=== PATIENT | female | born 1965 | race Caucasian/White ===

== ENCOUNTER → 2018-06-26 01:21 | Outpatient (CLI) | payer OTHER, SELFPAY ==
[2018-06-26 17:20] LABS: HCT 42.5 % (36.0-46.0); HGB 15.1 g/dL (12.0-15.5); Mean Corp. HGB Concentration 35.5 g/dL (32.0-36.0); Mean Corpuscular Hemoglobin 31.4 pg (27.0-33.0); Mean Corpuscular Volume 88.4 fL (80-95); Platelet Count 226 x1000/uL (130-400); RBC 4.81 m/cumm (4.00-5.20); RBC Distribution Width 12.5 % (11.7-14.6); White Blood Cell Count 12.15 k/cumm (4.4-10.8)
[2018-06-26 18:21] LABS: COMMENT (LAB VIEW ONLY) 104.48 mg/dL; Microalb ug/mg Crea 6.3 ug/mg Cr
[2018-06-26 18:33] LABS: ALT 56 U/L (12-78); AST 40 U/L (15-37); Albumin 4.5 g/dL (3.4-5.0); Alkaline Phosphatase 74 U/L (46-116); Anion Gap 13.3 mmol/L (3-11); BUN 14 mg/dL (7-18); Bilirubin, Total 1.7 mg/dL (0.2-1.0); CO2 27.7 mmol/L (21.0-32.0); CREATININE 0.71 mg/dL (0.55-1.02); Calcium 9.5 mg/dL (8.5-10.1); Chloride 101 mmol/L (98-107); Cholesterol 157 mg/dL (50-200); Glucose 79 mg/dL (70-100); HDL Cholesterol 42 mg/dL (40-60); LDL CHOLESTEROL 98 mg/dL (<100); Potassium 3.4 mmol/L (3.5-5.1); Sodium 142 mmol/L (136-145); TSH (W/Ref FT4) 1.06 uIU/mL (0.358-3.74); Total Protein 7.7 g/dL (6.4-8.2); Triglyceride 160 mg/dL (30-150)
[2018-06-26 18:37] LABS: Folate > 20.0 ng/mL (8.6-20.0); Hemoglobin A1C 7.2 % (4.5-6.2)
== END ==
PROVIDERS: PCP Family Medicine; Visit Provider Family Medicine
DX: Z00.00 Encounter for general adult medical examination without abnormal findings (principal); E11.65 Type 2 diabetes mellitus with hyperglycemia; I10 Essential (primary) hypertension; E78.5 Hyperlipidemia, unspecified; R53.83 Other fatigue; G47.30 Sleep apnea, unspecified
CPT/HCPCS: 36415; 80053; 80061; 83721; 85027; 82043; 82570; 82746; 83036; 84443

== ENCOUNTER 2018-09-23 00:09 | Outpatient (CLI) | payer OTHER, SELFPAY ==
--- NOTE | 2018-09-23 08:07 | DI.MAMMO_ITS ---
SYMPTOMS/DIAGNOSIS: SCREENING, Z12.31 MAMMOGRAMS: Mammograms were interpreted according to the usual protocol including computer analysis with CAD system, tomosynthesis and C view imaging. The breast tissue is of moderate radiodensity. There is no evidence of a mass. Small densities in the lateral portion of the left breast are unchanged and may represent intramammary lymph nodes. There are no suspicious calcifications and there has been no significant interval change when compared with the prior images. SUMMARY: No evidence of malignancy, category 2. Yearly screening mammography is recommended. Breast density category B. MQSA ASSESSMENT OF FINDINGS: Negative with benign findings. Category 2. Patient will receive a letter notifying them of these results. BI-RADS category B. There are scattered areas of fibroglandular density.
== END 2018-09-23 00:29 ==
PROVIDERS: PCP Family Medicine; Visit Provider Family Medicine
DX: Z12.31 Encounter for screening mammogram for malignant neoplasm of breast (principal)
CPT/HCPCS: 77063; 77067

== ENCOUNTER 2018-10-08 01:53 | Outpatient (CLI) | payer OTHER, SELFPAY ==
[2018-10-08 08:16] LABS: Hemoglobin A1C 6.7 % (4.5-6.2)
== END 2018-10-08 02:13 ==
PROVIDERS: PCP Family Medicine; Visit Provider Family Medicine
DX: E11.65 Type 2 diabetes mellitus with hyperglycemia (principal)
CPT/HCPCS: 36415; 83036

== ENCOUNTER 2019-01-09 17:04 | Outpatient (CLI) | payer OTHER, SELFPAY ==
[2019-01-09 18:51] LABS: Hemoglobin A1C 5.4 % (4.5-6.2)
== END 2019-01-09 17:24 ==
PROVIDERS: PCP Family Medicine; Visit Provider Nurse Practitioner
DX: E11.65 Type 2 diabetes mellitus with hyperglycemia (principal)
CPT/HCPCS: 36415; 83036

== ENCOUNTER 2019-07-06 12:32 | Outpatient (CLI) | payer OTHER, SELFPAY ==
[2019-07-06 17:07] LABS: HCT 39.8 % (36.0-46.0); HGB 13.9 g/dL (12.0-15.5); Mean Corp. HGB Concentration 34.9 g/dL (32.0-36.0); Mean Corpuscular Volume 88.8 fL (80-95); Mean Platelet Volume 11.1 fL (8.0-11.0); Platelet Count 217 x1000/uL (130-400); RBC 4.48 m/cumm (4.00-5.20); RBC Distribution Width 12.3 % (11.7-14.6); White Blood Cell Count 9.99 k/cumm (4.4-10.8)
[2019-07-06 17:19] LABS: Hemoglobin A1C 6.6 % (4.5-6.2)
[2019-07-06 17:43] LABS: ALT 36 U/L (12-78); AST 19 U/L (15-37); Albumin 3.7 g/dL (3.4-5.0); Alkaline Phosphatase 83 U/L (46-116); Anion Gap 7.4 mmol/L (3-11); BUN 14 mg/dL (7-18); Bilirubin, Total 0.9 mg/dL (0.2-1.0); CO2 27.6 mmol/L (21.0-32.0); CREATININE 0.66 mg/dL (0.55-1.02); Calcium 8.8 mg/dL (8.5-10.1); Chloride 107 mmol/L (98-107); Glucose 81 mg/dL (70-100); Sodium 142 mmol/L (136-145); TSH (W/Ref FT4) 1.59 uIU/mL (0.36-3.74); Total Protein 6.4 g/dL (6.4-8.2)
== END 2019-07-06 12:52 ==
PROVIDERS: PCP Family Medicine; Visit Provider Family Medicine
DX: E11.65 Type 2 diabetes mellitus with hyperglycemia (principal); I10 Essential (primary) hypertension; R53.83 Other fatigue
CPT/HCPCS: 36415; 80053; 85027; 83036; 84443

== ENCOUNTER 2019-07-07 08:08 | Emergency (ER) | payer OTHER, SELFPAY ==
[2019-07-07] VITALS (20 sets, daily range): BP systolic 127–149; BP diastolic 66–121; PULSE 60–75; RESP 10–62; O2SAT 93–97
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
--- NOTE | 2019-07-07 08:46 | NUR.NOTE ---
Nursing Note: pt ready for CT. pt educated on plan of care. understanding verbalized.
[2019-07-07 08:51] LABS: Abs Immature Grans 0.02 k/cumm (0.0-0.09); Absolute Basophil Count 0.02 k/cumm (0.0-0.2); Absolute Eosinophil Count 0.17 k/cumm (0.0-0.7); Absolute Lymphocyte Count 2.51 k/cumm (1.2-3.4); Absolute Monocyte Count 0.43 k/cumm (0.11-0.7); Absolute Neutrophil Count 5.28 k/cumm (1.2-6.7); Basophils % 0.2; HCT 40.3 % (36.0-46.0); Immature Grans % 0.2; Lymphocytes % 29.8; Mean Corp. HGB Concentration 34.7 g/dL (32.0-36.0); Mean Corpuscular Hemoglobin 31.2 pg (27.0-33.0); Mean Corpuscular Volume 89.8 fL (80-95); Monocytes % 5.1; Neutrophils % 62.7; Platelet Count 197 x1000/uL (130-400); RBC 4.49 m/cumm (4.00-5.20); RBC Distribution Width 12.3 % (11.7-14.6); White Blood Cell Count 8.43 k/cumm (4.4-10.8)
[2019-07-07] MEDS: Acetaminophen 500 MG TAB 1000 MG PO (09:00)
[2019-07-07 09:08] LABS: Prothrombin Time 10.4 sec (9.3-11.0)
[2019-07-07 09:21] LABS: ALT 35 U/L (12-78); AST 19 U/L (15-37); Albumin 3.6 g/dL (3.4-5.0); Alkaline Phosphatase 78 U/L (46-116); Anion Gap 10.7 mmol/L (3-11); BUN 17 mg/dL (7-18); Bilirubin, Total 1.1 mg/dL (0.2-1.0); CO2 24.3 mmol/L (21.0-32.0); CREATININE 0.75 mg/dL (0.55-1.02); Calcium 9.2 mg/dL (8.5-10.1); Chloride 105 mmol/L (98-107); Glucose 139 mg/dL (70-100); Magnesium 1.7 mg/dL (1.8-2.4); Sodium 140 mmol/L (136-145); Total Protein 6.8 g/dL (6.4-8.2); Troponin I < 0.05 ng/mL (0.00-0.06)
--- NOTE | 2019-07-07 09:24 | NUR.NOTE ---
Nursing Note: pt returned from ct. resting in stretcher. no signs of distress. pt states that her dizziness has resolved.
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
--- NOTE | 2019-07-08 05:11 | NUR.NOTE ---
Nursing Note: faxed referal 07/08/19
== END 2019-07-07 10:07 | disposition home or self-care (01) ==
PROVIDERS: Emergency Provider Emergency Medicine; PCP Family Medicine
DX: R42 Dizziness and giddiness (principal); G47.30 Sleep apnea, unspecified; M54.2 Cervicalgia; V48.5XXA Car driver injured in noncollision transport accident in traffic accident, initial encounter; I10 Essential (primary) hypertension; E11.9 Type 2 diabetes mellitus without complications; Z79.84 Long term (current) use of oral hypoglycemic drugs
CPT/HCPCS: 36415; 80053; 93005; 99285; 70450; 72125; 83735; 84484; 85025; 85610; 85730; 93010

== ENCOUNTER 2019-11-15 07:35 | Outpatient (CLI) | payer OTHER, SELFPAY ==
[2019-11-16 04:03] LABS: Hemoglobin A1C 6.3 % (4.5-6.2)
== END 2019-11-15 07:55 ==
PROVIDERS: PCP Family Medicine; Visit Provider Family Medicine
DX: E11.9 Type 2 diabetes mellitus without complications (principal)
CPT/HCPCS: 36415; 83036

== ENCOUNTER → 2020-09-05 02:08 | Outpatient (CLI) | payer BC, SELFPAY ==
[2020-09-05 12:59] LABS: ALT 41 U/L (14-59); AST 19 U/L (15-37); Albumin 3.8 g/dL (3.4-5.0); Alkaline Phosphatase 108 U/L (46-116); Anion Gap 12.8 mmol/L (3-11); BUN 14 mg/dL (7-18); CO2 26.2 mmol/L (21.0-32.0); CREATININE 0.74 mg/dL (0.55-1.02); Calcium 8.9 mg/dL (8.5-10.1); Calculated LDL 82 mg/dL (<100); Chloride 104 mmol/L (98-107); Cholesterol 160 mg/dL (<200); Glucose 214 mg/dL (74-106); HDL Cholesterol 44 mg/dL (40-60); Potassium 4.2 mmol/L (3.5-5.1); Sodium 143 mmol/L (136-145); Total Protein 6.7 g/dL (6.4-8.2); Triglyceride 174 mg/dL (<150)
[2020-09-05 13:11] LABS: Hemoglobin A1C 8.7 % (<5.7)
== END ==
PROVIDERS: PCP Family Medicine; Visit Provider Family Medicine
DX: Z00.00 Encounter for general adult medical examination without abnormal findings (principal); E11.9 Type 2 diabetes mellitus without complications; Z13.220 Encounter for screening for lipoid disorders
CPT/HCPCS: 36415; 80053; 80061; 83036

== ENCOUNTER → 2020-11-23 02:58 | Outpatient (CLI) | payer BC, SELFPAY ==
[2020-11-23 08:22] LABS: Hemoglobin A1C 7.2 % (<5.7)
[2020-11-23 08:34] LABS: COMMENT (LAB VIEW ONLY) 150.09 mg/dL; Microalb ug/mg Crea 5.3 ug/mg Cr
== END ==
PROVIDERS: PCP Family Medicine; Visit Provider Family Medicine
DX: E11.65 Type 2 diabetes mellitus with hyperglycemia (principal)
CPT/HCPCS: 36415; 82043; 82570; 83036

== ENCOUNTER 2020-12-21 01:49 | Outpatient (CLI) | payer BC, SELFPAY ==
--- NOTE | 2020-12-21 08:00 | DI.MAMMO_ITS ---
EXAM: MAMMO SCREENING CLINICAL HISTORY: screening,Z12.39 TECHNIQUE: Mammograms were interpreted according to the usual protocol including computer analysis w [employer] CAD system, tomosynthesis and C-view imaging. COMPARISON: 2010 through 2017 FINDINGS: The breasts are composed of mainly fatty density , Breast Density category A. No suspicious masses or suspicious microcalcifications are seen. No skin thickening or abnormal axillary lymph nodes are seen. There has been no significant change from prior exams. IMPRESSION: BI-RADS Category 1, Negative mammogram Yearly screening mammography is recommended. Breast Density - Category A, fatty density. A negative radiographic report should not delay biopsy if a dominant or clinically suspicious mass is present. Up to ten percent of cancers are not identified on mammography. A negative report may reinforce clinical impression. Adenosis and dense breasts may obscure an underlying neoplasm. False positive reports average 6 to 10%. Patient will receive a letter notifying them of these results.
== END 2020-12-21 02:09 ==
PROVIDERS: PCP Family Medicine; Visit Provider Family Medicine
DX: Z12.31 Encounter for screening mammogram for malignant neoplasm of breast (principal)
CPT/HCPCS: 77063; 77067

== ENCOUNTER 2021-03-21 03:32 | Outpatient (CLI) | payer BC, SELFPAY ==
[2021-03-21 08:38] LABS: Hemoglobin A1C 7.6 % (<5.7)
== END 2021-03-21 03:33 | disposition home or self-care (01) ==
LOC: LBO 03:32
PROVIDERS: PCP Family Medicine; Visit Provider Family Medicine
DX: E11.9 Type 2 diabetes mellitus without complications (principal)
CPT/HCPCS: 36415; 83036

== ENCOUNTER 2021-08-16 00:18 | Outpatient (CLI) | payer BC, SELFPAY ==
[2021-08-16 12:53] LABS: Hemoglobin A1C 7.6 % (<5.7)
== END 2021-08-16 00:19 | disposition home or self-care (01) ==
PROVIDERS: PCP Family Medicine; Visit Provider Family Medicine
DX: E11.9 Type 2 diabetes mellitus without complications (principal)
CPT/HCPCS: 36415; 83036

== ENCOUNTER 2021-11-15 03:07 | Outpatient (CLI) | payer BC, SELFPAY ==
[2021-11-15 11:32] LABS: Hemoglobin A1C 7.1 % (<5.7)
[2021-11-15 13:17] LABS: ALT 35 U/L (14-59); AST 20 U/L (15-37); Albumin 4.2 g/dL (3.4-5.0); Alkaline Phosphatase 82 U/L (46-116); Anion Gap 9.2 mmol/L (3-11); BUN 11 mg/dL (7-18); Bilirubin, Total 1.3 mg/dL (0.2-1.0); CO2 28.8 mmol/L (21.0-32.0); CREATININE 0.7 mg/dL (0.55-1.02); Calcium 9.7 mg/dL (8.5-10.1); Calculated LDL 66 mg/dL (<100); Chloride 103 mmol/L (98-107); Cholesterol 147 mg/dL (<200); Glucose 129 mg/dL (74-106); HDL Cholesterol 54 mg/dL (40-60); Potassium 4.5 mmol/L (3.5-5.1); Sodium 141 mmol/L (136-145); Triglyceride 135 mg/dL (<150)
== END 2021-11-15 03:08 | disposition home or self-care (01) ==
PROVIDERS: PCP Family Medicine; Visit Provider Family Medicine
DX: E11.65 Type 2 diabetes mellitus with hyperglycemia (principal); E78.5 Hyperlipidemia, unspecified; I10 Essential (primary) hypertension
CPT/HCPCS: 36415; 80053; 80061; 83036

== ENCOUNTER 2022-01-10 02:28 | Outpatient (CLI) | payer BC, SELFPAY | END 2022-01-10 02:29 | disposition home or self-care (01) | LOC: LBO 02:28 | PROVIDERS: PCP Family Medicine; Visit Provider Family Medicine | DX: E11.9 Type 2 diabetes mellitus without complications (principal) | CPT/HCPCS: 36415; 82043; 82570; 83036 ==

== ENCOUNTER 2022-01-15 18:34 | Outpatient (REF) | payer BC, SELFPAY ==
[2022-01-15 20:10] LABS: COMMENT (LAB VIEW ONLY) 97.19 mg/dL; Microalb ug/mg Crea 3.7 ug/mg Cr
== END 2022-01-15 18:35 | disposition home or self-care (01) ==
LOC: LBN 18:34
PROVIDERS: PCP Family Medicine; Visit Provider Family Medicine
DX: E11.9 Type 2 diabetes mellitus without complications (principal)
CPT/HCPCS: 82043; 82570

== ENCOUNTER 2022-01-23 01:26 | Outpatient (CLI) | payer BC, SELFPAY ==
--- NOTE | 2022-01-23 07:30 | DI.MAMMO_ITS ---
Exam(s) MAMMO SCREENING EXAM: MAMMO SCREENING CLINICAL HISTORY: screening,z12.39 TECHNIQUE: Bilateral full field digital CC and MLO mammographic images were obtained with 3D tomosyn thesis and utilizing computer aided detection (CAD). COMPARISON: Available for comparison. FINDINGS: Masses/Architectural Distortion: None seen. Microcalcifications: No suspicious pleomorphic-type are seen. Skin Thickening/Nipple Retraction: None. IMPRESSION: 1. No significant interval change with no specific features of malignancy noted. 2. Unless there is more urgent need, screening mammography is recommended, as per [employer] guidelines. BI-RADS Category 1 - Negative Breast Density - Category B - Scattered areas of fibroglandular density Breast density category C or D implies that the patient has dense breast tissue. Dense breast tissue is very common and is not abnormal but dense breast tissue can make it harder to find cancer on a ma mmogram. Also, dense breast tissue may increase their breast cancer risk. This information about the result of the mammogram report was provided to the patient to raise their awareness. Use this report when you speak with the patient about their risks for breast cancer, which includes their family hist ory. At that time, you may recommend for more screening tests (Ultrasound or MRI) as they might be us eful based on their risk. A negative radiographic report should not delay biopsy if a dominant or clinically suspicious mass is present. Up to ten percent of cancers are not identified on mammography. A negative report may reinforce clinical impression. Adenosis and dense breasts may obscure an underlying neoplasm. False positive reports average 6 to 10%. Patient will receive a letter notifying them of these results.
== END 2022-01-23 01:46 ==
PROVIDERS: PCP Family Medicine; Visit Provider Family Medicine
DX: Z12.31 Encounter for screening mammogram for malignant neoplasm of breast (principal)
CPT/HCPCS: 77063; 77067

== ENCOUNTER 2022-07-13 01:03 | Outpatient (CLI) | payer OTHER, SELFPAY ==
--- OUTSIDE RECORDS SUMMARY | 2022-07-13 01:09 | XMS_ITS | Encounter Summary ---
:1965 Author Organization [facility] Address [address] [place] [address] Care Team Providers Name Role Phone Jaja Mason MD Primary Care Provider Reason for Visit Reason Comments Right Hand Pain Encounter Details Date Type Department Care Team Description 12/03/2011 Office Visit Orthopaedics at [facility] [place] Kristian Oneal, Carpal tunnel [facility] syndrome of right [address] [facility] (Primary Dx) [place] [address] [phone] ORTHOPAEDIC SURGERY [place], [place] [address] Social History Tobacco Use Types Packs/Day Years Used Date Never Smoker Alcohol Use Standard Drinks/Week Comments Yes 0 (1 standard drink = 0.6 oz pure alcoho l) very rarely Sex Assigned at Date Recorded Not on file documented as of this encounter Last Filed Vital Signs Vital Sign Reading Time Taken Comments Blood Pressure 130/71 12/03/2011 2:56 PM EST Pulse - - Temperature - - Respiratory Rate - - Oxygen Saturation - - Inhaled Oxygen Concentration - - Weight 117.9 kg (260 lb) 12/03/2011 2:56 PM EST Height 165.1 cm (5' 5) 12/03/2011 2:56 PM EST Body Mass Index 43.27 12/03/2011 2:56 PM EST documented in this encounter Progress Notes Kristian Oneal MD - 12/10/2011 7:45 AM EST Addended by: KRISTIAN ONEAL on: 12/10/2011 Modules accepted: Level of Service Estefani Asif RN - 12/03/2011 4:17 PM EST Pre op teaching done for endoscopic carpal tunnel release. Emphasis placed on post op hand elevationwith hand above heart,fingers above palm,palm above wrist and wrist above elbow. Discussed importance of fluttering fingers while original dressing on and fully flexing and extending fingers when Band-Aid in place. Stressed no lifting of operative hand. Reviewed suggestions for taking post op pain medication. Questions solicited and answered to patient satisfaction. Written material provided. Patient knows to call with any additional questions or concerns. Kirill Eagle MD - 12/03/2011 3:53 PM EST DATE OF : 1965 ATTENDING PHYSICIAN: Kristian Oneal M.D. CHIEF COMPLAINT: Right hand numbness. HISTORY OF PRESENT ILLNESS: Mrs. 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 She was sent for thisconsultation by JAJA MASON MD. The patient reports that this initially started approximately six months ago, but has gotten worse recently. She was seen by her PCP who referred her to neurology for EMG studies, which were consistent with carpal tunnel syndrome. She presents today to the hand clinic for further evaluation and treatment option discussion. She denies any fevers or chills. She reports she has attempted wrist splints, but that does not help. She reports positive tingling that is generally worse in the morning when she first wakes up. She denies any symptoms in her left hand. MEDICATIONS: Medications include simvastatin, estradiol, glipizide, metformin, paroxetine, and hydrochlorothiazide. ALLERGIES: NO KNOWN DRUG ALLERGIES. MEDICAL CONDITIONS: Diabetes, high blood pressure, high cholesterol, and depression. SURGERIES: Hysterectomy, section x2, and cholecystectomy. SOCIAL HISTORY: The patient does not smoke or drink. 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 She is . FAMILY HISTORY: Family history includes diabetes and heart problems. Her father of heart disease at age 55, and she has a nephew who of heart disease at age 45. There is also high blood pressure in the family that father has. REVIEW OF SYSTEMS: Review of systems is positive for irritable bowel syndrome, diarrhea, as well as hot flashes. Other than that, her review of systems is negative for all 12 systems with the exception of the past medical history as described above. PHYSICAL EXAMINATION: On physical exam, she is afebrile. Her vital signs are stable. She is in no apparent distress. She had a regular rate and rhythm per palpation with normal breath sounds and no audible wheezes. She had sensation intact to medial, ulnar, and radial nerve root distributions. She had a positive Tinel's and a positive Phalen's test in her right hand. She had a palpable radial pulse. She had good capillary refill to her hand, both through the ulna and the radial artery. The EMG studies show motor latency 5.25 ms and F wave of 34.75 seconds. ASSESSMENT AND PLAN: 46-year-old female with history, physical exam, and EMG studies consistent with carpal tunnel syndrome of the right. A long discussion was held with the patient with regards to treatment options, both conservative and operative management. After discussion of the pros and cons of operative management, the patient wished to undergo surgery. She was booked for outpatient surgery for carpal tunnel syndrome. This will likely be done endoscopically and the patient will require to be out of work for four to six weeks at that time. Consent was obtained in the office. We will plan to schedule that at this time. She will see her primary care physician for preoperative evaluation prior to the surgery. The patient was instructed to call with any questions or concerns. I examined Jackie Bates and I agree with Dr. Simon' Note. She is aware that carpal tunnel release is usually done endoscopically, but that an open procedure is occasionally required. She is also aware that the surgical risks include but are not limited to infection, neurovascular or tendon injury, incomplete or no relief of her symptoms, pillar pain, hot bread baker weakness and recurrence. She understands and wishes to proceed with right carpal tunnel release. KRISTIAN ONEAL MD CC. Jaja Mason MD documented in this encounter Miscellaneous Notes Miscellaneous - Jimenez, Station Chief - 12/12/2011 9:40 AM EST Miscellaneous - Jimenez, Station Chief - 12/10/2011 1:41 PM EST Miscellaneous - Jimenez, Station Chief - 12/07/2011 9:07 AM EST documented in this encounter Plan of Treatment Not on filedocumented as of this encounter Visit Diagnoses Diagnosis Carpal tunnel syndrome of right wrist - Primary Carpal tunnel syndrome documented in this encounter Care Teams Hand Ironer Relationship Specialty Start Date End Date Jaja Mason MD PCP - General 10/30/[address] [place] [address] documented as of this encounter
--- OUTSIDE RECORDS SUMMARY | 2022-07-13 01:09 | XMS_ITS | Encounter Summary ---
:1965 Author Organization [facility] [place] [address] Care Team Providers Name Role Phone Jaja Mason MD Primary Care Provider Reason for Referral Consultation (Routine) - Closed Specialty Diagnoses / Procedures Referred By Contact Refer red To Contact Gastroenterology Diagnoses Steatohepatitis Estefani Ahn APRN Gallant, Daniel M, PA [facility] [address] [place] [id number] [place] [address] Referral ID Status Reason Start Date Expiration Date Visits V isits Requested Authorized [id number] Closed Consult, 12/01/2018 12/01/2019 1 1 Test & Treat Reason for Visit Reason Comments Follow Up Surgery Encounter Details Date Type Department Care Team Description 12/01/2018 Office Visit General Surgery at Estefani Ahn APRN [facility] [place] [address] S/P bariatric surgery; [facility] Elidia Or[address] [facility] [place] [address] [place] [address] Social History Tobacco Use Types Packs/Day Years Used Date Never Smoker Smokeless Tobacco: Never Used Alcohol Use Standard Drinks/Week Comments Yes 0 (1 standard drink = 0.6 oz pure alcoho l) very rarely Sex Assigned at Date Recorded Not on file documented as of this encounter Last Filed Vital Signs Vital Sign Reading Time Taken Comments Blood Pressure 148/60 12/01/2018 9:55 AM EST Pulse 88 12/01/2018 9:55 AM EST Temperature 36.7 ??C (98.1 ??F) 12/01/2018 9:55 AM EST Respiratory Rate 16 12/01/2018 9:55 AM EST Oxygen Saturation 98% 12/01/2018 9:55 AM EST Inhaled Oxygen Concentration - - Weight 100.8 kg (222 lb 3.2 oz) 12/01/2018 9:55 AM EST Height - - Body Mass Index 39.05 09/01/2018 10:08 AM EDT documented in this encounter Patient Instructions Patient InstructionsElidia Ornelas RD - 12/01/2018 9:00 AM EST Bariatric Surgery Program First Post-operative Follow up visit Contact information: [facility] student support counselor: Caitlin: [phone] and Ros [phone] Dietitians: [phone] Surgeons/ nurse practitioners: [phone] Nurse line: [phone] Next follow up visit: at 4 months post-op. Testing: Labwork will be done at your 4 month post op check. If you have labwork done by your primary physician primary care sports medicine before that date, please have a copy sent to the Bariatric Surgery Program. Post surgery Medications: 1. Medication to prevent ulcer, as prescribed prior to surgery, needs to continue until you are at least 3 months post surgery, or as indicated by your primary care doctor. 2. If you continue to have diarrhea you can try the questran as needed that Dr Viveros ordered for you rather than other antidiarrheals. Avoid concentrated sweets. Vitamin and mineral supplementation recommendations: The following vitamins are recommended: ??? Multivitamins with minerals daily- Procare one pill daily. ??? Vitamin B12 500 mcg by mouth once daily- This is in the Procare so you do not need to take additional B12. ??? Calcium citrate 600 mg with Vitamin D 400 units twice daily (2 pills twice a day) ??? Stay off fish oil for another 2 months Nutrition recommendations: - Restart tracking. Your goal is to meet protein needs at meals and then decrease snacks/protein drinks between meals. - Be careful with added sugars and high fat foods. These may be contributing to your diarrhea. - Send me the label for the Powerful bites and your coffee drink. - Your Daily Goals: ?? 3 meals per day. Snacks if physically hungry or you need to increase your protein and/or calories(choose protein and/or fruit) ?? 60 grams protein per day (20 grams per meal) ?? 48-64 oz of non-caloric and hydrating fluids per day (6-8, 8 oz cups) Activity: ??? Aim for 30 minutes of exercise daily, 5 days a week of both cardio and strength training exercises. Alcohol: is not recommended for at least 6-12 months after surgery. It should be used sparingly, no more than one drink per occasion. Alcohol is a source of empty calories and can cause ulcers and vitamin and mineral deficiencies. Studies have noted that there is an increased risk of alcohol dependence after surgery. Hair Loss: is associated with rapid weight loss and is seen approximately 3 to 6 months after surgery and can last 3 to 6 months. It is almost always temporary. Eating a healthy diet with 60 grams of protein per day and taking your multivitamin with minerals will help. control for women of child bearing age: is recommended for at least 18-24 months after surgery. Call us: ??? If you have concerns. ??? If you have unexplained abdominal pain. ??? if you see blood in your stool or vomit blood ??? If you have prolonged vomiting Post Surgery Support Group: Our post surgery support group meets on the first Saturday of every month from 1-2 PM at [facility] Nutrition and Activity apps- Baritastic, My Fitness Pal, Lose It Internet resources: www.MyFit www.AeroDynEnergy www.bariatriceaTicket Evolution.[employer] www.[employer]/blog [facility] facebook page: https://www.facebook.com/[email or web address] Books & Magazines: - Recipes for Life After Weight Loss Surgery by Kassie Gonzalez - Shrink Yourself by Dr Rolando Amaral - Eating Well - Cooking Light documented in this encounter Progress Notes Estefani Ahn APRN - 12/01/2018 9:00 AM EST Reason for visit: First post-operative check S/P laparoscopic Dixie-en-Y gastric bypass with Intraoperative Wedge Liver Biopsy and Upper Endoscopy 11/13/2018 ?? Complications summary: Early none Late - Visits summary: Compliance with [facility] follow up: good Attendance at [facility] post-operative graduate support group meetings:none Pre-op 09/01/2018 Wt (lbs) 250.3 BMI 44 Visit #2 WT: HT: 63.25 Post-op %EBW lost Supplement compliance Labwork 12/01/2018 222 39 26 Good, see RD note -none indicated today Next visit with lab: Patient Active Problem List Diagnosis Code ??? Carpal tunnel syndrome of right wrist G56.01 ??? Obstructive sleep apnea G47.33 ??? Diabetes mellitus E11.9 ??? Essential hypertension I10 ??? Obesity, Class III, BMI 40-49.9 (morbid obesity) E66.01 Past Surgical History: Procedure Laterality Date ??? PRO LAP GASTRIC BYPASS/DIXIE-EN-Y N/A 11/13/2018 @LAPAROSCOPIC GASTROPLASTY, (WRVU 29.4) performed by Brenda Viveros MD at [facility] MAIN OR ??? PRO UNLISTED LAPAROSCOPIC PX LVR N/A 11/13/2018 LAPAROSCOPIC LIVER BIOPSY (WRVU 16.52) performed by Brenda Viveros MD at [facility] MAIN OR ??? PRO UPPER GI ENDOSCOPY, DIAGNOSTIC N/A 11/13/2018 ENDOSCOPY, UPPER GI, DIAGNOSTIC, WITH OR WITHOUT SPECIMENS [facility] ??? PRO WRIST ARTHROSCOP, RELEASE XVERS LIG 12/26/2011 ENDOSCOPY WRIST W/ RELEASE TRANSVERSE CARPAL LIGAMENT performed by KRISTIAN HOGUE at [facility] OSC Hospital course: Jackie Bates is a 53 y.o. female who was admitted on 11/13/2018 for laparoscopic Dixie-en-Y gastric bypass with intraoperative wedge liver biopsy and upper endoscopy. The operative course was uneventful. On POD#1 she was started on a Gastric bypass stage I diet, and when she tolerated that she was advanced to a Gastric bypass stage II diet. 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 She was voiding without difficulty. On POD# 1 the dressings were dry and intact and the wounds were benign. She did not have a bowel movement prior to discharge and/but was passing flatus and taking PO without difficulty. Prior to discharge on POD#1 Jackie Bates was afebrile, with stable vital signs. On POD#1, she was discharged to home in stable condition. Visits to emergency department or other unplanned visit to a health care facility since surgery? None Subjective: Patient concerns at today's visit: Jackie returns for her first post surgery follow up. She has had some diarrhea most days and some food intolerances but she has been drinking a sweetened coffee drink daily and she did not do well with corned beef hash and scrambled eggs which were some of the first things she tried. Recommend she avoid sweetened beverages and heavy foods as it seems she may be having some symptoms of dumping. Dietary history/ exericse/ activity level: See dietitian note from today's visit for complete dietary evaluation. Primary care post op check: was seen and changed to meal time insulin slide scale, off HCTZ. On onlylosartan Wound issues: None Bowel issues: diarrhea, has had a couple of formed stools. Has questran that has not used yet. Has been drinking sweetened coffee drink daily. Urinary tract issues: none Post Bariatric Surgery Required Medications: Extended VTE prophylaxis post surgery completed 10 day course of enoxaparin without incident. Post-discharge narcotic analgesic use Took a few times post op, none since Ursodiol gallstone prophylaxis n/a PPI ulcer prophylaxis: Taking, no problems Review of Systems (negative if left blank): Constitutional: [] fatigue Neurologic: [] paresthesias CV: [x]treatment for hypertension or taking antihypertensive medication [x] treatment for hyperlipidemia Pulmonary: [] sleep apnea symptoms [x] treated for ALVERTO-has not been using much, sleeping fine GI: []GERD []dysphagia [] abdominal pain [] hernia [] nausea/vomiting [] blood in stool--reviewed liver biopsy, pt reports a remote history of hep C exposure. She believes she tested negative in the past. 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 year-old female who appears stated age, NAD Heart: S1S2 distinct, no extra sounds or murmurs . RRR Lungs: Clear all lobes A&P, effort minimal, pattern regular Abdomen: soft, non-tender, no masses, no rebound, +BS, . Abdominal trocar sites pink, closed, no discharge, no erythema, no heat Extremities: LE no edema, pulses present Vital signs: BP 148/60 Pulse 88 Temp 36.7 ??C (98.1 ??F) (Oral) Resp 16 Wt 100.8 kg (222 lb 3.2 oz) SpO2 98% BMI 39.05 kg/m?? Assessment: S/P bariatric surgery 3 weeks ago, with uneventful early post- operative course. Is having some diarrhea, recommend avoid sweetened drinks and avoid heavy foods, given some suggestions for some early stage 3 foods, recommend she try questran as ordered. If she continues to have diarrhea despite dietary changes and questran she will let me know and we can evaluate further. Reviewed red flagsx. Jackie verbalizes understanding. Steatohepatitis: reviewed liver biopsy result, reviewed with patient, referred to hepatology for further evaluation and recommendations. Plan: ?? advised to continue PPI therapy for another 2 months to decrease the risk of ulcer formation and avoid NSAIDs ?? dietary and supplement recommendations per dietitian at today's visit. ?? lifting restrictions: none ?? Next BSP follow up with labwork at 4 months post-operatively ?? Jackie is aware that alcohol is not recommended until 6-12 months post- operatively, and then should be used in small amounts, since it is a source of empty calories and may cause ulcers, and interfere with vitamin and mineral absorption. She was provided with a Bariatric Program Summary report which included the above written recommendations, as well as recommendations regarding vitamin and mineral supplementation, fluid intake and exercise. She is aware that she can call the Bariatric Surgery Program at any time with questions or concerns. RECOMMENDED BARIATRIC SURGERY PROGRAM POSTOPERATIVE FOLLOW-UP: Follow up: done at 4, 8,12 and 18 and 24 months, and yearly thereafter. High risk patients are evaluated on a more frequent basis. *Supplement recommendations: Multivitamin with minerals twice a day, B12 500 mcg once a day, calcium citrate 600 mg/400 units vitamin D twice a day, iron (ferrous fumarate, polysaccharide iron taken with vitamin C 250 mg once a day) for menstruating females or those with JULIETTE. Labwork: Hemogram, ferritin, iron (transferrin) saturation, iron., Vitamins: folate, B1, B12, D (25 hydroxy only), Intact PTH and comprehensive metabolic profile at 4, 12 and 24 months, and yearly. Prealbumin is done at 4 and 12 months and PRN. If labwork is done by the primary physician primary care sports medicine: please send a copy to the Bariatric Surgery Program, General Surgery Clinic, [facility], or fax [phone] Questions regarding [facility] Bariatric Surgery Program patients: please call [phone] - 12/01/2018 9:00 AM EST BSP Nutrition First Post-operative Follow up SUBJECTIVE: Topics Discussed/Patient Concerns: ?? Diet Stage II/III. Did not tolerate scrambled eggs and corned beef hash. ?? Still some fatigue but improving Social history: works FT @ [employer]; to [place] 2008; 2 children - son age 34 (lives in [place]- , 2 children); 26 yo dtr- lives at home ?? Social support: and dtr [employer] at 2 years post-op: improved health (DM and HTN), feel better about herself, live longer, have more energy Goal weight: 150-160#; felt good/normal at that weight OBJECTIVE: Date of Bariatric Surgery: 11/13/18 Type of Bariatric Surgery: Laparoscopic Dixie-en-Y Gastric Bypass Weight History: Date Weight (lbs) HT BMI Comments ? Highest Weight 08/05/17 241# 63.5 ?? Initial program weight 09/01/18 250.3# 63.25 44.0 1st pre-op visit 11/13/18?? 233.6#?? EWL % ?? Surgery ??12/01/18 ??222.2# 26% 39.1 1 month post-op ? 4 months post-op [place] Body Weight (based on BMI of 25): 143# Excess Weight: 98# 30-70% Excess Weight Loss: 173-212#; 50% Excess Weight Loss: 192# ?? MEDICATIONS: Vitamin/Mineral Supplements (reported by patient): Supplement Type Brand/Form Dosage/Amount Frequency Comments Multivitamin Procare Health 1 Pill daily Calcium Premier Value- citrate 2 pills daily Vitamin B12 500 mcg daily Iron Vitamin D3 Food Allergies/Intolerances: Scrambled eggs and corned beef hash Tracking Intake: No. When she does track she uses fat secret Daily Oral Intake: Has 3 Powerful Bites from [employer] as a snack. Has 1-2 Premier Protein drinks daily Breakfast Instant oatmeal AM Snack Jello Lunch soup PM Snack pudding Dinner Protein drink - Premier HS Snack Yogurt smoothie OR Powerful Bites Protein- grams/day: 45-50 Hydrating fluids - oz/day: 52 oz Soda: None ETOH: None Caffeine: 10 oz. Cappuccino (k-cup) Meals per day: 3 Other: ?? Feels full/satisfied after eating: yes ?? Spends at least 20 minutes eating each meal: yes ?? Vomiting/ regurgitation: None ?? Nausea: None ?? Constipation/diarrhea: + diarrhea since surgery. Did have solid BM on Saturday. Exercise: walking ASSESSMENT: Patient s/p bariatric surgery with 26% EWL. Overall pt is tolerating the diet well. Intolerance to scrambled eggs and corned beef hash which is common at this stage. Encouraged pt to start tracking in order to accurately calculate protein intake. Also rec. Focusing on protein at all meals and to use snacks as needed to meet 60 g protein goal. Fluid intake is adequate. Pt is taking the rec supplements. Suggested increasing calcium to 2 pills twice daily to meet rec intake. As for pt's diarrhea, pt notes she had diarrhea prior to surgery. ? If it may be mild dumping. Pt does have a cappuccino daily which may contain sugar. Encouraged pt to read entire food label not just protein content. ? If Powerful bites actually contain 30 g protein per 5 bites. Pt will send a picture of the label. PLAN: ?? Evaluation by Estefani Ahn APRN today. ?? Provided support/encouragement and reinforced importance of meeting nutritional goals. - pt to send picture of Powerful label as well as cappucino k-cup ?? Reviewed nutrition and vitamin and mineral supplement recommendations (see patient instructions). ?? Written recommendations provided. Patient agreed with these and verbalized adequate understanding. ?? Follow up at 4 months post surgery with labwork. documented in this encounter Plan of Treatment Scheduled Referrals Name Type Priority Associated Diagnoses Order S chedule Referral to Outpatient Routine Steatohepatitis Ordered: Gastroenterology Referral 12/01/2018 documented as of this encounter Visit Diagnoses Diagnosis S/P bariatric surgery Bariatric surgery status Steatohepatitis Other chronic nonalcoholic liver disease documented in this encounter Care Teams Operations Research Director Relationship Specialty Start Date End Date Jaja Mason MD PCP - General 10/30/11 [facility] [address] [place] [address] documented as of this encounter
--- OUTSIDE RECORDS SUMMARY | 2022-07-13 01:09 | XMS_ITS | Encounter Summary ---
:1965 Author Organization [facility] [place] [address] Care Team Providers Name Role Phone Jaja Mason MD Primary Care Provider Reason for Visit Auth/Cert Specialty Diagnoses / Procedures Referred By Contact Refer red To Contact Diagnoses Morbid (severe) obesity due to excess calories Obstructive sleep apnea (adult) (pediatric) Essential (primary) hypertension Type 2 diabetes mellitus with other diabetic kidney complication MORBID OBESITY Procedures PRO LAP GASTRIC BYPASS/DIXIE-EN-Y PRO UPPER GI ENDOSCOPY, DIAGNOSTIC @LAPAROSCOPIC GASTROPLASTY, (WRVU 29.4) ENDOSCOPY, UPPER GI, DIAGNOSTIC, WITH OR WITHOUT SPECIMENS Referral ID Status Reason Start Date Expiration Date Visits Requ ested Visits Authorized [id number] 1 1 Encounter Details Date Type Department Care Team Description 11/13/2018 - Hospital Encounter 4 [facility] Brenda James, 11/14/2018 [facility] [address] [place], [place] GENERAL SURGERY [id number] [place] [address] [phone] Social History Tobacco Use Types Packs/Day Years Used Date Never Smoker Smokeless Tobacco: Never Used Alcohol Use Standard Drinks/Week Comments Yes 0 (1 standard drink = 0.6 oz pure alcoho l) very rarely Sex Assigned at Date Recorded Not on file documented as of this encounter Last Filed Vital Signs Vital Sign Reading Time Taken Comments Blood Pressure 136/72 11/14/2018 4:12 PM EST Pulse 77 11/14/2018 4:10 AM EST Temperature 37.6 ??C (99.7 ??F) 11/14/2018 4:12 PM Tylenol g iven EST Respiratory Rate 20 11/14/2018 4:12 PM EST Oxygen Saturation 96% 11/14/2018 4:12 PM EST Inhaled Oxygen Concentration - - Weight 106 kg (233 lb 9.6 oz) 11/13/2018 6:38 AM EST Height - - Body Mass Index 41.05 09/01/2018 10:08 AM EDT documented in this encounter Discharge Summaries Scooter Calvo MD - 11/14/2018 6:32 AM EST Images from the original note were not included. General Surgery Discharge Summary Patient Name: Jackie Bates Patient Age: 53 y.o. Birthdate: 1965 Admit date: 11/13/2018 Discharge date and time: 11/14/2018 Attending Physician: Brenda James MD Primary Diagnosis: Morbid Obesity Secondary Diagnosis: IDDM; ALVERTO; HTN; HLP Operations and Procedures: Laparoscopic Dixie-en-Y Gastric Bypass with Intraoperative Wedge Liver Biopsy and Upper Endoscopy Surgeons: Surgeon(s) and Role: * Brenda James MD - Primary * Scooter Calvo MD - Resident-Roll Forming Machine Set Up Mechanic * Alex Cui MD - Fellow History of Present Illness: Jackie Horta is a 53 y.o. year-old female referred by Jaja Mason MD for consultation for consideration of surgical treatment of obesity. Her preferred procedure is a gastric bypass; possible sleeve gastrectomy. Jackie was advised that weight loss from both procedures depends on the ability to eat a healthy diet clinical transplant coordinator after surgery and was encouraged to reviewthe risks and benefits of both procedures in the [facility] handbook, as well as online via the [facility] website Jackie reports a history of obesity since the age of 19. Factors that she identifies as contributing to her obesity include genetics, overconsumption and inactivity. She denies binge eating, night eating disorder, self-induced vomiting, laxative or diuretic use or excessive exercise to lose weight. Conservative efforts at weight loss have been unsuccessful in the fdc. Hospital Course: Jackie Bates is a 53 y.o. female [...] changed to oral pain medications and the FIBER GLASS WORKER was discontinued on POD# 1. She [...] was discharged to home in stable condition. Vital Signs: Last value Range last 24hrs Temperature Temp: 37.6 ??C (99.7 ??F)(Tylenol given) Temp: [36.7 ??C (98.1 ??F)- 37.6 ??C (99.7 ??F)] Heart Rate Heart Rate: 77 Heart Rate: [72-80] Blood Pressure BP: 136/72 BP: (101-136)/(49-72) Respiratory Rate Resp: 20 Resp: [16-20] SpO2 SpO2: 96 % SpO2: [91 %-97 %] Pertinent Lab Data: Recent Labs 12/21/18 0433 WBC 11.6* HGB 12.4 HCT 35.4* PLATELET 204 Recent Labs 12/21/18 0433 BUN 11 CREATININE 0.66* Physical Exam: General: NAD, resting comfortably, pleasant, conversant HEENT: PERRL, anicteric sclerae CVS: RRR Pulm: CTAB Abd: soft, appropriately tender, non-distended. 6 port sites without evidence of edema, erythema or ecchymosis. No drainage or s/s of infection noted. : no problems with voiding Skin: warm, dry Ext: no c/c/e Neuro: CN 2-12 grossly intact, nonfocal,moving all four extremities spontaneously Imaging: No results found. Condition at discharge: Stable Mental Status: awake and alert, oriented x 3 Medications: Your Medications New Medications Dose Details acetaminophen 650 mg/20.3 mL Soln Commonly known as: TYLENOL Take 20.3 mLs by mouth every 4 hours. 650 mg Refills: 0 ondansetron 4 mg Tbdl Commonly known as: ZOFRAN-ODT Take 1 tablet by mouth every 8 hours as needed. 4 mg Quantity: 9 tablet Refills: 0 oxyCODONE 5 mg/5 mL Soln Commonly known as: ROXICODONE Take 5 mLs by mouth every 4 hours as needed for Pain. 5 mg Quantity: 50 mL Refills: 0 Continued medications, unchanged Dose Details aspirin 81 mg Tbec Take 81 mg by mouth daily. 81 mg Refills: 0 Biotin 2,500 mcg Cap Take by mouth. Refills: 0 calcium-vitamin D3 600 mg calcium- 400 unit Tab Take by mouth. Refills: 0 Cholestyramine-Aspartame 4 gram Powd Commonly known as: QUESTRAN LIGHT Take 4 g by mouth 4 times daily as needed. 4 g Quantity: 239.4 g Refills: 12 enoxaparin 40 mg/0.4 mL Syrg Commonly known as: LOVENOX Inject 0.4 mLs subcutaneously 2 times daily for 10 days. Start at discharge, surgery 11/13/2018 40 mg Quantity: 8 mL Refills: 0 fish oil-omega-3 fatty acids 1,000 mg Cap Take 2 g by mouth daily. 2 g Refills: 0 humaLOG KwikPen Inpn Inject 18 Units subcutaneously 3 times daily (before meals). Indications: type 2 diabetes mellitus, typically using 18-24 units per meal, slide scale Generic drug: insulin lispro 18 Units Refills: 1 * metFORMIN 1,000 mg Tab Commonly known as: GLUCOPHAGE Take 1,000 mg by mouth 2 times daily (with meals). 1000 mg Refills: 0 * metFORMIN 500 mg Tab Commonly known as: GLUCOPHAGE Take 500 mg by mouth daily. 500 mg Refills: 0 multivitamin Cap Take 1 capsule by mouth daily. 1 capsule Refills: 0 omeprazole 20 mg Cpdr Commonly known as: PriLOSEC Take 1 capsule by mouth daily for 90 days. Start at discharge to prevent ulcer. Take 30 minutes before breakfast 20 mg Quantity: 90 capsule Refills: 1 PARoxetine 20 mg Tab Commonly known as: PAXIL Take 20 mg by mouth every morning. 20 mg Refills: 0 simvastatin 20 mg Tab Commonly known as: ZOCOR Take 20 mg by mouth nightly. 20 mg Refills: 0 * This list has 2 medication(s) that are the same as other medications prescribed for you. Read thedirections carefully, and ask your doctor or other care provider to review them with you. STOPPED Medications JANUVIA 100 mg Tab Generic drug: sitaGLIPtin LANTUS SOLOSTAR U-100 INSULIN 100 unit/mL (3 mL) pen Generic drug: insulin glargine losartan-hydrochlorothiazide 50-12.5 mg Tab Commonly known as: HYZAAR Disposition: Home Allergies: Allergies Allergen Reactions ??? Lisinopril ??? Unable To Find [Unclassified Drug] Kiwi fruit Outpatient Services/Studies: No discharge procedures on file. Scheduled Appointments: Future Appointments and Orders Future Appointments and Orders Future Appointments Provider Department Dept Phone 12/01/2018 9:00 AM Elidia Ornelas LD; Estefani Ahn APRN [facility] [place] Arrive at: [facility] [phone] 03/06/2019 10:00 AM Sharon Baird LD; Estefani Ahn APRN [facility] [place] Arrive at: [facility] [phone] Instructions Given to Patient at Discharge: BARIATRIC SURGERY DISCHARGE INFORMATION BARIATRIC SUPPORT TEAM CONTACT NUMBERS (Mon-Fri 8am - 5pm): General Surgery and Bariatric Surgery [phone] Bariatric Surgeons: Doctors. Manny Singh [phone] Retail Product Demo Specialist: [phone] Dietitians: [phone] Outside of regular business hours, including weekends and holidays: Ask for General Surgery resident distribution associate [phone] FOR EMERGENCIES: CALL 911 (trouble breathing, chest pain, rapid heart rate >120 beats per minute or severe abdominal pain) CALL THE BARIATRIC TEAM FOR ANY OF THE FOLLOWING: ?? Signs and symptoms of infection such as: - Redness or swelling or new significant drainage from wounds - Drainage or bleeding from wounds - Fever over 101 degrees Fahrenheit, or shaking chills ?? Persistent diarrhea or vomiting or inability to keep down food or fluids down in a 24 hour period. ?? Signs / symptoms of a blood clot: leg swelling, redness, or pain, shortness of breath ?? Problems with urination or constipation, worsening abdominal pain not controlled with pain medication ?? Any concerns you may have after your surgery Follow up Information: You have a surgical followup appointment with The Bariatric Surgery Team in 3 weeks at the General Surgery Outpatient [facility] ([facility] [address], [facility]). Future Appointments Date Time Provider Department Center 12/01/2018 9:00 AM Estefani Ahn APRN [facility] 03/06/2019 10:00 AM Estefani Ahn APRN [facility] BATHING AND WOUND CARE: ?? You may shower 2 days after surgery ?? Wash incisions with unscented mild soap ?? Rinse, pat dry and leave open to air. ?? Remove Steri-strips if they don't fall off by 7-10 days after discharge. Pat dry if they become wet. ?? Do not soak wound (no baths, no swimmings) for 3 weeks after surgery ACTIVITY, LIFTING AND DRIVING: ?? For laparoscopic surgery: there are no lifting restrictions. Lift when you feel comfortable. ?? Do not drive for 2 weeks. After [address] when comfortable and not taking narcotic pain medicine. DIET: ?? Follow Stage II diet for two weeks. ?? Keep a log of your intake: Daily goals are: 48-64 ounces of fluids and 60 grams of protein. MEDICATIONS: ?? For 2 WEEKS: LARGE pills (bigger than the size of a calcium pill) must be crushed, Capsules must be opened onto applesauce or pudding. ?? Pills smaller than the size of a calcium DO NOT need to be crushed. ?? Not all medications can be crushed. Check with your pharmacist if unsure. BLOOD CLOT PREVENTION: ?? You WILL be discharged on enoxaparin injections twice daily for 10 days after you go home to prevent blood clots. The prescription is sent to [facility]. ?? Be active, walk at least 4 times a day and do blood clot prevention exercises in your handbook onpage 82. IF YOU ARE TREATED FOR OBSTRUCTIVE SLEEP APNEA: ?? IMPORTANT - you MUST use your CPAP/ BIPAP after surgery while sleeping at night and also when napping during the day because discharge medications can decrease your breathing. ?? Follow up with the Sleep Center if pressure seems to be too high. ULCER PREVENTION: ?? IMPORTANT - you must take acid suppressing medication for 3 MONTHS after surgery. This is taken to prevent ulcers at your surgical sites internally, even if you do not have heartburn. ?? omeprazole 20 mg daily (or another medication you may currently take for heartburn/reflux that has been discussed with Bariatric Team) ?? Omeprazole capsules contain enteric-coated, delayed-release granules. Because these granules should not be chewed or crushed, you must OPEN the capsules, sprinkle the enteric-coated granules on applesauce or yogurt. Alternatively, you may take the granules with apple juice, or swallow them quickly with water. Follow any of these methods with additional water to ensure that you have swallowed the granules completely. ?? If your insurer does not cover omeprazole, or similar medications such as pantoprazole, you must purchase these medications over the counter. ?? You will continue this after the initial 3 month course if you have heartburn or reflux GALLSTONE PREVENTION: ?? If you have had your gallbladder REMOVED - you do not need this medication. ?? If you have your gallbladder after Bariatric Surgery - you must take start taking Ursodiol (Actigall) 300 mg twice a day to prevent gallstones. You may START this medication 2 weeks after surgery for a duration of 6 months. After that, you may stop this medication unless otherwise directed. PAIN MEDICATION: ?? Your pain should lessen with each day out from surgery. Over the next couple of days you should be requiring less narcotic medication to control your pain, and eventually you will not need any at all. ?? Take the medication exactly as it is prescribed and make sure to read all instructions that come with the medication. Take only as needed. ?? You may adjunct your pain control using scheduled Tylenol (acetaminophen), use as directed. Do NOT use NSAIDS (ibuprofen, Motrin, Aleve, Toradol, aspirin, etc.) to adjunct your pain control. ?? Opioids can slow reaction time, cause drowsiness or cloud judgement. You MUST NOT DRIVE while taking narcotic pain medication. ?? Taking more than the prescribed amount of narcotic or combining with alcohol or drugs can cause you to stop breathing, leading to coma, brain damage or . ?? Using this drug may cause addiction. While addiction is more common in people with a personal or family history of addiction, it can occur in anyone. ?? Opioids are at risk of being diverted by anyone with access to your home. Opioids should be stored in a safe and secure place, such as a locked cabinet or safe. ?? Unused opioids should be disposed of appropriately. They may be returned to a take-back location,or mixed with a small amount of water and poured over an undesirable waste such as used coffee grounds or cat litter. ?? Opioid pain medications can cause significant constipation. You should use a stool softener such as Miralax to address this. OTHER MEANS FOR PAIN RELIEF: Other than medications. ?? Learn deep breathing exercises or meditation to help you relax ?? Reduce stress ?? Your body produces natural endorphins from exercise which can help reduce pain. Even walking is considered exercise. Talk with your provider/surgical team about what exercises are appropriate for you to perform. ?? You may use a heating pad or apply ice to the painful area unless specifically discouraged by thesurgical team. ?? Find ways to distract yourself from the pain. MEDICATIONS TO AVOID FOR TWO MONTHS AFTER SURGERY: ?? Discontinue anti-inflammatory non-steroidal medications, such as Advil, Aleve, etc. Refer to Medications that may increase the risk of bleeding in handbook. ?? If you do take aspirin for your heart or to prevent strokes, continue as prescribed. WOMEN OF CHILDBEARING AGE: ?? Fertility may increase with weight loss. Avoid for 18-24 months after bariatric surgery. ?? Condoms alone are not acceptable as a form of control. Do not take control pills for the first month after surgery. MANAGEMENT OF DIABETES MELLITUS AFTER BARIATRIC SURGERY: ?? IMPORTANT to check blood sugars four times a day, fasting blood surgars, 2 hours after meals and as needed when feeling unwell. ?? Discontinue using Lantus and Januvia. ?? Continue using Metformin (Glucophage) 1500mg in the morning and 1000mg in the evening. ?? Use the following sliding scale for Lispro based on your blood sugar readings: ?? For blood sugar 140-160: give 2U ?? For blood sugar 161-200: give 4U ?? For blood sugar 201-250: give 6U ?? For blood sugar 251-300: give 8U ?? For blood sugar over 301: give 10U and recheck in 2 hours and following the scale based on the blood sugar at that time. ?? For patients on insulin and oral diabetic medications: If blood sugar is over 200 on 3 checks, call your primary care doctor or diabetic specialist for recommendations. ?? Follow up with primary care provider or internal communications specialist in 1-2 weeks in order to adjust your changing diabetes treatment requirements. PATIENTS WITH HIGH BLOOD PRESSURE: ?? Monitor your blood pressure regularly. ?? If you feel dizzy and have been drinking 48-64 ounces of fluid, have your blood pressure checked. ?? If your blood pressure is low, call your primary care provider. Keep a log to bring to your PCP appointments. PATIENTS WHO TAKE DIURETICS (WATER PILLS): ?? Check with your surgical team prior to discharge for instructions. In general, this medication isstopped after surgery, as you are at risk for dehydration after Bariatric Surgery. ?? Monitor yourself for any swelling of legs or gain of water weight after medication is stopped. Call your primary care doctor if you notice this. PATIENTS ON ANTI-DEPRESSANT OR MENTAL HEALTH MEDICATIONS: ?? Do not stop or decrease your medications unless advised. ?? Ongoing counseling is encouraged. VITAMIN AND MINERAL SUPPLEMENTATION: Vitamin B12 500 mcg pill daily Complete multivitamin w/ minerals Chewable, one pill twice daily. After 2 weeks may take regular vitamin pills. Calcium Calcium citrate 600 mg with vitamin D 400 units twice a day between meals. Iron with vitamin C Take iron as instructed per Handbook - (only if you have anemia, iron deficiencyor regular menses) FOLLOW-UP CARE: ?? It is IMPORTANT to see your Primary Care Physician or PCP within 10-14 days after surgery for wound check and vital signs check, and to discuss specific medical management as referenced above. ?? You should follow up with your surgeon and dietitian at 3-4 weeks after surgery. ?? You will follow up with the dietitian and Bariatric nurse practitioner at 4, 12, 18, and 24 months, then yearly for life. Signed: ABAD Ortiz 11/14/2018 Primary Care Physician: Jaja Mason MD [address] [facility] [place] [address] documented in this encounter Medications at Time of Discharge Medication Sig Dispensed Refills Start Date End Date multivitamin Capsule Take 1 capsule by 0 mouth daily. Grid Net multivitamin fish oil-omega-3 fatty Take 2 g by mouth 0 acids 1,000 mg Capsule daily. aspirin 81 mg Tablet, Take 81 mg by mouth 0 Delayed Release (E.C.) daily. Biotin 2,500 mcg Take by mouth. 0 Capsule calcium-vitamin D3 600 Take by mouth. 0 mg calcium- 400 unit Tablet Cholestyramine-Asparta Take 4 g by mouth 4 239.4 g 12 06/2018 me (QUESTRAN LIGHT) 4 times daily as needed. gram Powder simvastatin (ZOCOR) 20 Take 20 mg by mouth 0 mg tablet nightly. metFORMIN (GLUCOPHAGE) Take 1,000 mg by mouth 0 1,000 mg tablet 2 times daily (with meals). metFORMIN (GLUCOPHAGE) Take 500 mg by mouth 0 500 mg tablet daily. PARoxetine (PAXIL) 20 Take 20 mg by mouth 0 mg tablet every morning. acetaminophen Take 20.3 mLs by mouth 0 11/14/2018 12/01/2018 (TYLENOL) 650 mg/20.3 every 4 hours. mL Solution oxyCODONE (ROXICODONE) Take 5 mLs by mouth 50 mL 0 10/2612/01/2018 5 mg/5 mL Solution every 4 hours as needed for Pain. ondansetron Take 1 tablet by mouth 9 tablet 0 11/14/2018 0 12/01/2018 (ZOFRAN-ODT) 4 mg every 8 hours as Tablet, Rapid Dissolve needed. enoxaparin (LOVENOX) Inject 0.4 mLs 8 mL 0 11/13/2018 11/23/2018 40 mg/0.4 mL subcutaneously 2 times SyringeIndications: daily for 10 days. Preventive medication Start at discharge, therapy needed surgery 11/13/2018 omeprazole (PRILOSEC) Take 1 capsule by 90 capsule 1 018 01/06/2019 20 mg Capsule, Delayed mouth daily for 90 Release(E.C.)Indicatio days. Start at ns: Preventive discharge to prevent medication therapy ulcer. Take 30 minutes needed before breakfast HUMALOG KWIKPEN 100 Inject 5-15 Units 1 8 03/06/2019 unit/mL Insulin subcutaneously 3 times PenIndications: type 2 daily (before meals). diabetes mellitus, Per sliding scale typically using 18-24 Indications: type 2 units per meal, slide diabetes mellitus, scale typically using 18-24 units per meal, slide scale documented as of this encounter Progress Notes Fifi Vogel RN - 11/14/2018 6:38 PM EST Patient discharged home. Denies chest pain, SOB, and N/V. IV removed, site benign. Pain management discussed, pain tolerable, patient medicated prior to D/C. All D/C paperwork given to patient and reviewed. All questions answered. Lovenox teaching given. Education on signs and symptoms of infections and when to contact provider. Patient has all belongings and encourage to call with questions. Left unit with . Zuleyka Jj PA - 11/14/2018 7:51 AM EST Minimally Invasive Surgery Inpatient Progress Note ID: Jackie Bates is a 53 y.o. female s/p laparoscopic Dixie-en-Y gastric bypass with intraoperative liver wedge biopsy and upper endoscopy. Now 1 Day Post-Op. 24hr events: ?? No acute events Subjective: She admits to feeling good this am. She states her pain is fairly well controlled. She did tolerated most of her breakfast this am without any problems. She has walked around the floor and she has been voiding without any problems. She currently denies n/v/cp/sob O: Last value Range last 24hrs Temperature Temp: 36.8 ??C (98.2 ??F) Temp: [36.7 ??C (98.1 ??F)-38 ??C (100.4 ??F)] Heart Rate Heart Rate: 77 Heart Rate: [72-90] Blood Pressure BP: 106/57 BP: (101-156)/(49-73) Respiratory Rate Resp: 20 Resp: [16-25] SpO2 SpO2: 97 % SpO2: [90 %-98 %] 11/13 0701 - 11/14 0700 In: 2617 [I.V.:2617] Out: 501 [Urine:450] Physical Exam: General: NAD, resting comfortably, pleasant, conversant HEENT: PERRL, anicteric sclerae CVS: RRR Pulm: CTAB Abd: soft, appropriately tender, non-distended. 6 port sites without evidence of edema, erythema or ecchymosis. No drainage or s/s of infection noted. : no problems with voiding Skin: warm, dry Ext: no c/c/e Neuro: non-focal, moving all four extremities spontaneously Labs: Recent Labs 11/14/18 0433 WBC 11.6* HGB 12.4 HCT 35.4* PLATELET 204 Recent Labs 11/14/18 0433 BUN 11 CREATININE 0.66* Microbiology: None New Studies: None ASSESSMENT: Jackie Bates is a 53 y.o. female s/p laparoscopic Dixie-en-Y gastric bypass with intraoperative liver wedge biopsy and upper endoscopy. Now 1 Day Post-Op Progressing post-operatively without concerns. PLAN: NEURO: Pain control with IV Tylenol and FIBER GLASS WORKER Dilaudid; transition to elixir Tylenol and Oxycodone. Continue home Paxil. CV: No acute issues. Continue home Losartan 100mg. PULM: Encourage frequent ambulation and IS use. Continue home CPAP use. GI: Diet Gastric Bypass diet Stage I-Clear : no problems with voiding; monitor UOP closely FEK: LR 100cc/hr until tolerating adequate po intake; monitor lytes and replace prn ID: no indication of active infection HEME: no indication of active bleeding ENDO: insulin sliding scale while inpatient; will resume home Glucophage and Lispro sliding scale after d/c PROPHYLAXIS: Lovenox for DVT (will continue x 10 days post-discharge); Protonix for gastric DISPO: Floor status, Full Code Plan for discharge later today or tomorrow based on progress. ABAD ORTIZ 11/14/2018 Fifi Jurado RN - 11/13/2018 5:03 PM EST Patient arrived to unit A+Ox4. Denies chest pain, SOB, N/V. Reports 0/10 pain with FIBER GLASS WORKER. Lap sites CDI. Pulses palpable. SCDs on. Oriented to room and call light. Educated on IS. Will continue to monitor Henrietta Singh RN - 11/13/2018 12:48 PM EST Patient admitted from OR, attached to monitors alarms on. Report received. Patients temp slightly elevated on admission, flushed face, chest, arms.. Arrousable, oriented to place, no complaints of painon admission. Patients CPAP at bedside, not needed at present time. Patient complaining of pain in abdomen, temp lower, still flushed, medicated with IV Tylenol, FIBER GLASS WORKER ofDilaudid started, patient educated on FIBER GLASS WORKER button, additional Dilaudid administered. Patient turned and resting comfortably on left side. Pt remains comfortable with FIBER GLASS WORKER. No additional doses required. Patient sleeping/ resting comfortably. Sinus rhythmn with occassional PAC's noted. documented in this encounter H&P Notes Scooter Calvo MD - 11/13/2018 6:30 AM EST Minimally Invasive Surgery Preop H&P NAME: Jackie Bates DATE: 11/13/18 SURGEON: BRENDA JAMES PROCEDURE: Laparoscopic dixie-en-y gastric bypass, possible laparoscopic sleeve gastrectomy BRIEF HISTORY: Jackie Bates is a 53 y.o. female with obesity, ALVERTO (CPAP), DM (insulin, metformin), HTN (losartan-HCTZ), and GERD (omeprazole) who presents today for laparoscopic dixie-en-y gastricbypass. She has been through the Bariatric Surgery Program at [facility]. The patient reports no interval change. There has been no interval medical illness or hospitalizations. Questions have been addressed. Smoking HX: Social History Tobacco Use Smoking Status Never Smoker Smokeless Tobacco Never Used PMH: Patient Active Problem List Diagnosis Date Noted ??? Obstructive sleep apnea 09/05/2018 ??? Diabetes mellitus 09/05/2018 ??? Essential hypertension 09/05/2018 ??? Carpal tunnel syndrome of right wrist 12/03/2011 PSH: Past Surgical History: Procedure Laterality Date ??? PRO WRIST ARTHROSCOP, RELEASE XVERS LIG 12/26/2011 ENDOSCOPY WRIST W/ RELEASE TRANSVERSE CARPAL LIGAMENT performed by KRISTIAN HOGUE at [facility] OSC MEDS: No current facility-administered medications on file prior to encounter. Current Outpatient Medications on File Prior to Encounter Medication Sig Dispense Refill ??? aspirin 81 mg Tablet, Delayed Release (E.C.) Take 81 mg by mouth daily. ??? PARoxetine (PAXIL) 20 mg tablet Take 20 mg by mouth every morning. ??? HUMALOG KWIKPEN 100 unit/mL Insulin Pen Inject 18 Units subcutaneously 3 times daily (before meals). Indications: type 2 diabetes mellitus, typically using 18-24 units per meal, slide scale 1 ??? LANTUS SOLOSTAR U-100 INSULIN pen Inject 70 Units subcutaneously nightly. 1 ??? JANUVIA 100 mg Tablet ??? multivitamin Capsule Take 1 capsule by mouth daily. ??? fish oil-omega-3 fatty acids 1,000 mg Capsule Take 2 g by mouth daily. ??? Biotin 2,500 mcg Capsule Take by mouth. ??? calcium-vitamin D3 600 mg calcium- 400 unit Tablet Take by mouth. ??? Cholestyramine-Aspartame (QUESTRAN LIGHT) 4 gram Powder Take 4 g by mouth 4 times daily as needed. 239.4 g 12 ??? simvastatin (ZOCOR) 20 mg tablet Take 20 mg by mouth nightly. ??? metFORMIN (GLUCOPHAGE) 1,000 mg tablet Take 1,000 mg by mouth 2 times daily (with meals). ??? metFORMIN (GLUCOPHAGE) 500 mg tablet Take 500 mg by mouth daily. ??? losartan-hydrochlorothiazide (HYZAAR) 50-12.5 mg per tablet Take 1 tablet by mouth daily. ALL: Allergies Allergen Reactions ??? Lisinopril ??? Unable To Find [Unclassified Drug] Kiwi fruit Physical Exam There were no vitals filed for this visit. Gen: NAD, pleasant, sitting comfortably in bed HEENT: normocephalic, atraumatic, EOMI, sclerae anicteric Neck: supple, trachea midline Card: RRR, no M/R/G appreciated Pulm: CTAB, no wheeze/ronchi/rales appreciated, non-labored breathing on room air Abd: soft, NT, BS+ Ext: warm, dry, no edema Neuro: A&Ox3, CN II-XII grossly intact, nonfocal, conversant LABS: Lab Results Component Value Date WBC 10.2 (H) 09/08/2018 RBC 4.53 09/08/2018 HGB 13.9 09/08/2018 HCT 39.4 09/08/2018 MCV 87.0 09/08/2018 MCH 30.7 09/08/2018 MCHC 35.3 (H) 09/08/2018 PLATELET 202 09/08/2018 RDWCV 12.0 09/08/2018 Lab Results Component Value Date/Time NA 144 09/08/2018 10:50 AM K 3.9 09/08/2018 10:50 AM CL 104 09/08/2018 10:50 AM CO2 24 09/08/2018 10:50 AM BUN 10 09/08/2018 10:50 AM CREATININE 0.65 (L) 09/08/2018 10:50 AM CONSENT: Yes/EMR - Yes Assessment/Plan: Jackie Bates is a 53 y.o. female presenting today for planned laparoscopic dixie-en-Y gastric bypass, possible laparoscopic sleeve gastrectomy due to obesity and obesity-related comorbidities. Consent signed and confirmed in chart. Questions addressed. Will proceed with planned surgery. Scooter Calvo MD 11/13/2018 Minimally Invasive Surgery Service Pager [phone] documented in this encounter Miscellaneous Notes Plan of Care - Karis Mendez RN - 11/14/2018 3:19 AM EST Problem: Patient Care Overview Goal: Plan of Care Review Outcome: Ongoing (Interventions Implemented as Appropriate) 11/13/182043 Coping/Psychosocial Plan Of Care Reviewed With patient OUTCOME EVALUATION NOTE: OUTCOME SUMMARY: Jackie has had a good night. Voiding adequate urine, bladder scans <400 cc. No BM. 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 2L NC overnight. Sleeping between care. Will continue to monitor. PLAN MOVING FORWARD: Monitor for signs/symptoms of infection, pain management, encourage IS INDIVIDUALIZED FALL PREVENTION INTERVENTIONS: Patient-specific fall risk factors per assessment: [current deficits]: Recent surgery, generalized weakness, IV tubing, narcotic use/FIBER GLASS WORKER Assistance [level of assistance required for transfers and ambulation]: Independent Supervision [direct monitoring required during toileting and ADLs]: Eyes on Surveillance [continuous indirect monitoring]: Felipeo, Call arenas within reach, Purposeful rounding Patient-specific fall prevention interventions for sensory deficits provided, if applicable: [X] Yesnon-skid socks when OOB CPG GOAL OUTCOME EVALUATION: Goal: Fall Prevention-Safe Patient Handling Outcome: Ongoing (Interventions Implemented as Appropriate) 11/13/182043 [place] Fall Risk History of Falling 0 Secondary Diagnosis 15 Ambulatory Aids 0 Intravenous Therapy/Heparin/Saline Lock 20 Gait/Transferring 0 Mental Status 0 Score 35 OTHER [place] Fall Risk Med Restraint Interventions Safety Promotion/Fall Prevention activity supervised;nonskid shoes/slippers when out of bed;safety round/check completed Positioning Body Position independent Activity Activity Type activity adjusted per tolerance Activity Assistance Provided assistance, stand-by Assistive Device Utilized none Goal: Infection Control Outcome: Ongoing (Interventions Implemented as Appropriate) 11/13/182043 Safety Interventions Isolation Precautions standard precautions maintained Infection Prevention environmental surveillance performed;rest/sleep promoted Coping Strategies Supportive Measures active listening utilized;self-care encouraged;self- responsibility promoted;verbalization of feelings encouraged Goal: Discharge Needs Assessment Outcome: Ongoing (Interventions Implemented as Appropriate) 11/14/18313 Discharge Needs Assessment Concerns To Be Addressed no discharge needs identified Goal: Interdisciplinary Rounds/Family Conf Outcome: Ongoing (Interventions Implemented as Appropriate) 11/14/18313 Interdisciplinary Rounds/Family Conf Participants nursing;patient Op Note - Brenda James MD - 11/13/2018 11:10 AM EST [facility] Operative Note Patient Name: Jackie Bates : [id number] MR#: [id number] Case Date: 11/13/2018 Surgeon: Surgeon(s) and Role: * Brenda James MD - Primary * Scooter Calvo MD - Resident-Roll Forming Machine Set Up Mechanic * Alex Cui MD - Fellow Preoperative diagnosis: MORBID OBESITY Postoperative diagnosis: morbid obesity Procedure(s) (LRB): @LAPAROSCOPIC GASTROPLASTY, (WRVU 29.4) (N/A) ENDOSCOPY, UPPER GI, DIAGNOSTIC, WITH OR WITHOUT SPECIMENS (N/A) LAPAROSCOPIC LIVER BIOPSY, WEDGE Anesthesia: General Estimated Blood Loss: 51 ml Specimens removed during surgery: Order Name Source Comment Collection Info Order Time SPECIMEN TO PATHOLOGY MORBID OBESITY liver biopsy biopsy No 11/13/2018 10:51 AM Number of tissue samples (in container) 1 Time specimen removed from patient: 10:49 AM Biospecimen to store? No Drains: Surgical Closure: Primary Closure - skin incision is completely closed without any wires, alexandria, drains or other devices Disposition: awakened from anesthesia, extubated and taken to the recovery room in a stable condition, having suffered no apparent untoward event. Condition: doing well without problems (Please see the Surgical Encounter Summary for any Implant and Specimen details pertinent to this patient.) Indications: This 53 y.o. female presented to the Bariatric Program with a history of weight-related problems including significant weight-related comorbidities. She meets the NIH criteria for gastric bypass. The risks and benefits of the procedure were explained and she chose to undergo this procedure laparoscopically. Under general anesthesia and endotracheal intubation, the patient was prepped and draped in the supine position. The abdomen was entered using the optiview trocar system. The 10-mm port was placed approximately 15 cm below the xiphoid from the left of midline. A 45-degree telescope was inserted, and under direct vision, two 5-mm ports were placed in the left upper quadrant forming the first arm of a V with the scope at the apex. Several adhesions were taken down with sharp dissection. A 5-mm port was placed approximately 15-cm along the right costal margin, through which a liver retractor was placed and used to elevate the left lobe of the liver, thus exposing the hiatal region. This was fixed in good position using the mechanical arm. A 5-mm port was placed approximately 10 cm along the right costal margin and a 12- mm port was placed approximately 4 cm below this. A small window was made along the vasculature of the lesser curve, approximately 5 cm from the hiatus. Eventually, the vasculature was from the lesser curve and the posterior, lesser sac was entered. The hiatal region was freed up of some attachments to the diaphragm, thus exposing the left cristina. A firing of an endo-GLORIA 60 stapler with a purple load in a transverse direction across the stomach was performed. The stapler was then fired multiple times until a small narrow pouch was created. The pouch accommodated a volume of approximately 20 cc to 30 cc. Persistent bleeding from the distal stomach staple line was controlled by over sewing with a running2-0 Surgilon. The patient was then placed into some Trendelenburg position. Adhesions between the omentum and lower anterior abdominal wall were taken down using sharp dissection. The omentum and transverse colon reflected cephalad. The ligament of Treitz was identified and dissection was carried along approximately 40 cm from the ligament of Treitz. A small window was made in the small bowel mesentery and a stapler was introduced through this to create a firing of the stapler and divide the small bowel. The harmonic scalpel was used to divide the mesentery for a Dixie limb. At a point approximately 100 cm, the distal bowel was chosen to create the awzq-of-[id number] jejunojejunostomy. The duodenal, afferent limb was approximated to the side wall of the jejunum at the 100-cm ernesto. Enterotomies were made in both and a single firing of an EndoGIA vascular load was used to create anastomosis. The resultant defect was sewn in two layers of running 2-0 Surgilon suture. A split was made in the omentum just above the transverse colon and the Dixie limb fed through this. Two stay stitches in the side wall of the Dixie limb were approximated to the end of the gastric pouch. An enterotomy was made in the gastric pouch and the jejunostomy and a partial-length firing of the GLORIA-60 stapler was used to create the anastomosis between this pouch and the jejunum. The resultant enterotomy defect was closed with a running 2- 0 Surgilon suture in two layers with a 30 Serbian Bougie (blunt-tipped) in place. The Bougie was then removed and the Dixie limb clamped with a bowel clamp. The endoscope was introduced and the pouch and anastomosis was insufflated under saline. Inspection of the anastomosis did not reveal any leak. It appeared to be patent and allowed passage of an endoscope without resistance. The jejuno-jejunostomy mesenteric defect was then closed with a running 2-0 Surgilon suture. Wedge liver biopsy was performed with scissors. The defect was cauterized for hemostasis. All ports were then removed under direct vision and the skin was closed with running subcuticular 4-0 Vicryl suture, followed by Steri- Strips and Band-aids. The patient returned to the Recovery Room in stable conditions. Sponge, instrument and needle counts were correct. Attestation: Case Date: 11/13/2018 I was present and I participated during the entire procedure (does not need to include opening and closing). BRENDA JAMES MD 11/13/2018 documented in this encounter Plan of Treatment Not on filedocumented as of this encounter Procedures Procedure Name Priority Date/Time Associated Comments Diagnosis POCT GLUCOSE Routine 11/14/2018 4:20 PM Results f or this EST procedure are i n the results section. POCT GLUCOSE Routine 11/14/2018 11:56 Results for this AM EST procedure are i n the results section. POCT GLUCOSE Routine 11/14/2018 8:39 AM Results f or this EST procedure are i n the results section. HEMOGRAM Routine 11/14/2018 4:33 AM Results f or this EST procedure are i n the results section. DIFFERENTIAL, Routine 11/14/2018 4:33 AM Results for this AUTOMATED EST procedure are i n the results section. CREATININE Routine 11/14/2018 4:33 AM Results f or this EST procedure are i n the results section. CBC (WITH DIFF) Routine 11/14/2018 4:33 AM EST BUN Routine 11/14/2018 4:33 AM Results f or this EST procedure are i n the results section. GLUCOSE, FASTING Routine 11/14/2018 4:33 AM Resul ts for this EST procedure are i n the results section. POCT GLUCOSE Routine 11/13/2018 7:23 PM Results f or this EST procedure are i n the results section. GLUCOSE, FASTING Routine 11/13/2018 6:33 PM Resul ts for this EST procedure are i n the results section. POCT GLUCOSE Routine 11/13/2018 4:55 PM Results f or this EST procedure are i n the results section. POCT GLUCOSE Routine 11/13/2018 4:06 PM Results f or this EST procedure are i n the results section. POCT GLUCOSE Routine 11/13/2018 11:24 Results for this AM EST procedure are i n the results section. SPECIMEN TO PATHOLOGY Routine 11/13/2018 10:51 Re sults for this AM EST procedure are i n the results section. SURGICAL PATHOLOGY Routine 11/13/2018 10:49 Resul ts for this REPORT AM EST procedure are i n the results section. LAPAROSCOPIC LIVER 11/13/2018 7:31 AM morbid obesity BIOPSY (WRVU 16.52) EST ENDOSCOPY, UPPER GI, 11/13/2018 7:31 AM morbid obesity DIAGNOSTIC, WITH OR EST WITHOUT SPECIMENS @LAPAROSCOPIC 11/13/2018 7:31 AM morbid obesity GASTROPLASTY W/ EST DIXIE-EN-Y CONSTRUCTION (WRVU 29.4) POCT GLUCOSE Routine 11/13/2018 6:46 AM Results f or this EST procedure are i n the results section. documented in this encounter Results POCT Glucose (11/14/2018 4:20 PM EST) athologist Signature POC Glucose 118 65 - 199 [place] mg/dL [facility] Comment: Supplemental ranges: <140 mg/dL before meals <180 mg/dL all other times of the day Specimen Anatomical Collection Method Collection Time Receive d Time (Source) Location / / Volume Laterality Blood specimen 11/14/2018 4:20 PM 018 4:20 (specimen) EST PM EST Brenda James MD POINT OF CARE TEST ORDERABLE S Performing Organization Address City/State/ZIP Code Phon e Number [address] POCT Glucose (11/14/2018 11:56 AM EST) athologist Signature POC Glucose 120 65 - 199 [facility] RANJIT mg/dL [facility] Comment: Supplemental ranges: <140 mg/dL before meals <180 mg/dL all other times of the day Specimen Anatomical Collection Method Collection Time Receive d Time (Source) Location / / Volume Laterality Blood specimen 11/14/2018 11:56 8 (specimen) AM EST 11:56 AM EST Brenda James MD POINT OF CARE TEST ORDERABLE S Performing Organization Address City/State/[place] [address] POCT Glucose (11/14/2018 8:39 AM EST) athologist Signature POC Glucose 93 65 - 199 [facility] RANJIT mg/dL [facility] Comment: Supplemental ranges: <140 mg/dL before meals <180 mg/dL all other times of the day Specimen Anatomical Collection Method Collection Time Receive d Time (Source) Location / / Volume Laterality Blood specimen 11/14/2018 8:39 AM 018 8:39 (specimen) EST AM EST Brenda James MD POINT OF CARE TEST ORDERABLE S Performing Organization Address City/State/[place] [address] (ABNORMAL) Differential, Automated (11/14/2018 4:33 AM EST) [facility] gist Method Time Signature Neutrophils % 48.5 % [facility] Neutr Abs (ANC) 5.66 1.70 - [facility] 6.10 [facility] x10(3)/[facility] LABORATORY Lymphocytes % 42.8 % [facility] Lymphocytes Abs 5.0 (H) 0.9 - 3.2 [facility] x10(3)/[facility] LABORATORY Monocytes % 7.6 % [facility] Monocyte Abs 0.9 0.3 - 0.9 [facility] x10(3)/[facility] LABORATORY Eosinophils % 0.5 % [facility] Eosinophils Abs 0.1 0.0 - 0.4 [facility] x10(3)/[facility] LABORATORY Basophils % 0.3 % [facility] Basophils Abs 0.0 0.0 - 0.1 [facility] x10(3)/[facility] LABORATORY Immature Gran % 0.30 % [facility] Comment: Immature granulocytes(IG's)percentage an d absolute count will include metamyelocytes, myelocytes, and promyelo cytes. Blood smears from CBCs yielding IG's will be scanned manually for concor dance. If this scan disagrees with the automated IG or if promyelocytes are not ed, a manual differential will be performed. Karma Gran Abs 0.03 0.00 - 0.04 x10(3)/[facility] Y [facility] LABORATORY Specimen Anatomical Collection Method Collection Time Receive d Time (Source) Location / / Volume Laterality Blood specimen 11/14/2018 4:33 AM 018 4:38 (specimen) EST AM EST Resulting Agency Comment Spec In Lab Alex Cui MD HEMATOLOGY ORDERABLES Performing Organization Address City/State/[place] [address] (ABNORMAL) Hemogram (11/14/2018 4:33 AM EST) Analysis Performed At Patho logist Time Signature WBC 11.6 (H) 4.0 - 9.5 [place] x10(3)/[facility] LABORATORY RBC 4.00 4.00 - [place] 5.21 [facility] x10(6)/[facility] LABORATORY Hemoglobin 12.4 11.7 - [place] 15.5 gm/dL [facility] Hematocrit 35.4 (L) 35.7 - [place] 45.8 % [facility] MCV 88.5 82.6 - [facility] RANJIT 94.4 [facility] LABORATORY MCH 31.0 27.1 - [facility] 32.0 pg [facility] MCHC 35.0 31.7 - [place] 35.0 gm/dL [facility] Platelets 204 145 - 357 [facility] LABORATORY RDWSD 38.6 37.0 - [place] 46.0 [facility] LABORATORY RDWCV 12.0 11.5 - [facility] 14.1 % [facility] MPV 11.2 7.6 - 12.9 [facility] LABORATORY nRBC % Auto 0.0 % [facility] nRBC Abs Auto 0.000 0.000 - [facility] Extra Life 0.000 [facility] x10(3)/[facility] LABORATORY Specimen Anatomical Collection Method Collection Time Receive d Time (Source) Location / / Volume Laterality Blood specimen 11/14/2018 4:33 AM 018 4:38 (specimen) EST AM EST Resulting Agency Comment Spec In Lab Alex Cui MD HEMATOLOGY ORDERABLES Performing Organization Address City/State/[place] [address] BUN (11/14/2018 4:33 AM EST) P athologist Signature BUN 11 8 - 18 [place] mg/dL [facility] Specimen Anatomical Collection Method Collection Time Receive d Time (Source) Location / / Volume Laterality Blood specimen 11/14/2018 4:33 AM 018 4:38 (specimen) EST AM EST Resulting Agency Comment Spec In Lab Alex Cui MD CHEMISTRY ORDERABLES Performing Organization Address City/State/ZIP Code Phon e Number [address] (ABNORMAL) Creatinine (11/14/2018 4:33 AM EST) Analysis Performed At Patho logist Time Signature Creatinine 0.66 (L) 0.70 - [facility] 1.20 mg/dL [facility] Estimated GFR 100 >=60 [facility] mL/min/1.7 [facility] 3 m?? HOSPITAL LABORATORY Comment: The eGFR was calculated using the CKD-EP I equation. As with all creatinine based estimates of kidney function, eGFR values calculated with the CKD-EPI equation are not accurate in patients wi th acute kidney failure, extremes of body mass or the acutely ill. [email or web address] eGFR 116 >=60 mL/min/1.73 m?? [facility] Comment: The eGFR was calculated using the CKD-EP I equation. As with all creatinine based estimates of kidney function, eGFR values calculated with the CKD-EPI equation are not accurate in patients wi th acute kidney failure, extremes of body mass or the acutely ill. [email or web address] Specimen Anatomical Collection Method Collection Time Receive d Time (Source) Location / / Volume Laterality Blood specimen 11/14/2018 4:33 AM 018 4:38 (specimen) EST AM EST Resulting Agency Comment Spec In Lab Alex Cui MD CHEMISTRY ORDERABLES Performing Organization Address City/State/ZIP Code Phon e Number [address] Glucose, fasting (11/14/2018 4:33 AM EST) P athologist Signature Glucose 88 65 - 99 [facility] Fasting mg/dL [facility] Comment: ?Fasting* Glucose Interpretive C riteria Normal ?65-99 mg/dL Impaired Fasting glucose ?100-125 mg/dL Consistent with Diabetes Mellitus ? >or= 126 mg/dL *Fasting is defined as no caloric intake for at least 8 hours In the absence of unequivocal hypergly cemia a plasma glucose value of >or= 126 mg/dL should be repeated on a subseq u day. Diagnosis and Classification of Diabetes Mellitus, Position Statement from the [employer] [employer]. ??Diabete s Care, Volume 33, Supplement 1, Nov 2009 Specimen Anatomical Collection Method Collection Time Receive d Time (Source) Location / / Volume Laterality Blood specimen 11/14/2018 4:33 AM 018 4:38 (specimen) EST AM EST Resulting Agency Comment Spec In Lab Alex Cui MD CHEMISTRY ORDERABLES Performing Organization Address City/State/ZIP Code Phon e Number [address] POCT Glucose (11/13/2018 7:23 PM EST) P athologist Signature POC Glucose 111 65 - 199 [place] mg/dL [facility] Comment: Supplemental ranges: <140 mg/dL before meals <180 mg/dL all other times of the day Specimen Anatomical Collection Method Collection Time Receive d Time (Source) Location / / Volume Laterality Blood specimen 11/13/2018 7:23 PM 018 7:23 (specimen) EST PM EST Brenda James MD POINT OF CARE TEST ORDERABLE S Performing Organization Address City/State/[place] [address] (ABNORMAL) Glucose, fasting (11/13/2018 6:33 PM EST) P athologist Signature Glucose 111 (H) 65 - 99 [place] Fasting mg/dL [facility] Comment: ?Fasting* Glucose Interpretive C riteria Normal ?65-99 mg/dL Impaired Fasting glucose ?100-125 mg/dL Consistent with Diabetes Mellitus ? >or= 126 mg/dL *Fasting is defined as no caloric intake for at least 8 hours In the absence of unequivocal hypergly cemia a plasma glucose value of >or= 126 mg/dL should be repeated on a subseq u day. Diagnosis and Classification of Diabetes Mellitus, Position Statement from the [employer]. ??Diabete s Care, Volume 33, Supplement 1, Nov 2009 Specimen Anatomical Collection Method Collection Time Receive d Time (Source) Location / / Volume Laterality Blood specimen 11/13/2018 6:33 PM 018 6:54 (specimen) EST PM EST Resulting Agency Comment Spec In Lab Alex Cui MD CHEMISTRY ORDERABLES Performing Organization Address City/[facility]/ZIP [facility] Phon e Number [address] POCT Glucose (11/13/2018 4:55 PM EST) athologist Signature POC Glucose 125 65 - 199 [facility] Comment: Supplemental ranges: <140 mg/dL before meals <180 mg/dL all other times of the day Specimen Anatomical Collection Method Collection Time Receive d Time (Source) Location / / Volume Laterality Blood specimen 11/13/2018 4:55 PM 018 4:55 (specimen) EST PM EST Brenda James MD POINT OF CARE TEST ORDERABLE S Performing Organization Address City/[facility]/ZIP Code Phon e Number [address] POCT Glucose (11/13/2018 4:06 PM EST) athologist Signature POC Glucose 122 65 - 199 [facility] Comment: Supplemental ranges: <140 mg/dL before meals <180 mg/dL all other times of the day Specimen Anatomical Collection Method Collection Time Receive d Time (Source) Location / / Volume Laterality Blood specimen 11/13/2018 4:06 PM 018 4:06 (specimen) EST PM EST Brenda James MD POINT OF CARE TEST ORDERABLE S Performing Organization Address City/[facility]/ZIP Code Phon e Number [address] POCT Glucose (11/13/2018 11:24 AM EST) P athologist Signature POC Glucose 190 65 - 199 [facility] mg/dL [facility] Comment: Supplemental ranges: <140 mg/dL before meals <180 mg/dL all other times of the day Specimen Anatomical Collection Method Collection Time Receive d Time (Source) Location / / Volume Laterality Blood specimen 11/13/2018 11:24 8 (specimen) AM EST 11:24 AM EST Brenda James MD POINT OF CARE TEST ORDERABLE S Performing Organization Address City/[facility]/[place] [address] Specimen to Pathology (11/13/2018 10:51 AM EST) Specimen Anatomical Collection Method Collection Time Receive d Time (Source) Location / / Volume Laterality AP Specimen 11/13/2018 10:51 11/13/2018 AM EST 10:51 AM EST Narrative [facility] - 11/13/2018 10:51 AM EST Specimen requisition ordered. ??Separate Pathology report to follow Brenda James MD PATHOLOGY/CYTOLOGY ORDERABLE S Performing Organization Address City/[facility]/[place] [address] Surgical Pathology Report (11/13/2018 10:49 AM EST) Component Value Ref Test Analysis Performed At Patholo gist Range Method Time Signature Surgical [id number] ? Location: [facility]; [facility]; A [facility] Report The signing pathologist has (i) examined the relevant preparation(s) for the [facility] specimen(s) and (ii) rendered or confirmed the diagnosis(es) . HOSPITAL LABORATORY . ?Surgic al Pathology DIAGNOSIS Liver, ??biopsy: Cirrhotic liver parenchyma with steatohepatitis (see DISCUSS ION). Electronically signed by: ??Cinda Regan MD Verified: ??11/14/2018 ?Pathologist Performed at: ??-[facility] Dept. of Pathology, [facility] [place], [place] DISCUSSION EARLE total score* = 5 - Steatosis ?= 2 - Lobular Inflammation = 2 - Ballooning ? = 1 Fibrosis score ?? = 4 *(EARLE ? 4 with at least 1 in each component represents steatohepatitis) ?EARLE SCORING Steatosis ? 0 ??<5% ?1 ??5-33% ?2 ??34-66% ?3 ??67-100% Lobular Inflammation ??0 ??no foci ?1 ??< 2 foci per 200x field ?2 ??2-4 foci per 200x field ?3 ??> 4 foci per 200 x fiel d Ballooning ?0 ??None ?1 ??Rare or diagnostically borderline ?2 ??Many or prominent ballooned hepatocytes ?FIBROSIS SCORE None ?0 Mild zone 3 perisinusoidal ?1a Moderate zone 3 perisinusoidal ?1b Portal/periportal only ?1c Portal, periportal and perisinusoidal ?? 2 Bridging ?3 Cirrhosis ? 4 CLINICAL INFORMATION Specimen Submitted: A - liver biopsy Clinical History and Diagnosis: Morbid obesity SPECIMEN PROCESSING A - Labeled/Fixative: Liver biopsy, fresh. Quantity/Size: Single, 1.5 x 0.4 x 0.3 cm. Tissue Description: Soft, wedge of red-brown tissue. Sections/Processing: Serially sectioned and entirely submitted in 1 cassette labe led A1. . SPECIMEN PROCESSING ??pps Specimen (Source) Anatomical Collection Method Collection Time Re ceived Time Location / / Volume Laterality 11/13/2018 10:49 AM EST Brenda James MD PATHOLOGY/CYTOLOGY ORDERABLE S Performing Organization Address City/State/ZIP [place] [address] POCT Glucose (11/13/2018 6:46 AM EST) P athologist Signature POC Glucose 90 65 - 199 [facility] mg/dL [facility] Comment: Supplemental ranges: <140 mg/dL before meals <180 mg/dL all other times of the day Specimen Anatomical Collection Method Collection Time Receive d Time (Source) Location / / Volume Laterality Blood specimen 11/13/2018 6:46 AM 018 6:46 (specimen) EST AM EST Brenda James MD POINT OF CARE TEST ORDERABLE S Performing Organization Address City/State/[place] [address] documented in this encounter Visit Diagnoses Diagnosis Obesity, Class III, BMI 40-49.9 (morbid obesity) Morbid obesity documented in this encounter Admitting Diagnoses Diagnosis Obesity, Class III, BMI 40-49.9 (morbid obesity) Morbid obesity documented in this encounter Administered Medications Inactive Administered Medications - up to 3 most recent administrations Medication Order MAR Action Action Date Dose Rate Site acetaminophen (OFIRMEV) Given 11/14/2018 5:53 AM 1,000 mg 400 mL/hr injection 1,000 mg EST 1,000 mg, Intravenous, at 400 mL/hr, EVERY 6 HOURS SCHEDULED, 4 doses, First dose on Georgina 11/13/18 at 1200, Last dose on Sat11/14/18 at 0600, Maximum dose of acetaminophen is 4000 mg from all sources in 24 hours., Recovery (Recovery-Hospital Unit), Routine Given 11/13/2018 11:42 PM EST 1,000 mg 400 mL/hr Given 11/13/2018 6:01 PM EST 1,000 mg 400 mL/hr acetaminophen (TYLENOL) 650 mg/20.3 mL oral Given 11/14/2018 4:15 PM EST 650 mg liquid 650 mg 650 mg, Oral, EVERY 4 HOURS, First dose on Sat11/14/18 at 1030, Until Discontinued, Maximum dose of acetaminophen is 4,000 mg from all sources in 24 hours., Routine Given 11/14/2018 10:30 AM EST 650 mg acetaminophen (TYLENOL) tablet 1,000 mg Given 11/13/2018 6:41 AM EST 1,000 mg 1,000 mg, Oral, ONCE, 1 dose, On Georgina 11/13/18 at 0645, Administer with SIP of H2O only., Day of Surgery (Day of Procedure), Routine dextrose 50% IV syringe 25-50 mL 25-50 mL (12.5-25 g), Intravenous, EVERY 1 HOUR PRN, Starting on Georgina 11/13/18 at 1703, Until Sat11/14/18 at 2134, Low bl ood sugar, For BG 50-70: 120 mL Juice or Regular (not diet) soda OR 12.5 gram (25 mL) Dextrose 50% IV OR, if no IV access, 1 mg Glucagon IM. Recheck BG in 30 minut es. May repeat juice, dextrose or glucagon once per episode For BG less than 50: 240 mL Juice or Regular (not diet) soda OR 25 grams (50 mL) Dextrose 50% IV OR, if no IV access, 1 mg Glucagon IM. Recheck BG in 30 minutes. May repeat juice, dext brandon, or glucagon once per episode. To avoid extravasation, push Dextrose 50% SLOWLY (3 mL ov er 1 minute) in a patent, running IV, preferably a central line. For persisten t hypoglycemia, consider longer-acting treatment for the duration of the active insulin., Recovery (Recovery-Hospital Unit), Routine enoxaparin (LOVENOX) injection 40 mg Given 11/14/2018 8:39 AM EST 40 mg 40 mg, Subcutaneous, 2 TIMES DAILY, First dose on Sat11/14/18 at 0900, Until Discontinued, Recovery (Recovery-Hospital Unit), Routine enoxaparin (LOVENOX) injection 40 mg Given 11/13/2018 6:48 AM EST 40 mg Left Arm 40 mg, Subcutaneous, ONCE, 1 dose, On Sat11/13/18 at 0645, Day of Surgery (Day of Procedure), Routine glucagon (human recombinant) injection S olR 1 mg 1 mg, Intramuscular, EVERY 1 HOUR PRN, S tarting on Sat11/13/18 at 1703, Until Sat11/14/18 at 2134, Low blood sugar, For BG 50-70: 120 mL Juice or Regular (not diet) soda OR 12.5 gram (25 mL) Dextrose 50% IV OR, if no IV access, 1 mg Glucagon IM. Recheck BG in 30 minutes. May repeat juice, dext brandon or glucagon once per episode For BG less than 50: 240 mL Ju ice or Regular (not diet) soda OR 25 grams (50 mL) Dextrose 50% IV OR, if no IV acc ess, 1 mg Glucagon IM. Recheck BG in 30 minutes. May repeat juice, dextrose, or glucagon once per episode. To avoid extravasation, push Dextrose 50% SLOWLY (3 mL over 1 minute) in a patent, running IV, preferably a central line. For persistent hypogl ycemia, consider longer-acting treatment for the duration of the active insulin., Recovery (Recovery-Hospital Unit), Routine glucose (GLUTOSE) 40% oral gel 15 g, Oral, PER INSULIN PROTOCOL, Starting on Georgina 10/26 at 1703, Until Sat11/14/18 at 2134, Low blood sugar, Fo r BG 50-70 mg/dL: 120 mL Juice or Regular (not diet) soda OR 15 gram glucose 40% o ral gel OR 12.5 gram (15 mL) Dextrose 50% IV OR, if no IV access, 1 mg Glucagon IM . Recheck BG in 30 minutes. May repeat juice, gel, dextrose or glucagon once pe r episode For BG less than 50 mg/dL: 240 ml Juice or Regualr (not diet) soda OR 3 0 gram glucose 40% oral gel OR 25 gram (50 mL) Dextrose 50% IV OR, if no IV access, 1 mg Glucagon IM Recheck BG in 30 minutes. May repeat juice, gel, dextrose or glucagon once per episode. 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 Hold for respiratory rate less than 10 per minute. Maximum dose 4 mg over one hour. If multiple pain medications are ordered, start with hydromorphone or morphine and use fentanyl for breakthrough pain., PACU Recovery, Routine Given 11/13/2018 12:32 PM EST 0.2 mg insulin lispro (HumaLOG) VIAL injection 2-8 Given 10/26 11:55 AM EST 4 Units Units 2-8 Units, Subcutaneous, 3 TIMES DAILY BEFORE MEALS, First dose on Sat11/13/18 at 1200, Until Discontinued, CORRECTION BOLUS Moderate BG 140 - 160 Give 2 units BG 161 - 200 Give 4 units BG 201 - 240 Give 6 units BG greater than 240, give 8 units and recheck BG in 2 hours.If BG less than 240 after two hours, give no insulin and resume prior schedule. If BG remains greater than 240, repeat 8 units (no more than three times) & call for new basal insulin orders. DO NOT hold if NPO, unless specifically told to do so., Recovery (Recovery-Hospital Unit), Routine lactated Ringers infusion 1,000 New Bag 11/13/2018 11:42 PM ES T 1,000 mLs 100 mL/hr mL 1,000 mL, at 100 mL/hr, Intravenous, CONTINUOUS, Starting on Sat11/13/18 at 1200, Until Sat11/14/18 at 2134, Recovery (Recovery-Hospital Unit) New Bag 11/13/2018 12:00 PM EST 1,000 mLs 100 mL/hr lactated Ringers infusion 1,000 mL New Bag 11/13/2018 7:32 AM EST 1,000 mL, at 100 mL/hr, Intravenous, CONTINUOUS, Starting on Sat11/13/18 at 0645, Until Sat11/13/18 at 1641, Day of Surgery (Day of Procedure) New Bag 11/13/2018 6:48 AM EST 1,000 mLs 100 mL/hr losartan (COZAAR) tablet 100 mg Given 11/14/2018 8:40 AM EST 100 mg 100 mg, Oral, DAILY, First dose on Sat11/14/18 at 0900, Until Discontinued, Routine ondansetron (ZOFRAN) injection 4 mg 4 mg, Intravenous, EVERY 8 HOURS PRN, St arting on Sat11/14/18 at 1009, Until Sat11/14/18 at 2134, Nausea oxyCODONE (ROXICODONE) 5 mg/5 mL solutio n 5-10 mg 5-10 mg, Oral, EVERY 4 HOURS PRN, Starting on 10/26 at 1008, Until Sat11/14/18 at 2134, Pain, for pain 1-5 give 5mg; for edilma n 6-10 give 10mg, Routine pantoprazole (PROTONIX) injection 40 mg Given 11/14/2018 8:41 AM EST 40 mg 40 mg, Intravenous, DAILY, First dose on Geogrina 11/13/18 at 1730, Until Discontinued, Reconstitute with 10 mL of normal saline to a concentration of 4 mg/mL and infuse slowly over 2 minutes. , Recovery (Recovery-Hospital Unit), Routine Given 11/13/2018 6:01 PM EST 40 mg PARoxetine (PAXIL) tablet 20 mg Given 11/14/2018 8:40 AM EST 20 mg 20 mg, Oral, DAILY, First dose on Sat11/14/18 at 0900, Until Discontinued, Routine prochlorperazine (COMPAZINE) injection 1 0 mg 10 mg, Intravenous, EVERY 6 HOURS PRN, S tarting on Sat11/14/18 at 1009, Until Sat11/14/18 at 2134, Nausea, Use only if no relief from O ndansetron., Routine scopolamine Patch Applied 11/13/2018 7:15 AM 1 patch 02 - Ear Behind (TRANSDERM-SCOP) 1 mg over EST (Right) 3 days patch 1 dose, Starting on Sat11/13/18 at 0701, Until Sat11/13/18 at 0715, Reyna Tejada (anes): cabinet override sodium chloride 0.9 % flush 5 mL Given 11/14/2018 8:43 AM EST 5 mLs 5 mL, Intravenous, 2 TIMES DAILY, First dose on Sat11/13/18 at 2100, Until Discontinued, Recovery (Recovery-Hospital Unit), Routine documented in this encounter Active and Recently Administered Medications Times are shown in EST. Scheduled Medication Order 11/12/2018 11/13/2018 11/14/2018 acetaminophen (OFIRMEV) injection 1,000 mg (COMPLETED) 1214 (Given - Provider: Henrietta Luciano, STONEY)9812 (Given - Provider: Fifi Vogel RN)1878 (Given - Provider: Karis Mendez RN) 7443 (Given - Provider: Karis Mendez RN) 1,000 mg, Intravenous, at 400 mL/hr, JUSTICE RY 6 HOURS SCHEDULED, 4 doses, First dose on Georgina 11/13/18 at 1200, Last dose on Sat11/14/18 at 0600, Maximum dose of acetaminophen is 4000 mg from all sources in 24 hours., Recovery (Recovery-Hospital Unit), Routine acetaminophen (TYLENOL) 650 mg/20.3 mL oral liquid 650 mg 1030 (Given - Provider: Fifi Vogel RN - Comment: per request at this time)1430 (Not Given - Provider: Fifi Vogel RN - Reason: See comment - Comment: over 4,000 mg limit)1615 (Given - Provider: Fifi Vogel RN) 650 mg, Oral, EVERY 4 HOURS, First dose on Sat11/14/18 at 1030, Until Discontinued, Maximum dose of acetaminophen is 4,000 mg from all sources in 24 hours., Routine acetaminophen (TYLENOL) tablet 1,000 mg (COMPLETED) 0641 (Given - Provider: Rosei Retana RN) 1,000 mg, Oral, ONCE, 1 dose, Georgina at 0645, Administer with SIP of H2O only., Day of Surgery (Day of Procedure), Routine ceFAZolin (ANCEF) 2g in dextrose 5% 100 mL (COMPLETED) 0751 (Given - Provider: Reyna Tejada)1048 (Given - Provider: Reyna Tejada) 2 g, Intravenous, EVERY 3 HOURS, 1 dose, First dose on Georgina 11/13/18 at 0645, Administer over 30 Minutes, Intra-Operative (Intra-Procedure), Indication for (Active or Suspected): Prophylaxis enoxaparin (LOVENOX) injection 40 mg 0839 (Given - Provider: Fifi Vogel RN) 40 mg, Subcutaneous, 2 TIMES DAILY, Firs t dose on Sat11/14/18 at 0900, Until Discontinued, Recovery (Recovery-Hospital Unit), Routine enoxaparin (LOVENOX) injection 40 mg (COMPLETED) 0648 (Given - Provider: Rosie Retana RN) 40 mg, Subcutaneous, ONCE, 1 dose, Georgina 1 01/14/18 at 0645, Day of Surgery (Day of Procedure), Routine insulin lispro (HumaLOG) VIAL injection 2-8 Units(Linked Yadira up 1) 1155 (Given - Provider: Henrietta Luciano, STONEY)1630 (Not Given - Provider: Zenaida Hernandez RN - Reason: Order parameters not met - Comment: FSBS 122) 0730 (Not Given - Provider: Fifi Vogel RN - Reason: See comment - Comment: BG 93)1130 (Not Given - Provider: Fifi Vogel RN - Reason: Order parameters not met)1630 (Not Given - Provider: Fifi Vogel RN - Reason: Order parameters not met) 2-8 Units, Subcutaneous, 3 TIMES DAILY B EFORE MEALS, First dose on Georgina 11/13/18 at 1200, Until Discontinued, CORRECTION BOLUS Moderate BG 140 - 160 Give 2 units BG 161 - 200 Give 4 units BG 201 - 24 0 Give 6 units BG greater than 240, give 8 units and recheck BG in 2 hours.If BG less than 240 after two hours, give no insulin and resume prior schedule. If BG remains greater than 240, repeat 8 units (no more than three times) & call for ne w basal insulin orders. DO NOT hold if NPO, unless specifically told to do so., Recovery (Recovery-Hospital Unit), Routine losartan (COZAAR) tablet 100 mg 0840 (Given - Provider: Fifi Vogel RN) 100 mg, Oral, DAILY, First dose on Sat01/15/18 at 0900, Until Discontinued, Routine pantoprazole (PROTONIX) injection 40 mg 1801 (Given - Provider: Fifi Vogel RN) 0841 (Given - Provider: Fifi Vogel RN) 40 mg, Intravenous, DAILY, First dose on Georgina 11/13/18 at 1730, Until Discontinued, Reconstitute with 10 mL of normal saline to a concentration of 4 mg/mL and infuse slowly over 2 minutes. , Recovery (Recovery-Hospital Unit), Routine PARoxetine (PAXIL) tablet 20 mg 0840 (Given - Provider: Fifi Vogel RN) 20 mg, Oral, DAILY, First dose on Sat at 0900, Until Discontinued, Routine sodium chloride 0.9 % flush 5 mL 2100 (N ot Given - Provider: Karis Mendez RN - Reason: See comment - Comment: Infusing) 0843 (Given - Provider: Fifi Vogel, RN) 5 mL, Intravenous, 2 TIMES DAILY, First dose on Georgina 11/13/18 at 2100, Until Discontinued, Recovery (Recovery-Hospital Unit), Routine Continuous Medication Order 11/12/2018 11/13/2018 11/14/2018 HYDROmorphone (DILAUDID) 1 mg/mL [employer] 50 mL (CANCELED) 1200 (New Syringe/Cartridge - Provider: Henrietta Luciano, RN) 1058 (Stopped - Provider: Fifi Vogel, RN) Intravenous, F[employer] ONLY, Starting Georgina 10/26 0 at 1200, Until Sat11/14/18 at 1010, Recovery (Recovery-Hospital Unit) lactated Ringers infusion 1,000 mL 1200 (New Bag - Provider: Henrietta Luciano, STONEY)2342 (New Bag - Provider: Karis Mendez RN) 1,000 mL, at 100 mL/hr, Intravenous, CON TINUOUS, Starting Georgina 11/13/18 at 1200, Until Sat11/14/18 at 2134, Recovery (Recovery-Hospital Unit) lactated Ringers infusion 1,000 mL (CANCELED) 0648 (New Bag - Provider: Rosie Retana RN)0732 (New Bag - Provider: Reyna Tejada)1054 (Anesthesia Volume Adjustment - Provider: Reyna Tejada) 1,000 mL, at 100 mL/hr, Intravenous, CON TINUOUS, Starting Georgina 11/13/18 at 0645, Until Georgina 11/13/18 at 1641, Day of Surgery (Day of Procedure) PRN Medication Order 11/12/2018 11/13/2018 11/14/2018 BUpivacaine-EPINEPHrine 0.25 %-1:200,000 injection (CANCELED ) 0942 (Given - Provider: Brenda James MD) ONCE PRN, Starting Georgina 11/13/18 at 0942, Until Sat11/14/18 at 2134, Intra- Operative (Intra-Procedure), Routine dextrose 50% IV syringe 25-50 mL(Linked Group 2) 25-50 mL (12.5-25 g), Intravenous, EVERY 1 HOUR PRN, Starting Georgina 12/20/18 at 1703, Until Sat11/14/18 at 2134, Low blood sugar, For BG 50-70: 120 mL Juice or Regular (not diet) soda OR 12.5 gram (25 mL) Dextrose 50% IV OR, if no IV access, 1 mg Glucagon IM. Recheck BG in 30 minutes. May repeat juice, dextrose or glucagon once per episode For BG less than 50: 240 mL Juice or Regular (not diet) s ramakrishna OR 25 grams (50 mL) Dextrose 50% IV OR, if no IV access, 1 mg Glucagon IM. Recheck BG in 30 minutes. May repeat juice, dextrose, or glucagon once per episode. To avoid extravasation, push Dextro se 50% SLOWLY (3 mL over 1 minute) in a patent, running IV, preferably a central line. For persistent hypoglycemia, consider longer-acting treatment for the duration of the active insulin., Recovery (Recovery-Hospital Unit), Routine diphenhydrAMINE (BENADRYL) injection 25 mg 25 mg, Intravenous, EVERY 30 MIN PRN, 2 doses, Starting Georgina 11/13/18 at 1703, Until Sat11/14/18 at 2134, Itching, May repeat dose in 30 minutes if pruritis not relieved. Per [employer] order., Recovery (Recovery-Hospital Unit), Routine glucagon (human recombinant) injection SolR 1 mg(Linked Group 2) 1 mg, Intramuscular, EVERY 1 HOUR PRN, S tarting Georgina 11/13/18 at 1703, Until Sat11/14/18 at 2134, Low blood sugar, For BG 50-70: 120 mL Juice or Regular (not diet) soda OR 12.5 gram (25 mL) Dextrose 5 0% IV OR, if no IV access, 1 mg Glucagon IM. Recheck BG in 30 minutes. May repeat juice, dextrose or glucagon once per episode For BG less than 50: 240 mL Juice or Regular (not diet) soda OR 25 gram s (50 mL) Dextrose 50% IV OR, if no IV a ccess, 1 mg Glucagon IM. Recheck BG in 30 minutes. May repeat juice, dextrose, or glucagon once per episode. To avoid extravasation, push Dextrose 50% SLOWLY (3 mL over 1 minute) in a patent, runnin g IV, preferably a central line. For persistent hypoglycemia, consider longer-acting treatment for the duration of the active insulin., Recovery (Recovery-Hospital Unit), Routine glucose (GLUTOSE) 40% oral gel(Linked Group 2) 15 g, Oral, PER INSULIN PROTOCOL, Starti ng Georgina 11/13/18 at 1703, Until 11/14/18 at 2134, Low blood sugar, For BG 50-70 mg/dL: 120 mL Juice or Regular (not diet) soda OR 15 gram glucose 40% oral g el OR 12.5 gram (15 mL) Dextrose 50% IV OR, if no IV access, 1 mg Glucagon IM. Recheck BG in 30 minutes. May repeat juice, gel, dextrose or glucagon once per episode For BG less than 50 mg/dL: 240 m l Juice or Regualr (not diet) soda OR 30 gram glucose 40% oral gel OR 25 gram (50 mL) Dextrose 50% IV OR, if no IV access, 1 mg Glucagon IM Recheck BG in 30 minutes. May repeat juice, gel, dextrose or glucagon once per episode. To avoid e xtravasation, push Dextrose 50% SLOWLY (3 mL over 1 minute) in a patent, running IV, preferably a central line For persistent hypoglycemia, consider longer-act ing treatment for the duration of the ac tive insulin 1 tube contains 15 grams of glucose (net weight of tube = 37.5 grams., Recovery (Recovery-Hospital Unit), Routine HYDROmorphone (DILAUDID) injection 0.2-0.4 mg (CANCELED) 1232 (Given - Provider: Henrietta Luciano, STONEY)1240 (Given - Provider: Henrietta Luciano, STONEY) 0.2-0.4 mg, Intravenous, EVERY 5 MIN PRN , Starting Georgina 18 at 1105, Until Georgina 1218 at 1641, Pain, Give 0.2 mg every 5 minutes PRN for mild to moderate pain (1-5) Give 0.4 mg every 5 minutes PRN for moderate to severe pain (6-10). Hol d for respiratory rate less than 10 per minute. Maximum dose 4 mg over one hour. If multiple pain medications are ordered, start with hydromorphone or morphine an d use fentanyl for breakthrough pain., PACU Recovery, Routine lidocaine (XYLOCAINE) 10 mg/mL (1 %) injection 3 mg 3 mg (0.3 mL), Subcutaneous, ONCE PRN, 1 dose, Starting Georgina 11/13/18 at 1703, Until Sat11/14/18 at 2134, for discomfort with PIV insertion, Recovery (Recovery-Hospital Unit), Routine nalOXone (NARCAN) injection 0.2 mg 0.2 mg, Intravenous, EVERY 1 MIN PRN, St arting Georgina 11/13/18 at 1703, Until 11/14/18 at 2134, Opioid Reversal, May repeat every 60 seconds to increase respiratory rate. DO NOT exceed 2 mg total dose. Per [employer] order., Recovery (Recovery-Hospital Unit), Routine ondansetron (ZOFRAN) injection 4 mg 4 mg, Intravenous, EVERY 8 HOURS PRN, St arting 11/14/18 at 1009, Until Sat11/14/18 at 2133, Nausea oxyCODONE (ROXICODONE) 5 mg/5 mL solution 5-10 mg 5-10 mg, Oral, EVERY 4 HOURS PRN, Starti ng Sat11/14/18 at 1008, Until Sat11/14/18 at 2133, Pain, for pain 1-5 give 5mg; for pain 6-10 give 10mg, Routine prochlorperazine (COMPAZINE) injection 10 mg 10 mg, Intravenous, EVERY 6 HOURS PRN, S tarting Sat11/14/18 at 1009, Until Sat11/14/18 at 2133, Nausea, Use only if no relief from Ondansetron., Routine sodium chloride 0.9 % flush 5-20 mL 5-20 mL, Intravenous, EVERY 1 MIN PRN, S tarting Georgina 11/13/18 at 1703, Until Sat11/14/18 at 2133, flush, Flush pertains to all indwelling lines. Flush per protocol found in the job aid using the link pr ovided on this medication record., Recovery (Recovery-Hospital U nit), Routine No Frequency Medication Order 11/12/2018 11/13/2018 11/14/2018 scopolamine (TRANSDERM-SCOP) 1 mg over 3 days patch (COMPLET ED) 0736 (Patch Applied - Provider: Zenaida Hernandez RN - Comment: applied in same day) 1 dose, Starting Georgina 11/13/18 at 0701, U ntil Georgina 11/13/18 at 1914, Reyna Tejada (anes): cabinet override Linked Groups Order Group 1: POCT Fingerstick Glucose (CANCELED) Routine, 4 TIMES DAILY BEFORE MEALS & AT BEDTIME, First occurrence on Georgina 11/13/18 at 1700, Until Specified
Consider choosing FOUR TIMES A DAY BEFORE MEALS AND AT BEDTIME as frequency f or: Patients who have a good hypoglycemi a awareness: -Patients who are eating meals during the day and sleeping at night -Patient who are otherwise stable, Recovery (Recovery-Hospital Unit) And insulin lispro (HumaLOG) VIAL injection 2-8 UnitsJump to med 2-8 Units, Subcutaneous, 3 TIMES DAILY B EFORE MEALS, First dose on Georgina 11/13/18 at 1200, Until Discontinued
CORRECTION BOLUS Moderate BG 140 - 160& nbsp; Give 2 units &nbsp ;BG 161 - 200 Give 4 units BG 201 - 240 Give 6 units BG greater than 240, give 8 units and recheck BG in 2 hours.If BG less than 240 after two hours, g kimberly no insulin and resume prior schedule . If BG remains greater than 240, repeat 8 units (no more than three times) & call for new basal insulin orders. DO NOT hold if NPO, unless specifically to ld to do so.
Recovery (Recovery- Hospital Unit), Routine Group 2: glucose (GLUTOSE) 40% oral gelJump to med 15 g, Oral, PER INSULIN PROTOCOL, Starti ng Georgina 11/13/18 at 1703, Until Sat11/14/18 at 2134, Low blood sugar
For BG 50-70 mg/dL: 120 mL Juice or Regular (not diet) soda OR 15 gram glucose 40 % oral gel OR 12.5 gram (15 mL) Dextrose 50% IV OR, if no IV access, 1 mg Glucagon IM. Recheck BG in 30 minutes. May repeat juice, gel, dextrose or glucagon once per episode For BG less than 50 mg/d L: 240 ml Juice or Regualr (not diet) so da OR 30 gram glucose 40% oral gel OR 25 gram (50 mL) Dextrose 50% IV OR, if no IV access, 1 mg Glucagon IM Recheck BG in 30 minutes. May repeat juice, gel, dex trose or glucagon once per episode. To avoid extravasation, push Dextrose 50% SLOWLY (3 mL over 1 minute) in a patent, running IV, preferably a central line For persistent hypoglycemia, consider lo nger-acting treatment for the duration o f the active insulin 1 tube contains 15 grams of glucose (net weight of tube = 37.5 grams.
Recovery (Recovery-Hospital Unit), Routine Or dextrose 50% IV syringe 25-50 mLJump to med 25-50 mL (12.5-25 g), Intravenous, EVERY 1 HOUR PRN, Starting Georgina 11/13/18 at 1703, Until 11/14/18 at 2134, Low blood sugar
For BG 50- 70: 120 mL Juice or Regular (not d iet) soda OR 12.5 gram (25 mL) Dextrose 50% IV OR, if no IV access, 1 mg Glucagon IM. Recheck BG in 30 minutes. May repeat juice, dextrose or glucagon once per ep isode For BG less than 50: 240 mL Juice or Regular (not diet) soda OR 25 grams (50 mL) Dextrose 50% IV OR, if no IV access, 1 mg Glucagon IM. Recheck BG in 30 minutes. &am p;nbsp;May repeat juice, dextrose, or gl ucagon once per episode. To avoid extravasation, push Dextrose 50% SLOWLY (3 mL over 1 minute) in a patent, running IV, preferably a central line.& nbsp;For persistent hypoglycemia, cons ider longer-acting treatment for the duration of the active insulin.
Recovery (Recovery-Hospital Unit), Routine Or glucagon (human recombinant) injection SolR 1 mgJump to med 1 mg, Intramuscular, EVERY 1 HOUR PRN, S tarting Georgina 11/13/18 at 1703, Until 11/14/18 at 2134, Low blood sugar
For BG 50-70: 120 mL Juice or Regular (not diet) soda OR 1 2.5 gram (25 mL) Dextrose 50% IV OR, if no IV access, 1 mg Glucagon IM. Recheck BG in 30 minutes. May repeat juice, dextrose or glucagon once per episode&nbsp ;For BG less than 50: 240 mL Juice or Regular (not diet) soda OR 25 grams (50 mL) Dextrose 50% IV OR, if no IV access, 1 mg Glucagon IM. Recheck BG in 30 minutes. May rep eat juice, dextrose, or glucagon once pe r episode. To avoid extravasation, push Dextrose 50% SLOWLY (3 mL over 1 minute) in a patent, running IV, preferably a central line. For per sistent hypoglycemia, consider longer-ac ting treatment for the duration of the active insulin.
Recovery (Recovery-Hospital Unit), Routine documented in this encounter Care Teams Clinical Leader Relationship Specialty Start Date End Date Jaja Mason MD PCP - General 10/30/[address] [place] [address] [address] [place] [address] documented as of this encounter
--- OUTSIDE RECORDS SUMMARY | 2022-07-13 01:09 | XMS_ITS | Encounter Summary ---
:1965 Author Organization [facility] [place] [address] Care Team Providers Name Role Phone Jaja Mason MD Primary Care Provider Encounter Details Date Type Department Care Team Description 09/01/2018 Office Visit General Surgery at [facility], Brenda White MD [facility] [place] [address] Morbid obesity with [facility] Elidia Ornelas RD [facility] [place] [address] BMI of 40.0-44.9, [facility] [place] [address] Social History Tobacco Use Types Packs/Day Years Used Date Never Smoker Smokeless Tobacco: Never Used Alcohol Use Standard Drinks/Week Comments Yes 0 (1 standard drink = 0.6 oz pure alcoho l) very rarely Sex Assigned at Date Recorded Not on file documented as of this encounter Last Filed Vital Signs Vital Sign Reading Time Taken Comments Blood Pressure 158/80 09/01/2018 10:08 AM EDT Pulse 69 09/01/2018 10:08 AM EDT Temperature 36.7 ??C (98.1 ??F) 09/01/2018 10:08 AM EDT Respiratory Rate 18 09/01/2018 10:08 AM EDT Oxygen Saturation 98% 09/01/2018 10:08 AM EDT Inhaled Oxygen Concentration - - Weight 113.5 kg (250 lb 4.8 oz) 09/01/2018 10:08 AM EDT Height 160.7 cm (5' 3.25) 09/01/2018 10:08 AM EDT Body Mass Index 43.99 09/01/2018 10:08 AM EDT documented in this encounter Patient Instructions Patient InstructionsJohnson Elidia D, RD - 09/01/2018 10:00 AM EDT BARIATRIC SURGERY PROGRAM FIRST VISIT Contact information: [facility] Admin coordinator Caitlin: [phone] Dietitian: [phone] Surgeons/ nurse practitioner: [phone] Nurse line: [phone] Pending information: 1. Documentation of 4th dietary visit- scheduled for 09/04/18. Bariatric Surgery Program educational information: ?? Read the Bariatric Surgery Program Educational Handbook thoroughly, highlight important areas to remember. Write down any questions that you may have to discuss at next visit. ?? Bring the Handbook to ALL pre-operative visits. Keep the handbook in a safe place for easy retrieval. Your next visits: All visits take place in the General Surgery Clinic, [facility] [place] 1. 2nd visits with dietitian and nurse practitioner ([facility]- Shared Medical Appointment) - Please note this visit is approximately 3 hours long 2. Pre-op class: to be determined at a later date 3. Bring the questionnaire to your next visit. Complete within 1 day of the visit. Predicted weight loss with surgery is an estimated 30-70% of excess body weight, which would be a goal weight between 173-212#. Nutrition: 1) Your starting weight is: 241#. No weight gain policy is waived due to insulin use. HbA1c need to be under 8.0%. 2) Practice post-op GB diet recommendations prior to surgery to support post-op success and long-term weight loss: ??? Eat 3 meals daily, spaced about 4-6 hours apart. ??? Take your time when eating meals, at least 20-30 minutes per meal. ??? Avoid soda and limit caffeine consumption. Stop caffeine 2 weeks prior to surgery. ??? Sip 48-64 oz hydrating fluid daily between meals and avoid drinking with meals. ??? Use smaller plates/bowls/utensils for meals and eat smaller portions. ??? Plan meals 1 wk in advance and shop with a list. 3) Continue taking a keep a food journal. (See Education section below for frequently used Smartphone apps.) 4) Continue exercise as tolerated. 5) Practice this Meal Format: Protein first at all meals! Only eat until full. Breakfast 1st Protein (15-20 grams) 2nd Fruit (1 piece or ?? cup) 3rd Starch (1 serving) Lunch and Dinner 1st Protein (20 grams) 2nd Non-Starchy Vegetables (no limit, no fat) 3rd Starch (1 serving) 4th Fruit (1 piece or ?? cup) 1 serving of starch = 1 slice toast, ?? Frisian muffin, ?? cup cooked potato, rice, or pasta, 1 small preston or wrap Non starchy vegetables include all those except corn, peas, winter squash, beans, and potatoes Snacks: 1-2 per day if physically hungry - choose a protein or a fruit Surgery date: For patients who have insurers who have a long approval process, your surgery date and pre-operative class will be scheduled after you are approved by your insurer. We cannot predict your OR date in advance of approval. Only the OR filter helper can provide you with a date. Questions for your doctor, specialist or pharmacist: ?? Ask your doctor about medication suggestions if you currently take medications that are larger than the size of a tylenol. Large pills need to be crushed (if permitted by the drug marketing information manager) or taken in liquid form for TWO WEEKS after surgery. Oral diabetes medication often does not need to be taken after surgery. ?? If you take antinflammatory medications or steroid medications for arthritis or asthma, please check with your doctor. These medications will likely need to be held 1 week prior to and at least a few weeks after surgery. For women who take control or hormone medications: these medications must be stopped 1 month before and after surgery. Use alternative forms of control. Education: 1. Continue to read information about bariatric surgery- websites listed in your handbook. Also check the ASMBS website: http://asmbs.org/patients 2. Nutrition and Activity apps- Baritastic, My Fitness Pal, Lose It 3.[facility] facebook page: [email or web address] documented in this encounter Progress Notes Elidia Ornelas RD - 09/01/2018 10:00 AM EDT Bariatric Surgery Program Initial Nutrition Assessment Jackie Bates is being seen today for a preoperative evaluation in anticipation of weight loss surgery. SUBJECTIVE Interest in bariatric surgery: Has been heavy her whole life and DM keeps getting worse.Looked into bariatric sx a few years ago but her insurance at the time didn't cover it (~2008). Current insurancedoes so she decided to move forward with bariatric surgery. Research: [] Reading (Internet, books, etc.) [x] Talking to people who have had weight loss surgery- niece had sx [x] Attending introductory seminar - 08/30/17 [x] Watching videos- quizzes received on 04/09/18: 90% x 1, 100% x 2 Social history: works FT @ [employer]; to Tre 2007; 2 children - son age 34 (lives in [place]- , 2 children); 26 yo dtr- lives at home Social support: and dtr Hobbies: singing at jew, puzzles, camping, campfires Related medical history: Class III obesity, HTN, ALVERTO, DM Type 2 (insulin), depression Chewing difficulties - None Overweight/obese since age: 19 - gradual weight gain after Highest weight: 260# in ~1989 Lowest weight: 210# at age 20; 150# at age 17 Dieting History: finds exercise is a good way for her to lose weight. Likes to be out in nature. [place]. Type of Diet Wt Lost (lbs.) Wt. Regain (lbs.) Dates Duration Comments Jaja Mason MD and Don Zavala 2018 3 visits 05/29/18, 07/24/18, 08/11/18, 09/04/18 Omni Diet 10 2009 4 months Made her sick to her stomach Starvation 20 20 2003 3 months Only ate once per day RDN 10 2001 Nutrisystem 14 16 2013 3 months Too expensive Garcinia Cambogia 20 15 2015 6 months Low CHO 15 18 2012 18 months Tried twice Exercise - 1 hour walking daily and limited food intake 35 45 2009 10 months Tried 3 times WW 15 17 1993 6 months Florence Rivero 8 10 1996 3 months Too expensive Meridia 10 10 1998 6 months Atkins 15 20 2000 6 months History of diet pills to lose weight: as above. Dexatrim when she was younger History of disordered eating behaviors such as binge eating/self-induced vomiting/laxative abuse/night eating syndrome: +binge in 2006 for 6 months- stressful relationship; No laxative; No LINO. History of excessive exercise to lose weight: None. Contributing Factors to Obesity: [] Hx Binge Eating / Eating disorder [x] Large portion sizes- overeating at dinner or bc food tastes good; grew up [place] of the [employer] [place], [] Fast eater [] Nighttime eating [x] Emotional eating [] Mindless eating [x] Choosing high calorie foods- donuts, chips [] Preference for concentrated sweets [] Snacking [] Grazing [] Meal skipping [x] Physical Inactivity [] Genes Eating Triggers: [x] Emotions: strong emotions; depression [x] Boredom [x] Stress [] Fatigue [] Physical Hunger [] Eating on a Schedule [] Other: Food Allergies/Intolerances/Preference: [] Gluten [] Lactose [x] Dislikes: tofu, eggplant, melons, sweet potato Diarrhea/Constipation: diarrhea since having her gallbladder removed. takes imodium twice per day Recent Changes in Dietary/Lifestyle Habits: [] Smaller portions [] 3 meals per day [] Eating slower [x] More fruits, vegetables [] Leaner proteins [x] Decreasing carbohydrates and calories. Increasing fiber [] Lower calorie cooking methods (baking, broiling, grilling, etc.) [x] Nutrition Counseling with PCP [] No longer buying tempting foods from grocery store [] Cutting out soda [] Cutting out concentrated sweets/ decreasing added sugar [] Increased physical activity Date changes implemented: May 2018 Current Intake: Tracking Intake: Fat Secret Da Who does meal planning, shopping and cooking at home? Pt shares w her . packs her lunch. Economic and/or time limitations: No. Her is disabled and helps with meals. 24-Hour Recall: during the week may share a bag of popcorn with her in the evening Breakfast Eggs, ham, toast and homefries Snack Lunch Chicken noodle soup Snack Supper Vegetables (cauliflower and pepper) and a apple Snacks Beverages: cappucinos - k cup- 80 calories per k-cup (2-3), cup of coffee from [employer] - large 2 sugars and 5 cream (was 7), water throughout the day ETOH: None. Maybe 1-2 x year Tobacco: never. How often meals eaten away from home: trying to eat at home more; 2 x out to eat for dinner; out to eat 1-2 x week at lunch (Subway or burger and fries) Supplements/Vitamins: One a day over 50 daily, calcium with vitamin D, biotin daily Physical activity: walking 3 x week for 30 minutes; up and down at work Psychological indications: No contraindications to surgery. Evaluation done by Allyssa Saenz PsyD on 05/05/18 and 06/23/18. Pt states she would go back to see Allyssa if needed. Hx abuse - none; Hx Hospitalizations - none. Vision at 2 years post-op: improved health (DM and HTN), feel better about herself, live longer, have more energy Goal weight: 150-160#; felt good/normal at that weight OBJECTIVE: Weight History: Date Weight (lbs) HT BMI Comments Highest Weight 08/05/17 241# 63.5 Initial program weight 09/01/18 250.3# 63.25 44.0 1st pre-op visit EWL % Surgery 1 month post-op 4 months post-op [place] Body Weight (based on BMI of 25): 143# Excess Weight: 98# 30-70% Excess Weight Loss: 173-212#; 50% Excess Weight Loss: 192# Labs: Pt reports most recent HbA1c was 7.2%; previously it was 8.3% SUMMARY: Jackie Bates has been referred for nutrition evaluation and diet instruction in anticipation of bariatric surgery. Previous conservative attempts at weight loss through dieting have been unsuccessful over the buttermaker continuous churn. Predicted weight loss with surgery is an estimated 30-70% of excess body weight. Advised pt that bariatric surgery is a tool, not a solution; and ultimately, weight loss will be achieved through propereating and exercise habits. Encouraged Jackie to work on cutting back on cream in her coffee. Suggested she find something else to do at her break instead of going to [email or web address]. Pt thought she might be able to go walk at the mall across from her work. She showed good understanding of the concepts discussed. Pt has a history of stress eating. States now she reads, walks, shops and keeps herself busy (volunteering and at jew) instead of eating. Discussed No Weight Gain Policy. Advised pt that due to insulin use, no weight gain policy is waived. Pt is aware HbA1c must be <8.0% prior to proceeding to surgery. PENDING INFORMATION: 1. Documentation of 4th dietary visit. NUTRITION DIAGNOSIS: - Obesity related to history of physical inactivity and excessive energy intake as evidenced by BMI of 44.0. PLAN: 1) Patient to practice post-op GB diet recommendations prior to surgery to support post-op success and long-term weight loss: ??? Eat 3 meals daily, spaced about 4-6 hours apart. ??? Take your time when eating meals, at least 20-30 minutes per meal. ??? Avoid soda and limit caffeine consumption. Stop caffeine 2 weeks prior to surgery. ??? Sip 48-64 oz hydrating fluid daily between meals and avoid drinking with meals. ??? Use smaller plates/bowls/utensils for meals and eat smaller portions. ??? Plan meals 1 wk in advance and shop with a list. 2) Continue to keep a food journal. 3) Encouraged exercise as tolerated. 4) We reviewed the No Weight Gain Policy. 5) Patient to attend two pre-op educational classes prior to surgery. Information given to patient: 1. [facility] Bariatric Surgery Education Handbook, a 102 page document (revision February 2012) which contains extensive information regarding pre and post- operative nutrition guidelines including: preop diet,Diet stages I-IV, hydration recommendations, protein guidelines, dumping syndrome, food intolerances, vitamin and mineral supplementation as well as a list of books and online bariatric resources. Brenda Viveros MD - 09/01/2018 10:00 AM EDT Reason for consultation: Jackie is a 53 y.o. year-old female referred by Jaja Mason MD for consultation for consideration of surgical treatment of obesity. Her preferred procedure: gastric bypass possible sleeve gastrectomy. Jackie was advised that weight loss from both procedures depends on ability to eat a healthy diet buttermaker continuous churn after surgery and was encouraged to review the risks and benefits of both procedures in the BSP handbook, as well as online via the [facility] website. BARIATRIC SURGERY PROGRAM PATHWAY Review of progress with the requirements of the Bariatric Surgery Program: 1. Education: She has attended a Introduction to the [facility] Bariatric Surgery Program seminar, a comprehensive two hour meeting that provides a program overview, education on bariatric surgeries offeredat [facility], risks and benefits, as well as patient expectations and follow up [facility] Bariatric Surgery Program Educational seminars viewed 2. Pre-operative programmatic evaluations: PCP evaluation and letter of support to proceed with surgery, BSP labwork, and psychological evaluation 3. Bariatric Surgery Program evaluations with RD today. 4. WT at visit #1: 241 5. Gallbladder status:S/P cholecystectomy 6. Next steps in pathway: ?? Additional testing/ consultations as determined as needed to be determined at today's visit. History of present illness: Jackie reports a history of obesity since the age of 19. Factors that sheidentifies as contributing to her obesity include: genetics, overconsumption and inactivity. She denies binge eating, night eating disorder, self-induced vomiting, laxative or diuretic use or excessiveexercise to lose weight. Conservative efforts at weight loss have been unsuccessful in the buttermaker continuous churn. Refer to nutrition noteby [facility] dietitian for weight and dieting history, 24 hour dietary intake and recent dietary changes. Motivating factors for seeking surgery for bariatric surgery: see RD note Patient research in addition to attendance at [facility] Bariatric Surgery Informational meeting and online Educational seminars: see RD note Her goals of surgery: get and stay healthier Her perceived readiness for surgery: very good Functional status: Exercise: As per RD note Is ambulation limited most or all of the time? no Tolerance: she can walk a mile and climb a flight of stairs Karnofsky performance status scale: 90- able to carry on normal activity, minor signs or symptoms of disease ADLs: able to carry on without difficulty- independent Use of assistive devices: Dyspnea with routine activity: some with walking up inclines Patient Active Problem List Diagnosis Code ??? Carpal tunnel syndrome of right wrist G56.01 ??? Obstructive sleep apnea G47.33 ??? Diabetes mellitus E11.9 ??? Essential hypertension I10 Past Surgical History: Procedure Laterality Date ??? PRO WRIST ARTHROSCOP, RELEASE XVERS LIG 12/26/2011 ENDOSCOPY WRIST W/ RELEASE TRANSVERSE CARPAL LIGAMENT performed by KRISTIAN HOGUE at [facility] Current Outpatient Prescriptions on File Prior to Visit Medication Sig Dispense Refill ??? simvastatin (ZOCOR) 20 mg tablet Take 20 mg by mouth nightly. ??? metFORMIN (GLUCOPHAGE) 1,000 mg tablet Take 1,000 mg by mouth 2 times daily (with meals). ??? metFORMIN (GLUCOPHAGE) 500 mg tablet Take 500 mg by mouth daily. ??? PARoxetine (PAXIL) 20 mg tablet Take 20 mg by mouth every morning. ??? losartan-hydrochlorothiazide (HYZAAR) 50-12.5 mg per tablet Take 1 tablet by mouth daily. No current facility-administered medications on file prior to visit. Allergies Allergen Reactions ??? Unable To Find [Unclassified Drug] Kiwi fruit Diagnostic screenin. Lab data, relevant abnormal: A1C decreasing, from 9.3 to 8.3, repeat pending Mammo just over 1 year ago , will follow up with PCP re repeat 2. Psychological evaluation done by Allyssa Saenz no contraindication to bariatric surgery from a psychological perspective, ongoing counseling recommended post op. Screening/other: Discuss with PCP re timing of repeat mammogram No family history on file. Social History Social History ??? Marital status: Spouse name: N/A ??? Number of children: N/A ??? Years of education: N/A Social History Main Topics ??? Smoking status: Never Smoker ??? Smokeless tobacco: Never Used ??? Alcohol use Yes Comment: very rarely ??? Drug use: No ??? Sexual activity: Not Asked Other Topics Concern ??? None Social History Narrative Bariatric Surgery VTE Risk Assessment Score Patients will be considered to be at high risk if they have one or more of the following: Previous VTE or BMI >/= 60 kg/m2 Or two or more of the followin 1 Age > 50 BMI >/= 50 kg/m2 Male sex Recent tobacco use Obstructive sleep apnea Venous insufficiency/ varicose veins OCP or HRT within 30 days of surgery Total: 2 extended VTE prophylaxis is indicated post bariatric surgery discharge Patients are advised to stop HRT and OCP/ DMPA 1 month prior to surgery and hold for 1 month post op, and use control during this time if appropriate Discussion of treatment of obesity and of the [facility] Bariatric Surgery Program: Ms.. Bates is aware that other treatments for obesity are available, ie, dietary, behavior modification, weight loss medications, exercise as well as surgical weight loss methods. The risks and benefits of bariatric surgery, including gastric bypass and sleeve gastrectomy are discussed at every In troduction to the [facility] Bariatric Surgery Program meeting and all Educational Seminars, and will be reviewed in detail at the second pre-operative visit. The importance of incorporating lifestyle activity and regular exercise, such as walking, or swimming, after discussion and approval by her primary wound care specialist, prior to surgery, as well as post-operatively, was stressed. She is aware of our program???s mandatory requirements: 1. attendance at a two hour Introduction to the [facility] Bariatric Surgery Program seminar 2. view 3 Bariatric Surgery Educational seminars and complete post testing 3. a no weight gain policy. Ongoing weight loss is encouraged. Insurers may have additional weightloss requirements. 4. a minimum of two pre-operative visits with the dietitian and nurse practitioner 5. Two hour pre-operative class and completion of post-testing 6. any additional requirements mandated by the patient's insurance carrier. Prospective patients are encouraged to thoroughly research bariatric surgery, via the internet, the [facility] Bariatric Surgery Program website at [email or web address], books, and journals. In addition, information on bariatric surgery is available at the [employer] at [facility]. Assessment/ Plan: 53 y.o. year old female with morbid obesity: She has had failure to sustain weight loss by medical management and meets the criteria proposed by the NIH Consensus Guidelines for surgical treatment of severe obesity and the AACE, TOS, ASMBS Clinical Practice Guidelines for the Perioperative Nutritional, Metabolic and Non-surgical Support of the Bariatric Surgery Patient 2013 Update. She is aware that there are non-surgical methods to achieve weight loss. She has had an opportunity to have all her questions answered and is in agreement with the plan of care. She was encouraged to call with any questions or concerns. Information provided to patient: 1. [facility] Bariatric Surgery Education Handbook, a 102 page document (revision August 2013) which contains extensive information regarding pre and post- operative care including: a copy of the Patient Agreement, illustrations of GI anatomy and gastric bypass, gastric banding and sleeve gastrectomy surgeries, [facility] Rehab Medicine recommendations and exercises prior to surgery, gastric bypass, gastric banding and sleeve gastrectomy risks and benefits, dietary information including the pre-operative and post-operative diets, DVT prevention guidelines,information on medications that can increase the risk of bleeding, pre-op preparation information, post-operative instructions and contact numbers. Studies and consults suggested to primary wound care specialist: Jaja Mason MD 1. Discuss timing of mammography Pending: - Need A1C less than 8 - CBC and CMP within 3 months of surgery, per [facility] accredited bariatric center guidelines - Ongoing weight loss encouraged Questions regarding [facility] Bariatric Surgery Program patients: [phone] Total visit duration was 30 minutes with over 20 minutes spent in face to face discussion with the patient. documented in this encounter Plan of Treatment Not on filedocumented as of this encounter Results PTH (09/08/2018 10:50 AM EDT) athologist Signature PTH 21 15 - 65 [facility] RANJIT pg/mL [facility] Specimen Anatomical Collection Method Collection Time Receive d Time (Source) Location / / Volume Laterality Blood specimen 09/08/2018 10:50 8 (specimen) AM EDT 10:56 AM EDT Resulting Agency Comment Spec In Lab Brenda Viveros MD CHEMISTRY ORDERABLES Performing Organization Address City/[facility]/ZIP Code Phon e Number [address] TSH (09/08/2018 10:50 AM EDT) P athologist Signature TSH 1.97 0.27 - 4.20 SANCHEZ RANJIT mlU/ML [facility] Specimen Anatomical Collection Method Collection Time Receive d Time (Source) Location / / Volume Laterality Blood specimen 09/08/2018 10:50 8 (specimen) AM EDT 10:56 AM EDT Resulting Agency Comment Spec In Lab Brenda Viveros MD CHEMISTRY ORDERABLES Performing Organization Address City/[facility]/ZIP Code Phon e Number [address] Folate, serum (09/08/2018 10:50 AM EDT) athologist Signature Folate Lvl >20.0 4.8 - 24.2 SANCHEZ RANJIT ng/mL [facility] Specimen Anatomical Collection Method Collection Time Receive d Time (Source) Location / / Volume Laterality Blood specimen 09/08/2018 10:50 8 (specimen) AM EDT 10:56 AM EDT Resulting Agency Comment Spec In Lab Brenda Viveros MD CHEMISTRY ORDERABLES Performing Organization Address City/[facility]/ZIP Code Phon e Number [address] Vitamin B12 (09/08/2018 10:50 AM EDT) athologist Signature Vitamin B-12 [phone] - 1,245 [facility] [place] [facility] pg/mL [facility] Specimen Anatomical Collection Method Collection Time Receive d Time (Source) Location / / Volume Laterality Blood specimen 09/08/2018 10:50 8 (specimen) AM EDT 10:56 AM EDT Resulting Agency Comment Spec In Lab Brenda Viveros MD CHEMISTRY ORDERABLES Performing Organization Address City/[facility]/ZIP Code Phon e Number [address] Vitamin D, 25-Hydroxy (09/08/2018 10:50 AM EDT) athologist Signature 25-OH Vit D 39 30 - 100 [facility] Total ng/mL [facility] Comment: Deficient <10 ng/mL Insufficient 10 to 29 ng/mL Sufficient 30 to 100 ng/mL Potential Intoxication >100 ng/mL According to the [place] National Osteoporosi s Foundation, Vitamin D concentrations >30 ng/mL are sufficient to protect bone health. ??The National Kidney Foundation has similarly stated that pat ients with Vitamin D concentrations <30ng/mL should be considered to be insu fficient or deficient. http://Weebly.com/nkf-guidelines http://Weebly.com/nejm-VitD The [employer] i[employer] Vitamin D Immunoassay detec ts both 25-OH Vitamin D2 and 25-OH Vitamin D3, but only a total Vitamin D c oncentration is reported. Specimen Anatomical Collection Method Collection Time Receive d Time (Source) Location / / Volume Laterality Blood specimen 09/08/2018 10:50 8 2:13 (specimen) AM EDT PM EDT Resulting Agency Comment Spec In Lab Brenda Viveros MD CHEMISTRY ORDERABLES Performing Organization Address City/State/[place] [address] Ferritin (09/08/2018 10:50 AM EDT) athologist Signature Ferritin 96 30 - 400 [facility] ng/mL [facility] Comment: Pediatric reference ranges not verified at [facility], interpret with caution. Reference ranges for females greater allan n 50 years of age approach values for men, i.e., 30-400 ng/mL. Specimen Anatomical Collection Method Collection Time Receive d Time (Source) Location / / Volume Laterality Blood specimen 09/08/2018 10:50 8 (specimen) AM EDT 10:56 AM EDT Resulting Agency Comment Spec In Lab Brenda Viveros MD CHEMISTRY ORDERABLES Performing Organization Address City/[facility]/[place] [address] Iron and TIBC (09/08/2018 10:50 AM EDT) athologist Signature Iron 83 30 - 150 [facility] TIBC 385 250 - 450 [facility]dL [facility] Iron Saturation 22 20 - 50 % [facility] Specimen Anatomical Collection Method Collection Time Receive d Time (Source) Location / / Volume Laterality Blood specimen 09/08/2018 10:50 8 (specimen) AM EDT 10:56 AM EDT Resulting Agency Comment Spec In Lab Brenda Viveros MD CHEMISTRY ORDERABLES Performing Organization Address City/[facility]/[place] [address] (ABNORMAL) Hemoglobin A1c (09/08/2018 10:50 AM EDT) Analysis Performed At Path logist Time Signature Hemoglobin A1C 6.5 (H) 4.3 - 5.6 [facility] Comment: Reference Range: 4.3 - 5.6% 5.7 - 6.4% - Increased Risk of Developin g Diabetes Mellitus >= 6.5% - Consistent with diagnosis of D iabetes Mellitus In the absence of hyperglycemia (i.e. pl asma glucose > 200 mg/dL) or classic symptoms of hyperglycemia a repeat measu rement of HbA1c should be performed on a separate sample to confirm the diagnos is. Diagnosis and Classification of Diabetes Mellitus, Diabetes Care 2013; 36: Suppl. 1, S67-74 Est Avg Gluc 140 mg/dL [facility] Comment: eAG equivalents for HbA1c percentages: HbA1c(%) ?eAG(mg/dL) 6.0 ?126 6.5 ?140 7.0 ?154 7.5 ?169 8.0 ?183 8.5 ?197 9.0 ?212 9.5 ?226 10.0 ? 240 Limitations: The eAG calculation has not been validated on women, individuals below 18 years old and above 70 years old, and individuals with hemoglobinopathies. Additional resources are available on [facility] ADA website. Igor CALLAWAY, Charu J, Timmy R, et al. ??Tr anslating the A1C assay into estimated average glucose values. ??Diabetes Care 2008:31(8):4497-6144. Specimen Anatomical Collection Method Collection Time Receive d Time (Source) Location / / Volume Laterality Blood specimen 09/08/2018 10:50 8 (specimen) AM EDT 10:56 AM EDT Resulting Agency Comment Spec In Lab Brenda Viverso MD CHEMISTRY ORDERABLES Performing Organization Address City/State/ZIP [place] [address] Lipid Panel (09/08/2018 10:50 AM EDT) athologist Signature Chol, Total 144 mg/dL [facility] Comment: Lower Risk: <200 mg/dL Average Risk: 200-239 mg/dL Higher Risk: >sr=507 mg/dL Triglycerides 123 mg/dL [facility] Comment: Average Risk/Lower Risk: <150 mg/dL Borderline High Risk: 150-199 mg/dL High Risk: 200-499 mg/dL Very High Risk: >fj=222 mg/dL HDL 39 mg/dL [facility] Comment: Males: ?? Higher Risk: <40 mg/dL Females: ?? HIgher Risk: <50 mg/dL LDL Cholesterol 80 mg/dL [facility] Comment: Lowest Risk: <100 mg/dL Lower Risk: 100-129 mg/dL Borderline High Risk: 130-159 mg/dL High Risk: 160-189 mg/dL Very High Risk: >mt=800 mg/dL Chol/HDL Ratio 3.7 ratio [facility] Lipid Interpretation See Note [facility] Comment: Lipid management should be guided by a p atient? s ASCVD risk, goals and preferences. ACC/AHA Guidelines recommend high intens ity statin if clinical ASCVD or LDL greater than or equal to 190 mg/dL. http://LearnStreeturIntune Networks.com/EJI-XGZ-Gbryuyfmf Adults aged 40-75 with LDL 70-189 mg/dL should have their 10 year ASCVD risk estimated with the ACC/AHA ASCVD risk es timator http://tools.acc.org/XGPRU-Xbpv-Busjmqvh r/ Statin should be discussed if risk great er than or equal to 7.5% in non-diabetics. With diabetes, moderate i ntensity statin is recommended if risk less than 7.5%, high intensity if risk g reater than or equal to 7.5%. Annual lipid monitoring on statins is no t necessary. Evaluate secondary causes of Triglycerid es greater than 500 mg/dL or LDL greater than 190 mg/dL: See table 6 of A CC/AHA Guideline. Lifestyle modification is a critical com ponent of ASCVD risk reduction. Specimen Anatomical Collection Method Collection Time Receive d Time (Source) Location / / Volume Laterality Blood specimen 09/08/2018 10:50 8 (specimen) AM EDT 10:56 AM EDT Resulting Agency Comment Spec In Lab Brenda Viveros MD CHEMISTRY ORDERABLES Performing Organization Address City/State/ZIP Code Phon e Number [place] [id number] (ABNORMAL) CMP w/fasting Glucose (09/08/2018 10:50 AM EDT) athologist Signature Glucose 70 65 - 99 [facility] Fasting mg/dL [facility] Comment: ?Fasting* Glucose Interpretive C riteria Normal ?65-99 mg/dL Impaired Fasting glucose ?100-125 mg/dL Consistent with Diabetes Mellitus ? >or= 126 mg/dL *Fasting is defined as no caloric intake for at least 8 hours In the absence of unequivocal hypergly cemia a plasma glucose value of >or= 126 mg/dL should be repeated on a subseq uent day. Diagnosis and Classification of Diabetes Mellitus, Position Statement from the [place] [employer] Association. ??Diabete s Care, Volume 33, Supplement 1, Nov 2009 BUN 10 8 - 18 mg/dL [facility] Creatinine 0.65 (L) 0.70 - 1.20 mg/dL [facility] Sodium 144 135 - 145 mmol/L [facility] Potassium 3.9 3.5 - 5.0 mmol/L [facility] Comment: Please note: ??Patients with WBC >100,00 0 may have falsely elevated Potassium levels. ??For accurate Potassium quantif ication in these patients send serum separator tube (gold top) for subsequent determinations. ??Contact the Clinical Chemistry Laboratory if there are any qu estions. Chloride 104 98 - 107 mmol/L [facility] CO2 24 22 - 31 mmol/L [facility] Anion Gap 16 (H) 5 - 15 mmol/L [facility] Calcium 9.9 8.5 - 10.5 mg/dL [facility] Total Protein 7.1 6.1 - 8.0 gm/dL [facility] Albumin 4.4 3.2 - 5.2 gm/dL [facility] AST 46 (H) 0 - 30 unit/L [facility] ALT 51 (H) 0 - 30 unit/L [facility] Alk Phos 61 40 - 104 unit/L [facility] Total Bilirubin 1.2 0.2 - 1.3 mg/dL [facility] Estimated GFR 101 >=60 mL/min/1.73 m?? [facility] Comment: The eGFR was calculated using the CKD-EP I equation. As with all creatinine based estimates of kidney function, eGFR values calculated with the CKD-EPI equation are not accurate in patients wi th acute kidney failure, extremes of body mass or the acutely ill. http://Desk/[facility] CLAREMOREnkf eGFR 117 >=60 mL/min/1.73 m?? [facility] Comment: The eGFR was calculated using the CKD-EP I equation. As with all creatinine based estimates of kidney function, eGFR values calculated with the CKD-EPI equation are not accurate in patients wi th acute kidney failure, extremes of body mass or the acutely ill. http://Desk/[facility] CL[facility]EMOREnkf Specimen Anatomical Collection Method Collection Time Receive d Time (Source) Location / / Volume Laterality Blood specimen 09/08/2018 10:50 8 (specimen) AM EDT 10:56 AM EDT Resulting Agency Comment Spec In Lab Brenda Viveros MD CHEMISTRY ORDERABLES Performing Organization Address City/State/ZIP [place] [address] (ABNORMAL) Hemogram (09/08/2018 10:50 AM EDT) Analysis Performed At Patho logist Time Signature WBC 10.2 (H) 4.0 - 9.5 [facility] x[facility](3[facility] LABORATORY RBC 4.53 4.00 - [facility]HE[facility] CRUZRANJIT 5.21 [facility] x10(6)/[facility] LABORATORY Hemoglobin 13.9 11.7 - [facility] 15.5 gm/dL [facility] Hematocrit 39.4 35.7 - [facility] 45.8 % [facility] MCV 87.0 82.6 - [facility] 94.4 [facility] LAB[facility]ATORY MCH 30.7 27.1 - [facility] RANJIT 32.0 pg [facility] MCHC 35.3 (H) 31.7 - [facility] 35.0 gm/dL [facility] Platelets 202 145 - 357 [facility] x10(3)/[facility] LABORATORY RDWSD 38.5 37.0 - [facility] 46.0 [facility] LAB[facility]ATORY RDWCV 12.0 11.5 - [facility] 14.1 % [facility] MPV 10.9 7.6 - 12.9 [facility] LABORATORY nRBC % Auto 0.0 % [facility] nRBC Abs Auto 0.000 0.000 - [facility] 0.000 [facility] x10(3)/[facility] LABORATORY Specimen Anatomical Collection Method Collection Time Receive d Time (Source) Location / / Volume Laterality Blood specimen 09/08/2018 10:50 8 (specimen) AM EDT 10:56 AM EDT Resulting Agency Comment Spec In Lab Brenda Viveros MD HEMATOLOGY ORDERABLES Performing Organization Address City/State/ZIP [place] [address] documented in this encounter Visit Diagnoses Diagnosis Morbid obesity with BMI of 40.0-44.9, ad ult Morbid obesity documented in this encounter Care Teams Worm Raiser Relationship Specialty Start Date End Date Jaja Mason MD PCP - General 10/30/[address] [place] [address] documented as of this encounter
--- OUTSIDE RECORDS SUMMARY | 2022-07-13 01:09 | XMS_ITS | Encounter Summary ---
:1965 Author Organization [facility] [place] [address] Care Team Providers Name Role Phone Jaja Mason MD Primary Care Provider Encounter Details Date Type Department Care Team Description 12/26/2011 External [place] [address] Social History Tobacco Use Types Packs/Day Years Used Date Never Smoker Alcohol Use Standard Drinks/Week Comments Yes 0 (1 standard drink = 0.6 oz pure alcoho l) very rarely Sex Assigned at Date Recorded Not on file documented as of this encounter Plan of Treatment Not on filedocumented as of this encounter Procedures Procedure Name Priority Date/Time Associated Diagnosis Comme nts EXTERNAL LAB RESULTS Routine 12/25/2011 documented in this encounter Results External Lab Results (12/25/2011) Narrative This result has an attachment that is no t available. Historical Provider CHEMISTRY ORDERABLES documented in this encounter Visit Diagnoses Not on filedocumented in this encounter Care Teams Physicist [employer] Relationship Specialty Start Date End Date Jaja Mason MD PCP - General 10/30/[address] [place] [address] documented as of this encounter
--- OUTSIDE RECORDS SUMMARY | 2022-07-13 01:09 | XMS_ITS | Encounter Summary ---
:1965 Author Organization [facility] Address [facility] [place] [address] Care Team Providers Name Role Phone Jaja Mason MD Primary Care Provider Encounter Details Date Type Department Care Team Description 01/10/2012 Office Visit Orthopaedics at [facility], DR [place] Carpal tunnel [facility] Charles Oneal MD [facility] [place] [address] wrist (Primary Dx) [place] [address] Social History Tobacco Use Types Packs/Day Years Used Date Never Smoker Alcohol Use Standard Drinks/Week Comments Yes 0 (1 standard drink = 0.6 oz pure alcoho l) very rarely Sex Assigned at Date Recorded Not on file documented as of this encounter Progress Notes Charles Oneal MD - 01/10/2012 11:57 AM EST Jackie Horta is just over two weeks status post endoscopic right carpal tunnel decompression. Her neurogenic symptoms have completely resolved. She does have a sensation of weakness in her right hand as well as some palmar pain. Ecchymosis is noted in her distal forearm. Sensibility is intact andpalmar abduction of her thumb is intact. Her sutures were removed. Steri-Strips were applied. She may return to work full duty, effective 01/24/2012. She has no symptoms in her left hand and therefore I will plan on seeing her back in the future on a p.r.n. basis. documented in this encounter Plan of Treatment Not on filedocumented as of this encounter Visit Diagnoses Diagnosis Carpal tunnel syndrome of right wrist - Primary Carpal tunnel syndrome documented in this encounter Care Teams Welding Instructor Relationship Specialty Start Date End Date Jaja Mason MD PCP - General 10/30/[address] [place] [address] [address] [place] [address] documented as of this encounter
--- OUTSIDE RECORDS SUMMARY | 2022-07-13 01:09 | XMS_ITS | Encounter Summary ---
:1965 Author Organization [facility] [place] [address] Care Team Providers Name Role Phone Jaja Mason MD Primary Care Provider Reason for Visit Reason Comments Follow-up s/p bariatric surgery, 4 mon ths post op Encounter Details Date Type Department Care Team Description 03/06/2019 Office Visit General Surgery at Estefani Ahn APRN [facility] [place] [address] ALONSO (nonalcoholic steatohepatitis); [facility] [address] [facility] [place] [address] Disorder of iron metabolism; [facility] Status po st bariatric surgery; Drive Intestinal malabsorption, un specified type; [place], [place] Hypertension, u nspecified type [id number] Social History Tobacco Use Types Packs/Day Years Used Date Never Smoker Smokeless Tobacco: Never Used Alcohol Use Standard Drinks/Week Comments Yes 0 (1 standard drink = 0.6 oz pure alcoho l) very rarely Sex Assigned at Date Recorded Not on file documented as of this encounter Last Filed Vital Signs Vital Sign Reading Time Taken Comments Blood Pressure 133/65 03/06/2019 10:02 AM EDT Pulse - - Temperature - - Respiratory Rate 18 03/06/2019 10:02 AM EDT Oxygen Saturation 97% 03/06/2019 10:02 AM EDT Inhaled Oxygen Concentration - - Weight 88.5 kg (195 lb) 03/06/2019 10:02 AM EDT Height - - Body Mass Index 34.54 12/22/2018 3:36 PM EST documented in this encounter Patient Instructions Patient InstructionsEstefani Ahn, SHOVEL HANDLE ASSEMBLER - 03/06/2019 10:00 AM EDT [facility] customer support consultant Caitlin [phone] and Ros [phone] Dietitians: [phone] Surgeons/ nurse practitioners: [phone] Nurse line: [phone] Testing: Labwork: Today. Go to [facility] [address], which is 1 flight below the General Surgery Clinic. I will notify you via [facility] regarding your results and recommendations A copy of your labwork and office visit today is sent to your primary manager career Next visit: 4 months Routine visits are done at 4.8,12, 18 and 24 months after surgery, and yearly thereafter. Please call [phone] if you do not receive an appointment by 3-4 weeks prior to the expected visit. Medications: 1. No changes at this point 2.Further recommendations pending labwork. Referrals: Vitamins: The following vitamins are recommended: ??? Multivitamins with minerals twice daily- needs to be an under 50 multivitamin that contains iron. No senior multivitamins. (Or read the serving size if taking a Bariatric specific multivitamin such as procare). ??? Vitamin B12 500 mcg by mouth once daily ??? Calcium citrate 600 mg with Vitamin D 400 units twice daily (600 mg in AM and 600 mg in PM- 2 pills twice a day) (or 1 chewable twice a day) ??? Iron with Vitamin C, 50-66 mg once daily (take iron with vitamin C 250 mg to help with absorption) only if you have regular periods, iron deficiency or anemia. Nutrition recommendations: - Your Daily Goals: ?? 1,000-1,200 calories per day (300 calories per meal, 100 calories per snack, 1-2 snacks per day) ?? 60 grams of protein per day (20 grams per meal) ?? 48-64 oz of non-caloric and hydrating fluids per day (6-8, 8 oz cups) ?? Do not drink with meals- pushes food through more quickly, can cause upset stomach Activity: ??? Aim for 30 minutes of exercise daily, 5 days a week of both cardio and strength training exercises. Alcohol: should be used sparingly, no more than one drink per occasion. Alcohol is a source of emptycalories and can cause ulcers and vitamin and mineral deficiencies. Alcohol is toxic to the liver and is absorbed more quickly after surgery, it stays in the system longer. Studies have noted that there is an increased risk of alcohol dependence after bariatric surgery. Alcohol is not recommended until at least 6-12 months post surgery, and after goal weight has been achieved f non-prescribed drugs and treet drugs is unsafe Anti-inflammatory medications such as Ibuprofen (Advil), Aleve (Naproxen), Excedrin, should be used sparingly after gastric bypass, since they increase the risk of ulcer and bleeding. Hair Loss: is associated with rapid weight loss and is seen approximately 3 to 6 months after surgery and can last 3 to 6 months. It is almost always temporary. Eating a healthy diet with 60 grams of protein per day and taking your multivitamin with minerals will help. Call us: ??? If you have concerns. ??? If you have unexplained abdominal pain. ??? if you see blood in your stool or vomit blood ??? If you have prolonged vomiting Post Surgery Support Group: Our post surgery support group meets on the first Saturday of every month from 1-2 PM at [facility]- no registration required Nutrition and Activity apps- Baritastic, My Fitness Pal, Lose It Internet resources: www.Stirling Ultracold(Global Cooling) www.BCR Environmental www.bariatriceating.Baboom www.Farseer.Baboom/blog [facility] facebook page: [email or web address]LLBariatricSurgery Books & Magazines: - Recipes for Life After Weight Loss Surgery by Kassie Gonzalez - Shrink Yourself by Dr Rolando Amaral - Eating Well - www.[email or web address].[email or web address] - Cooking Light- www.cookinglight.Baboom documented in this encounter Progress Notes Estefani Ahn APRN - 03/06/2019 10:00 AM EDT Reason for visit: 4 month post-operative check S/P laparoscopic Dixie-en-Y gastric bypass with Intraoperative Wedge Liver Biopsy and Upper Endoscopy 11/13/2018 ?? Complications summary: Early none Late - ?? Visits summary: Compliance with [facility] follow up: good Attendance at [facility] post-operative graduate support group meetings:none Pre-op 09/01/2018 Wt (lbs) 250.3 BMI 44 Visit #2 WT: ?? HT: 63.25 ? Post-op ? %EBW lost Supplement compliance Labwork 12/01/2018 222 39 26 Good, see RD note -none indicated today ??03/04/2019 ??195 ??34.5 ??51 ??good, see RD note Complete labs today Date Evaluation Results Primary care Reports regular routine follow up no recent changes , updating hepatitis vaccinations,A&B EGD 06/2012 Colonoscopy Normal Today Gastroenterology Follow up cirrhosis Patient Active Problem List Diagnosis Code ??? Carpal tunnel syndrome of right wrist G56.01 ??? Obstructive sleep apnea G47.33 ??? Diabetes mellitus E11.9 ??? Essential hypertension I10 ??? Obesity, Class III, BMI 40-49.9 (morbid obesity) E66.01 ??? Liver cirrhosis secondary to ALONSO K75.81, K74.60 Medications 03/06/19 1152 Medication Sig Taking? multivitamin Capsule Take 1 capsule by mouth daily. [employer] health multivitamin Yes aspirin 81 mg Tablet, Delayed Release (E.C.) Take 81 mg by mouth daily. Yes Biotin 2,500 mcg Capsule Take by mouth. Yes calcium-vitamin D3 600 mg calcium- 400 unit Tablet Take by mouth. Yes Cholestyramine-Aspartame (QUESTRAN LIGHT) 4 gram Powder Take 4 g by mouth 4 times daily as needed. Yes simvastatin (ZOCOR) 20 mg tablet Take 20 mg by mouth nightly. Yes metFORMIN (GLUCOPHAGE) 1,000 mg tablet Take 1,000 mg by mouth 2 times daily (with meals). Yes metFORMIN (GLUCOPHAGE) 500 mg tablet Take 500 mg by mouth daily. Yes PARoxetine (PAXIL) 20 mg tablet Take 20 mg by mouth every morning. Yes losartan (COZAAR) 100 mg Tablet fish oil-omega-3 fatty acids 1,000 mg Capsule Take 2 g by mouth daily. Allergies Allergen Reactions ??? Lisinopril ??? Unable To Find [Unclassified Drug] Kiwi fruit Past Surgical History: Procedure Laterality Date ??? PRO LAP GASTRIC BYPASS/DIXIE-EN-Y N/A 11/13/2018 @LAPAROSCOPIC GASTROPLASTY, (WRVU 29.4) performed by Brenda Viveros MD at [facility] MAIN OR ??? PRO UNLISTED LAPAROSCOPIC PX LVR N/A 11/13/2018 LAPAROSCOPIC LIVER BIOPSY (WRVU 16.52) performed by Brenda Viveros MD at [facility] MAIN OR ??? PRO UPPER GI ENDOSCOPY, DIAGNOSTIC N/A 11/13/2018 ENDOSCOPY, UPPER GI, DIAGNOSTIC, WITH OR WITHOUT SPECIMENS [facility]?? PRO WRIST ARTHROSCOP, RELEASE XVERS LIG 12/26/2011 ENDOSCOPY WRIST W/ RELEASE TRANSVERSE CARPAL LIGAMENT performed by KRISTIAN HOGUE at [facility] OSC Visits to emergency department or other unplanned visit to a health care facility since last visit? None Changes to health/ social history or evaluations since last visit: As per updated problem list and e-DH Subjective. Patient concerns at today's visit: Jackie returns for her 4 month post surgery follow up. She is anxious to know how her labs are doing, she has been drinking juices, thinking they were a good choice, has some dietary indiscretions that she has reviewed with RD. Overall feeling quite good, she gets tired at the end of the day but I do work 3 jobs. she is pleased to report that her bowel movements have normalized, she is very pleased about that, has no complaints today Medications Frequency/ Duration Comments Ursodiol n/a Treatment for constipation None NSAIDs None PPI Stopped Dietary history/ exercise/ activity level: See dietitian note. Benefits of surgery: pleased with weight loss, improved energy Goals: continue to improve A1C, add more exercise, lose a bit more weight Review of Systems (negative if left blank): Constitutional: [] Fatigue- only at end of the day [] pica [x]hair loss [] restless leg Neurologic: [] paresthesias CV: [x] treatment for hypertension or taking antihypertensive medication [x] treatment for hyperlipidemia Pulmonary: [] sleep apnea symptoms []treatment for ALVERTO-not using anymore, sleeps all night and feelsrested, has not had follow up but does not plan to use c pap anymore. GI: [] GERD []dysphagia [x]dumping -some when she eats too many fatty foods, juices, battered foods,breads, fried foods. [x] abdominal pain-sometimes when she eats too fast , sometimes has cramping when she drinks juice which she has been doing more since she was last seen []hernia [] nausea/vomiting [] blood in stool [x] chronic diarrhea-much better, rarely needs to take questran DRIER BELT CONVEYOR: [] LMP: [] control [] menorrhagia [] post-menopause, s/p hysterectomy : [] pain with urination [] ED [] hesitancy/urgency Skin: [] redundant skin [] chronic rashes Heme/Lymph: []excessive bruising [] blood donation in past year Psychiatric [] mental health concerns Last A1C was about 6 in October Health-related habits/other: Tobacco: None Alcohol: None Employment/social: Works 3 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 Objective: General: Jackie is a very pleasant, engaged, appropriate 53 y.o. year-old female appears stated age, NAD, she is here with her today, he is engaged in the visit, supportive Heart: S1S2 distinct, no extra sounds or murmurs, RRR Lungs: Clear all lobes A&P, effort minimal, pattern regular Abdomen: soft, non-tender, no masses, no rebound, +BS. Trocar sites pale pink, some skin folds, pt practices meticulous hygiene to manage at this point Extremities: no LE edema, pulses present Vital signs: BP 133/65 Resp 18 Wt 88.5 kg (195 lb) SpO2 97% BMI 34.54 kg/m?? Today's lab data: Recent Results (from the past 72 hour(s)) Folate, serum Result Value Ref Range Folate Lvl 19.7 4.8 - 24.2 ng/mL Vitamin B12 Result Value Ref Range Vitamin B-12 1,734 (H) 232 - 1,245 pg/mL Ferritin Result Value Ref Range Ferritin 43 30 - 400 ng/mL Iron and TIBC Result Value Ref Range Iron 112 30 - 150 mcg/dL TIBC 422 250 - 450 mcg/dL Iron Saturation 27 20 - 50 % Hemoglobin A1c Result Value Ref Range Hemoglobin A1C 5.8 (H) 4.3 - 5.6 % Est Avg Gluc 120 mg/dL Prealbumin Result Value Ref Range Prealbumin 22 20 - 40 mg/dL Comprehensive metabolic panel (non-fasting) Result Value Ref Range Glucose Lvl 85 65 - 199 mg/dL BUN 15 8 - 18 mg/dL Creatinine 0.60 (L) 0.70 - 1.20 mg/dL Sodium 141 135 - 145 mmol/L Potassium 4.0 3.5 - 5.0 mmol/L Chloride 104 98 - 107 mmol/L CO2 25 22 - 31 mmol/L Anion Gap 12 5 - 15 mmol/L Calcium 9.8 8.5 - 10.5 mg/dL Total Protein 7.0 6.1 - 8.0 gm/dL Albumin 4.7 3.2 - 5.2 gm/dL AST 23 0 - 30 unit/L ALT 28 0 - 30 unit/L Alk Phos 66 40 - 104 unit/L Total Bilirubin 1.0 0.2 - 1.3 mg/dL eGFR 103 >=60 mL/min/1.73 m?? eGFR 120 >=60 mL/min/1.73 m?? Hemogram Result Value Ref Range WBC 9.6 (H) 4.0 - 9.5 x10(3)/mcL RBC 4.66 4.00 - 5.21 x10(6)/mcL Hemoglobin 14.4 11.7 - 15.5 gm/dL Hematocrit 41.1 35.7 - 45.8 % MCV 88.2 82.6 - 94.4 fL MCH 30.9 27.1 - 32.0 pg MCHC 35.0 31.7 - 35.0 gm/dL Platelets 224 145 - 357 x10(3)/mcL RDWSD 40.4 37.0 - 46.0 fL RDWCV 12.4 11.5 - 14.1 % MPV 11.7 7.6 - 12.9 fL nRBC % Auto 0.0 % nRBC Abs Auto 0.000 0.000 - 0.000 x10(3)/mcL Prothrombin Time Result Value Ref Range PT 13.0 (H) 9.4 - 12.5 sec INR 1.1 labs reviewed, continue current supplements, pt notified, D pending Assessment: S/P RNY with loss of 51% of excess body weight. Encounter Diagnoses Name ??? ALONSO (nonalcoholic steatohepatitis) Will continue with weight loss measures, instructed to continue to work on low carb diet, remove sweetened beverages, including juice from diet, continue regularfollow up with GI ??? Disorder of iron metabolism Stable currently continue current supplements ??? Status post bariatric surgery Overall doing well post op, teaching/reinforcement given regardingbariatric recommendations, reviewed in detail dietary guidelines. Reviewed red flag sx. Pt had her questions answered to her satisfaction. ??? Intestinal malabsorption, unspecified type Vitamin levels stable, D pending ??? Hypertension, unspecified type Continues to improve, pcp following Plan: ?? Jackie was congratulated on ongoing healthy lifestyle efforts as above, guidelines reviewed ?? E- medical record reviewed since last BSP visit ?? Advised that hair loss due to rapid weight loss is typical for this early post-surgery time frame, will improve with time and adequate protein/ calorie intake ?? Next BSP follow up: 4 months, sooner if indicated ?? Next labwork: 4 months, sooner if indicated ?? Additional vitamin and mineral supplement recommendations (*in addition to routine bariatric supplements, as noted below): continue current supplements, D pending ?? Advised to call with unexplained abdominal pain, prolonged nausea, vomiting or inability to hydrate, questions or concerns ?? dietary/ exercise recommendations per RD She was provided with a Bariatric Program Summary report which included the above recommendations, as well as information on vitamin and mineral supplementation, fluids, exercise and support group meetings. She has had an opportunity to have all her questions answered and is in agreement with the plan of care. Jackie was advised of lab results via [facility] per her request. RECOMMENDED BARIATRIC SURGERY PROGRAM POSTOPERATIVE FOLLOW-UP: Follow up: done at 4, 8,12 and 18 and 24 months, and yearly thereafter. High risk patients are evaluated on a more frequent basis. *Supplement recommendations: Complete multivitamin with minerals twice a day, B12 500 mcg once a day, calcium citrate 600 mg/400 units vitamin D twice a day, iron (ferrous fumarate, polysaccharide iron taken with vitamin C 250 mg once a day) for menstruating females or those with JULIETTE. Labwork: Hemogram, ferritin, iron (transferrin) saturation, iron, folate, Vitamins B1, B12, D (25 hydroxy only), Intact PTH and comprehensive metabolic profile at 4, 12 and 24 months, and yearly. Prealbumin is done at 4 and 12 months and PRN. If labwork is done by the primary manager career: please send a copy to the Bariatric Surgery Program, General Surgery Clinic, [facility] Questions regarding [facility] Bariatric Surgery Program patients: please call [phone]. documented in this encounter Plan of Treatment Not on filedocumented as of this encounter Results Folate, serum (03/06/2019 12:42 PM EDT) athologist Signature Folate Lvl 19.7 4.8 - 24.2 [facility] RANJ[facility] ng/mL [facility] LABORATORY Specimen Anatomical Collection Method Collection Time Receive d Time (Source) Location / / Volume Laterality Blood specimen 03/06/2019 12:42 9 (specimen) PM EDT 12:49 PM EDT Resulting Agency Comment Spec In Lab Estefani Ahn APRN CHEMISTRY ORDERABLES Performing Organization Address City/[facility]/[place] [address] (ABNORMAL) Vitamin B12 (03/06/2019 12:42 PM EDT) Analysis Performed At Patho logist Time Signature Vitamin B-12 1,734 (H) 232 - [facility] RANJIT 1,245 [facility] pg/mL [facility] LABORATORY Specimen Anatomical Collection Method Collection Time Receive d Time (Source) Location / / Volume Laterality Blood specimen 03/06/2019 12:42 9 (specimen) PM EDT 12:49 PM EDT Resulting Agency Comment Spec In Lab Estefani Ahn APRN CHEMISTRY ORDERABLES Performing Organization Address City/[facility]/ZIP Code Phon e Number [address] Vitamin B1, whole blood (03/06/2019 12:42 PM EDT) P athologist Signature Vit B1 Lvl WB 179 70 - 180 [facility] nmol/L [facility] LAB[facility]ATORY Comment: ADDITIONAL INFORMATIO N This test was developed and its performa nce characteristics determined by [facility] in a manner co nsistent with CLIA requirements. This test has not been lala ared or approved by the U.S. Food and Drug Administration. Test Performed by: [facility] [address] [place], [place] [address] Specimen Anatomical Collection Method Collection Time Receive d Time (Source) Location / / Volume Laterality Blood specimen 03/06/2019 12:42 9 3:46 (specimen) PM EDT PM EDT Resulting Agency Comment Spec In Lab Estefani Draperoie ELIF CHEMISTRY ORDERABLES Performing Organization Address City/[facility]/ZIP Code Phon e Number [address] Vitamin D, 25-Hydroxy (03/06/2019 12:42 PM EDT) P athologist Signature 25-OH Vit D 37 30 - 100 [facility] Total ng/mL [facility] LAB[facility]ATORY Comment: Deficient <10 ng/mL Insufficient 10 to 29 ng/mL Sufficient 30 to 100 ng/mL Potential Intoxication >100 ng/mL According to the US National Osteoporosi s Foundation, Vitamin D concentrations >30 ng/mL are sufficient to protect bone health. ??The National Kidney Foundation has similarly stated that pat ients with Vitamin D concentrations <30ng/mL should be considered to be insu fficient or deficient. http://Soapbox.Baboom/nkf-guidelines http://Soapbox.Baboom/nejm-VitD The IDS iSYS Vitamin D Immunoassay detec ts both 25-OH Vitamin D2 and 25-OH Vitamin D3, but only a total Vitamin D c oncentration is reported. Specimen Anatomical Collection Method Collection Time Receive d Time (Source) Location / / Volume Laterality Blood specimen 03/06/2019 12:42 9 2:27 (specimen) PM EDT PM EDT Resulting Agency Comment Spec In Lab Estefani Ahn SHOVEL HANDLE ASSEMBLER CHEMISTRY ORDERABLES Performing Organization Address City/[facility]/ZIP Code Phon e Number [address] Vitamin A (03/06/2019 12:42 PM EDT) athologist [facility] Vitamin A 51.1 32.5 - 78.0 SANCHEZ RANJIT mcg/dL [facility] LABORATORY Comment: ADDITIONAL INFORMATIO N This test was developed and its performa nce characteristics determined by [facility] in a manner co nsistent with CLIA requirements. This test has not been lala ared or approved by the U.S. Food and Drug Administration. Test Performed by: [facility] [address] [place], [place] [address] Specimen Anatomical Collection Method Collection Time Receive d Time (Source) Location / / Volume Laterality Blood specimen 03/06/2019 12:42 9 2:38 (specimen) PM EDT PM EDT Resulting Agency Comment Spec In Lab Estefani Ahn APRN CHEMISTRY ORDERABLES Performing Organization Address City/[facility]/ZIP Code Phon e Number [address] Ferritin (03/06/2019 12:42 PM EDT) [facility] Ferritin 43 30 - 400 SANCHEZ RANJIT ng/mL [facility] LABORATORY Comment: Pediatric reference ranges not verified at [facility], interpret with caution. Reference ranges for females greater allan n 50 years of age approach values for men, i.e., 30-400 ng/mL. Specimen Anatomical Collection Method Collection Time Receive d Time (Source) Location / / Volume Laterality Blood specimen 03/06/2019 12:42 9 (specimen) PM EDT 12:49 PM EDT Resulting Agency Comment Spec In Lab Estefani Ahn APRN CHEMISTRY ORDERABLES Performing Organization Address City/[facility]/ZIP Code Phon e Number [address] Iron and TIBC (03/06/2019 12:42 PM EDT) [facility] Iron 112 30 - 150 SANCHEZ RANJIT mcg/dL [facility] LABORATORY TIBC 422 250 - 450 SANCHE[facility] RANJIT mcg/dL [facility] LABORATORY Iron Saturation 27 20 - 50 % [facility] LAB[facility]ORY Specimen Anatomical Collection Method Collection Time Receive d Time (Source) Location / / Volume Laterality Blood specimen 03/06/2019 12:42 9 (specimen) PM EDT 12:49 PM EDT Resulting Agency Comment Spec In Lab Estefani Ahn ELIF CHEMISTRY ORDERABLES Performing Organization Address City/State/[place] [address] (ABNORMAL) Hemoglobin A1c (03/06/2019 12:42 PM EDT) Analysis Performed At Patho logist Time Signature Hemoglobin A1C 5.8 (H) 4.3 - 5.6 [facility] LAB[facility] Comment: Reference Range: 4.3 - [...] Mellitus, Diabetes Care 2013; 36: Suppl. 1, T67-56 Est Avg Gluc 120 mg/dL [facility] Comment: eAG equivalents for HbA1c percentages: HbA1c(%) ?eAG(mg/dL) 6.0 ?126 6.5 ?140 7.0 ?154 7.5 ?169 8.0 ?183 8.5 ?197 9.0 ?212 9.5 ?226 10.0 ? 240 Limitations: The eAG calculation has not been validated on women, individuals below 18 years old and above 70 years old, and individuals with hemoglobinopathies. Additional resources are available on [facility] ADA website. Igor CALLAWAY, Charu J, Timmy R, et al. ??Tr anslating the A1C assay into estimated average glucose values. ??Diabetes Care 2008:31(8):9697-2796. Specimen Anatomical Collection Method Collection Time Receive d Time (Source) Location / / Volume Laterality Blood specimen 03/06/2019 12:42 9 (specimen) PM EDT 12:50 PM EDT Resulting Agency Comment Spec In Lab Estefani Ahn ELIF CHEMISTRY ORDERABLES Performing Organization Address [facility] Phon e Number [address] Prealbumin (03/06/2019 12:42 PM EDT) athologist Signature Prealbumin 22 20 - 40 [facility] mg[facility]ORY Comment: Prealbumin levels are generally lower in the pediatric population; adult concentrations are usually attained near puberty. Specimen Anatomical Collection Method Collection Time Receive d Time (Source) Location / / Volume Laterality Blood specimen 03/06/2019 12:42 9 (specimen) PM EDT 12:49 PM EDT Resulting Agency Comment Spec In Lab Estefani Ahn SHOVEL HANDLE ASSEMBLER CHEMISTRY ORDERABLES Performing Organization Address City/[facility] [place] [address] (ABNORMAL) Comprehensive metabolic panel (non-fasting) (03/06/2019 12:42 PM EDT) P athologist Signature Glucose Lvl 85 65 - 199 [facility] Comment: Diabetes: >=200 mg/dL plus symp toms BUN 15 8 - 18 mg/dL [facility] Creatinine 0.60 (L) 0.70 - 1.20 mg/dL [facility] Sodium 141 135 - 145 mmol/L [facility] Potassium 4.0 3.5 - 5.0 mmol/L [facility] Comment: Please note: ??Patients with WBC >100,00 0 may have falsely elevated Potassium levels. ??For accurate Potassium quantif ication in these patients send serum separator tube (gold top) for subsequent determinations. ??Contact the Clinical Chemistry Laboratory if there are any qu estions. Chloride 104 98 - 107 mmol/L [facility] CO2 25 22 - 31 mmol/L [facility] Anion Gap 12 5 - 15 mmol/L [facility] Calcium 9.8 8.5 - 10.5 mg/dL [facility] Total Protein 7.0 6.1 - 8.0 gm/dL [facility] Albumin 4.7 3.2 - 5.2 gm/dL [facility] AST 23 0 - 30 unit/L [facility] ALT 28 0 - 30 unit/L [facility] Alk Phos 66 40 - 104 unit/L [facility] Total Bilirubin 1.0 0.2 - 1.3 mg/dL [facility] Estimated GFR 103 >=60 mL/min/1.73 m?? [facility] Comment: The eGFR was calculated using the CKD-EP I equation. As with all creatinine based estimates of kidney function, eGFR values calculated with the CKD-EPI equation are not accurate in patients wi th acute kidney failure, extremes of body mass or the acutely ill. [email or web address] PUR[facility]LLnkf eGFR 120 >=60 mL/min/1.73 m?? [facility] Comment: The eGFR was calculated using the CKD-EP I equation. As with all creatinine based estimates of kidney function, eGFR values calculated with the CKD-EPI equation are not accurate in patients wi th acute kidney failure, extremes of body mass or the acutely ill. [email or web address] Specimen Anatomical Collection Method Collection Time Receive d Time (Source) Location / / Volume Laterality Blood specimen 03/06/2019 12:42 04/12/201 9 (specimen) PM EDT 12:49 PM EDT Resulting Agency Comment Spec In Lab Estefani Ahn SHOVEL HANDLE ASSEMBLER CHEMISTRY ORDERABLES Performing Organization Address City/State/[place] [address] (ABNORMAL) Hemogram (03/06/2019 12:42 PM EDT) P athologist Signature WBC 9.6 (H) 4.0 - 9.5 SANCHEZ RANJIT x10(3)/[facility] LABORATORY RBC 4.66 4.00 - [facility] Systems[facility]ANJIT 5.21 [facility] x10(6)/[facility] LABORATORY Hemoglobin 14.4 11.7 - SANCHEZ RANJIT 15.5 gm/dL [facility] Hematocrit 41.1 35.7 - SANCHEZ RANJIT 45.8 % [facility] MCV 88.2 82.6 - [facility] 94.4 [facility] LAB[facility] MCH 30.9 27.1 - [facility] 32.0 pg [facility] MCHC 35.0 31.7 - SANCHEZ RANJIT 35.0 gm/dL [facility] Platelets 224 145 - 357 [facility] RDWSD 40.4 37.0 - [facility]ANJIT 46.0 [facility] LABORATORY RDWCV 12.4 11.5 - [facility]RANJIT 14.1 % [facility] MPV 11.7 7.6 - 12.9 [facility] RANJIT [facility] LABORATORY nRBC % Auto 0.0 % [facility] nRBC Abs Auto 0.000 0.000 - [facility] RANJIT 0.000 [facility] x10(3)/[facility] LABORATORY Specimen Anatomical Collection Method Collection Time Receive d Time (Source) Location / / Volume Laterality Blood specimen 03/06/2019 12:42 9 (specimen) PM EDT 12:49 PM EDT Resulting Agency Comment Spec In Lab Estefani Ahn APRN HEMATOLOGY ORDERABLES Performing Organization Address City/State/[place] [address] documented in this encounter Visit Diagnoses Diagnosis ALONSO (nonalcoholic steatohepatitis) Other chronic nonalcoholic liver disease 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
--- OUTSIDE RECORDS SUMMARY | 2022-07-13 01:09 | XMS_ITS | Encounter Summary ---
:1965 Author Organization [facility] [place] [address] Care Team Providers Name Role Phone Jaja Mason MD Primary Care Provider Reason for Referral Diagnostic Test (Routine) - Closed Specialty Diagnoses / Procedures Referred By Contact Refer red To Contact Radiology Diagnoses Liver cirrhosis secondary to ALONSO Ken Carroll PA [facility] Rad Mri Procedures MRI Abdomen wwo Contrast (Generic) [facility] [place], [place] [id number] [place] [id number] Referral ID Status Reason Start Date Expiration Date Visits V isits Requested Authorized [id number] Closed Specialty 12/26/2018 03/26/2019 1 1 Service Requested Reason for Visit Consultation (Routine) - Closed Specialty Diagnoses / Procedures Referred By Contact Refer red To Contact Gastroenterology Diagnoses Steatohepatitis Estefani Ahn, Ken Barros PA [facility] [address] [place] [address] Referral ID Status Reason Start Date Expiration Date Visits V isits Requested Authorized [id number] Closed Consult, 12/01/2018 12/01/2019 1 1 Test & Treat Encounter Details Date Type Department Care Team Description 12/22/2018 Office Visit Gastroenterology at [facility] Ken Carroll Liver cirrhosis secondary to ALONSO (Primary Dx); [facility] ABAD Chairez Obesity, Class III, BMI 40-49.9 (morbid obesity); NASH [place] [phone] [facility] Type 2 diabetes mellitus wit h complication, with long-term current use of insulin [phone] [place] [address] Social History Tobacco Use Types Packs/Day Years Used Date Never Smoker Smokeless Tobacco: Never Used Alcohol Use Standard Drinks/Week Comments Yes 0 (1 standard drink = 0.6 oz pure alcoho l) very rarely Sex Assigned at Date Recorded Not on file documented as of this encounter Last Filed Vital Signs Vital Sign Reading Time Taken Comments Blood Pressure 116/47 12/22/2018 3:36 PM EST Pulse 63 12/22/2018 3:36 PM EST Temperature - - Respiratory Rate - - Oxygen Saturation - - Inhaled Oxygen Concentration - - Weight 94.8 kg (209 lb) 12/22/2018 3:36 PM EST Height 160 cm (5' 3) 12/22/2018 3:36 PM EST Body Mass Index 37.02 12/22/2018 3:36 PM EST documented in this encounter Progress Notes Ken Carroll PA - 12/22/2018 3:30 PM EST HEPATOLOGY NEW PATIENT CONSULTATION Patient: Jackie Bates Sex: female Date of : 1965 HOSE BUILDER: Ken Carroll PA-C PCP: Jaja Mason MD Requesting Provider: Estefani Ahn 12/22/18 REASON FOR CONSULTATION: ALONSO cirrhosis on intraoperative liver biopsy PROBLEM LIST Patient Active Problem List Diagnosis Code ??? Carpal tunnel syndrome of right wrist G56.01 ??? Obstructive sleep apnea G47.33 ??? Diabetes mellitus E11.9 ??? Essential hypertension I10 ??? Obesity, Class III, BMI 40-49.9 (morbid obesity) E66.01 HISTORY OF PRESENT ILLNESS Jackie Bates is a 53 y.o. female referred to hepatology clinic for evaluation of steatohepatitis with cirrhosis on intraoperative liver biopsy at the time of laparoscopic Collins-en-Y gastric bypasssurgery on 11/13/[address] Viveros. The procedure was uneventful. She is accompanied by her . Since her surgery, she has been realizing that there are a lot more restrictions in her diet than she thought there would be. She has had a few vomiting spells and abdominal pain after eating certain foods, usually things that are deep- fried or anything containing eggs. Last night she had a problem with milk. She can sometimes have a microwaved Lean Cuisine meal, and this will be okay. Bowel movements have been irregular since age 19 when she had her gallbladder removed, but for the most part have been loose. She was prescribed cholestyramine powder, although has not tried this yet as she was previously using Imodium. She has been trying her best at increasing protein in her diet, drinking proteinshakes and power bars. She really appreciates the effort that her broadband technician and the bariatric surgery program put into helping her. She does not drink any fruit juices or soda. She denies any other problems related to GI that she is aware of, and she has never been told that she has had abnormal liver tests in the past or imaging. She is unsure if she is ever been screened for hepatitis C, although she states that a prior partner was infected, and her daughter is currently infected. She denies any acute icteric illnesses in the past, involving jaundice, abdominal pain, nausea/vomiting, or light colored stools. She does remember being very sick with a GI illness many years ago when vacationing in [place]. Often she does not change the needle that she uses to inject her insulin or lancet to check her sugar. REVIEW OF SYSTEMS General: Admits weight loss (planned), fatigue, denies poor sleep, fever, chills, night sweats Skin: Denies new rashes, easy bruising, jaundice EENT: Denies blurred vision or change in vision, hearing loss, sinus problems, dry eyes or mouth Cardiovascular: Denies chest pain, palpitations or irregular heart beat, pain in legs with walking, swelling in feet Pulmonary: Denies SOB, persistent cough, coughing up blood, asthma or wheezing Gastrointestinal: See HPI Musculoskeletal: Denies pain in joints, back pain, neck or shoulder pain, muscle cramping, movement of legs at night. Neurologic: Denies blackouts or loss of consciousness, headache, weakness or numbness in legs or arms, tremor, worsening memory and concentration Genitourinary: Denies frequent urination, blood in urine Psychiatric: Denies changes in mood or behavior, anxiety MEDICATIONS Current Outpatient Medications Medication Sig Dispense Refill ??? omeprazole (PRILOSEC) 20 mg Capsule, Delayed Release(E.C.) Take 1 capsule by mouth daily for 90 days. Start at discharge to prevent ulcer. Take 30 minutes before breakfast 90 capsule 1 ??? HUMALOG KWIKPEN 100 unit/mL Insulin Pen Inject 5-15 Units subcutaneously 3 times daily (before meals). Per sliding scale Indications: type 2 diabetes mellitus, typically using 18-24 units per meal,slide scale 1 ??? multivitamin Capsule Take 1 capsule by mouth daily. Pro-care health multivitamin ??? fish oil-omega-3 fatty acids 1,000 mg Capsule Take 2 g by mouth daily. ??? aspirin 81 mg Tablet, Delayed Release (E.C.) Take 81 mg by mouth daily. ??? Biotin 2,500 mcg Capsule Take by mouth. ??? calcium-vitamin D3 600 mg calcium- 400 unit Tablet Take by mouth. ??? simvastatin (ZOCOR) 20 mg tablet Take 20 mg by mouth nightly. ??? metFORMIN (GLUCOPHAGE) 1,000 mg tablet Take 1,000 mg by mouth 2 times daily (with meals). ??? metFORMIN (GLUCOPHAGE) 500 mg tablet Take 500 mg by mouth daily. ??? PARoxetine (PAXIL) 20 mg tablet Take 20 mg by mouth every morning. ??? Cholestyramine-Aspartame (QUESTRAN LIGHT) 4 gram Powder Take 4 g by mouth 4 times daily as needed. (Patient not taking: Reported on 12/01/2018) 239.4 g 12 No current facility-administered medications for this visit. ALLERGIES Allergies Allergen Reactions ??? Lisinopril ??? 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 None Intranasal drugs? None Tattoos? None service? None Blood transfusions? None Close contact/relationship with known hepatitis? Yes - former partner and daughter FAMILY HISTORY Negative except as noted below Medical problem Family member Medical Problem Family member Medical Problem Family member Alcohol drug Problem Daughter with IVDU Kidney disease Mental illness Anemia or Blood Disease Liver disease Daughter with HCV Depression Diabetes Mother Liver cancer Seizure High blood pressure Father Stroke Lung disease COPD very common Heart disease Father Clotting problems Brother of PE Colon Cancer High cholesterol Immune disorders Other Cancer Sister of bladder cancer PHYSICAL EXAM Vitals: 12/22/18 1536 BP: 116/47 Pulse: 63 Weight: 94.8 kg (209 lb) Height: 160 cm (5' 3) Body mass index is 37.02 kg/m??. Constitutional: Well appearing, appropriate, no acute distress Skin: No cyanosis, no palmar erythema, no jaundice, no spider angiomata Head: Normocephalic, PERRLA, sclerae anicteric, oropharynx within normal limits CVS: RRR, normal S1/S2, no murmurs, rubs, or gallops, equal pulses in bilateral upper and lower extremities Lungs: Clear to auscultation bilaterally, no dullness to percussion, no wheezes, rales, or rhonci Abdomen: Obese with pannus, nontender, nondistended, no discernable hepatosplenomegaly, no masses, no fluid wave, no umbilical hernia, no caput medussae, positive bowel sounds, well-healed surgical wounds Neurologic: Alert and oriented x 3, no asterixis or tremor Extremities: No edema, no clubbing, no muscle wasting, no joint swelling RESULTS Recent Results (from the past 24 hour(s)) AFP tumor marker Result Value Ref Range AFP 2.4 <=8.3 ng/mL Hepatitis A Antibody, Total Result Value Ref Range Hepatitis A Ab Negative Negative Hepatitis B Surface Antigen Result Value Ref Range HepB Surface Ag Negative Negative Hepatitis B Surface Antibody Result Value Ref Range HepB Surface Ab Quant 3.5 IU/L HepB Surface Ab Negative Hepatitis B Core Antibody, Total Result Value Ref Range Hep B Core Ab Negative Negative Hepatitis C Antibody Result Value Ref Range Hepatitis C Ab Negative Negative Prothrombin Time Result Value Ref Range PT 14.5 (H) 9.4 - 12.5 sec INR 1.3 Comprehensive metabolic panel (non-fasting) Result Value Ref Range Glucose Lvl 97 65 - 199 mg/dL BUN 15 8 - 18 mg/dL Creatinine 0.63 (L) 0.70 - 1.20 mg/dL Sodium 143 135 - 145 mmol/L Potassium 3.8 3.5 - 5.0 mmol/L Chloride 105 98 - 107 mmol/L CO2 26 22 - 31 mmol/L Anion Gap 12 5 - 15 mmol/L Calcium 9.7 8.5 - 10.5 mg/dL Total Protein 7.0 6.1 - 8.0 gm/dL Albumin 4.3 3.2 - 5.2 gm/dL AST 19 0 - 30 unit/L ALT 23 0 - 30 unit/L Alk Phos 74 40 - 104 unit/L Total Bilirubin 1.3 0.2 - 1.3 mg/dL eGFR 102 >=60 mL/min/1.73 m?? eGFR 118 >=60 mL/min/1.73 m?? MELD-Na score: 10 at 12/22/2018 5:21 PM MELD score: 10 at 12/22/2018 5:21 PM Calculated from: Serum Creatinine: 0.63 mg/dL (Rounded to 1 mg/dL) at 12/22/2018 5:21 PM Serum Sodium: 143 mmol/L (Rounded to 137 mmol/L) at 12/22/2018 5:21 PM Total Bilirubin: 1.3 mg/dL at 12/22/2018 5:21 PM INR(ratio): 1.3 at 12/22/2018 5:21 PM Age: 53 years Prior Labs: Lab Results Component Value Date NA 144 09/08/2018 K 3.9 09/08/2018 CL 104 09/08/2018 CO2 24 09/08/2018 BUN 11 11/14/2018 CREATININE 0.66 (L) 11/14/2018 GLUCFASTING 88 11/14/2018 CALCIUM 9.9 09/08/2018 ESTGFR 100 11/14/2018 Lab Results Component Value Date ALT 51 (H) 09/08/2018 AST 46 (H) 09/08/2018 ALKPHOS 61 09/08/2018 BILITOT 1.2 09/08/2018 ALBUMIN 4.4 09/08/2018 PROT 7.1 09/08/2018 Lab Results Component Value Date WBC 11.6 (H) 11/14/2018 HGB 12.4 11/14/2018 HCT 35.4 (L) 11/14/2018 MCV 88.5 11/14/2018 PLATELET 204 11/14/2018 Lab Results Component Value Date HA1C 6.5 (H) 09/08/2018 Lab Results Component Value Date IRON 83 09/08/2018 TIBC 385 09/08/2018 FERRITIN 96 09/08/2018 iron saturation 22% Lab Results Component Value Date CHLPL 144 09/08/2018 HDL 39 09/08/2018 CHOLHDL 3.7 09/08/2018 TRIG 123 09/08/2018 LDLCHOL 80 09/08/2018 Liver, ??biopsy (11/13/18): Cirrhotic liver parenchyma with steatohepatitis (see DISCUSSION). DISCUSSION EARLE total score* = 5 - Steatosis ?= 2 - Lobular Inflammation = 2 - Ballooning ? = 1 Fibrosis score ?? = 4 Imaging: No recent abdominal imaging on record Fibroscan Results Today: Median kPa: 14.5 Mean IQR: 28% (goal is <30 %) Number of valid measurements: 10 (10 required) Number of invalid measurements: 13 Predicted fibrosis stage: F3-F4 CAP (dB/m): 400 XL probe used ASSESSMENT/PLAN Jackie Bates is a 53 y.o. female who was recently found to have ALONSO cirrhosis indicated on intraoperative liver biopsy at the time of laparoscopic Collins-en-Y gastric bypass on 11/13/18. She has metabolic risk factors including morbid obesity, type 2 diabetes, hypertension, and obstructive sleep apnea. She had only mildly elevated liver enzymes preoperatively last August. Other prior GI issues include irregular bowel habits and history of cholecystectomy. It sounds as if she may have a diagnosis of irritable bowel syndrome, although cannot confirm. She has had various GI complaints following her surgery, which is to be expected as she transitions with her diet. There is no prior abdominal imaging available to assess for any anatomical signs suggestive of cirrhosis, such as nodular liver, organomegaly, or ascites. I explained her that we should obtain some abdominal imaging, ideally in the form of MRI, as this would be the best exam for HCC screening. Fibroscan today suggested possible stage 3-4 fibrosis, which would support biopsy result, although this exam had a very high invalid reading rate. I also explained to her that intraoperative wedge biopsies may often include portions of the fibrous capsule that surrounds the liver, which can overestimate fibrosis. This very well may be early cirrhosis, although she has already undertaken one of the best possible treatments and having bariatric surgery. I believe that if she continues to lose weight, and makes adjustments in her diet, as well as controlling/curing her diabetes, then there is a likelihood that fibrosis may regress somewhat. At this time, approximately 1 month since her procedure, it is still early to tell how much improvement she will get. LFTs are already completely resolved now, which is a good sign. She otherwise shows no signs of decompensated liver disease on exam or in history. INR today is slightly elevated at 1.3, as well as borderline bilirubin. We will monitor these withadditional labs in the future on follow-up. I explained in detail the pathophysiology of ALONSO, cirrhosis, and portal hypertension, and screeningguidelines for these. I have low suspicion for portal hypertension given normal platelets, and Fibroscan stiffness less than 20 kPa. An EGD was also performed with her surgery and there was no note of this patient for esophageal varices. And screening for other chronic liver disease, hepatitis B and C testing today are negative. She waspreviously found to have normal iron studies including ferritin. Given positive result of steatohepatitis on biopsy, it is not necessary to screen for any other chronic liver disease such as autoimmune hepatitis. She is not immune to hepatitis A or B, and so I would recommend vaccination for this. Plan: -Continue with diet plan as directed by bariatric surgery. Focus is on low carbohydrates, high protein, and eliminating high fructose corn syrup and other additives/artificial sweeteners. She should also follow a low-sodium diet. -We will discuss her case in liver pathology conference to see if there is any notion of liver capsule contributing to fibrosis. -Abdominal MRI next available for HCC screening and baseline imaging. She may schedule this at her convenience, ideally within a month. -Recommend hepatitis A and B vaccination series. This can be done through her primary care office. -Annual influenza vaccine and pneumococcal vaccine every 5 years. -Negative colonoscopy in 2011, repeat 2021. -Continue to treat metabolic syndrome with tight control of diabetes, I imagine this will eventuallyresolve over time with continued weight loss. -I advised that she consider trialing the cholestyramine powder that was provided to her for her diarrhea. She should notify me or her surgery providers if this worsens. -Follow-up in hepatology clinic approximately 3 months to assess progress with weight loss and abdominal symptoms. This can be coordinated on the same day as her visit with bariatric surgery. 55 of this 60 minute visit was in [id number] discussion regarding disease, prognosis and treatment. This is exclusive of the time spent performing the Fibroscan procedure. Ken Carroll PA-C Section of Gastroenterology [place] [address] Copy: MD Estefani Coy documented in this encounter Procedure Notes Ken Carroll PA - 12/22/2018 3:30 PM ESTAssociated Order(s): FIBROSCAN Procedure(s): FIBROSCAN Pre-Procedure Diagnose(s): Liver cirrhosis secondary to ALONSO [facility] Liver Fibrosis Assessment Report Indication: ALONSO cirrhosis indicated on recent liver biopsy Performed by: ABAD Gloria Procedure: Vibration Controlled Transient Elastography (VCTE) or Fibroscan [place] Protocol: Patient's identity, procedure and site were verified, confirmatory pause performed. Discussed procedure including risks and potential complications. Questions answered. Patient verbalizes understanding and wishes to proceed with Fibroscan assessment. Patient was placed in the supine position with right arm in maximum abduction to allow optimal exposure of right lateral abdomen. Patient was briefly assessed. Testing was performed in the mid-axillarylocation. 50Hz Shear Wave pulses were applied and the resulting Shear Wave and Propagation Speed wasdetected with a 3.5MHz ultrasonic signal, using the Fibroscan probe. Skin to liver capsule distance and liver parenchyma were accessed during the entire examination with the Fibroscan probe. Patient was instructed to breathe normally and abstain from sudden movements during the procedure. At least tenSheer Waves were produced; individual measurements of each Shear Wave were calculated. Patient tolerated the procedure well with no complications. Fibroscan Results: Median kPa: 14.5 Mean IQR: 28% (goal is <30 %) Number of valid measurements: 10 (10 required) Number of invalid measurements: 13 Predicted fibrosis stage: F3-F4 CAP (dB/m): 400 Estimated steatosis grade: 3/3 % hepatocytes affected: > 66% XL probe used Interpretation: Based on this Fibroscan result, history, clinical examination and review of laboratory and radiological data, this patient likely has stage 3-4 liver fibrosis and grade 3 steatosis affecting greater than 66% of hepatocytes. documented in this encounter Plan of Treatment Not on filedocumented as of this encounter Procedures Procedure Name Priority Date/Time Associated Comments Diagnosis HEPATITIS C ANTIBODY Routine 12/22/2018 5:21 PM Liver cirrhosi s Results for this EST secondary to ALONSO procedure are in the results section. HEPATITIS A ANTIBODY, Routine 12/22/2018 5:21 PM Liver cirrhos is Results for this TOTAL EST secondary to ALONSO procedure are in the results section. AFP TUMOR MARKER Routine 12/22/2018 5:21 PM Liver cirrhosis Re sults for this EST secondary to ALONSO procedure are in the results section. HEPATITIS B CORE Routine 12/22/2018 5:21 PM Liver cirrhosis Re sults for this ANTIBODY, TOTAL EST secondary to ALONSO procedu re are in the results section. HEPATITIS B SURFACE Routine 12/22/2018 5:21 PM Liver cirrhosis Results for this ANTIBODY EST secondary to ALONSO procedure are in the results section. HEPATITIS B SURFACE Routine 12/22/2018 5:21 PM Liver cirrhosis Results for this ANTIGEN EST secondary to ALONSO procedure are in the results section. PROTHROMBIN TIME Routine 12/22/2018 5:21 PM Liver cirrhosis Re sults for this EST secondary to ALONSO procedure are in the results section. COMPREHENSIVE Routine 12/22/2018 5:21 PM Liver cirrhosis Resul ts for this METABOLIC PANEL EST secondary to ALONSO procedu re are in (NON-FASTING) the results section. [id number] Routine 12/22/2018 3:30 PM Liver cirrhosis Result s for this EST secondary to ALONSO procedure are in the results section. documented in this encounter Results MRI Abdomen wwo Contrast (Generic) (01/07/2019 4:31 PM EST) Anatomical Region Laterality Modality Abdomen Magnetic Resonance Specimen (Source) Anatomical Location Collection Method / Collectio n Time Received Time / Laterality Volume Impressions 01/07/2019 4:44 PM EST Hypertrophy of the right lobe of the liver. No evidence of liver steatosis. No focal liver observations i dentified to suggest presence of hepatocellular carcinoma. No stigmata of portal hypertension. LI-RADS Categories: LR-TIV = Tumor in vein LR-5 = Definitely hepatocellular carcino ma (concordant with OPTN 5) LR-4 = Probably hepatocellular carcinoma LR-3 = Intermediate probability for hepa tocellular carcinoma LR-2 = Probably benign LR-1 = Definitely benign LR-TR Viable = Treated, probably or defi nitely viable LR-TR Equivocal = Treated, equivocal via ble LR-TR Nonviable = Treated, probably or d efinitely not viable LR-TR Nonevaluable = Treated, Response n ot evaluable (due to image omission or degradation) LR-M = Probably or definitely malignant but not HCC specific LR-NC = Not categorizable (due to image omission or degradation) NOTE: LI-RADS categories should be inter preted in the context of other available data, such as biomarkers and the patient 's prior probability of developing or having hepatocellular carcinoma. The LI- RADS / OPTN classification of liver lesions has been adopted to standardize CT and MRI scan reporting in patients at risk for hepatocellular carcinoma. The i maging criteria for definite hepatocellular carcinoma are concordant for the LI-RADS and OPTN systems. LI-RADS criteria and documentation are a vailable online https://www.acr.org/Quality-Safety/Resou rces/LIRADS/LIRADS-v2017. This report utilizes LI-RADS version 2017. Thank you for letting us participate in the care of this patient. For questions regarding this report, please contact e number below. ? Narrative 01/07/2019 4:44 PM EST EXAMINATION: MRI ABDOMEN WWO CONTRAST (GENERIC) CLINICAL HISTORY: New diagnosis of ALONSO cirrhosis, s/p RNY gastric bypass, morbid obesity, screen for HCC and splen omegaly, ascites, etc COMPARISON: None TECHNIQUE: Precontrast and dynamic postc ontrast MR imaging of the abdomen was performed. Examination meets LI-RADS tanner hnical recommendations. ??Intravenous contrast agent: ??Dotarem ?? Volume: ??1 8 mL FINDINGS: ?Liver: ??Enlarged right lobe of the liver, tip projects at the level of the iliac crest. Normal signal characteristi cs without evidence of steatosis. No focal observations detected. Hepatic vasculature: portal vein is cabrales nt. ??Hepatic artery is patent. Biliary system: Post cholecystomy change s. No intra- or extrahepatic biliary ductal dilatation Extrahepatic findings: ??Spleen is not e nlarged at 10cm in length. ??Unremarkable appearance of the pancreas, adrenal glan ds and the kidneys with exception of a tiny interpolar renal parenchymal cyst o n the left. No ascites. No portosystemic shunts detected. Post gastric bypass vane nges. Procedure Note Emeka Long MD - 01/07/2019For matting of this note might be different from the original. EXAMINATION: MRI ABDOMEN WWO CONTRAST (G ENERIC) CLINICAL HISTORY: New diagnosis of ALONSO cirrhosis, s/p RNY gastric bypass, morbid obesity, screen for HCC and splen omegaly, ascites, etc COMPARISON: None TECHNIQUE: Precontrast and dynamic postc ontrast MR imaging of the abdomen was performed. Examination meets LI-RADS tanner hnical recommendations. Intravenous contrast agent: Dotarem Volume: 18 mL FINDINGS: Liver: Enlarged right lobe of the liver , tip projects at the level of the iliac crest. Normal signal characteristi cs without evidence of steatosis. No focal observations detected. Hepatic vasculature: portal vein is cabrales nt. Hepatic artery is patent. Biliary system: Post cholecystomy change s. No intra- or extrahepatic biliary ductal dilatation Extrahepatic findings: Spleen is not enl arged at 10cm in length. Unremarkable appearance of the pancreas, adrenal glan ds and the kidneys with exception of a tiny interpolar renal parenchymal cyst o n the left. No ascites. No portosystemic shunts detected. Post gastric bypass vane nges. IMPRESSION Hypertrophy of the right lobe of the magda er. No evidence of liver steatosis. No focal liver observations i dentified to suggest presence of hepatocellular carcinoma. No stigmata of portal hypertension. LI-RADS Categories: LR-TIV = Tumor in vein LR-5 = Definitely hepatocellular carcino ma (concordant with OPTN 5) LR-4 = Probably hepatocellular carcinoma LR-3 = Intermediate probability for hepa tocellular carcinoma LR-2 = Probably benign LR-1 = Definitely benign LR-TR Viable = Treated, probably or defi nitely viable LR-TR Equivocal = Treated, equivocal via ble LR-TR Nonviable = Treated, probably or d efinitely not viable LR-TR Nonevaluable = Treated, Response n ot evaluable (due to image omission or degradation) LR-M = Probably or definitely malignant but not HCC specific LR-NC = Not categorizable (due to image omission or degradation) NOTE: LI-RADS categories should be inter preted in the context of other available data, such as biomarkers and the patient 's prior probability of developing or having hepatocellular carcinoma. The LI- RADS / OPTN classification of liver lesions has been adopted to standardize CT and MRI scan reporting in patients at risk for hepatocellular carcinoma. The i maging criteria for definite hepatocellular carcinoma are concordant for the LI-RADS and OPTN systems. LI-RADS criteria and documentation are a vailable online https://www.acr.org/Quality-Safety/Resou rces/LIRADS/LIRADS-v2017. This report utilizes LI-RADS version 2017. Thank you for letting us participate in the care of this patient. For questions regarding this report, please contact th e number below. Michaela Foy MD IMG MRI ORDERABLES AFP tumor marker (12/22/2018 5:21 PM EST) P athologist Signature AFP 2.4 <=8.3 ng/mL [facility] Specimen Anatomical Collection Method Collection Time Receive d Time (Source) Location / / Volume Laterality Blood specimen 12/22/2018 5:21 PM 019 5:32 (specimen) EST PM EST Resulting Agency Comment Spec In Lab Michaela Foy MD CHEMISTRY ORDERABLES Performing Organization Address City/[facility] Phon e Number [address] Hepatitis A Antibody, Total (12/22/2018 5:21 PM EST) Analysis Performed At Patho logist Time Signature Hepatitis A Ab Negative Negative [facility] LABORATORY Specimen Anatomical Collection Method Collection Time Receive d Time (Source) Location / / Volume Laterality Blood specimen 12/22/2018 5:21 PM 019 5:32 (specimen) EST PM EST Resulting Agency Comment Spec In Lab Michaela Foy MD IMMUNOLOGY ORDERABLES Performing Organization Address City/[facility] [address] Hepatitis B Surface Antigen (12/22/2018 5:21 PM EST) Analysis Performed At Patho logist Time Signature HepB Surface Negative Negative [facility] LABORATORY Specimen Anatomical Collection Method Collection Time Receive d Time (Source) Location / / Volume Laterality Blood specimen 12/22/2018 5:21 PM 019 5:32 (specimen) EST PM EST Resulting Agency Comment Spec In Lab Michaela Foy MD CHEMISTRY ORDERABLES Performing Organization Address City/[facility] [address] Hepatitis B Surface Antibody (12/22/2018 5:21 PM EST) P athologist Signature HepB Surface 3.5 IU/L [facility] Ab Quant [facility] Comment: HepB Surface Ab Quant: Unvaccinated: < 8.5 IU/L Vaccinated: > 11.5 IU/L HepB Surface Ab Negative [facility] Comment: Patient is presumed to be not vaccinated or immune to HBV infection. Expected Results: Vaccinated: Positive Unvaccinated: Negative Specimen Anatomical Collection Method Collection Time Receive d Time (Source) Location / / Volume Laterality Blood specimen 12/22/2018 5:21 PM 019 5:32 (specimen) EST PM EST Resulting Agency Comment Spec In Lab Michaela Foy MD IMMUNOLOGY ORDERABLES Performing Organization Address City/[facility]/[place] [address] Hepatitis B Core Antibody, Total (12/22/2018 5:21 PM EST) Analysis Performed At Patho logist Time Signature Hep B Core Ab Negative Negative [facility] Specimen Anatomical Collection Method Collection Time Receive d Time (Source) Location / / Volume Laterality Blood specimen 12/22/2018 5:21 PM 019 5:32 (specimen) EST PM EST Resulting Agency Comment Spec In Lab Michaela Foy MD CHEMISTRY ORDERABLES Performing Organization Address City/[facility] [place] [place] [address] Hepatitis C Antibody (12/22/2018 5:21 PM EST) Analysis Performed At Patho logist Time Signature Hepatitis C Ab Negative Negative [facility] Specimen Anatomical Collection Method Collection Time Receive d Time (Source) Location / / Volume Laterality Blood specimen 12/22/2018 5:21 PM 019 5:32 (specimen) EST PM EST Resulting Agency Comment Spec In Lab Michaela Foy MD IMMUNOLOGY ORDERABLES Performing Organization Address City/[facility] [address] (ABNORMAL) Prothrombin Time (12/22/2018 5:21 PM EST) P athologist Signature PT 14.5 (H) 9.4 - 12.5 [facility] LABORATORY INR 1.3 [facility] Comment: An INR <2.0 indicates adequate procoagul ant activity for hemostasis in most patients without underlying bleeding dis orders, though the INR may not adequately reflect hemostatic capacity i n patients with liver disease and synthetic impairment. The recommended ta rget INR range for therapeutic anticoagulation is 2.0 ? 3.0 for most applications, though lower and higher ranges may be appropriate depending on c linical circumstances. Specimen Anatomical Collection Method Collection Time Receive d Time (Source) Location / / Volume Laterality Blood specimen 12/22/2018 5:21 PM 019 5:32 (specimen) EST PM EST Resulting Agency Comment Spec In Lab Michaela Foy MD HEMATOLOGY ORDERABLES Performing Organization Address City/State/ZIP [place] [address] (ABNORMAL) Comprehensive metabolic panel (non-fasting) (12/22/2018 5:21 PM EST) P athologist Signature Glucose Lvl 97 65 - 199 [facility] mg/dL [facility] Comment: Diabetes: >=200 mg/dL plus symp toms BUN 15 8 - 18 mg/dL [facility] Creatinine 0.63 (L) 0.70 - 1.20 mg/dL [facility] Sodium 143 135 - 145 mmol/L [facility] Potassium 3.8 3.5 - 5.0 mmol/L [facility] Comment: Please note: ??Patients with WBC >100,00 0 may have falsely elevated Potassium levels. ??For accurate Potassium quantif ication in these patients send serum separator tube (gold top) for subsequent determinations. ??Contact the Clinical Chemistry Laboratory if there are any qu estions. Chloride 105 98 - 107 mmol/L [facility] CO2 26 22 - 31 mmol/L [facility] Anion Gap 12 5 - 15 mmol/L [facility] Calcium 9.7 8.5 - 10.5 mg/dL [facility] Total Protein 7.0 6.1 - 8.0 gm/dL [facility] Albumin 4.3 3.2 - 5.2 gm/dL [facility] AST 19 0 - 30 unit/L [facility] ALT 23 0 - 30 unit/L [facility] Alk Phos 74 40 - 104 unit/L [facility] Total Bilirubin 1.3 0.2 - 1.3 mg/dL [facility] Estimated GFR 102 >=60 mL/min/1.73 m?? [facility] Comment: The eGFR was calculated using the CKD-EP I equation. As with all creatinine based estimates of kidney function, eGFR values calculated with the CKD-EPI equation are not accurate in patients wi th acute kidney failure, extremes of body mass or the acutely ill. http://[employer]/[facility] eGFR 118 >=60 mL/min/1.73 m?? [facility] Comment: The eGFR was calculated using the CKD-EP I equation. As with all creatinine based estimates of kidney function, eGFR values calculated with the CKD-EPI equation are not accurate in patients wi th acute kidney failure, extremes of body mass or the acutely ill. http://[employer]/[facility] Specimen Anatomical Collection Method Collection Time Receive d Time (Source) Location / / Volume Laterality Blood specimen 12/22/2018 5:21 PM 019 5:32 (specimen) EST PM EST Resulting Agency Comment Spec In Lab Michaela Foy MD CHEMISTRY ORDERABLES Performing Organization Address City/State/[place] [address] [id number] (12/22/2018 3:30 PM EST) Narrative Ken Carroll PA - 12/22/2018 3:30 PM EST Ken Carroll PA ? 12/22/2018 ??8:17 PM [facility] Liver Fibrosis Asses sment Report Indication: ??ALONSO cirrhosis indicated o n recent liver biopsy Performed by: ??ABAD Gloria Procedure: Vibration Controlled Transien t Elastography (VCTE) or Fibroscan [place] Protocol: Patient's identity, procedure and site were verified, confirmatory pause performed. Discussed procedure including risks and potential complicati ons. Questions answered. Patient verbalizes understanding and wis hes to proceed with Fibroscan assessment. Patient was placed in the supine positio n with right arm in maximum abduction to allow optimal expos ure of right lateral abdomen. Patient was briefly assessed. T esting was performed in the mid-axillary location. 50Hz Shear Wa ve pulses were applied and the resulting Shear Wave and Propaga tion Speed was detected with a 3.5MHz ultrasonic signal, using t he Fibroscan probe. Skin to liver capsule distance and liver pare nchyma were accessed during the entire examination with the F ibroscan probe. Patient was instructed to breathe normally and a bstain from sudden movements during the procedure. At least ten Sheer Waves were produced; individual measurements of eac h Shear Wave were calculated. Patient tolerated the proced ure well with no complications. Fibroscan Results: Median kPa: 14.5 Mean IQR: 28% (goal is <30 %) Number of valid measurements: 10 (10 req uired) Number of invalid measurements: 13 Predicted fibrosis stage: F3-F4 CAP (dB/m): 400 Estimated steatosis grade: 3/3 % hepatocytes affected: > 66% XL probe used Interpretation: Based on this Fibroscan result, history, clinical examination and review of laboratory and radiological da ta, this patient likely has stage 3-4 liver fibrosis and grade 3 steatosis affecting greater than 66% of hepatocytes. Michaela Foy MD PROCEDURE/MINOR SURGICAL ORD ERABLES documented in this encounter Visit Diagnoses Diagnosis Liver cirrhosis secondary to ALONSO - Prim tania Other chronic nonalcoholic liver disease Obesity, Class III, BMI 40-49.9 (morbid obesity) Morbid obesity Type 2 diabetes mellitus with complicati on, with long-term current use of insulin Liver cirrhosis secondary to ALONSO Other chronic nonalcoholic liver disease documented in this encounter Care Teams Apprentice Architect Relationship Specialty Start Date End Date Jaja Msaon MD PCP - General 10/30/[address] [place] [address] documented as of this encounter
--- OUTSIDE RECORDS SUMMARY | 2022-07-13 01:09 | XMS_ITS | Encounter Summary ---
:1965 Author Organization [facility] [place] [address] Care Team Providers Name Role Phone Jaja [...] Expiration Date Visits Requ ested Visits Authorized [id number] 1 1 Encounter Details Date Type Department Care Team Description 11/13/2018 Anesthesia Event Main Operating Room Pankaj Rogers MD [facility] [place] [address] [facility] Reyna Tejada MD [facility] [place] [address] [facility] [place] [address] Anesthesia Record Procedure Summary Procedure Name Responsible Anesthesia Start Anesthesia Stop Anesthesiologist Time Time @LAPAROSCOPIC Pankaj Christine MD 11/13/18 0728 11/13/18 112 8 GASTROPLASTY W/ DIXIE-EN-Y CONSTRUCTION (WRVU 29.4) (N/A Abdomen) Events Date Time Event Comment 11/13/2018 0714 0728 Start 0732 AN Verify 0732 An Start Data 0736 An Induction 0740 An Intubation 0751 Anesthesia Ready 0808 Procedure Start 0808 Quick Note Local by surgeon 1006 Quick Note 30 fr esophageal bougie passed with ease 1117 Extubation/LMA Out 1117 an stop data 1128 Recovery or ICU Handoff Patient care was transferred to the destination unit staff after review of the patient's medica l history, current anesthetic/surgi alise status and plan, according to the Provider Handoff Checklist. 1128 Stop Name Total Midazolam 2 mg fentaNYL 200 mcg IV Lidocaine 100 mg Propofol 400 mg Rocuronium 110 mg ePHEDrine 10 mg Ondansetron 4 mg Dexamethasone 4 mg Neostigmine 4 mg Glycopyrrolate 0.8 mg ceFAZolin (ANCEF) 2g in dextrose 5% 100 mL 4 g Propofol INF 1,444.25 mg Labetalol 10 mg lactated Ringers infusion 1,000 mL 900 mL Agents Name O2 Air N2O Sevoflurane (et) Blood No blood administrations on file. Lines, Drains, and Airways Type Details Placement Removal Incision 12/26/11; 1547; wrist 12/26/11 1547 by Vonda Feliz RN Incision 11/13/18; 0808; abdomen; 11/13/18 0808 by laparoscopic punctures Alida Mcmanus, (specify) RN PIV 11/13/18; 0647; metacarpal 11/13/18 0647 by Rosa cantu, 08/30/21 1650 by vein (top of hand), right; Rosie Cantu, STONEY Severo Reid [id number] catheter system; 20 gauge, 1 in length; distraction, intradermal injection, tolerated well; 08/30/21 (LDA Cleanup utility RA#[id number]); 1650 (LDA Cleanup utility RA#[id number]) ETT Mask Ventilation: Adjunct 11/13/18 0745 by Pat cantu, 11/13/18 1117 by (2); ETT Type: Cuffed; ETT MD Avelino Davison Chloe Nadine Size: 7 mm; Exchange: AILYN Gupta MD (elective); Attempts: 1; Laryngoscopy Grade: 1; ETT Placement Verified By: Auscultation, Capnometry, Visual; Secured at Teeth: 22 cm; Inserted by: elie NG/OG Tube 11/13/18; 0752; orogastric; 11/13/18 0752 by Dup rat, 11/13/18 1742 by mouth; 11/13/18 (Not in upon MD Jaspreet Davison Kate E, forest management teacher); 1742 documented in this encounter Social History Tobacco Use Types Packs/Day Years Used Date Never Smoker Smokeless Tobacco: Never Used Alcohol Use Standard Drinks/Week Comments Yes 0 (1 standard drink = 0.6 oz pure alcoho l) very rarely Sex Assigned at Date Recorded Not on file documented as of this encounter OR Notes Anesthesia Postprocedure Evaluation - Reyna Tejada - 11/13/2018 4:15 PM EST [facility] Department of Anesthesiology Post-procedure Note Patient: Jackie Bates Procedure Summary Date: 11/13/18 Room / Location: [address] MAIN OR Anesthesia Start: 727 Anesthesia Stop: 1127 Procedures: @LAPAROSCOPIC GASTROPLASTY, (WRVU 29.4) (N/A Abdomen) ENDOSCOPY, UPPER GI, DIAGNOSTIC, WITH OR WITHOUT SPECIMENS (N/A ) LAPAROSCOPIC LIVER BIOPSY (WRVU 16.52) (N/A Abdomen) Diagnosis: (morbid obesity) Surgeon: Brenda Viveros MD Responsible Provider: Pankaj Christine MD Anesthesia Type: general ASA Status: 3 All Anesthesia Providers: Anesthesiologist: Pankaj Christine MD High School Music Director: Reyna Tejada MD Most Recent Vitals: 11/13/18 1500 BP: 107/58 Pulse: 90 Resp: 18 Temp: SpO2: 93% Pain Patient Location: PACU/[facility] Level of Consciousness: Awake and Alert Pain Management: Satisfactory Analgesia PONV: None Cardiovascular Status: At Baseline Respiratory Status: Stable Respiratory Status and Supplemental O2 (NC or FM) Postoperative Fluid Status: Possible Anesthetic Complications: NONE apparent at time of evaluation Final Primary Anesthesia Type: General (The anesthetic type performed was the same as planned.) Comments: Anesthesia Preprocedure Evaluation - Reyna Tejada M - 11/12/2018 4:22 PM EST Pre-Anesthesia Evaluation for: Jackie Bates a 53 y.o. female. Procedure(s): @LAPAROSCOPIC GASTROPLASTY, (WRVU 29.4) ENDOSCOPY, UPPER GI, DIAGNOSTIC, WITH OR WITHOUT SPECIMENS Patient Active Problem List Diagnosis ??? Obstructive sleep apnea ??? Diabetes mellitus ??? Essential hypertension ??? Carpal tunnel syndrome of right wrist No past medical history on file. Past Surgical History: Procedure Laterality Date ??? PRO WRIST ARTHROSCOP, RELEASE XVERS LIG 12/26/2011 ENDOSCOPY WRIST W/ RELEASE TRANSVERSE CARPAL LIGAMENT performed by KRISTIAN HOGUE at [facility] Social History Tobacco Use ??? Smoking status: Never Smoker ??? Smokeless tobacco: Never Used Substance Use Topics ??? Alcohol use: Yes Comment: very rarely Social History Substance and Sexual Activity Drug Use No Allergies Allergen Reactions ??? Lisinopril ??? Unable To Find [Unclassified Drug] Kiwi fruit Medications: MAR and/or home medications have been reviewed. Physical Exam: There were no vitals filed for this visit. There is no height or weight on file to calculate BMI. Airway Assessment: Mallampati: IV TM distance: <3 FB Neck ROM: full Cardiovascular Assessment: Rhythm: regular Rate: normal Pulmonary Assessment: breath sounds clear to auscultation Dental Assessment: - normal exam Misc Assessment: IV access: Peripheral line Anesthesia Plan: ASA 3 general, with a(n) intravenous induction 53 y.o., 111 kg female presenting for laparoscopic gastroplasty PMH significant for DM on insulin, HTN on losartan-HCTZ, ALVERTO on CPAP (brought with her). POCT glucose 90 this morning. Only took paxil this morning. Appropriately NPO. > 4 METS Patient denies history of stroke, seizure, thyroid disorder, heart disease, chronic liver or kidney disease, or bleeding disorder. Anesthetic hx: PONV Airway hx: no records Lab Results Component Value Date HGB 13.9 09/08/2018 PLATELET 202 09/08/2018 NA 144 09/08/2018 K 3.9 09/08/2018 CREATININE 0.65 (L) 09/08/2018 No results for input(s): ABORH in the last 7068 hours. Allergies: -- Lisinopril -- Unable To Find (Unclassified Drug) -- Kiwi fruit NPO Status: Appropriate Anesthetic Plan: GA with ETT preop scop patch Reyna Tejada MD CA-1 Pager #[phone] Region - Other Informed Consent: Anesthetic plan and risks discussed with patient. Use of blood products discussed with patient who consented to blood products. Plan discussed with attending. PAT Staff Note documented in this encounter Plan of Treatment Not on filedocumented as of this encounter Visit Diagnoses Not on filedocumented in this encounter Administered Medications Inactive Administered Medications - up to 3 most recent administrations Medication Order MAR Action Action Date Dose Rate Site ceFAZolin (ANCEF) 2g in dextrose 5% Given 11/13/2018 10:48 AM ES T 2 g 100 mL 2 g, Intravenous, EVERY 3 HOURS, 1 dose, First dose on Georgina 11/13/18 at 0645, Administer over 30 Minutes, Intra-Operative (Intra-Procedure), Indication for (Active or Suspected): Prophylaxis Given 11/13/2018 7:51 AM EST 2 g dexamethasone (DECADRON) injection Given 11/13/2018 7:40 AM EST 4 mg PRN, Starting on Georgina 11/13/18 at 0740, Until Georgina 11/13/18 at 1128, Anesthesia Intra-op, Routine ePHEDrine 5 mg/mL multi-dose injection Given 11/13/2018 8:15 AM EST 5 mg PRN, Starting on Georgina 11/13/18 at 0804, Until Georgina 11/13/18 at 1128, Anesthesia Intra-op, Routine Given 11/13/2018 8:04 AM EST 5 mg fentaNYL 50 mcg/mL multi-dose injection Given 11/13/2018 10:59 AM EST 25 mcg PRN, Starting on Georgina 11/13/18 at 0736, Until Georgina 11/13/18 at 1128, Anesthesia Intra-op, Routine Given 11/13/2018 10:54 AM EST 25 mcg Given 11/13/2018 9:09 AM EST 25 mcg glycopyrrolate (ROBINUL) multi-dose Given 11/13/2018 10:50 AM ES T 0.8 mg injection PRN, Starting on Georgina 18 at 1050, Until Georgina 18 at 1128, Anesthesia Intra-op, Routine labetalol (NORMODYNE,TRANDATE) multi-dose Given 11/13/2018 9:39 AM EST 10 mg injection PRN, Starting on Georgina 18 at 0939, Until Georgina 18 at 1128, Anesthesia Intra-op, Routine lactated Ringers infusion 1,000 mL New Bag 11/13/2018 7:32 AM EST 1,000 mL, at 100 mL/hr, Intravenous, CONTINUOUS, Starting on Georgina 11/13/18 at 0645, Until Georgina 11/13/18 at 1641, Day of Surgery (Day of Procedure) New Bag 11/13/2018 6:48 AM EST 1,000 mLs 100 mL/hr lidocaine (PF) (XYLOCAINE) 100 mg/5 mL (2 %) Given 7:36 AM EST 100 mg injection PRN, Starting on Georgina 11/13/18 at 0736, Until Georgina 11/13/18 at 1128, Anesthesia Intra-op, Routine midazolam (PF) (VERSED) multi-dose injec tion Given 11/13/2018 7:32 AM EST 2 mg PRN, Starting on Georgina 11/13/18 at 0732, Until Georgina 11/13/18 at 1128, Anesthesia Intra-op, Routine neostigmine (BLOXIVERZ) injection Given 11/13/2018 10:50 AM EST 4 mg PRN, Starting on Georgina 11/13/18 at 1050, Until Georgina 11/13/18 at 1128, Anesthesia Intra-op, Routine ondansetron (ZOFRAN) injection Given 11/13/2018 10:50 AM EST 4 mg PRN, Starting on Georgina 11/13/18 at 1050, Until Georgina 11/13/18 at 1128, Anesthesia Intra-op, Routine propofol (DIPRIVAN) 10 mg/mL bolus injection Given 10:29 AM EST 50 mg (Anesthesia) PRN, Starting on Georgina 11/13/18 at 0736, Until Georgina 11/13/18 at 1128, Anesthesia Intra-op Given 11/13/2018 10:04 AM EST 20 mg Given 11/13/2018 8:24 AM EST 30 mg propofol (DIPRIVAN) Rate/Dose 11/13/2018 7:56 75 mcg/kg/min 47.7 mL/ hr infusion Change AM EST CONTINUOUS PRN, Starting on Georgina 11/13/18 at 0743, Until Georgina 11/13/18 at 1128, Anesthesia Intra-op, Routine New Bag 11/13/2018 7:43 AM EST 50 mcg/kg/min 31.8 mL/hr rocuronium (ZEMURON) multi-dose injectio n Given 11/13/2018 10:04 AM EST 10 mg PRN, Starting on Georgina 11/13/18 at 0736, Until Georgina 11/13/18 at 1128, Anesthesia Intra-op, Routine Given 11/13/2018 9:14 AM EST 10 mg Given 11/13/2018 8:50 AM EST 20 mg documented in this encounter Care Teams Plaster And Stucco Worker Relationship Specialty Start Date End Date Jaja Mason MD PCP - General 10/30/[address] [place] [address] documented as of this encounter
--- OUTSIDE RECORDS SUMMARY | 2022-07-13 01:09 | XMS_ITS | Encounter Summary ---
:1965 Author Organization [facility] [place] [address] Care Team Providers Name Role Phone Jaja Mason MD Primary Care Provider Encounter Details Date Type Department Care Team Description 04/05/2020 Telephone General Surgery at [facility] [address] Social History Tobacco Use Types Packs/Day Years Used Date Never Smoker Smokeless Tobacco: Never Used Alcohol Use Standard Drinks/Week Comments Yes 0 (1 standard drink = 0.6 oz pure alcoho l) very rarely Sex Assigned at Date Recorded Not on file documented as of this encounter Miscellaneous Notes Telephone Encounter - Caitlin Pascual - 04/05/2020 9:36 AM EDT LMOM for to see if patient is interested in scheduling a follow-up visit. I asked them to give us a call back to set up an appointment and let them know that I will be mailing them a letter in the mail. documented in this encounter Plan of Treatment Not on filedocumented as of this encounter Visit Diagnoses Not on filedocumented in this encounter Care Teams Sand Digger Relationship Specialty Start Date End Date Jaja Mason MD PCP - General 10/30/[address] [place] [address] (work) documented as of this encounter
--- OUTSIDE RECORDS SUMMARY | 2022-07-13 01:09 | XMS_ITS | Encounter Summary ---
:1965 Author Organization [facility] [place] [address] Care Team Providers Name Role Phone Jaja Mason MD Primary Care Provider Encounter Details Date Type Department Care Team Description 03/06/2019 Notes Only General Surgery at [facility] Sharon Baird RD [facility] [place] [address] [place], [place] [id number] Social History Tobacco Use Types Packs/Day Years Used Date Never Smoker Smokeless Tobacco: Never Used Alcohol Use Standard Drinks/Week Comments Yes 0 (1 standard drink = 0.6 oz pure alcoho l) very rarely Sex Assigned at Date Recorded Not on file documented as of this encounter Progress Notes Sharon Baird RD - 03/06/2019 8:22 AM EDT Bariatric Surgery Program Nutrition Follow-up Note 03/06/2019 Provider: Sharon Baird, , RD, LD Reason for encounter: Jackie Bates is a 53 y.o. female who is seen today for a 4 month follow-up visit. She is accompanied by her . Also meeting with Estefani Ahn APRN for an evaluation today Date of Surgery: 11/13/2018 RNY gastric bypass Topics Discussed/Patient Concerns: Frequent intolerances continue: she cites fried foods, milk, and bread as primary culprits. Still learning the feeling of fullness getting better at it.... Asking if she should/will continue to lose more weight. Feels very tired at the end of the day Weight History: Date Weight (lbs) HT BMI Comments ? Highest Weight 08/05/17 241# 63.5 ?? Initial program weight 09/01/18 250.3# 63.25 44.0 1st pre-op visit 11/13/18?? 233.6#?? EWL % ?? Surgery ??12/01/18 ??222.2# 26% 39.1 1 month post-op 03/04/19?? 195#?? 51%?? 34.5?? 4 months post-op [place] Body Weight (based on BMI of 25):??143# Excess Weight:??98# 30-70% Excess Weight Loss:??173-212#; 50% Excess Weight Loss:??192# ? Vitamin/Mineral Supplements (reported by patient): Supplement Type Brand/Form Dosage/Amount Frequency Comments Multivitamin [facility] 1 Pill daily ?? Calcium Premier Value- citrate 2 pills 2 x daily ?? Vitamin B12 ??pill 500 mcg daily ?? Iron ? Vitamin D3 ? 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 Does a good job with vitamins; busy schedule (with 3 jobs) likely accounts for some of the fatigue and little motivation for exercise NUTRITION INTERVENTION & MONITORING: ?? Follow-up in 4 months ?? Provided support/encouragement and reinforced importance of meeting nutritional goals. Start tracking intake again. Eliminate the juice and fried foods! Also discussed switching to low sodium V8 juice or replacing with water ?? Reviewed nutrition and vitamin and mineral supplement recommendations. ?? Written recommendations provided. Patient agreed with these and verbalized adequate understanding. ?? Evaluation by nurse practitioner today. documented in this encounter Plan of Treatment Not on filedocumented as of this encounter Visit Diagnoses Not on filedocumented in this encounter Care Teams Maintenance Construction Helper Relationship Specialty Start Date End Date Jaja Mason MD PCP - General 10/30/11 [address] [place] [address] documented as of this encounter
--- OUTSIDE RECORDS SUMMARY | 2022-07-13 01:09 | XMS_ITS | Encounter Summary ---
:1965 Author Organization [facility] [place] [address] Care Team Providers Name Role Phone Jaja Mason MD Primary Care Provider Encounter Details Date Type Department Care Team Description 12/24/2018 Telephone Gastroenterology at [facility] [place] [address] Social History Tobacco Use Types Packs/Day [...] on filedocumented in this encounter Care Teams Food Crops Farm Hand Relationship Specialty Start Date End Date Jaja Mason MD PCP - General 10/30/[address] [place] [address] documented as of this encounter
--- OUTSIDE RECORDS SUMMARY | 2022-07-13 01:09 | XMS_ITS | Clinical Summary ---
:1965 Author Organization [place] [address] Care Team Providers Name Role Phone Jaja Mason MD Primary Care Provider Allergies Active Allergy Reactions Severity Noted Date Comments Lisinopril 09/08/2018 Unclassified Drug 12/03/2011 [employer] fruit Medications Medication Sig Dispensed Refills Start Date End Date Status simvastatin (ZOCOR) Take 20 mg by mouth 0 Active 20 mg tablet nightly. metFORMIN Take 1,000 mg by 0 Act kimberly (GLUCOPHAGE) 1,000 mouth 2 times daily mg tablet (with meals). metFORMIN Take 500 mg by mouth 0 Active (GLUCOPHAGE) 500 mg daily. tablet PARoxetine (PAXIL) Take 20 mg by mouth 0 Active 20 mg tablet every morning. multivitamin Capsule Take 1 capsule by 0 Active mouth daily. [employer]-care health multivitamin fish oil-omega-3 Take 2 g by mouth 0 Active fatty acids 1,000 mg daily. Capsule aspirin 81 mg Take 81 mg by mouth 0 Active Tablet, Delayed daily. Release (E.C.) Biotin 2,500 mcg Take by mouth. 0 Active Capsule calcium-vitamin D3 Take by mouth. 0 Active 600 mg calcium- 400 unit Tablet Cholestyramine-Aspar Take 4 g by mouth 4 239.4 g 12 8 Active tame (QUESTRAN times daily as LIGHT) 4 gram Powder needed. losartan (COZAAR) 0 01/31/2019 A ctive 100 mg Tablet Active Problems Problem Noted Date Liver cirrhosis secondary to ALONSO 12/22/2018 Obesity, Class III, BMI 40-49.9 (morbid obesity) 11/13 Obstructive sleep apnea 09/05/2018 Diabetes mellitus 09/05/2018 Essential hypertension 09/05/2018 Carpal tunnel syndrome of right wrist 12/03/2011 Social History Tobacco Use Types Packs/Day Years Used Date Never Smoker Smokeless Tobacco: Never Used Alcohol Use Standard Drinks/Week Comments Yes 0 (1 standard drink = 0.6 oz pure alcoho l) very rarely Sex Assigned at Date Recorded Not on file Last Filed Vital Signs Vital Sign Reading Time Taken Comments Blood Pressure 133/65 03/06/2019 11:48 AM EDT Pulse 63 03/06/2019 11:48 AM EDT Temperature 36.7 ??C (98.1 ??F) 12/01/2018 9:55 AM EST Respiratory Rate 18 03/06/2019 10:02 AM EDT Oxygen Saturation 97% 03/06/2019 10:02 AM EDT Inhaled Oxygen Concentration - - Weight 88.5 kg (195 lb) 03/06/2019 11:48 AM EDT Height 163.8 cm (5' 4.5) 03/06/2019 11:48 AM EDT Body Mass Index 32.95 03/06/2019 11:48 AM EDT Plan of Treatment Health Maintenance Due Date Last Done Comments Covid-19 Vaccine (#1) 1969 DM Opthalmology Exam 1974 DM Urine Microalbumin yearly 1974 HIV screen 1982 Tdap adult 1983 Tetanus vaccine 1983 HPV test 1994 PAP Smear 1994 Breast Cancer Share Decision 2004 Needed Colonoscopy 2009 Breast Cancer screening 2014 Zoster vaccine (1 of 2) 2014 Advance Directive 2019 DM Hemoglobin A1c 06/05/2019 03/06/2019, 09/08/2018 DM Creatinine yearly 03/06/2020 03/06/2019, 12/22/2018, 11/14/2018, Additional history exists Influenza (Flu) vaccine (1 of - 07/26/2022 Influenza standard series) Hepatitis C Screening Completed 12/22/2018 Insurance Payer Benefit Plan / Subscriber ID Effective Dates Phone Addre ss Type Group CIGNA CIGNA OPEN [id number] 2015-Present [phone] PO JUNIOR X [id number] ACCESS PLUS WENDY PERRY [id number] Advance Directives Latest Code Status on File Code Status Date Activated Date Inactivated Comments Full Code 11/13/2018 11:42 AM 11/14/2018 9:39 PM Does patient have capacity to make decision: Yes Full Code 11/13/2018 6:33 AM 11/13/2018 11:42 AM Does patient have capacity to make decision: Yes Full Code 12/26/2011 4:03 PM 12/26/2011 7:25 PM Order Status: Initial Order Does patient have decision making capacity? Yes, Order is based on Patients wishes. Care Teams Railroad Car Cleaner Relationship Specialty Start Date End Date Jaja Mason MD PCP - General 10/30/[address] [place] [address]
--- OUTSIDE RECORDS SUMMARY | 2022-07-13 01:09 | XMS_ITS | Encounter Summary ---
:1965 Author Organization [facility] [address] Care Team Providers Name Role Phone Jaja Mason MD Primary Care Provider Encounter Details Date Type Department Care Team Description 10/30/2011 Orders Only Orthopaedics at [facility] Charles Oneal, Wrist pain (Primary [facility] MD Dx) [place] [address] ORTHOPAEDIC SURGERY [place] [address] Social History Tobacco Use Types Packs/Day Years Used Date Never Assessed Sex Assigned at Date Recorded Not on file documented as of this encounter Plan of Treatment Not on filedocumented as of this encounter Results XR wrist complete minimum 3 views (12/03/2011 2:28 PM EST) Anatomical Region Laterality Modality N/A Radiographic Imaging Specimen (Source) Anatomical Collection Method Collection Time Re ceived Time Location / / Volume Laterality 12/03/2011 2:28 PM EST Narrative 12/05/2011 8:41 AM EST RIGHT WRIST: INDICATION: ??Right hand pain. ??Questio n carpal tunnel syndrome. TECHNIQUE: ??Four views of the right wri st. ??No priors for comparison. FINDINGS: ??Minimal degenerative change of the triscaphe joints but not the basal joints or radiocarpal joint is obs erved. ??The carpal bones appear normally aligned and mineralized. ??No s ignificant soft tissue findings. ?? Procedure Note Preethi Dumont MD - 12/05/2011Formatt ing of this note might be different from the original. RIGHT WRIST: INDICATION: Right hand pain. Question ca rpal tunnel syndrome. TECHNIQUE: Four views of the right wrist . No priors for comparison. FINDINGS: Minimal degenerative change of the triscaphe joints but not the basal joints or radiocarpal joint is obs erved. The carpal bones appear normally aligned and mineralized. No sig nificant soft tissue findings. Charles Oneal MD IMG DX ORDERABLES documented in this encounter Visit Diagnoses Diagnosis Wrist pain - Primary Pain in joint, forearm Wrist pain Pain in joint, forearm documented in this encounter Care Teams College Or [employer] Business Manager Relationship Specialty Start Date End Date Jaja Mason MD PCP - General 10/30/[address] [place] [address] documented as of this encounter
--- OUTSIDE RECORDS SUMMARY | 2022-07-13 01:09 | XMS_ITS | Encounter Summary ---
:1965 Author Organization [place] [id number] Care Team Providers Name Role Phone Jaja Mason MD Primary Care Provider Encounter Details Date Type Department Care Team Description 12/26/2011 Surgery Outpatient Surgery Harvinder Oneal MD ENDOSCOPY WRIST W/ Center [facility] RELEASE [facility] DR CARPAL LIGAMENT ([facility] ORTHOPAEDIC S URGERY 6.39) [place] [address] [place] [phone] Social History Tobacco Use Types Packs/Day Years Used Date Never Smoker Alcohol Use Standard Drinks/Week Comments Yes 0 (1 standard drink = 0.6 oz pure alcoho l) very rarely Sex Assigned at Date Recorded Not on file documented as of this encounter Last Filed Vital Signs Vital Sign Reading Time Taken Comments Blood Pressure 117/56 12/26/2011 4:02 PM EST Pulse 87 12/26/2011 4:02 PM EST Temperature 36.3 ??C (97.3 ??F) 12/26/2011 4:02 PM EST Respiratory Rate 18 12/26/2011 4:02 PM EST Oxygen Saturation 96% 12/26/2011 4:02 PM EST Inhaled Oxygen Concentration - - Weight - - Height - - Body Mass Index - - documented in this encounter Discharge Instructions Discharge InstructionsBailey Mota RN - 12/26/2011 4:09 PM EST Moderate Sedation You may have received medication before and/or during your procedure, which affects judgement and reaction time. Do not drive, operate machinery, drink alcoholic beverages, or make important decisions for 24 hours. Be careful on stairs, as you may be unsteady on your feet. You may eat a regular diet as tolerated. Do not smoke if you are alone. IV site -- slight redness, or tenderness is normal, you can use a warm compress. If tenderness and redness increases or foul drainage occurs, please contact your M. D. Narcotic pain medications can cause constipation, please as k the surgeons office what they recommend for prevention of this. Some non- pharmaceutical means of constipation prevention include increasing intake of fluids, eating more fruits and vegetables as wellas fruit juices. You may take your pain medicine @ any time Patient Fabio Vazquez MD - 12/26/2011 4:01 PM EST Same Day Surgery Post Operative Discharge Instructions for Endoscopic Carpal Tunnel Release Diagnosis: Status Post Right endoscopic carpal tunnel release Activity: no heavy lifting or weight bearing with the right hand, but light use is okay. Please instruct the patient not to drive today or while using narcotic pain medications. All dressings should remain in place for 48 hours. The dressing should then be replaced with a band aid daily. Keep the wound clean and dry until follow up in the orhtopaedic clinic. Please instruct the patient to call if they develop fevers, chills, night sweats, nausea, vomiting, wound discharge, numbness, tingling, increased pain, pain with passive or active extension of fingersin the affected extremity, or other questions or concerns. Patient may be discharged to Same Day Surgery area and then to home when nursing criteria is met andwhen they are ambulating, voiding, tolerating oral intake with no nausea or vomitng and when pain control is adequate. Follow up in the Orthopaedic Department in 10-14 days. You will be notified of this appointment dateand time (if it has not already been arranged with you). If you do not yet have an appointment and you haven't heard from us in the next few days, please call [phone] to make the appointment. documented in this encounter Medications at Time of Discharge Medication Sig Dispensed Refills Start Date End Date simvastatin (ZOCOR) 20 mg Take 20 mg by mouth 0 tablet nightly. metFORMIN (GLUCOPHAGE) Take 1,000 mg by 0 1,000 mg tablet mouth 2 times daily (with meals). metFORMIN (GLUCOPHAGE) Take 500 mg by mouth 0 500 mg tablet daily. PARoxetine (PAXIL) 20 mg Take 20 mg by mouth 0 tablet every morning. OXYcodone (ROXICODONE) 5 Take 1-2 tablets by 12 tablet 0 09/01/2018 mg immediate release mouth every 4 hours tablet as needed for Pain. estradiol (ESTRACE) 1 mg Take 1 mg by mouth 0 09/01/2018 tablet daily. glipiZIDE (GLUCOTROL) 10 Take 10 mg by mouth 0 09/01/2018 mg 24 hr tablet daily. losartan-hydrochlorothiaz Take 1 tablet by 0 11/14/2018 radha (HYZAAR) 50-12.5 mg mouth daily. per tablet documented as of this encounter H&P Notes Kristian Oneal MD - 12/26/2011 3:10 PM EST I interviewed and examined Jackie Bates. There have been no apparent interval changes in her health status since the most recent history and physical was done. KRISTIAN ONEAL MD documented in this encounter Miscellaneous Notes Miscellaneous - Provider, Scanning - 12/27/2011 12:38 AM EST OR Attestation - Kristian Oneal MD - 12/26/2011 3:59 PM EST Attestation: Case Date: 12/26/2011 I was present and I participated during the entire procedure. KRISTIAN ONEAL MD 12/26/2011 Op Note - Kristian Oneal MD - 12/26/2011 3:58 PM EST [facility] Operative Note Patient Name: Jackie Bates : [id number] MR#: [id number] Case Date: 12/26/2011 Surgeon: Surgeon(s) and Role: * KRISTIAN ONEAL MD - Primary * FABIO IQBAL MD - Resident-Surgeon Chief PREOPERATIVE DIAGNOSIS: Right carpal tunnel syndrome. POSTOPERATIVE DIAGNOSIS: Right carpal tunnel syndrome. PROCEDURE PERFORMED: Endoscopic right carpal tunnel decompression. ANESTHESIA: Local with sedation. OPERATIVE INDICATION: The patient is a 46 y.o.-year-old Female with EMG proven right carpal syndrome. It was refractory to conservative treatment. She was brought to the operating room for endoscopic right carpal tunnel decompression. SUMMARY OF PROCEDURE: After 2 gm of intravenous Kefzol was administered, the patient's right upper extremity was prepped with Hibiclens scrub and ChloraPrep. Her right arm was draped in a sterile fashion. A preoperative time-out was performed as per [facility] protocol. 10 mL of 1% lidocaine with epinephrine buffered with sodium bicarbonate was injected over the median nerve at the level of the wrist as well as over the palmar side of the patient's right hand. Her right arm was then exsanguinated with an Esmarch bandage. A brachial tourniquet was inflated to 250 mmHg. A transverse incision was made at the palmar wrist crease in line with the ring finger ray. Subcutaneous spreading was performed in a blunt fashion down to the level of the investing fascia of the palmar surface of the forearm. Throughout this dissection, care was taken to avoid injury to subcutaneousneurovascular structures. The investing fascia was incised. It was elevated as a distally based flapwhich allowed for entry into the carpal tunnel. A synovial elevator was then used to dissect synovium from the undersurface of the transverse carpalligament. Small and large hamate finders were inserted into the carpal tunnel to confirm the proper level of entry. The Antonina endoscopic carpal tunnel release device was inserted into the carpal tunnel.It was passed distally until the distal edge of the transverse carpal ligament was well visualized. The blade was elevated. The device was withdrawn, transecting the transverse carpal ligament. The device was reinserted and complete release of the transverse carpal ligament was confirmed. Under direct vision, the investing fascia at of the palmar surface of forearm was released well proximal to the wrist incision site using tenotomy scissors. The incision was irrigated and was closed with 4-0 nylon suture. A sterile soft dressing was applied. The tourniquet was released with a total tourniquet time of 7 minutes. All digits rapidly became pink and warm with brisk capillary refill. She was then transferred to the recovery room in stable condition. Estimated blood loss was minimal. IV fluid replacement was 200 mL of crystalloid. She tolerated the procedure well without apparent complications. Brief Op Note - Kristian Oneal MD - 12/26/2011 3:57 PM EST Brief Operative Note Patient Name: Jackie Bates : [id number] MR#: [id number] Case Date: 12/26/2011 Surgeon: Surgeon(s) and Role: * KRISTIAN ONEAL MD - Primary * FABIO IQBAL MD - Resident-Surgeon Chief Preoperative diagnosis: carpal tunnel syndrome Right Postoperative diagnosis: carpal tunnel syndrome Right Procedure(s): ENDOSCOPY WRIST W/ RELEASE TRANSVERSE CARPAL LIGAMENT Anesthesia: MAC Estimated Blood Loss: none Disposition: aroused from sedation, and taken to the recovery room in a stable condition Condition: doing well without problems Miscellaneous - Provider, Scanning - 12/26/2011 1:54 PM EST documented in this encounter Plan of Treatment Not on filedocumented as of this encounter Procedures Procedure Name Priority Date/Time Associated Comments Diagnosis ARTHROSCOPY WRIST W/ Routine 12/27/2011 1:13 PM Carpal tunnel RELEASE TRANSVERSE EST syndrome of right CARPAL LIGAMENT wrist ENDOSCOPY WRIST W/ 12/26/2011 3:21 PM Carpal tunnel RELEASE TRANSVERSE EST syndrome of right CARPAL LIGAMENT (WRVU wrist 6.39) POCT FINGERSTICK Routine 12/26/2011 2:15 PM Resul ts for this GLUCOSE EST procedure are i n the results section. documented in this encounter Results POCT Fingerstick Glucose (12/26/2011 2:15 PM EST) P athologist Signature POC Glucose 140 60 - 199 mg/dl Specimen (Source) Anatomical Collection Method Collection Time Re ceived Time Location / / Volume Laterality Blood specimen 12/26/2011 2:15 PM (specimen) EST Kristian Oneal MD POINT OF CARE TEST ORDERABLE S documented in this encounter Visit Diagnoses Diagnosis Carpal tunnel syndrome of right wrist Carpal tunnel syndrome Carpal tunnel syndrome of right wrist Carpal tunnel syndrome documented in this encounter Administered Medications Inactive Administered Medications - up to 3 most recent administrations Medication Order MAR Action Action Date Dose Rate Site lidocaine-epiNEPHrine 1 Given 12/26/2011 3:49 PM 20 mLs 19- Surgical Site %-1:100,000 injection 10 EST mL 10 mL, Other, ONCE, 1 dose, On Sat12/26/11 at 1615, Intra-Operative (Intra-Procedure), Routine OXYcodone (ROXICODONE) immediate release Given 12/26/2011 3:20 P M EST 10 mg tablet 10 mg 10 mg, Oral, EVERY 4 HOURS PRN, Starting on Sat12/26/11 at 1517, Until Sat12/26/11 at 1925, Pain, severe pain, May give additional 5 mg in 30 minutes times 1 if pain not relieved., PACU Recovery, Routine sodium bicarbonate 8.4 % IV Given 12/26/2011 3:51 PM EST 2 mEq 19- Surgical Site solution ONCE PRN, Starting on Sat12/26/11 at 1551, Until Sat12/26/11 at 1925, Intra-Operative (Intra-Procedure), Routine documented in this encounter Active and Recently Administered Medications Times are shown in EST. Scheduled Medication Order 12/24/2011 12/25/2011 12/26/2011 lidocaine-epiNEPHrine 1 %-1:100,000 injection 10 mL (COMPLETED) 1549 (Given - Provider: Kristian Oneal MD - Comment: Buffered mixture=Sodium Bicarbonate8.4%, 2mls mixed with Lidocaine w/epi 20mls=total amount injected 10mls.)1615 (Due) 10 mL, Other, ONCE, 1 dose, On Sat 2 at 1615, Intra-Operative (Intra- Procedure), Routine PRN Medication Order 12/24/2011 12/25/2011 12/26/2011 OXYcodone (ROXICODONE) immediate release tablet 10 mg (CANCELED) 1520 (Given - Provider: Genesis Melo I RN) 10 mg, Oral, EVERY 4 HOURS PRN, Starting Sat12/26/11 at 1517, Until Sat12/26/11 at 1925, Pain, severe pain, May give additional 5 mg in 30 minutes times 1 if pain not relieved., PACU Recovery, Routine sodium bicarbonate 8.4 % IV solution (CANCELED) 1551 (Given - Provider: Kristian Oneal MD - Comment: Buffered mixture=total amount injected 10mls.) ONCE PRN, Starting Sat12/26/11 at 1551, U ntil Sat12/26/11 at 1925, Intra-Operative (Intra-Procedure), Routine documented in this encounter Care Teams Septic Tank Installer Relationship Specialty Start Date End Date Jaja Mason MD PCP - General 10/30/[address] [place] [address] [address] [place] [address] documented as of this encounter
--- OUTSIDE RECORDS SUMMARY | 2022-07-13 01:09 | XMS_ITS | Encounter Summary ---
:1965 Author Organization [facility] [place] [address] Care Team Providers Name Role Phone Jaja Mason MD Primary Care Provider Reason for Visit Reason Comments Patient Education pre bariatric surgery counse ling and education Encounter Details Date Type Department Care Team Description 09/08/2018 Office Visit General Surgery at Estefani Ahn APRN [facility] [place] [address] Encounter for [facility] Elidia Ornelas [address] [facility] [place] [address] pre-bariatric surgery [facility] alirio [place] [id number] Social History Tobacco Use Types Packs/Day Years Used Date Never Smoker Smokeless Tobacco: Never Used Alcohol Use Standard Drinks/Week Comments Yes 0 (1 standard drink = 0.6 oz pure alcoho l) very rarely Sex Assigned at Date Recorded Not on file documented as of this encounter Last Filed Vital Signs Vital Sign Reading Time Taken Comments Blood Pressure 140/80 09/08/2018 12:34 PM EDT Pulse 68 09/08/2018 12:34 PM EDT Temperature - - Respiratory Rate - - Oxygen Saturation - - Inhaled Oxygen Concentration - - Weight 111.9 kg (246 lb 12.8 oz) 09/08/2018 12:34 PM EDT Height - - Body Mass Index 43.37 09/01/2018 10:08 AM EDT documented in this encounter Patient Instructions Patient InstructionsEstefani Ahn, V [employer]T MOLD ASSEMBLER AND CURER - 09/08/2018 12:00 PM EDT BARIATRIC SURGERY PROGRAM SECOND VISIT Contact information: [facility] administrative support coordinator: Caitlin [phone] and Ros [phone] Dietitians: [phone] Surgeons/ nurse practitioners: [phone] or [phone] Nurse line: [phone] Medications recommended based on labwork done previously: I am waiting for your vitamin D level. I will let you know how that is and if you need to change anything when it is back. Pending information: Have your PCP order a mammogram, it was last done in April of 2017, we would like for you to have one within a year 1. Ongoing weight loss is encouraged. There is a no weight gain policy between visits. The surgeon may opt to delay your surgery if you gain weight between visits. 2. Bring the Educational Handbook to the surgeon's visit. 3. After your surgical consultation, all pertinent information will be faxed to your insurer for approval, which can take a few weeks. Your surgery date and pre-operative class will be scheduled tomorrow. Call Carissa Patel tomorrow [phone] to schedule. Your surgery date may change if insurance approval is delayed Prepare for the Pre-op Class by doing the followin. Review the program handbook and come to class with a list of questions. 2. Watch the educational videos including Psychological Implications of bariatric surgery on the [facility] website under Bariatric Surgery ([email or web address]) 3. Come prepared to the class to discuss meal planning. 4. Bring your supplements 5. Come with tips and suggestions that my be helpful to others. Questions for your doctor, specialist or pharmacist: 4. Ask your doctor about medication suggestions if you currently take medications that are larger than the size of a tylenol. Large pills need to be crushed (if permitted by the drug boat deckhand) ortaken in liquid form for TWO WEEKS after surgery. Diabetic oral medication often does not need to betaken after surgery) ?? If you take antinflammatory medications or steroid medicationsfor arthritis or asthma, please check with your doctor. These medications will likely need to be held 1 week prior to and at least a fewweeks after surgery. For women who take control or hormone medications and men who take hormone medications: these medications must be stopped 1 month before and after surgery. Use alternative forms of control. Nutrition and Activity apps- Baritastic, My Fitness Pal, Lose It [facility] facebook page: [email or web address] documented in this encounter Progress Notes Estefani Ahn APRN - 09/08/2018 12:00 PM EDT Reason for visit: Jackie is a 53 y.o. year-old female who presents for review of progress since initial visit, discussion of risks and benefits of bariatric surgery and bariatric nutrition education. Ms. Bates's bariatric procedure of choice: RNY gastric bypass Dr Viveros, has signed consent History of present illness: Jackie reports a history of obesity since the age of 19. Factors that sheidentifies as contributing to her obesity include: genetics, overconsumption and inactivity. She denies binge eating, night eating disorder, self-induced vomiting, laxative or diuretic use or excessiveexercise to lose weight. ?? Conservative efforts at weight loss have been unsuccessful in the group home. Refer to nutrition noteby [facility] dietitian for weight and dieting history, 24 hour dietary intake and recent dietary changes. Motivating factors for seeking surgery for bariatric surgery: see RD note Patient research in addition to attendance at [facility] Bariatric Surgery Informational meeting and online Educational seminars: see RD note ?? Her goals of surgery: get and stay healthier ?? Her perceived readiness for surgery: very good Since she was last ween she has been cutting down on portion sizes, she is cutting down caffeine. She is walking 20-30 minutes three times a week She is using her C pap at least 5 days a week for 6-7 hours?? BARIATRIC SURGERY PROGRAM PATHWAY Review of progress with the requirements of the Bariatric Surgery Program: 1. Education: He has attended a Introduction to the [facility] Bariatric Surgery Program seminar 2. Next steps in pathway: ?? Since all BSP requirements and testing have been completed: surgical consultation has been completed with ?? Following surgical consultation, if approved to proceed to surgery by surgeon and insurer: an operative date and Pre-operative Education Class, a 2 hour class taught by the Bariatric BUSINESS OBJECTS DEVELOPER and RD will be scheduled ?? During hospitalization for bariatric surgery, a standard bariatric surgery order set is followed. ?? Routine post-operative follow up with labwork is done at months 1,4,12,18 and 24, yearly thereafter, and PRN. High risk patients are followed more frequently. Patient Active Problem List Diagnosis Code ??? Carpal tunnel syndrome of right wrist G56.01 ??? Obstructive sleep apnea G47.33 ??? Diabetes mellitus E11.9 ??? Essential hypertension I10 Medications 09/10/18 1023 Medication Sig Taking? HUMALOG KWIKPEN 100 unit/mL Insulin Pen Inject 18 Units subcutaneously 3 times daily (before meals).Indications: type 2 diabetes mellitus, typically using 18- 24 units per meal, slide scale LANTUS SOLOSTAR U-100 INSULIN pen Inject 70 Units subcutaneously nightly. JANUVIA 100 mg Tablet multivitamin Capsule Take 1 capsule by mouth daily. fish oil-omega-3 fatty acids 1,000 mg Capsule Take 2 g by mouth daily. aspirin 81 mg Tablet, Delayed Release (E.C.) Take 81 mg by mouth daily. Biotin 2,500 mcg Capsule Take by mouth. calcium-vitamin D3 600 mg calcium- 400 unit Tablet Take by mouth. Cholestyramine-Aspartame (QUESTRAN LIGHT) 4 gram Powder Take 4 g by mouth 4 times daily as needed. simvastatin (ZOCOR) 20 mg tablet Take 20 mg by mouth nightly. metFORMIN (GLUCOPHAGE) 1,000 mg tablet Take 1,000 mg by mouth 2 times daily (with meals). metFORMIN (GLUCOPHAGE) 500 mg tablet Take 500 mg by mouth daily. PARoxetine (PAXIL) 20 mg tablet Take 20 mg by mouth every morning. losartan-hydrochlorothiazide (HYZAAR) 50-12.5 mg per tablet Take 1 tablet by mouth daily. Allergies Allergen Reactions ??? Lisinopril ??? Unable To Find [Unclassified Drug] Kiwi fruit Recent diagnostic screening/ evaluations since initial visit: Labs to be done today, have been ordered Changes to review of systems/ medications since initial visit: Overall changes to comorbidities are noted in Updated Problem list. Review of plans for post-operative support after discharge: Tre Discussion of bariatric surgeries performed at [facility], risks and benefits, and the [facility] Bariatric Surgery Program requirements: The risks of immediate and equipment operator intermodal yard complications as well as the benefits of gastric bypass and sleeve gastrectomy surgeries, as outlined extensively in the Bariatric Surgery Program Handbook, which is a >100 page document, were reviewed. She is aware that all bariatric surgeries are elective procedures. The mechanism by which gastric bypass and sleeve gastrectomy surgeries lead to weight loss was reviewed. The concept that bariatric surgery is a tool for weight loss and not a cure for obesity was again emphasized. The need for commitment to equipment operator intermodal yard lifestyle changes, with healthy diet and regular physical activity was stressed to achieve and sustain group home weight loss. Benefits of bariatric surgery discussed: ?? estimated loss of 50% - 70% of excess body weight with gastric bypass and sleeve gastrectomy, generally less weight loss after sleeve gastrectomy. Patients rarely achieve ideal body weight, especially patients with BMIs >50. ?? improvement or resolution of weight related comorbidities such as obesity- related hypertension, sleep apnea, NAFLD/ ALONSO, esophageal reflux, restrictive lung disease and hyperlipidemia when anticipated weight loss is achieved. ?? Type 2 diabetes improvement occurs in the majority of patients shortly after gastric bypass, often prior to discharge from the hospital, prior to any weight loss. Patients with >10 year history of diagnosis of type 2 diabetes often will need to remain on insulin group home. There is less improvement to type 2 diabetes after sleeve gastrectomy as compared with gastric bypass. ?? patients also generally feel better, with improvement in self-esteem and activity levels. Potential but rare risks of gastric bypass and sleeve gastrectomy discussed: ?? inability to perform the operation ?? <0.01%. ?? bleeding and splenic injury with the need for blood transfusion ?? heart and lung complications, including prolonged mechanical ventilation and possible tracheostomy, very rare ?? wound infection and seroma, rare in laparoscopic patients ?? DVT with fatal pulmonary emboli. Prophylactic measures used including Enoxaparin, sequential compression devices and early ambulation. Some patients are discharged on extended Enoxaparin therapy whomeet scoring criteria ?? rhabdomyolysis ?? nutritional deficiencies, including protein-calorie malnutrition, vitamins B12, B1, D, folate, iron deficiency and anemia. ?? gallstones, significantly decreased by prophylactic treatment with Ursodiol for 6 months post-operatively. ?? peripheral neuropathy related to chronic poor nutrition or B vitamin deficiencies ?? transient telogen effluvium ?? patients weighing >350 pounds with increased risks related to radiology equipment weight limits, which may necessitate return to OR for evaluation Risks specific to gastric bypass discussed: ?? anastomotic leakage with the development of peritonitis and abscess, potentially leading to sepsis, renal failure and . ?? anastomotic stricture ?? Lifetime risk of anastomotic ulcer, increased with NSAID use, tobacco and regular alcohol use ?? lifetime risk of small bowel obstruction ?? lifetime risk of internal and trocar site hernias, rare ?? potential risk for renal calculi, increased with chronic poor hydration and prior history of renal calculi Risks specific to laparoscopic sleeve gastrectomy discussed: ?? leak at the staple line with the development of peritonitis and abscess, potentially leading to sepsis, renal failure and . The rate of leak after sleeve at [facility] is 0%. ?? stricture of gastric remnant with need for dilatation ?? prolonged nausea and vomiting early post surgery ?? Worsening or development of GERD ?? Potential revision to gastric bypass due to severe GERD ?? generally less weight loss than gastric bypass Potential secondary effects of bariatric surgeries discussed: ?? weight regain/ poor weight loss influenced by eating behaviors and lack of a regular exercise program. Drinking high calorie liquids, frequent snacking or ingestion of large amounts of soft foods will cause weight gain . ?? dumping syndrome associated with gastric bypass ?? Lactose intolerance associated with gastric bypass ?? sagging skin in any area, such as the face, torso and extremities following weight loss. Body contouring surgery may not be a covered benefit by the individual's insurer, and is associated with scarring, risk of infection etc. Patients are advised that if unable to accept the possibility of skin redundancy following weight loss, then they should not proceed with bariatric surgery. Bariatric surgery is done for health reasons, not to improve physical appearance. ?? transfer of addictions or symptom substitution behavior. When food is no longer available to secure a sense of comfort and/or relieve stress, some may turn to alcohol or illicit substances, while others may turn to excessive shopping, gambling or other indiscretions. ?? Worsening of psychiatric illness Jackie was advised that bariatric surgery would likely be ineffective for those who: ?? receive a great deal of satisfaction from eating ?? have active eating disorders including binge eating disorder and bulimia ?? are in the midst of serious personal or unstable psychiatric problems Other information discussed: For females of child-bearing age: avoidance of for at least 12-24 months post-operatively.Use of contraception is recommended. Pt is s/p hysterectomy Bariatric Surgery Follow up for LIFE: ?? 3 weeks, 4, 8, 12,18 and 24 months, yearly thereafter. More frequent follow up done as clinicallyindicated. Labwork: done at all routine visits except 1 month post op Post-operative support group meetings: held on the first Saturday of every month. All patients are encouraged to attend. Vitamin and mineral supplementation for LIFE: ?? B12 500 mcg sublingual daily, calcium citrate 500-600 mg with vitamin D 400- 500 mg BID, multivitamins with minerals and iron twice a day. Iron in the form of ferrous fumarate or carbonyl iron is taken with vitamin C once a day for menstruating females or those with iron deficiency or anemia. She appeared to have a good understanding of the information presented at today's meeting, and seemsto have reasonable and realistic expectations of bariatric surgery. She previously signed an agreement stating that She is willing to comply with instructions, lifetime vitamin and mineral supplements a nd programmatic follow up. Today's labs: Recent Results (from the past 72 hour(s)) PTH Result Value Ref Range PTH 21 15 - 65 pg/mL TSH Result Value Ref Range TSH 1.97 0.27 - 4.20 mlU/ML Folate, serum Result Value Ref Range Folate Lvl >20.0 4.8 - 24.2 ng/mL Vitamin B12 Result Value Ref Range Vitamin B-12 508 232 - 1,245 pg/mL Ferritin Result Value Ref Range Ferritin 96 30 - 400 ng/mL Iron and TIBC Result Value Ref Range Iron 83 30 - 150 mcg/dL TIBC 385 250 - 450 mcg/dL Iron Saturation 22 20 - 50 % Hemoglobin A1c Result Value Ref Range Hemoglobin A1C 6.5 (H) 4.3 - 5.6 % Est Avg Gluc 140 mg/dL Lipid Panel Result Value Ref Range Chol, Total 144 mg/dL Triglycerides 123 mg/dL HDL 39 mg/dL LDL Cholesterol 80 mg/dL Chol/HDL Ratio 3.7 ratio Lipid Interpretation See Note CMP w/fasting Glucose Result Value Ref Range Glucose Fasting 70 65 - 99 mg/dL BUN 10 8 - 18 mg/dL Creatinine 0.65 (L) 0.70 - 1.20 mg/dL Sodium 144 135 - 145 mmol/L Potassium 3.9 3.5 - 5.0 mmol/L Chloride 104 98 - 107 mmol/L CO2 24 22 - 31 mmol/L Anion Gap 16 (H) 5 - 15 mmol/L Calcium 9.9 8.5 - 10.5 mg/dL Total Protein 7.1 6.1 - 8.0 gm/dL Albumin 4.4 3.2 - 5.2 gm/dL AST 46 (H) 0 - 30 unit/L ALT 51 (H) 0 - 30 unit/L Alk Phos 61 40 - 104 unit/L Total Bilirubin 1.2 0.2 - 1.3 mg/dL eGFR 101 >=60 mL/min/1.73 m?? eGFR 117 >=60 mL/min/1.73 m?? Hemogram Result Value Ref Range WBC 10.2 (H) 4.0 - 9.5 x10(3)/mcL RBC 4.53 4.00 - 5.21 x10(6)/mcL Hemoglobin 13.9 11.7 - 15.5 gm/dL Hematocrit 39.4 35.7 - 45.8 % MCV 87.0 82.6 - 94.4 fL MCH 30.7 27.1 - 32.0 pg MCHC 35.3 (H) 31.7 - 35.0 gm/dL Platelets 202 145 - 357 x10(3)/mcL RDWSD 38.5 37.0 - 46.0 fL RDWCV 12.0 11.5 - 14.1 % MPV 10.9 7.6 - 12.9 fL nRBC % Auto 0.0 % nRBC Abs Auto 0.000 0.000 - 0.000 x10(3)/mcL Labs reviewed, no changes needed, pt to take recommended bariatric supplements. Assessment/ Plan: 53 y.o. year old female with Class III obesity with established obesity-related chronic disease. Currently, bariatric surgery is the best treatment available for morbid obesity, providing the only mechanism for reproducible, effective, and sustained weight loss. Encounter Diagnosis Name Primary? Encounter for pre-bariatric surgery counseling and education As above, education provided, pts questions answered. Ongoing counseling recommended, recommend mammogram Ms.. Bates is interested in a laparoscopic approach to bariatric surgery, and meets BSP requirements. She is aware that conversion to an open procedure is possible. ??? An intraoperative liver biopsy may be considered to rule out liver pathology ??? Her Bariatric Surgery VTE Risk Assessment score, as determined at visit #1 is 2 which indicates that enoxaparin 40 mg SQ BID is recommended during inpatient stay as well as 10 days post discharge. Ms. Bates has met the requirements of the [facility] Bariatric Surgery Program, and has an appointment for surgical consultation. She was encouraged to call with any questions or concerns. Data reviewed: - Visit #2 questionnaire - SMA quiz Information reviewed with patient: 1. [facility] Bariatric Surgery Program Educational Handbook, bariatric surgery patient agreement and risks and benefits of gastric bypass and sleeve gastrectomy reviewed in detail. Pending/ other: - Labs today - Ongoing weight loss encouraged OR date: pending Preop class recommendations: +VTE, -ursodiol, +PPI, on c pap, s/p hysterectomy 10 minutes of today's 10 minute visit spent face to face counseling regarding medications, planning for bariatric surgery, reviewing chart and answering patient individual questions. Group counselin minutes Questions regarding [facility] Bariatric Surgery Program patients: please call us at [phone] - 09/08/2018 12:00 PM EDT BARIATRIC SURGERY PROGRAM NUTRITION EDUCATION 2nd Pre-Operative Visit Shared Medical Appointment Jackie Bates attended a 2 hour shared medical appointment today for her second pre-operative visit with the Bariatric Surgery Program dietitian and nurse practitioner. Ms. Bates is a morbidly obese female who has been referred for nutrition evaluation and diet instruction in anticipation of bariatric surgery. Previous conservative attempts at weight loss throughdieting have been unsuccessful over the group home. Advised patient that bariatric surgery is a weight loss tool not a solution; and ultimately weight loss will be achieved through proper eating and exercise habits. She was given suggestions for how to incorporate dietary and lifestyle changes into her daily schedule. Patient was given a copy of the program handbook at the initial appointment which includes specific information on all nutritional recommendations and guidelines. Pt instructed on importance of following the Pre-operative Surgical Diet. Failure to do so may result in poor pre-surgical weight loss and may result in surgery not being performed. She was also given contact information for further nutritional questions. Ms. Bates showed good understanding of the concepts discussed. Nutrition Topics Covered at Today's Appointment: ?? Pre-operative Surgical Diet ?? Purpose of diet ?? Appropriate foods ?? Protein goals ?? Carbohydrate goals ?? Calorie goals ?? Keeping a food log ?? Hydration and Appropriate Beverages ?? Post-Operative Diets (Stages I-IV) ?? Importance of following diet stages ?? Appropriate foods ?? Sample Menus ?? Vitamin/Mineral Supplementation ?? Common Food Intolerances ?? Dumping Syndrome ?? Sugar Alcohols ?? Physical Activity The appointment consisted of 60 minutes of group education and counseling. documented in this encounter Plan of Treatment Not on filedocumented as of this encounter Visit Diagnoses Diagnosis Encounter for pre-bariatric surgery coun seling and education documented in this encounter Care Teams Geometrician Relationship Specialty Start Date End Date Jaja Mason MD PCP - General 10/30/[address] [place] [address] [address] [place] [address] documented as of this encounter
--- OUTSIDE RECORDS SUMMARY | 2022-07-13 01:09 | XMS_ITS | Encounter Summary ---
:1965 Author Organization [facility] [place] [address] Care Team Providers Name Role Phone Jaja Mason MD Primary Care Provider Encounter Details Date Type Department Care Team Description 12/03/2011 Hospital Encounter XRay at [facility] Wrist pain [address] [place] [address] [place] [id number] Social History Tobacco Use Types Packs/Day Years Used Date Never Smoker Alcohol Use Standard Drinks/Week Comments Yes 0 (1 standard drink = 0.6 oz pure alcoho l) very rarely Sex Assigned at Date Recorded Not on file documented as of this encounter Medications at Time of Discharge [...] per tablet documented as of this encounter Plan of Treatment Not on filedocumented as of this encounter Procedures Procedure Name Priority Date/Time Associated Diagnosis Comme nts XR WRIST COMPLETE Routine 12/03/2011 2:28 PM Wrist pain Resu lts for this MINIMUM 3 VIEWS EST procedure ar e in the results section. documented in this encounter Results XR wrist complete minimum [...] this encounter Visit Diagnoses Diagnosis Wrist pain Pain in joint, forearm documented in this encounter Care Teams First Aid Instructor Relationship Specialty Start Date End Date Jaja Mason MD PCP - General 10/30/[address] [place] [address] documented as of this encounter
--- OUTSIDE RECORDS SUMMARY | 2022-07-13 01:09 | XMS_ITS | Encounter Summary ---
:1965 Author Organization [facility] [place] [address] Care Team Providers Name Role Phone Jaja Mason MD Primary Care Provider Reason for Referral Diagnostic Test (Routine) - Closed Specialty Diagnoses / Procedures Referred By Contact Refer red To Contact Radiology Diagnoses Liver cirrhosis secondary to ALONSO Ken Carroll PA [facility] Rad Mri Procedures MRI Abdomen wwo Contrast (Generic) [facility] [address] [place], [place] [id number] [place] [phone] Referral ID Status Reason Start Date Expiration Date Visits V isits Requested Authorized [id number] Closed Specialty 12/26/2018 03/26/2019 1 1 Service Requested Reason for Visit Diagnostic Test (Routine) - Closed Specialty Diagnoses / Procedures Referred By Contact Refer red To Contact Radiology Diagnoses Liver cirrhosis secondary to Ken Goddard PA [facility] Rad Mri Procedures MRI Abdomen wwo Contrast (Generic) [facility] [place] [address] [place] [address] Referral ID Status Reason Start Date Expiration Date Visits V isits Requested Authorized [id number] Closed Specialty 12/26/2018 03/26/2019 1 1 Service Requested Encounter Details Date Type Department Care Team Description 01/07/2019 Hospital Encounter MRI at [facility] Michaela Foy MD Liver cirrhosis [facility] secondary to ALONSO [facility] [address] [place], [place] [facility] [id number] [place] [phone] Social History Tobacco Use Types Packs/Day Years [...] Date multivitamin Capsule Take 1 capsule by mouth 0 daily. [employer] multivitamin fish oil-omega-3 fatty Take 2 g [...] by mouth 0 mg tablet every morning. HUMALOG KWIKPEN 100 Inject 5-15 Units 1 8 03/06/2019 unit/mL Insulin subcutaneously 3 times PenIndications: type 2 daily (before meals). diabetes mellitus, Per sliding scale typically using 18-24 Indications: type 2 units per meal, slide diabetes mellitus, scale typically using 18-24 units per meal, slide scale documented as of this encounter Plan of Treatment Not on filedocumented as of this encounter Procedures Procedure Name Priority Date/Time Associated Diagnosis Comme nts MRI ABDOMEN WWO Routine 01/07/2019 4:31 PM Liver cirrhosis Res ults for this CONTRAST EST secondary to ALONSO procedure are in [...] report, please contact th e number below. ? Narrative 01/07/2019 4:44 [...] this report, please contact e number below. Michaela Foy MD IMG MRI ORDERABLES documented in this encounter Visit Diagnoses Diagnosis Liver cirrhosis secondary to ALONSO Other chronic nonalcoholic liver disease documented in this encounter Administered Medications Inactive Administered Medications - up to 3 most recent administrations Medication Order MAR Action Action Date Dose Rate Site gadoterate meglumine (DOTAREM) 0.5 Given 01/07/2019 4:32 PM EST 18 mLs mmol/mL (376.9 mg/mL) injection 0-100 mL 0-100 mL, Intravenous, ONCE PRN, 1 dose, Starting on Sat01/07/19 at 1528, Until Sat01/07/19 at 1632, Per Protocol, Radiology Contrast, Routine documented in this encounter Care Teams Sheet Rock Applier Relationship Specialty Start Date End Date Jaja Mason MD PCP - General 10/30/[address] [place] [address] documented as of this encounter
--- OUTSIDE RECORDS SUMMARY | 2022-07-13 01:09 | XMS_ITS | Encounter Summary ---
:1965 Author Organization [facility] [place] [address] Care Team Providers Name Role Phone Jaja Mason MD Primary Care Provider Reason for Visit Reason Comments Patient Education Encounter Details Date Type Department Care Team Description 10/08/2018 Office Visit General Surgery at JimyEstefani zabala APRN [facility] [address] [place] [address] Encounter for pre-bariatric surgery coun seling and education; [facility] Elidia Ornelas RD [facility] [place] [address] Preventive medication therapy needed; [facility] [place] [id number] Social History Tobacco Use Types Packs/Day Years Used Date Never Smoker Smokeless Tobacco: Never Used Alcohol Use Standard Drinks/Week Comments Yes 0 (1 standard drink = 0.6 oz pure alcoho l) very rarely Sex Assigned at Date Recorded Not on file documented as of this encounter Patient Instructions Patient InstructionsEstefani Ahn APRN - 10/08/2018 9:30 AM EST BARIATRIC SURGERY DISCHARGE INFORMATION BARIATRIC SUPPORT TEAM CONTACT NUMBERS (Mon-Fri 8am - 5pm): General Surgery and Bariatric Surgery [phone] Bariatric Surgeons: Doctors. Shaka Singh and Jackeline [phone] Core Manager: [phone] Dietitians: [phone] Outside of regular business hours, including weekends and holidays: Ask for General Surgery resident stonemason apprentice [phone] FOR EMERGENCIES: CALL 911 (trouble breathing, chest [...] weeks at the General Surgery Outpatient Clinic ([facility] 4L, [facility] Future Appointments Date Time Provider Department Center 12/01/2018 9:00 AM Estefani Ahn APRN [facility] 03/06/2019 10:00 AM Estefani Ahn [facility]N [facility] BATHING AND WOUND CARE: ?? You [...] blood clots. The prescription is sent to [facility]. ?? Be active, walk at least [...] - you do not need this medication. PAIN MEDICATION: ?? Your pain should lessen [...] meals and as needed when feeling unwell. For blood sugar less than 150, do not restart diabetes medications. ?? If the Diabetes Team saw you during your hospital stay, they have listed specific recommendationselsewhere in your discharge paperwork. Please refer to their specific diabetes care recommendations. ?? Patients on oral diabetic medication: If blood sugar is over 200 on more than 3 checks, call yourprnovant health/nhrmcry care physician or diabetic specialist for recommendations. For patients on insulin and oral diabetic medications: If blood sugar is over 200 on 3 checks, call your primary care doctor or diabetic specialist for recommendations. ?? Follow up with primary care provider or visual merchandising specialist in 1-2 weeks in order to [...] and 24 months, then yearly for life. documented in this encounter Progress Notes Estefani Ahn, ENVELOPE PRESS OPERATOR - 10/08/2018 9:30 AM EST Jackie attended a comprehensive two hour group pre-operative class today, which included discussion of pre and post operative instructions included in the [facility] Bariatric Surgery Program Education Handbook. The one hour nutrition component of the class was taught by the [facility] GUMARO. Updates since last visit: liver enzymes slightly elevated 09/08/2018 OR date: 09/08/2018 RENNY Viveros Individualized plan of care: ?? CPAP use during hospital stay ?? close glucose monitoring post discharge ?? Inpatient endocrine consult for diabetes management ?? Close blood pressure/ glucose monitoring post discharge Recommendations for post discharge VTE prophylaxis (unless change in condition during hospitalization that would contraindicate treatment): Enoxaparin 40 mg BID x 10 days post discharge. Prescriptions provided at today's visit: sent electronically to pharmacy - Omeprazole 20 mg once daily x 3 months, to start upon discharge for ulcer prevention. May be refilled if symptomatic. Sent electronically to [facility] - Enoxaparin 40 mg BID x 10 days post discharge.faxed to [facility] (sent electronically prior tosurgery to avoid delay in patient starting medication, since enoxaparin prescriptions require prior approval) OTC Vitamin and mineral supplements required post discharge: ?? Multivitamin with minerals twice daily ?? Vitamin B12 500 mcg by mouth once daily ?? Calcium citrate 600 mg with Vitamin D 400 units twice daily ?? Iron with Vitamin C, 50-66 mg once daily (take iron with vitamin C 550 mg to help with absorption) ONLY for patients with iron deficiency, anemia or menstruating females Bariatric Surgery Program Pathway and review of status with the requirements of the Bariatric Surgery Program 1. Education: She previously attended a Introduction to the [facility] Bariat[place] Surgery Program seminar,a two hour meeting that provides a program overview as well as expectations. The [facility] Bariatric Surgery Program Educational seminar requirement (3 seminars with post-testing) has been met. The [facility] Educational Handbook was provided at visit #1. 2. Pre-operative programmatic evaluations have been done, as noted in previous pathway review. 3. Bariatric Surgery Program evaluations with RD and CATHETERIZATION LABORATORY TECHNICIAN have taken place, as noted in previous pathway documentation 4. Weight requirements have been achieved and documented. 5. All pre-operative requirements were achieved. 6. Surgical consultation has taken place, and she has been approved to proceed with surgery by surgeon and insurer. Next steps in pathway: ?? During hospitalization for bariatric surgery, a standard bariatric surgery order set is followed. ?? Routine post-operative follow up with labwork is done at months 1,4,12,18 and 24, yearly thereafter, and PRN. High risk patients are followed more frequently. Some of the topics reviewed during group discussion today included: ?? day of surgery and post-op routine care/ locations: Admissions/SDP/PACU/4/3/2 [place] units ?? medications that increase the risk of bleeding including NSAIDs, ASA and Plavix to be avoided perguidelines pre and post-operatively ?? DVT/VTE prevention and signs of DVT/PE. ?? Inpatient management for VTE prevention: venodynes, ambulation, Enoxaparin 40 units BID during inpatient stay. ?? Indications for extended Enoxaparin 10 days post discharge: A. patients with BMI >60 or prior VTE OR B. 2 or more of the following: age >50, BMI >50, male gender, sleep apnea, varicose veins, venous insufficiency, history of oral contraceptive or hormone or post-menopausal hormone replacement use within 30 days of surgery, and recent smoking ?? guidelines for patients treated with oral anticoagulants per [facility]rombosis Clinic ?? diabetes and hypertension monitoring post-operatively ?? signs and symptoms of infection as well as emergency signs and symptoms ?? common post-operative complaints ?? management of sleep apnea during hospitalization and post operatively. The importance of post-operative follow-up with Sleep Center after weight loss was stressed. ?? recommendations for psychiatric medications: should continue uninterrupted after surgery ?? activity post surgery/ return to work recommendations ?? pre-operative and post-operative dietary recommendations ?? post-op vitamin and mineral supplementation ?? routine BSP post-operative follow-up: 3 weeks. 4, 12,18, 24 months and yearly for LIFE ?? routine Primary Care post-operative follow up: at 10-14 days after surgery to monitor chronic health problems such as diabetes and hypertension, since the requirement for antihypertensive and diabetic medications may decrease or be discontinued A preliminary copy of the discharge instructions was provided, which is also available in the patient handbook. Jackie appeared to have a good understanding of the information presented, and asked appropriate questions. She satisfactorily completed the post-test administered, and achieved a grade of 100%. All herquestions were answered. Time spent in individual counseling and coordination of care: 5 minutes Time spent in group counselin minutes Elidia Bowman RD - 10/08/2018 9:30 AM EST Jackie attended a comprehensive two hour pre-operative class today, which included discussion of pre and post operative instructions included in the [facility] Bariat[place] Surgery Program Education Handbook. One hour of today's group visit was spent in review of dietary and post op vitamin and mineral supplementation. Some of the topics reviewed today included: ??? pre-operative and post-operative dietary recommendations ??? post-op vitamin and mineral supplementation Jackie appeared to have a good understanding of the information presented, and asked appropriate questions. All her questions were answered. documented in this encounter Plan of Treatment Not on filedocumented as of this encounter Visit Diagnoses Diagnosis Encounter for pre-bariatric surgery coun seling and education Preventive medication therapy needed Morbid obesity documented in this encounter Care Teams Wastewater Treatment Operator Relationship Specialty Start Date End Date Jaja Mason MD PCP - General 10/30/[address] [place] [address] [address] [place] [address] documented as of this encounter
--- OUTSIDE RECORDS SUMMARY | 2022-07-13 01:09 | XMS_ITS | Encounter Summary ---
:1965 Author Organization [facility] [address] Care Team Providers Name Role Phone Jaja Mason MD Primary Care Provider Encounter Details Date Type Department Care Team Description 12/25/2018 Orders Only Gastroenterology at [facility] [place] [address] Social History Tobacco Use Types Packs/Day [...] on filedocumented in this encounter Care Teams Proof Sorter Relationship Specialty Start Date End Date Jaja Mason MD PCP - General 10/30/[address] [place] [address] documented as of this encounter
--- OUTSIDE RECORDS SUMMARY | 2022-07-13 01:09 | XMS_ITS | Encounter Summary ---
:1965 Author Organization [facility] [place] [address] Care Team Providers Name Role Phone Jaja [...] Expiration Date Visits Requ ested Visits Authorized [id number] 1 1 Encounter Details Date Type Department Care Team Description 11/13/2018 Surgery Main Operating Room Julius James MD @[facility] CENTE R GASTROPLASTY W/ Hospital DIXIE-EN-Y [facility] GENERAL SURGE RY (WRVU 29.4) [place] [address] [place] [address] [phone] Social History Tobacco Use Types Packs/Day Years Used Date Never Smoker Smokeless Tobacco: Never Used Alcohol Use Standard Drinks/Week Comments Yes 0 (1 standard drink = 0.6 oz pure alcoho l) very rarely Sex Assigned at Date Recorded Not on file documented as of this encounter Last Filed Vital Signs Vital Sign Reading Time Taken Comments Blood Pressure 156/62 11/13/2018 11:22 AM EST Pulse 81 11/13/2018 11:22 AM EST Temperature 38 ??C (100.4 ??F) 11/13/2018 11:22 AM EST Respiratory Rate - - Oxygen Saturation 97% 11/13/2018 11:22 AM EST Inhaled Oxygen Concentration - - [...] - Primary * Scooter Calvo MD - Resident-Radial Drill Operator * Alex Cui MD - Fellow History of Present Illness: Jackie Horta is a 53 y.o. year-old female referred by Jaja Mason MD for consultation for consideration of surgical treatment of obesity. Her preferred procedure is a gastric bypass; possible sleeve gastrectomy. 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 Hospital Course: Jackie Bates is a 53 [...] changed to oral pain medications and the COMPUTER SYSTEMS ENGINEER was discontinued on POD# 1. She was [...] LD; Estefani Ahn APRN General Surgery at Hand Arrive at: Orthotic Finish Grinding Technician Area [phone] 03/06/2019 10:00 AM Sharon Baird LD; Estefani Ahn APRN General Surgery at Hand Arrive at: Orthotic [facility]ish Grinding Technician Area [phone] Instructions Given to Patient at Discharge: BARIATRIC SURGERY DISCHARGE INFORMATION BARIATRIC SUPPORT TEAM CONTACT NUMBERS (Mon-Fri 8am - 5pm): General Surgery and Bariatric Surgery [phone] Bariatric Surgeons: Manny Rodriguez [phone] Hvac Service Technician: [phone] Dietitians: [phone] Outside of regular business hours, including weekends and holidays: Ask for General Surgery resident solar sales consultant [phone] FOR EMERGENCIES: CALL 911 (trouble breathing, chest [...] weeks at the General Surgery Outpatient Clinic (Orthotic Finish Grinding Technician 4L, [facility]). Future Appointments Date Time Provider Department Center [...] blood clots. The prescription is sent to [facility] Pharm[facility]. ?? Be active, walk at least [...] Follow up with primary care provider or medical affairs specialist in 1-2 weeks in order to [...] Jaja Mason MD [address] [facility] [place] [address] documented in this encounter Medications at Time of Discharge Medication Sig Dispensed Refills Start Date End Date multivitamin Capsule Take 1 capsule by 0 mouth daily. [employer]ats multivitamin fish oil-omega-3 fatty Take 2 g [...] NEURO: Pain control with IV Tylenol and COMPUTER SYSTEMS ENGINEER Dilaudid; transition to elixir Tylenol and Oxycodone. [...] pain, SOB, N/V. Reports 0/10 pain with COMPUTER SYSTEMS ENGINEER. Lap sites CDI. Pulses palpable. SCDs on. [...] lower, still flushed, medicated with IV Tylenol, COMPUTER SYSTEMS ENGINEER ofDilaudid started, patient educated on COMPUTER SYSTEMS ENGINEER button, additional Dilaudid administered. Patient turned and resting comfortably on left side. Pt remains comfortable with COMPUTER SYSTEMS ENGINEER. No additional doses required. Patient sleeping/ resting [...] been through the Bariatric Surgery Program at [facility]. The patient reports no interval change. There [...] CARPAL LIGAMENT performed by KRISTIAN HOGUE at [facility] OSC MEDS: No current facility-administered medications on [...] MD 11/13/2018 Minimally Invasive Surgery Service Pager [phone] documented in this encounter Miscellaneous Notes Plan [...] cc. No BM. Reporting pain well controlled; COMPUTER SYSTEMS ENGINEER in use. 2L NC overnight. Sleeping between care. Will continue to monitor. PLAN MOVING FORWARD: Monitor for signs/symptoms of infection, pain management, encourage IS INDIVIDUALIZED FALL PREVENTION INTERVENTIONS: Patient-specific fall risk factors per assessment: [current deficits]: Recent surgery, generalized weakness, IV tubing, narcotic use/COMPUTER SYSTEMS ENGINEER Assistance [level of assistance required for transfers and ambulation]: Independent Supervision [direct monitoring required during toileting and ADLs]: Eyes on Surveillance [continuous indirect monitoring]: Masimo, Call arenas within reach, Purposeful rounding Patient-specific [...] Conf Participants nursing;patient Op Note - Brenda Jmaes MD - 11/13/2018 11:10 AM EST [facility] Operative Note Patient Name: Jackie Bates : [id number] MR#: [id number] Case Date: 11/13/2018 Surgeon: Surgeon(s) and Role: * Brenda James MD - Primary * Scooter Calvo MD - Resident-Radial Drill Operator * Alex Cui MD - Fellow Preoperative [...] position. The abdomen was entered using the 46elksview trocar system. The 10-mm port was placed [...] distal bowel was chosen to create the ceuq-on-[id number] jejunojejunostomy. The duodenal, afferent limb was approximated [...] suture in two layers with a 30 Portuguese Bougie (blunt-tipped) in place. The Bougie was [...] Signature POC Glucose 118 65 - 199 [facility] mg[facility]dL [facility] Comment: Supplemental ranges: <140 mg/dL before meals <180 mg/dL all other times of the day Specimen Anatomical Collection Method Collection Time Receive d Time (Source) Location / / Volume Laterality Blood specimen 11/14/2018 4:20 PM 018 4:20 (specimen) EST PM EST Brenda James MD POINT OF CARE TEST ORDERABLE S Performing Organization Address City/State/ZIP Code Phon e Number [address] POCT Glucose (11/14/2018 11:56 AM EST) athologist Signature POC Glucose 120 65 - 199 [facility] mg/dL [facility] Comment: Supplemental ranges: <140 mg/dL before meals <180 mg/dL all other times of the day Specimen Anatomical Collection Method Collection Time Receive d Time (Source) Location / / Volume Laterality Blood specimen 11/14/2018 11:56 8 (specimen) AM EST 11:56 AM EST Brenda James MD POINT OF CARE TEST ORDERABLE S Performing Organization Address City/State/ZIP Code Phon e Number [address] POCT Glucose (11/14/2018 8:39 AM EST) athologist Signature POC Glucose 93 65 - 199 [facility] mg/dL [facility] Comment: Supplemental ranges: <140 mg/dL before meals <180 mg/dL all other times of the day Specimen Anatomical Collection Method Collection Time Receive d Time (Source) Location / / Volume Laterality Blood specimen 11/14/2018 8:39 AM 018 8:39 (specimen) EST AM EST Brenda James MD POINT OF CARE TEST ORDERABLE S Performing Organization Address City/State/[place] [address] (ABNORMAL) Differential, Automated (11/14/2018 4:33 AM EST) [facility] gist Method Time Signature Neutrophils % 48.5 % [facility] Neutr Abs (ANC) 5.66 1.70 - [facility] 6.10 [facility] x10(3)/[facility] LABORATORY Lymphocytes % 42.8 % [facility] Lymphocytes Abs 5.0 (H) 0.9 - 3.2 [facility] x10(3)/[facility] LABORATORY Monocytes % 7.6 % [facility] Monocyte Abs 0.9 0.3 - 0.9 [facility] x10(3)/[facility] LABORATORY Eosinophils % 0.5 % [facility] Eosinophils Abs 0.1 0.0 - 0.4 [facility] x10(3)/[facility] LABORATORY Basophils % 0.3 % [facility] Basophils Abs 0.0 0.0 - 0.1 [facility] x10(3)/[facility] LABORATORY Immature Gran % 0.30 % [facility] Comment: Immature granulocytes(IG's)percentage an d absolute count will include metamyelocytes, myelocytes, and promyelo cytes. Blood smears from CBCs yielding IG's will be scanned manually for concor dance. If this scan disagrees with the automated IG or if promyelocytes are not ed, a manual differential will be performed. Kar[facility] Gran Abs 0.03 0.00 - 0.04 x10(3)/[facility] Y [facility] LABORATORY Specimen Anatomical Collection Method Collection Time Receive d Time (Source) Location / / Volume Laterality Blood specimen 11/14/2018 4:33 AM 018 4:38 (specimen) EST AM EST Resulting Agency Comment Spec In Lab Alex Cui MD HEMATOLOGY ORDERABLES Performing Organization Address City/State/[place] [address] (ABNORMAL) Hemogram (11/14/2018 4:33 AM EST) Analysis Performed At Patho logist Time Signature WBC 11.6 (H) 4.0 - 9.5 [facility] x10(3)/[facility] LABORATORY RBC 4.00 4.00 - [facility] 5.21 [facility] x10(6)/[facility] LABORATORY Hemoglobin 12.4 11.7 - [facility] 15.5 gm/dL [facility] Hematocrit 35.4 (L) 35.7 - [facility] 45.8 % [facility] MCV 88.5 82.6 - [facility] RANJ[facility] 94.4 [facility] LABORATORY MCH 31.0 27.1 - [email or web address] 32.0 pg [facility] MCHC 35.0 31.7 - [facility] 35.0 gm/dL [facility] Platelets 204 145 - 357 [facility] x[facility](3[facility] LABORATORY RDWSD 38.6 37.0 - [facility] 46.0 [facility] LABORATORY RDWCV 12.0 11.5 - [facility] 14.1 % [facility] MPV 11.2 7.6 - 12.9 [facility] [employer] [facility] LABORATORY nRBC % Auto 0.0 % [facility] nRBC Abs Auto 0.000 0.000 - [facility] [employer] 0.000 [facility] x10(3)/[facility] LABORATORY Specimen Anatomical Collection Method Collection Time Receive d Time (Source) Location / / Volume Laterality Blood specimen 11/14/2018 4:33 AM 018 4:38 (specimen) EST AM EST Resulting Agency Comment Spec In Lab Alex Cui MD HEMATOLOGY ORDERABLES Performing Organization Address City/State/[place] [address] BUN (11/14/2018 4:33 AM EST) P athologist Signature BUN 11 8 - 18 [place] mg/dL [facility] Specimen Anatomical Collection Method Collection Time Receive d Time (Source) Location / / Volume Laterality Blood specimen 11/14/2018 4:33 AM 018 4:38 (specimen) EST AM EST Resulting Agency Comment Spec In Lab Alex Cui MD CHEMISTRY ORDERABLES Performing Organization Address City/State/ZIP Code Phon e Number [address] (ABNORMAL) Creatinine (11/14/2018 4:33 AM EST) Analysis Performed At Patho logist Time Signature Creatinine 0.66 (L) 0.70 - [facility] 1.20 mg/dL [facility] Estimated GFR 100 >=60 [facility] mL/min/1.7 [facility] 3 m?? [facility] Comment: The eGFR was calculated using the CKD-EP I equation. As with all creatinine based estimates of kidney function, eGFR values calculated with the CKD-EPI equation are not accurate in patients wi th acute kidney failure, extremes of body mass or the acutely ill. [email or web address] eGFR 116 >=60 mL/min/1.73 m?? [facility] Comment: The eGFR was calculated using the CKD-EP I equation. As with all creatinine based estimates of kidney function, eGFR values calculated with the CKD-EPI equation are not accurate in patients wi th acute kidney failure, extremes of body mass or the acutely ill. [email or web address] Specimen Anatomical Collection Method Collection Time Receive d Time (Source) Location / / Volume Laterality Blood specimen 11/14/2018 4:33 AM 018 4:38 (specimen) EST AM EST Resulting Agency Comment Spec In Lab Alex Cui MD CHEMISTRY ORDERABLES Performing Organization Address City/State/ZIP Code Phon e Number [address] Glucose, fasting (11/14/2018 4:33 AM EST) P athologist Signature Glucose 88 65 - 99 [facility] Fasting mg/dL [facility] Comment: ?Fasting* Glucose Interpretive C riteria [...] of Diabetes Mellitus, Position Statement from the [place] Diabetes Association. ??Diabete s Care, Volume 33, Supplement 1, Nov 2009 Specimen Anatomical Collection Method Collection Time Receive d Time (Source) Location / / Volume Laterality Blood specimen 11/14/2018 4:33 AM 018 4:38 (specimen) EST AM EST Resulting Agency Comment Spec In Lab Alex Cui MD CHEMISTRY ORDERABLES Performing Organization Address City/[facility]/ZIP Code Phon e Number [address] POCT Glucose (11/13/2018 7:23 PM EST) P athologist Signature POC Glucose 111 65 - 199 [facility] mg/dL [facility] Comment: Supplemental ranges: <140 mg/dL before meals <180 mg/dL all other times of the day Specimen Anatomical Collection Method Collection Time Receive d Time (Source) Location / / Volume Laterality Blood specimen 11/13/2018 7:23 PM 018 7:23 (specimen) EST PM EST Brenda James MD POINT OF CARE TEST ORDERABLE S Performing Organization Address City/[facility]/[place] [address] (ABNORMAL) Glucose, fasting (11/13/2018 6:33 PM EST) P athologist Signature Glucose 111 (H) 65 - 99 [facility] Fasting mg/dL [facility] Comment: ?Fasting* Glucose Interpretive C riteria [...] of Diabetes Mellitus, Position Statement from the [place] Diabetes Association. ??Diabete s Care, Volume 33, Supplement 1, Nov 2009 Specimen Anatomical Collection Method Collection Time Receive d Time (Source) Location / / Volume Laterality Blood specimen 11/13/2018 6:33 PM 018 6:54 (specimen) EST PM EST Resulting Agency Comment Spec In Lab Alex Cui MD CHEMISTRY ORDERABLES Performing Organization Address City/[facility]/ZIP Code Phon e Number [address] POCT Glucose (11/13/2018 4:55 PM EST) athologist Signature POC Glucose 125 65 - 199 [facility] mg/dL [facility] Comment: Supplemental ranges: <140 mg/dL before meals <180 mg/dL all other times of the day Specimen Anatomical Collection Method Collection Time Receive d Time (Source) Location / / Volume Laterality Blood specimen 11/13/2018 4:55 PM 018 4:55 (specimen) EST PM EST Brenda James MD POINT OF CARE TEST ORDERABLE S Performing Organization Address City/[facility]/ZIP Code Phon e Number [address] POCT Glucose (11/13/2018 4:06 PM EST) P athologist Signature POC Glucose 122 65 - 199 [facility] mg/dL [facility] Comment: Supplemental ranges: <140 mg/dL before meals <180 mg/dL all other times of the day Specimen Anatomical Collection Method Collection Time Receive d Time (Source) Location / / Volume Laterality Blood specimen 11/13/2018 4:06 PM 018 4:06 (specimen) EST PM EST Brenda James MD POINT OF CARE TEST ORDERABLE S Performing Organization Address City/State/ZIP Code Phon e Number [address] POCT Glucose (11/13/2018 11:24 AM EST) P athologist Signature POC Glucose 190 65 - 199 [facility] mg/dL [facility] Comment: Supplemental ranges: <140 mg/dL before meals <180 mg/dL all other times of the day Specimen Anatomical Collection Method Collection Time Receive d Time (Source) Location / / Volume Laterality Blood specimen 11/13/2018 11:24 8 (specimen) AM EST 11:24 AM EST Brenda James MD POINT OF CARE TEST ORDERABLE S Performing Organization Address City/[facility]/[place] [address] Specimen to Pathology (11/13/2018 10:51 AM EST) Specimen Anatomical Collection Method Collection Time Receive d Time (Source) Location / / Volume Laterality AP Specimen 11/13/2018 10:51 11/13/2018 AM EST 10:51 AM EST Narrative [facility] - 11/13/2018 10:51 AM EST Specimen requisition ordered. ??Separate Pathology report to follow Brenda James MD PATHOLOGY/CYTOLOGY ORDERABLE S Performing Organization Address City/[facility]/[place] [address] Surgical Pathology Report (11/13/2018 10:49 AM EST) Component Value Ref Test Analysis Performed At Patholo gist Range Method Time Signature Surgical [id number] ? Location: [facility]; [facility]; [facility] Report The signing pathologist has (i) examined the relevant preparation(s) for the [facility]ORIAL specimen(s) and (ii) rendered or confirmed the diagnosis(es) . HOSPITAL LABORATORY . ?Surgic al Pathology DIAGNOSIS Liver, ??biopsy: Cirrhotic liver parenchyma with steatohepatitis (see DISCUSS ION). Electronically signed by: ??Cinda Regan MD Verified: ??11/14/2018 ?Pathologist Performed at: ??-[facility] Dept. of Pathology, [facility] [place], [place] DISCUSSION EARLE total score* = 5 - [...] MD PATHOLOGY/CYTOLOGY ORDERABLE S Performing Organization Address City/[facility]/ZIP Code Phon e Number [address] POCT Glucose (11/13/2018 6:46 AM EST) P athologist Signature POC Glucose 90 65 - 199 [facility] mg/dL [facility] Comment: Supplemental ranges: <140 mg/dL before meals <180 mg/dL all other times of the day Specimen Anatomical Collection Method Collection Time Receive d Time (Source) Location / / Volume Laterality Blood specimen 11/13/2018 6:46 AM 018 6:46 (specimen) EST AM EST Brenda James MD POINT OF CARE TEST ORDERABLE S Performing Organization Address City/State/ZIP Code Phon e Number [facility] [place] [address] documented in this encounter Visit Diagnoses Not on filedocumented in this encounter Admitting Diagnoses Diagnosis Obesity, Class III, BMI 40-49.9 (morbid obesity) Morbid obesity documented in this encounter Administered Medications Inactive Administered Medications - up to 3 most recent administrations Medication Order MAR Action Action Date Dose Rate Site acetaminophen (TYLENOL) 650 Given 11/14/2018 4:15 PM EST 650 mg mg/20.3 mL oral liquid 650 mg 650 mg, Oral, EVERY 4 HOURS, First dose on Sat11/14/18 at 1030, Until Discontinued, Maximum dose of acetaminophen is 4,000 mg from all sources in 24 hours., Routine Given 11/14/2018 10:30 AM EST 650 mg BUpivacaine-EPINEPHrine 0.25 Given 11/13/2018 9:42 AM 24 mLs 19- Surgical Site %-1:200,000 injection EST ONCE PRN, Starting on Georgina 11/13/18 at 0942, Until Sat11/14/18 at 2134, Intra-Operative (Intra-Procedure), Routine dextrose 50% IV syringe 25-50 mL [...] 0900, Until Discontinued, Recovery (Recovery-Hospital Unit), Routine glucagon (human recombinant) injection S olR 1 mg 1 mg, Intramuscular, EVERY 1 HOUR PRN, S tarting on Georgina 11/13/18 at 1703, Until Sat11/14/18 [...] 37.5 grams., Re covery (Recovery-Hospital Unit), Routine insulin lispro (HumaLOG) VIAL injection 2-8 Given [...] 12:00 PM EST 1,000 mLs 100 mL/hr losartan (COZAAR) [...] if no relief from O ndansetron., Routine sodium chloride 0.9 % flush 5 [...] mg (COMPLETED) 1214 (Given - Provider: Henrietta Luciano RN)1801 (Given - Provider: Fifi Vogel RN)2342 (Given - Provider: Karis Mendez RN) 0553 (Given - Provider: Karis Mendez RN) 1,000 mg, Intravenous, at 400 mL/hr, JUSTICE RY 6 HOURS SCHEDULED, 4 doses, First dose on Sat11/13/18 at 1200, Last dose on Sat11/14/18 at [...] 1,000 mg (COMPLETED) 0641 (Given - Provider: Rosie Retana RN) 1,000 mg, Oral, ONCE, 1 [...] up 1) 1155 (Given - Provider: Henrietta Luciano RN)1630 (Not Given - Provider: Zenaida Hernandez RN [...] Infusing) 0843 (Given - Provider: Fifi Vogel, STONEY) 5 mL, Intravenous, 2 TIMES DAILY, First dose on Sat11/13/18 at 2100, Until Discontinued, Recovery (Recovery-Hospital Unit), Routine Continuous Medication Order 11/12/2018 11/13/2018 11/14/2018 HYDROmorphone (DILAUDID) 1 mg/mL COMPUTER SYSTEMS ENGINEER 50 mL (CANCELED) 1200 (New Syringe/Cartridge - Provider: Henrietta Luciano, RN) 1058 (Stopped - Provider: Fifi Vogel RN) Intravenous, COMPUTER SYSTEMS ENGINEER ONLY, Starting Georgina 10/26 0 at 1200, Until Sat11/14/18 at 1010, Recovery (Recovery-Hospital Unit) lactated Ringers infusion 1,000 mL 1200 (New Bag - Provider: Henrietta Luciano, STONEY)2342 (New Bag - Provider: Karis Mendez, STONEY) 1,000 mL, at 100 mL/hr, Intravenous, CON [...] PRN, Starting Georgina 11/13/18 at 1703, Until Sat11/14/18 [...] 30 minutes if pruritis not relieved. Per COMPUTER SYSTEMS ENGINEER order., Recovery (Recovery-Hospital Unit), Routine glucagon (human [...] EVERY 5 MIN PRN , Starting Georgina 11/13/18 at 1105, Until Georgina 11/13/18 [...] St arting Georgina 11/13/18 at 1703, Until Sat11/14/18 at 2134, Opioid Reversal, May repeat every 60 seconds to increase respiratory rate. DO NOT exceed 2 mg total dose. Per COMPUTER SYSTEMS ENGINEER order., Recovery (Recovery-Hospital Unit), Routine ondansetron (ZOFRAN) injection 4 mg 4 mg, Intravenous, EVERY [address] PRN, St arting Sat11/14/18 at 1009, Until Sat11/14/18 at 2133, Nausea [...] mg over 3 days patch (COMPLET ED) 0715 (Patch Applied - Provider: Zenaida Hernandez, RN - Comment: applied in same day) 1 dose, Starting Sat11/13/18 at 0701, U ntil Sat11/13/18 at 1914, Reyna Tejada (anes): cabinet override Linked Groups Order Group 1: POCT Fingerstick Glucose (CANCELED) Routine, 4 TIMES DAILY BEFORE MEALS & AT BEDTIME, First occurrence on Sat11/13/18 at 1700, Until Specified
Consider choosing FOUR [...] PRN, Starting Georgina 11/13/18 at 1703, Until Sat11/14/18 [...] Routine documented in this encounter Care Teams Residential Door Unit Installer Relationship Specialty Start Date End Date Jaja Mason MD PCP - General 10/30/[address] [place] [address] documented as of this encounter
--- OUTSIDE RECORDS SUMMARY | 2022-07-13 01:09 | XMS_ITS | Encounter Summary ---
:1965 Author Organization [facility] Address [address] [place] [address] Care Team Providers Name Role Phone Jaja Mason MD Primary Care Provider Reason for Visit Reason Comments Follow-up Encounter Details Date Type Department Care Team Description 03/06/2019 Office Visit Gastroenterology at [facility] Ken Carroll Liver cirrhosis secondary to ALONSO (Primary Dx); [facility] ABAD Chairez ALONSO (nonalcoholic steatohepatitis); [place] [address] [facility] Disorder of iron metabolism; [phone] Status post bariatric surgery; [place], [place] Intestinal katina bsorption, unspecified type; [address] Hypertension, unspecified type; [phone] Type 2 diabetes mellitus with complication, with long-term current use of insulin (Work) Social History Tobacco Use Types Packs/Day Years [...] Pulse 63 03/06/2019 11:48 AM EDT Temperature - - Respiratory Rate - - Oxygen Saturation - - Inhaled Oxygen Concentration - - Weight 88.5 kg (195 lb) 03/06/2019 11:48 AM EDT Height 163.8 cm (5' 4.5) 03/06/2019 11:48 AM EDT Body Mass Index 32.95 03/06/2019 11:48 AM EDT documented in this encounter Progress Notes Ken Carroll PA - 03/06/2019 11:30 AM EDT Gastroenterology and Hepatology Follow Up Note Patient: Jackie Bates Sex: female : 1965 Provider: Ken Carroll PA-C PCP: Jaja Mason MD LIVER HISTORY Cirrhosis due to ALONSO -Found on intraoperative liver biopsy 11/13/18 at time of laparoscopic Collins-en-Y gastric bypass surgery -No prior liver history per patient -ALONSO risk factors: morbid obesity, DM2, HTN, ALVERTO -LFTs mildly elevated prior to surgery, resolved at 1 month post-op -No thrombocytopenia history -EGD at time of surgery reportedly normal with no varices -Fibroscan 12/22/18 (1 month post-op): 14.5 kPa, 28% IQR, 400 CAP; c/w F3-F4 fibrosis and high-grade steatosis -Additional workup 11/2018: HAV Ab neg, HBsAb neg, HBsAg neg, HBcAb neg, HCV Ab neg, AFP 2.4, INR 1.3 -Last imaging: MRI 01/07/19 with R lobe hypertrophy, no evidence of steatosis, smooth capsule, no lesions, normal spleen, no ascites -Last MELD-Na = 10 on 12/22/18 Other GI history: -Irregular bowel habits, improved with weight loss - ?due to metformin -s/p cholecystectomy PROBLEM LIST Patient Active Problem List Diagnosis Code ??? Carpal tunnel syndrome of right wrist G56.01 ??? Obstructive sleep apnea G47.33 ??? Diabetes mellitus E11.9 ??? Essential hypertension I10 ??? Obesity, Class III, BMI 40-49.9 (morbid obesity) E66.01 ??? Liver cirrhosis secondary to ALONSO K75.81, K74.60 Interval History: Ms. Jackie Bates is 53 y.o. with a history of biopsy-proven ALONSO cirrhosis who returns for follow-up. We last met in November for initial consultation, which was approximately 1 month following her laparoscopic Collins-en-Y gastric bypass surgery. She states that since her last visit, her diarrhea is much improved and in the last few weeks her bowel movements have been completely normal. She was using the cholestyramine as needed but has not hadto use this in a while. She is still on metformin 2500 mg and hoping to decrease/discontinue this. Her last hemoglobin A1c was around 6, repeating today and she is eager to find out how this is now. She otherwise is doing very well and denies any new issues or problems since her last visit. She deniesany abdominal pain currently or recently, nausea/vomiting, confusion/memory issues, swelling in her legs, or swelling/bloating in her abdomen. She started hepatitis A and B vaccinations through her primary care office recently and is due for her second dose soon. She lost approximately 15 pounds since our last visit. She has an ultimate goal weight of approximately 175 pounds in the next few months. MEDICATIONS: Current Outpatient Medications Medication Sig Dispense Refill ??? losartan (COZAAR) 100 mg Tablet 0 ??? multivitamin Capsule Take 1 capsule by mouth daily. [employer] health multivitamin ??? aspirin 81 mg Tablet, Delayed Release [...] 20 mg by mouth every morning. ??? fish oil-omega-3 fatty acids 1,000 mg Capsule Take 2 g by mouth daily. No current facility-administered medications for this visit. ALLERGIES/ADR Allergies Allergen Reactions ??? Lisinopril ??? Unable To Find [Unclassified Drug] Kiwi fruit PHYSICAL EXAMINATION: Vitals: 03/06/19 1148 BP: 133/65 Pulse: 63 Weight: 88.5 kg (195 lb) Height: 163.8 cm (5' 4.5) Body mass index is 32.95 kg/m??. Constitutional: Well appearing, appropriate, no acute distress Skin: No cyanosis, no palmar erythema, no jaundice, no spider angiomata Head: Normocephalic, sclerae anicteric Abdomen: Nontender, nondistended Neurologic: Alert and oriented x 3, no asterixis or tremor Extremities: No edema, no clubbing, no muscle wasting, no joint swelling PERTINENT LABS AND IMAGING: No results found for this or any previous visit (from the past 24 hour(s)). Imaging: MRI 01/07/19: ?? Liver: Enlarged right lobe of the liver, tip projects at the level of the iliac crest. Normal signal characteristics without evidence of steatosis. No focal observations detected. Hepatic vasculature: portal vein is patent. Hepatic artery is patent. ?? Biliary system: Post cholecystomy changes. No intra- or extrahepatic biliary ductal dilatation ?? Extrahepatic findings: Spleen is not enlarged at 10cm in length. Unremarkable appearance of the pancreas, adrenal glands and the kidneys with exception of a tiny interpolar renal parenchymal cyst on the left. No ascites. No portosystemic shunts detected. Post gastric bypass changes. ?? IMPRESSION Hypertrophy of the right lobe of the liver. No evidence of liver steatosis. No focal liver observations identified to suggest presence of hepatocellular carcinoma. No stigmata of portal hypertension. ASSESSMENT & PLAN: Jackie Bates is a 53 y.o. female with biopsy-proven cirrhosis due to ALONSO at the time of laparoscopic Collins-en-Y gastric bypass surgery in October 2018 with metabolic risk factors of morbid obesity, type 2 diabetes, hypertension, and obstructive sleep apnea. LFTs completely normalized 1 month following her surgery. Fibroscan at the time of consultation also suggested borderline cirrhosis. MRI in December for HCC surveillance noted no concerning liver lesions and otherwise normal-appearing liver other than right lobe hypertrophy which is benign. She also had normal spleen and no sign of ascites or other sequelae of portal hypertension. Last MELD at her consultation visit in November was 10, which is due to borderline elevated total bilirubin and INR. She does not show any concerning signs or symptoms for decompensation and I advised her today that she would be an extremely low risk for decompensation if she continues to lose weight and do very well in controlling her metabolic syndrome. Diarrhea is reportedly much better since last visit and she is no longer requiring cholestyramine. Ithink that this is likely related to her metformin and so a decrease in dose may provide good benefit. Plan: -Await results of updated labs today. -Continue hepatitis A and B vaccination series through primary care. -Follow-up expectantly with bariatric surgery program and dietitian with focus on low carbohydrate, high-protein diet. -Continue to treat diabetes, hypertension, sleep apnea as clinically necessary. -Continue cholestyramine as needed for diarrhea. -Repeat EGD not necessary for varices surveillance in the setting of Fibroscan kPa < 20 and normal platelets. Will repeat Fibroscan next year. -Follow-up in hepatology clinic in June following ultrasound for HCC surveillance and labs for updated MELD score. We can coordinate visits with bariatric surgery. 23 of this 25 minute visit was in [id number] discussion regarding disease, prognosis and treatment. Ken Carroll PA-C Section of Gastroenterology [place] [address] Cc: Jaja Mason MD @PCPADD@ documented in this encounter Plan of Treatment Not on filedocumented as of this encounter Procedures Procedure Name Priority Date/Time Associated Comments Diagnosis HEMOGRAM Routine 03/06/2019 12:42 ALONSO (nonalcoholic Resul ts for this PM EDT steatohepatitis) procedure are in Disorder of iron the results metabolism section. Status post bariatric surger y Intestinal malabsorption, unspecified type Hypertension, unspecified type VITAMIN B1, WHOLE Routine 03/06/2019 12:42 ALONSO (nonalcoholic Results for this BLOOD PM EDT steatohepatitis) procedure are in Disorder of iron the results metabolism section. Status post bariatric surger y Intestinal malabsorption, unspecified type Hypertension, unspecified type IRON AND TIBC Routine 03/06/2019 12:42 ALONSO (nonalcoholic Resu lts for this PM EDT steatohepatitis) procedure are in Disorder of iron the results metabolism section. Status post bariatric surger y Intestinal malabsorption, unspecified type Hypertension, unspecified type VITAMIN A Routine 03/06/2019 12:42 ALONSO (nonalcoholic Resul ts for this PM EDT steatohepatitis) procedure are in Disorder of iron the results metabolism section. Status post bariatric surger y Intestinal malabsorption, unspecified type Hypertension, unspecified type VITAMIN D, 25-HYDROXY Routine 03/06/2019 12:42 ALONSO (nonalcoho lic Results for this PM EDT steatohepatitis) procedure are in Disorder of iron the results metabolism section. Status post bariatric surger y Intestinal malabsorption, unspecified type Hypertension, unspecified type PROTHROMBIN TIME Routine 03/06/2019 12:42 Liver cirrhosis Resu lts for this PM EDT secondary to ALONSO procedure are in the results section. PREALBUMIN Routine 03/06/2019 12:42 ALONSO (nonalcoholic Resul ts for this PM EDT steatohepatitis) procedure are in Disorder of iron the results metabolism section. Status post bariatric surger y Intestinal malabsorption, unspecified type Hypertension, unspecified type HEMOGLOBIN A1C Routine 03/06/2019 12:42 ALONSO (nonalcoholic Res ults for this PM EDT steatohepatitis) procedure are in Disorder of iron the results metabolism section. Status post bariatric surger y Intestinal malabsorption, unspecified type Hypertension, unspecified type FOLATE, SERUM Routine 03/06/2019 12:42 ALONSO (nonalcoholic Resu lts for this PM EDT steatohepatitis) procedure are in Disorder of iron the results metabolism section. Status post bariatric surger y Intestinal malabsorption, unspecified type Hypertension, unspecified type FERRITIN Routine 03/06/2019 12:42 ALONSO (nonalcoholic Resul ts for this PM EDT steatohepatitis) procedure are in Disorder of iron the results metabolism section. Status post bariatric surger y Intestinal malabsorption, unspecified type Hypertension, unspecified type VITAMIN B12 Routine 03/06/2019 12:42 ALONSO (nonalcoholic Resul ts for this PM EDT steatohepatitis) procedure are in Disorder of iron the results metabolism section. Status post bariatric surger y Intestinal malabsorption, unspecified type Hypertension, unspecified type COMPREHENSIVE Routine 03/06/2019 12:42 ALONSO (nonalcoholic Resu lts for this METABOLIC PANEL PM EDT steatohepatitis) procedure are in (NON-FASTING) Disorder of iron the result s metabolism section. Status post bariatric surger y Intestinal malabsorption, unspecified type Hypertension, unspecified type documented in this encounter Results (ABNORMAL) Hemogram (03/06/2019 12:42 PM EDT) P athologist Signature WBC 9.6 (H) 4.0 - 9.5 [facility] x10(3)/[facility] LABORATORY RBC 4.66 4.00 - SANCHEZ RANJIT 5.21 [facility] x10(6)/[facility] LABORATORY Hemoglobin 14.4 11.7 - [facility] 15.[facility] gm/dL [facility] LAB[facility]ORY Hematocrit 41.1 35.7 - [facility] 45.8 % [facility] LABORATORY MCV 88.2 82.6 - [facility] 94.4 [facility] LABORATORY MCH 30.9 27.1 - [facility] 32.0 pg [facility] LABORATORY MCHC 35.0 31.7 - [facility] 35.0 gm/dL [facility] LABORATORY Platelets 224 145 - 357 [facility] x10(3)/[facility] LABORATORY RDWSD 40.4 37.0 - [facility] 46.0 [facility] LABORATORY RDWCV 12.4 11.5 - [facility] 14.1 % [facility] LABORATORY MPV 11.7 7.6 - 12.9 [facility] LABORATORY nRBC % Auto 0.0 % [facility] LABORATORY nRBC Abs Auto 0.000 0.000 - [facility] 0.000 [facility] x10(3)/[facility] LABORATORY Specimen Anatomical Collection Method Collection Time Receive d Time (Source) Location / / Volume Laterality Blood specimen 03/06/2019 12:42 9 (specimen) PM EDT 12:49 PM EDT Resulting Agency Comment Spec In Lab Estefani Ahn APRN HEMATOLOGY ORDERABLES Performing Organization Address City/State/[place] [address] (ABNORMAL) Comprehensive metabolic panel (non-fasting) (03/06/2019 12:42 PM EDT) P athologist Signature Glucose Lvl 85 65 - 199 [facility] mg/dL [facility] LABORATORY Comment: Diabetes: >=200 mg/dL plus symp toms BUN 15 8 - 18 mg/dL [facility] LABORATORY Creatinine 0.60 (L) 0.70 - 1.20 mg/dL [facility] LABORATORY Sodium 141 135 - 145 mmol/L [facility] LABORATORY Potassium 4.0 3.5 - 5.0 mmol/L [facility] LABORATORY Comment: Please note: ??Patients with [...] Anion Gap 12 5 - 15 mmol/L [facility] LABORATORY Calcium 9.8 8.5 - 10.5 mg/dL [facility] LABORATORY Total Protein 7.0 6.1 - 8.0 gm/dL [facility] LABORATORY Albumin 4.7 3.2 - 5.2 gm/dL [facility] LABORATORY AST 23 0 - 30 unit/L [facility] LABORATORY ALT 28 0 - 30 unit/L [facility] LABORATORY Alk Phos 66 40 - 104 unit/L [facility] LABORATORY Total Bilirubin 1.0 0.2 - 1.3 mg/dL [facility] LABORATORY Estimated GFR 103 >=60 mL/min/1.73 m?? [facility] LABORATORY Comment: The eGFR was calculated using the CKD-EP I equation. As with all creatinine based estimates of kidney function, eGFR values calculated with the CKD-EPI equation are not accurate in patients wi th acute kidney failure, extremes of body mass or the acutely ill. [email or web address] eGFR 120 >=60 mL/min/1.73 m?? [facility] LABORATORY Comment: The eGFR was calculated using the CKD-EP I equation. As with all creatinine based estimates of kidney function, eGFR values calculated with the CKD-EPI equation are not accurate in patients wi th acute kidney failure, extremes of body mass or the acutely ill. [email or web address] Specimen Anatomical Collection Method Collection Time Receive d Time (Source) Location / / Volume Laterality Blood specimen 03/06/2019 12:42 9 (specimen) PM EDT 12:49 PM EDT Resulting Agency Comment Spec In Lab Estefani Ahn APRN CHEMISTRY ORDERABLES Performing Organization Address City/[facility]/ZIP Code Phon e Number [address] Prealbumin (03/06/2019 12:42 PM EDT) P athologist Signature Prealbumin 22 20 - 40 [facility] mg/dL [facility] LAB[facility]ORY Comment: Prealbumin levels are generally lower in the pediatric population; adult concentrations are usually attained near puberty. Specimen Anatomical Collection Method Collection Time Receive d Time (Source) Location / / Volume Laterality Blood specimen 03/06/2019 12:42 9 (specimen) PM EDT 12:49 PM EDT Resulting Agency Comment Spec In Lab Estefani Ahn APRN CHEMISTRY ORDERABLES Performing Organization Address [place]/[facility] [place] [address] (ABNORMAL) Hemoglobin A1c (03/06/2019 12:42 PM EDT) Analysis Performed At Patho logist Time Signature Hemoglobin A1C 5.8 (H) 4.3 - 5.6 [facility] LABORATORY Comment: Reference Range: 4.3 - [...] Mellitus, Diabetes Care 2013; 36: Suppl. 1, R68-86 Est Avg Gluc 120 mg/dL [facility] LABORATORY Comment: eAG equivalents for HbA1c percentages: HbA1c(%) ?eAG(mg/dL) 6.0 ?126 6.5 ?140 7.0 ?154 7.5 ?169 8.0 ?183 8.5 ?197 9.0 ?212 9.5 ?226 10.0 ? 240 Limitations: The eAG calculation has not been validated on women, individuals below 18 years old and above 70 years old, and individuals with hemoglobinopathies. Additional resources are available on [facility] website. Igor CALLAWAY, Charu J, Timmy R, et al. ??Tr anslating the A1C assay into estimated average glucose values. ??Diabetes Care 2008:31(8):9422-4631. Specimen Anatomical Collection Method Collection Time Receive d Time (Source) Location / / Volume Laterality Blood specimen 03/06/2019 12:42 9 (specimen) PM EDT 12:50 PM EDT Resulting Agency Comment Spec In Lab Estefani Ahn APRN CHEMISTRY ORDERABLES Performing Organization Address City/State/ZIP Code Phon e Number [address] Iron and TIBC (03/06/2019 12:42 PM EDT) P athologist Signature Iron 112 30 - 150 [facility] mcg/dL [facility] LABORATORY TIBC 422 250 - 450 [facility] mcg/dL [facility] LABORATORY Iron Saturation 27 20 - 50 % [facility] LABORATORY Specimen Anatomical Collection Method Collection Time Receive d Time (Source) Location / / Volume Laterality Blood specimen 03/06/2019 12:42 9 (specimen) PM EDT 12:49 PM EDT Resulting Agency Comment Spec In Lab Estefani Ahn LEASING SPECIALIST CHEMISTRY ORDERABLES Performing Organization Address City/[facility]/ZIP Code Phon e Number [address] Ferritin (03/06/2019 12:42 PM EDT) athologist Signature Ferritin 43 30 - 400 [facility] [place] ng/mL [facility] LABORATORY Comment: Pediatric reference ranges not verified at [facility], interpret with caution. Reference ranges for females greater allan n 50 years of age approach values for men, i.e., 30-400 ng/mL. Specimen Anatomical Collection Method Collection Time Receive d Time (Source) Location / / Volume Laterality Blood specimen 03/06/2019 12:42 9 (specimen) PM EDT 12:49 PM EDT Resulting Agency Comment Spec In Lab Estefani Ahn APRN CHEMISTRY ORDERABLES Performing Organization Address City/[facility]/ZIP Code Phon e Number [address] Vitamin A (03/06/2019 12:42 PM EDT) athologist Signature Vitamin A 51.1 32.5 - 78.0 [facility] [place] mcg/dL [facility] LABORATORY Comment: ADDITIONAL INFORMATIO N This test was developed and its performa nce characteristics determined by [facility] in a manner co nsistent with CLIA requirements. This test has not been lala ared or approved by the U.S. Food and Drug Administration. Test Performed by: [facility] [address] [place], [place] [address] Specimen Anatomical Collection Method Collection Time Receive d Time (Source) Location / / Volume Laterality Blood specimen 03/06/2019 12:42 9 2:38 (specimen) PM EDT PM EDT Resulting Agency Comment Spec In Lab Estefani Ahn APRN CHEMISTRY ORDERABLES Performing Organization Address City/[facility] [place] [address] [facility] [address] Vitamin D, 25-Hydroxy (03/06/2019 12:42 PM EDT) athologist Signature 25-OH Vit D 37 30 - 100 [facility] Total ng/mL [facility] LABORATORY Comment: Deficient <10 ng/mL Insufficient 10 to 29 ng/mL Sufficient 30 to 100 ng/mL Potential Intoxication >100 ng/mL According to the [place] National Osteoporosi s Foundation, Vitamin D concentrations >30 ng/mL are sufficient to protect bone health. ??The National Kidney Foundation has similarly stated that pat ients with Vitamin D concentrations <30ng/mL should be considered to be insu fficient or deficient. http://[employer]/nkf-guidelines http://[employer]/nejm-VitD The [employer] Vitamin D Immunoassay detec [...] Ahn APRN CHEMISTRY ORDERABLES Performing Organization Address City/[facility] [place] [address] Vitamin B1, whole blood (03/06/2019 12:42 PM EDT) athologist Signature Vit B1 Lvl WB 179 70 - 180 [facility] nmol/L [facility] LABORATORY Comment: ADDITIONAL INFORMATIO N This test was developed and its performa nce characteristics determined by [facility] in a manner co nsistent with CLIA requirements. This test has not been lala ared or approved by the U.S. Food and Drug Administration. Test Performed by: [facility] [address] [place], [place] [address] Specimen Anatomical Collection Method Collection Time Receive d Time (Source) Location / / Volume Laterality Blood specimen 03/06/2019 12:42 9 3:46 (specimen) PM EDT PM EDT Resulting Agency Comment Spec In Lab Estefani Ahn APRN CHEMISTRY ORDERABLES Performing Organization Address City/[facility] [place] [address] (ABNORMAL) Vitamin B12 (03/06/2019 12:42 PM EDT) Analysis Performed At Patho logist Time Signature Vitamin B-12 1,734 (H) 232 - [facility] 1,245 [facility] pg/[facility] LABORATORY Specimen Anatomical Collection Method Collection Time Receive d Time (Source) Location / / Volume Laterality Blood specimen 03/06/2019 12:42 9 (specimen) PM EDT 12:49 PM EDT Resulting Agency Comment Spec In Lab Estefani Ahn LEASING SPECIALIST CHEMISTRY ORDERABLES Performing Organization Address City/State/ZIP Code Phon e Number [address] Folate, serum (03/06/2019 12:42 PM EDT) P athologist Signature Folate Lvl 19.7 4.8 - 24.2 [facility] ng/mL [facility] LABORATORY Specimen Anatomical Collection Method Collection Time Receive d Time (Source) Location / / Volume Laterality Blood specimen 03/06/2019 12:42 9 (specimen) PM EDT 12:49 PM EDT Resulting Agency Comment Spec In Lab Estefani Ahn LEASING SPECIALIST CHEMISTRY ORDERABLES Performing Organization Address City/State/[place] [address] (ABNORMAL) Prothrombin Time (03/06/2019 12:42 PM EDT) P athologist Signature PT 13.0 (H) 9.4 - 12.5 [facility] LABORATORY INR 1.[address] [facility] LABORATORY Comment: An INR <2.0 indicates [...] EDT Resulting Agency Comment Spec In Lab Michaela Foy MD HEMATOLOGY ORDERABLES Performing Organization Address City/State/[place] [address] documented in this encounter Visit Diagnoses Diagnosis Liver cirrhosis secondary to ALONSO - Prim tania Other chronic nonalcoholic liver disease ALONSO (nonalcoholic steatohepatitis) Other chronic nonalcoholic liver disease Disorder of iron metabolism Other disorders of iron metabolism Status post bariatric surgery Bariatric surgery status Intestinal malabsorption, unspecified ty pe Hypertension, unspecified type Type 2 diabetes mellitus with complicati on, with long-term current use of insulin documented in this encounter Care Teams Office Nurse Practitioner Relationship Specialty Start Date End Date Jaja Mason MD PCP - General 10/30/[address] [place] [address] documented as of this encounter
--- OUTSIDE RECORDS SUMMARY | 2022-07-13 01:09 | XMS_ITS | Encounter Summary ---
:1965 [place] [address] Care Team Providers Name Role Phone Jaja Mason MD Primary Care Provider Encounter Details Date Type Department Care Team Description 12/26/2011 Hospital Encounter Outpatient Surgery Kristian Oneal [facility] Karen Bourgeois MD syndrome of right [facility] [address] [place] [address] [phone] Social History Tobacco Use Types Packs/Day Years [...] documented in this encounter Discharge Instructions Discharge Bailey Collins RN - 12/26/2011 4:09 PM EST Moderate [...] in the next few days, please call [phone] to make the appointment. documented in this [...] this encounter Miscellaneous Notes Miscellaneous - Provider, Venkat - 12/27/2011 12:38 AM EST OR Attestation - Kristian Oneal MD - 12/26/2011 3:59 PM EST Attestation: Case Date: 12/26/2011 I was present and I participated during the entire procedure. KRISTIAN ONEAL MD 12/26/2011 Op Note - Kristian Oneal MD - 12/26/2011 3:58 PM EST [facility] [place] Patient Name: Jackie Bates : [id number] MR#: [id number] Case Date: 12/26/2011 Surgeon: Surgeon(s) and Role: [...] A preoperative time-out was performed as per [facility] [place]. 10 mL of 1% lidocaine with [...] Operative Note Patient Name: Jackie Bates : [id number] MR#: [id number] Case Date: 12/26/2011 Surgeon: Surgeon(s) and Role: [...] MAR Action Action Date Dose Rate Site OXYcodone (ROXICODONE) immediate Given 12/26/2011 3:20 PM EST 10 mg release tablet 10 mg 10 mg, Oral, EVERY 4 HOURS PRN, Starting on Sat12/26/11 at 1517, Until Sat12/26/11 at 1925, Pain, severe pain, May give additional 5 mg in 30 minutes times 1 if pain not relieved., PACU Recovery, Routine documented in this encounter Active and [...] Routine documented in this encounter Care Teams Humane Agent Relationship Specialty Start Date End Date Jaja Mason MD PCP - General 10/30/[address] [place] [address] documented as of this encounter
--- OUTSIDE RECORDS SUMMARY | 2022-07-13 01:09 | XMS_ITS | Encounter Summary ---
:1965 Author Organization [facility] [place] [address] Care Team Providers Name Role Phone Jaja Mason MD Primary Care Provider Encounter Details Date Type Department Care Team Description 12/26/2011 Anesthesia Event Outpatient Surgery Manoj Sam MD [facility] [place] [address] [address] Karen BrownHaider Austin Andino MD [facility] [place] [address] [place] [address] Anesthesia Record Procedure Summary Procedure Name Responsible Anesthesia Start Anesthesia Stop Anesthesiologist Time Time ENDOSCOPY WRIST W/ Manoj Sam MD 12/26/11 1527 12/26/11 1 602 RELEASE TRANSVERSE CARPAL LIGAMENT (WRVU 6.39) (Right Wrist) Events Date Time Event Comment 12/26/2011 1459 1527 Start 1602 Stop No medications on file. Agents No agents on file. Blood No blood administrations on file. Lines, Drains, and Airways Type Details Placement Removal Incision 12/26/11; 1547; wrist 12/26/11 1547 by Vonda Feliz RN PIV 12/26/11; 1417; 03/10/18 12/26/11 1417 by Dandre pendleton, 03/10/18 0921 by [employer], (Auto removal via Micheline Jordan RN User utility); 0921 (Auto removal via utility) documented in this encounter Social History Tobacco Use Types Packs/Day Years Used Date Never Smoker Alcohol Use Standard Drinks/Week Comments Yes 0 (1 standard drink = 0.6 oz pure alcoho l) very rarely Sex Assigned at Date Recorded Not on file documented as of this encounter OR Notes Anesthesia Postprocedure Evaluation - Manoj Sam MD - 12/26/2011 5:34 PM EST Patient: Jackie Bates Procedure(s) Performed: ENDOSCOPY WRIST W/ RELEASE TRANSVERSE CARPAL LIGAMENT Patient location: PACU Post-op pain: Adequate analgesia Post-op nausea: no nausea or vomiting Last Vitals: Filed Vitals: 12/26/11 1602 BP: 117/56 Pulse: 87 Temp: 36.3 ??C (97.3 ??F) Resp: 18 Post-op cardiovascular and respiratory status: is stable Level of consciousness: awake Complications: no apparent complications Fluid Status: normal Anesthesia Preprocedure Evaluation - Ghulam Lares MD - 12/26/2011 2:57 PM EST Anesthesia Evaluation Patient summary reviewed Airway Mallampati: I TM distance: >3 FB Neck ROM: full Dental - normal exam Pulmonary - normal exam Cardiovascular - normal exam (+) hypertension well controlled, Neuro/Psych GI/Hepatic/Renal Endo/Other (+) Type II DM well controlled, Abdominal - normal exam Anesthesia Plan ASA 2 MAC with intravenous induction CTS right hand Anesthetic plan and risks discussed with patient. Plan discussed with USABILITY ARCHITECT. documented in this encounter Miscellaneous Notes Addendum Note - Rose Marie Zamudio - 12/27/2011 11:13 AM EST Addendum created 12/27/11 1113 by Rose Marie Zamudio Modules edited:Anesthesia Events, Anesthesia Responsible Staff documented in this encounter Plan of Treatment Not on filedocumented as of this encounter Visit Diagnoses Not on filedocumented in this encounter Care Teams Silver Cleaner Relationship Specialty Start Date End Date Jaja Mason MD PCP - General 10/30/[address] [place] [address] documented as of this encounter
--- OUTSIDE RECORDS SUMMARY | 2022-07-13 01:09 | XMS_ITS | Encounter Summary ---
:1965 Author Organization [facility] [address] Care Team Providers Name Role Phone Jaja Mason MD Primary Care Provider Encounter Details Date Type Department Care Team Description 09/08/2018 Laboratory Appointment Lab 3L [facility] Maloney Morbid obesity with [facility] BMI of 40.0-44.9, [facility] [place] [id number] Social History Tobacco Use Types Packs/Day Years [...] Procedure Name Priority Date/Time Associated Comments Diagnosis PTH Routine 09/08/2018 10:50 AM Morbid obesity with R esults for this EDT BMI of 40.0-44.9, procedure are in adult the results section. CMP W/FASTING Routine 09/08/2018 10:50 AM Morbid obesity with Results for this GLUCOSE EDT BMI of 40.0-44.9, procedure are in adult the results section. HEMOGRAM Routine 09/08/2018 10:50 AM Morbid obesity with R esults for this EDT BMI of 40.0-44.9, procedure are in adult the results section. IRON AND TIBC Routine 09/08/2018 10:50 AM Morbid obesity with Results for this EDT BMI of 40.0-44.9, procedure are in adult the results section. VITAMIN D, Routine 09/08/2018 10:50 AM Morbid obesity with R esults for this 25-HYDROXY EDT BMI of 40.0-44.9, procedure are in adult the results section. TSH Routine 09/08/2018 10:50 AM Morbid obesity with R esults for this EDT BMI of 40.0-44.9, procedure are in adult the results section. HEMOGLOBIN A1C Routine 09/08/2018 10:50 AM Morbid obesity with Results for this EDT BMI of 40.0-44.9, procedure are in adult the results section. FOLATE, SERUM Routine 09/08/2018 10:50 AM Morbid obesity with Results for this EDT BMI of 40.0-44.9, procedure are in adult the results section. FERRITIN Routine 09/08/2018 10:50 AM Morbid obesity with R esults for this EDT BMI of 40.0-44.9, procedure are in adult the results section. VITAMIN B12 Routine 09/08/2018 10:50 AM Morbid obesity with R esults for this EDT BMI of 40.0-44.9, procedure are in adult the results section. LIPID PANEL (REFLEX Routine 09/08/2018 10:50 AM Morbid obesity with Results for this DIRECT LDL) EDT BMI of 40.0-44.9, procedure are in adult the results section. documented in this encounter Results (ABNORMAL) Hemogram (09/08/2018 10:50 AM EDT) Analysis Performed At Patho logist Time Signature WBC 10.2 (H) 4.0 - 9.5 [facility] x10(3)/[facility] LABORATORY RBC 4.53 4.00 - [facility] 5.21 [facility] x10(6)/[facility] LABORATORY Hemoglobin 13.9 11.7 - [facility] 15.5 gm/dL [facility] LABORATORY Hematocrit 39.4 35.7 - [facility] 45.8 % [facility] MCV 87.0 82.6 - [facility] 94.4 fL [facility] MCH 30.7 27.1 - [facility] 32.0 pg [facility] MCHC 35.3 (H) 31.7 - [facility] 35.0 gm/dL [facility] Platelets 202 145 - 357 [facility] x10(3)/[facility] LABORATORY RDWSD 38.5 37.0 - [facility] 46.0 [facility] LABORATORY RDWCV 12.0 11.5 - [facility] 14.[facility] % [facility] MPV 10.9 7.6 - 12.9 [facility] LABORATORY nRBC % Auto 0.0 % [facility] LABORATORY nRBC Abs Auto 0.000 0.000 - [facility] 0.000 [facility] x10(3)/[facility] LABORATORY Specimen Anatomical Collection Method Collection Time Receive d Time (Source) Location / / Volume Laterality Blood specimen 09/08/2018 10:50 8 (specimen) AM EDT 10:56 AM EDT Resulting Agency Comment Spec In Lab Brenda Viveros MD HEMATOLOGY ORDERABLES Performing Organization Address City/State/[place] [address] (ABNORMAL) CMP w/fasting Glucose (09/08/2018 10:50 AM EDT) athologist Signature Glucose 70 65 - 99 [facility] Fasting mg/dL [facility] Comment: ?Fasting* Glucose Interpretive C [...] of Diabetes Mellitus, Position Statement from the [place] [employer]. ??Diabete s Care, Volume 33, Supplement 1, Nov 2009 BUN 10 8 - 18 mg/dL [facility] LABORATORY Creatinine 0.65 (L) 0.70 - 1.20 mg/dL [facility] LABORATORY Sodium 144 135 - 145 mmol/L [facility] LABORATORY Potassium 3.9 3.5 - 5.0 mmol/L [facility] LABORATORY Comment: Please note: ??Patients with WBC >100,00 0 may have falsely elevated Potassium levels. ??For accurate Potassium quantif ication in these patients send serum separator tube (gold top) for subsequent determinations. ??Contact the Clinical Chemistry Laboratory if there are any qu estions. Chloride 104 98 - 107 mmol/L [facility] LABORATORY CO2 24 22 - 31 mmol/L [facility] LABORATORY Anion Gap 16 (H) 5 - 15 mmol/L [facility] LABORATORY Calcium 9.9 8.5 - 10.5 mg/dL [facility] LABORATORY Total Protein 7.1 6.1 - 8.0 gm/dL [facility] LABORATORY Albumin 4.4 3.2 - 5.2 gm/dL [facility] LABORATORY AST 46 (H) 0 - 30 unit/L [facility] LABORATORY ALT 51 (H) 0 - 30 unit/L [facility] LABORATORY Alk Phos 61 40 - 104 unit/L [facility] LABORATORY Total Bilirubin 1.2 0.2 - 1.3 mg/dL [facility] LABORATORY Estimated GFR 101 >=60 mL/min/1.73 m?? [facility] LABORATORY Comment: The eGFR was calculated using the CKD-EP I equation. As with all creatinine based estimates of kidney function, eGFR values calculated with the CKD-EPI equation are not accurate in patients wi th acute kidney failure, extremes of body mass or the acutely ill. http://2theloo/MUSCOGEEnkf eGFR 117 >=60 mL/min/1.73 m?? [facility] LABORATORY Comment: The eGFR was calculated using the CKD-EP I equation. As with all creatinine based estimates of kidney function, eGFR values calculated with the CKD-EPI equation are not accurate in patients wi th acute kidney failure, extremes of body mass or the acutely ill. http://2theloo/DHnkf Specimen Anatomical Collection Method Collection Time Receive d Time (Source) Location / / Volume Laterality Blood specimen 09/08/2018 10:50 8 (specimen) AM EDT 10:56 AM EDT Resulting Agency Comment Spec In Lab Brenda Viveros MD CHEMISTRY ORDERABLES Performing Organization Address City/State/[place] [address] Lipid Panel (09/08/2018 10:50 AM EDT) athologist Signature Chol, Total 144 mg/dL [facility] LABORATORY Comment: Lower Risk: <200 mg/dL Average Risk: 200-239 mg/dL Higher Risk: >uz=147 mg/dL Triglycerides 123 mg/dL [facility] Comment: Average Risk/Lower Risk: <150 mg/dL Borderline High Risk: 150-199 mg/dL High Risk: 200-499 mg/dL Very High Risk: >dt=393 mg/dL HDL 39 mg/dL [facility] LABORATORY Comment: Males: ?? Higher Risk: <40 mg/dL Females: ?? HIgher Risk: <50 mg/dL LDL Cholesterol 80 mg/dL [facility] Comment: Lowest Risk: <100 mg/dL Lower Risk: 100-129 mg/dL Borderline High Risk: 130-159 mg/dL High Risk: 160-189 mg/dL Very High Risk: >lb=041 mg/dL Chol/HDL Ratio 3.7 ratio [facility] LABORATORY Lipid Interpretation See Note [facility] LABORATORY Comment: Lipid management should be guided by a p atient? s ASCVD risk, goals and preferences. ACC/AHA Guidelines recommend high intens ity statin if clinical ASCVD or LDL greater than or equal to 190 mg/dL. http://tinyurl.com/SEV-CEV-Nhtbepbpy Adults aged 40-75 with LDL 70-189 mg/dL should have their 10 year ASCVD risk estimated with the ACC/AHA ASCVD risk es timator http://tools.acc.org/GJHAT-Utyr-Mxlgejrg r/ Statin should be discussed if risk [...] Organization Address City/State/[place] [address] (ABNORMAL) Hemoglobin A1c (09/08/2018 10:50 AM EDT) Analysis Performed At Patho logist Time Signature Hemoglobin A1C 6.5 (H) 4.3 - 5.6 [facility] LABORATORY Comment: Reference Range: 4.3 - [...] Mellitus, Diabetes Care 2013; 36: Suppl. 1, U12-73 Est Avg Gluc 140 mg/dL [facility] LABORATORY Comment: eAG equivalents for HbA1c percentages: HbA1c(%) ?eAG(mg/dL) 6.0 ?126 6.5 ?140 7.0 ?154 7.5 ?169 8.0 ?183 8.5 ?197 9.0 ?212 9.5 ?226 10.0 ? 240 Limitations: The eAG calculation has not been validated on women, individuals below 18 years old and above 70 years old, and individuals with hemoglobinopathies. Additional resources are available on [facility] website. Igor CALLAWAY, Charu J, Timmy R, et al. ??Tr anslating the A1C assay into estimated average glucose values. ??Diabetes Care 2008:31(8):5307-4178. Specimen Anatomical Collection Method Collection Time Receive d Time (Source) Location / / Volume Laterality Blood specimen 09/08/2018 10:50 8 (specimen) AM EDT 10:56 AM EDT Resulting Agency Comment Spec In Lab Brenda Viveros MD CHEMISTRY ORDERABLES Performing Organization Address City/[facility]/ZIP Code Phon e Number [address] Iron and TIBC (09/08/2018 10:50 AM EDT) P athologist Signature Iron 83 30 - 150 [facility] m[facility] TIBC 385 250 - 450 [facility] mcg/dL [facility] Iron Saturation 22 20 - 50 % [facility] LABORATORY Specimen Anatomical Collection Method Collection Time Receive d Time (Source) Location / / Volume Laterality Blood specimen 09/08/2018 10:50 8 (specimen) AM EDT 10:56 AM EDT Resulting Agency Comment Spec In Lab Brenda Viveros MD CHEMISTRY ORDERABLES Performing Organization Address City/[facility]/ZIP [facility] Phon e Number [address] Ferritin (09/08/2018 10:50 AM EDT) P athologist Signature Ferritin 96 30 - 400 [facility] ng/mL [facility]OR[facility] Comment: Pediatric reference ranges not verified at [place], interpret with caution. Reference ranges for females [...] Organization Address City/State/ZIP Code Phon e Number [address] Vitamin D, 25-Hydroxy (09/08/2018 10:50 AM EDT) P athologist Signature 25-OH Vit D 39 30 - 100 [facility] Total ng/mL [facility] Comment: Deficient <10 ng/mL Insufficient 10 to 29 ng/mL Sufficient 30 to 100 ng/mL Potential Intoxication >100 ng/mL According to the [place] National Osteoporosi s Foundation, Vitamin D concentrations >30 ng/mL are sufficient to protect bone health. ??The National Kidney Foundation has similarly stated that pat ients with Vitamin D concentrations <30ng/mL should be considered to be insu fficient or deficient. http://Taggs.[employer]/nkf-guidelines http://Taggs.[employer]/nejm-VitD The [employer] Vitamin D Immunoassay detec [...] Organization Address City/State/ZIP Code Phon e Number [address] Vitamin B12 (09/08/2018 10:50 AM EDT) P athologist Signature Vitamin B-12 508 232 - 1,245 [facility] pg/mL [facility] Specimen Anatomical Collection Method Collection Time Receive d Time (Source) Location / / Volume Laterality Blood specimen 09/08/2018 10:50 8 (specimen) AM EDT 10:56 AM EDT Resulting Agency Comment Spec In Lab Brenda Viveros MD CHEMISTRY ORDERABLES Performing Organization Address City/[facility]/ZIP Code Phon e Number [address] Folate, serum (09/08/2018 10:50 AM EDT) P athologist Signature Folate Lvl >20.0 4.8 - 24.2 [facility] ng/mL [facility]OR[facility] Specimen Anatomical Collection Method Collection Time Receive d Time (Source) Location / / Volume Laterality Blood specimen 09/08/2018 10:50 8 (specimen) AM EDT 10:56 AM EDT Resulting Agency Comment Spec In Lab Brenda Viveros MD CHEMISTRY ORDERABLES Performing Organization Address City/[facility]/ZIP Code Phon e Number [address] TSH (09/08/2018 10:50 AM EDT) P athologist Signature TSH 1.97 0.27 - 4.20 [facility] mlU/ML [facility]OR[facility]ORY Specimen Anatomical Collection Method Collection Time Receive d Time (Source) Location / / Volume Laterality Blood specimen 09/08/2018 10:50 8 (specimen) AM EDT 10:56 AM EDT Resulting Agency Comment Spec In Lab Brenda Viveros MD CHEMISTRY ORDERABLES Performing Organization Address City/[facility]/ZIP Code Phon e Number [address] PTH (09/08/2018 10:50 AM EDT) P athologist Signature PTH 21 15 - 65 [facility] pg/mL [facility]OR[facility] Specimen Anatomical Collection Method Collection Time Receive d Time (Source) Location / / Volume Laterality Blood specimen 09/08/2018 10:50 8 (specimen) AM EDT 10:56 AM EDT Resulting Agency Comment Spec In Lab Brenda Viveros MD CHEMISTRY ORDERABLES Performing Organization Address City/[facility]/ZIP Code Phon e Number [address] documented in this encounter Visit Diagnoses Diagnosis Morbid obesity with BMI of 40.0-44.9, ad ult Morbid obesity documented in this encounter Care Teams Bag Checker Relationship Specialty Start Date End Date Jaja Mason MD PCP - General 10/30/11 [address] [place] [address] documented as of this encounter
--- OUTSIDE RECORDS SUMMARY | 2022-07-13 01:11 | XMS_ITS | Encounter Summary ---
:1965 Author Organization [facility] Address [address] [place] [address] Care Team Providers Name Role Phone Unavailable Primary Care Provider Unavailable Encounter Details Date Type Department Care Team Description 05/16/2007 Results Only [facility] - Candace Rogers, Charleen fernández, conversion SOLOIST DANCER [address] [place] [address] [place] [address] (Wo rk) Social History Tobacco Use Types Packs/Day Years Used Date Never Assessed Sex Assigned at Date Recorded Not on file documented as of this encounter Plan of Treatment Not on filedocumented as of this encounter Procedures Procedure Name Priority Date/Time Associated Diagnosis Comme [facility] CYTOPATHOLOGY Routine 05/16/2007 0:00 EDT Results for this procedure are i n the results section . documented in this encounter Results CYTOPATHOLOGY (05/16/2007 0:00 EDT) Pathology Report: CYTOPATHOLOGY REPORT [facility] Reports generated via electronic interface contain imelda ginal data; however they are lacking the format of the original re port. Caution should be taken when reading/interpreting unfo rmatted reports. Name: ? JACKIE DHALIWAL ? Accession #: ? [id number] : ? 1965 (Age: 42) ??F ?Collect Date: ? 04/26 Location: ? [facility] ? Receive Date : ? 05/20/2007 Provider: ?ANNA WHEELER Copy to: ? Specimen/Source: ? ThinPrep Pap Test, Vagina/Cervix/Endocervix, processed on [employer]inite ThinPrep Imaging System, with manual evaluati on Last Menstrual Period: ? 05/01/07 Menstrual/ Status: ? Menorrhagia Previous Gynecologic Pathology: ? DOMENICA I: Yes: Mild atypia, AGC 6.04 Treatment History: ? Colposcopy: bx - 04/28 Other: ? 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 ? SPECIMEN ADEQUACY ? Satisfactory for Evaluation - transformation zone component present GENERAL CATEGORIZATION ? Negative for Intraepithelial Lesion or Malignan cy ? Document reviewed and electronically signed by: ? JOSE RAMON Martinez(ASCP) ? Report Date: ??05/29/2007 08:59 End of Report Specimen Performing Organization Address City/State/ZIP Code Phon e Number [facility] [address] [place] [address] [facility] [address] [place] [address] documented in this encounter Visit Diagnoses Not on filedocumented in this encounter
--- OUTSIDE RECORDS SUMMARY | 2022-07-13 01:11 | XMS_ITS | Encounter Summary ---
:1965 Author Organization [facility] Address [address] [place] [address] Care Team Providers Name Role Phone Jaja Mason MD Primary Care Provider Encounter Details Date Type Department Care Team Description 06/20/2012 Results Only [facility] Risa Valera DO [phone] [address] [place] [address] (Wo rk) Social History Tobacco Use Types Packs/Day Years Used Date Never Assessed Sex Assigned at Date Recorded Not on file documented as of this encounter Plan of Treatment Not on filedocumented as of this encounter Procedures Procedure Name Priority Date/Time Associated Diagnosis Comme [facility] SURGICAL PATHOLOGY Routine 06/20/2012 0:00 EDT Re sults for this procedure are i n the results section. documented in this encounter Results SURGICAL PATHOLOGY (06/20/2012 0:00 EDT) Pathology Report: SURGICAL PATHOLOGY REPORT [facility] Reports generated via electronic interface contain imelda ginal data; LAB however they are lacking the format of the original re port. Caution should be taken when reading/interpreting unfo rmatted reports. Name: ? JACKIE KHAN ? Accession #: ? [id number] ? : ? 1965 (Age: 47) ??F ? Collect Date: ? 06/20/2012 ? Location: ? [facility] ? Receive Date: ? 012 ? Provider: RISA VALERA DO Copy to: JAJA MASON MD ? Final Pathologic Diagnosis: A. ?Colon, random biopsy: 1. ?Colonic muc dionicio (multiple pieces) with no specific histopathologic diagnosis. ? - No active colitis, lymphocytic colitis, collagenous colitis, chronic active inflammatory ??bowel disease, or dysplasia. B. ?Rectum, biopsy: 1. ?Colorectal mucosa with prominent lymphoid follicles and mild surface epithelial hyperplastic changes, otherwise unremarkabl e. ? - No active proctitis, lymphocyti c colitis, collagenous colitis, active inflammatory bowel ??Disease, or dysplasia. Document reviewed and electronically signed by: Fernando Krishna MD Report ??Date: 06/25/2012 15:58 By the signature above, the attending physician certif ies that he/she has personally conducted a gross and/or microscopic examin ation of the described specimens and rendered or confirmed the above diagnosi s. Specimen(s) Received: A. ?Random colon bxs (#1) B. ? Rectal bxs (#2) Clinical History: ? Diarrhea Gross Description: ? Received in formalin labelled [facility] and random colon bxs are twenty-one neville-pink irre gular soft tissue fragments ranging from 0.2 x 0.2 x 0.1 cm to 1.0 x 0.2 x 0.2 cm . ??The specimen is entirely submitted as (A1) ??(A7). Received in formalin j[facility] l[facility] d [facility] and 2 ??rectal bxs are four neville-pink irregular soft tiss ue fragments ranging from 0.4 x 0.2 x 0.2 cm to 0.6 x 0.3 x 0.1 cm. ??The specimen is entirely submitted a s (B1) and (B2). ??(Rosmery Silva)/[facility] End of Report Specimen Performing Organization Address City/State/ZIP Code Phon e Number [facility] [address] [place] [address] SERVICES [facility] [address] [place] [address] documented in this encounter Visit Diagnoses Not on filedocumented in this encounter Care Teams Heat Treater Head Relationship Specialty Start Date End Date Jaja Mason MD PCP - General 06/23/[address] [place] [address] documented as of this encounter
--- OUTSIDE RECORDS SUMMARY | 2022-07-13 01:11 | XMS_ITS | Encounter Summary ---
:1965 Author Organization [facility] Address [address] [place] [address] Care Team Providers Name Role Phone Unavailable Primary Care Provider Unavailable Encounter Details Date Type Department Care Team Description 11/11/2007 Results Only [facility] - Kavin Real MD Maple conversion [address] [place] [address] [place] [address] [phone] Social History Tobacco Use Types Packs/Day Years Used Date Never Assessed Sex Assigned at Date Recorded Not on file documented as of this encounter Plan of Treatment Not on filedocumented as of this encounter Procedures Procedure Name Priority Date/Time Associated Diagnosis Comme nts SURGICAL PATHOLOGY Routine 11/11/2007 0:00 EST Re sults for this procedure are i n the results section. documented in this encounter Results SURGICAL PATHOLOGY (11/11/2007 0:00 EST) Pathology Report: SURGICAL PATHOLOGY REPORT [facility] Reports generated via electronic interface contain imelda ginal data; LAB however they are lacking the format of the original re port. Caution should be taken when reading/interpreting unfo rmatted reports. Name: ? JACKIE DHALIWAL ? Accession #: ? [id number] ? : ? 1965 (Age: 42) ??F ? Collect Date: ? 11/11/2007 ? Location: ? [facility] ? Receive Date: ? 11/12/20 07 ? Provider: ROSIO REAL MD Copy to: ROSIO BOSS MD ? Final Pathologic Diagnosis: ? Uterus, cervix, bilateral ovaries and bilateral fallopian tubes, hysterectomy and bilateral salpingo-oophorectomy: 1. ?Cervix: ? - Focal parakeratosis. - Microglandular hyperplasia. ? 2. ?? Endometrium: ? - Endometrial polyp with exogenous hor brie effect. ? - Endometrium with exogenous hormone e ffect. ? 3. ?? Myometrium: ? - Multiple l eiomyomata, subserosal, intramural, and submucosal (8.0 cm in greatest dimension). ? - Focal adenomyosis. ? 4. ?? Serosa: ? - No pathologic features. ? 5. ?? Ovary, left: ? - No pathologic features. ? 6. ?? Ovary, right: ? - Benign follicular cyst. ? 7. ?? Fallopian tubes, bilateral: ? - Status post tubal ligation. Document reviewed and electronically signed by: LIZZY DISLA MD Report ??Date: 11/14/2007 16:08 By the signature above, the attending physician certif ies that he/she has personally conducted a gross and/or microscopic examin ation of the described specimens and rendered or confirmed the above diagnosi s. Specimen(s) Received: ? Uterus, right ovary & fallopian tube, left ovar y and fallopian tube, cervix Clinical History: ? SABRINA/BSO, menorrhagia, fibroids, f saima trial Provera/Depo-Provera, LMP: [id number] Gross Description: ? Received in formalin labelled [facility] and uterus right ovary and fallopian tube and left ovary and fall opian tube and cervix is a 1116 gram uterus with a previously transected cervix and attached bilateral salpingo-oophorectomy. ??The markedly enlarged and distended uterus m easures 15.0 cm fundus to cervix, 15.0 cm cornu to cornu, and 10.0 cm anterior to posterior. ??The serosa is neville-pink and smooth and glistening with patchy he morrhagic foci. ??The neville-red slightly irregular endometrium averag es 0.1 cm thick and is remarkable for a 1.3 x 0.7 x 0.3 cm endometrial polyp (posterior). ??Abundant (greater than 20) whorled to trabeculated neville-white to neville-pink subserosal, intramu ral, and submucosal nodules ranging from 0.3 to 8.0 cm in greatest dimension are present. ??Several of the nodules contain hemorrhagic foci along with cys tic spaces. ??Minute blood-filled cystic spaces are present within the neville- pink trabeculated myometrium that averages 4.5 cm thick. ??Both the ecto - and endocervix are unremarkable. ??The 11 gram 3.0 x 2.8 x 1.3 cm lobulated ovary has a white-neville smooth and glistening surface. ??The cut surfaces are neville-yellow with pinpoint hemorrhagic foci and a 0.7 cm in greatest dimension pe ripheral smooth-lined cystic structure. ??The 4.2 cm in length by 0.6 cm in diameter fimbriated fallopian tube is centrally interrupted with blunted e nds consistent with a previous tubal ligation. ??T he serosa and the cut surfaces are unremarkable. ??The right 8 gram 2.8 x 2.6 x 1.9 cm lobulated ovary has a smooth and glistening white-neville serosa and neville-yel low cut surfaces with a 1.5 cm in greatest dimension smooth-lined peripheral cyst . ??The right 4.5 cm in length by 0.4 cm in diameter fimbriated fallopian tube is also centrally interrupte d with blunted ends consistent with a previous t ubal ligation. ??Both the serosa and cut surfaces are unremarkable. ??Integrity Director sections are submitted as follows: BLOCK FERNANDEZ A1,A2 ?Integrity Director sections of anterio r/posterior cervix A3 ?Anterior endomyometrium A4-A6 ?Full-thi ckness posterior endomyometrium to include endometrial polyp A7-A9 ?Represen tative sections of whorled and trabeculated nodules to include hemorrhagic foci A10 ?Integrity Director left ovary and fallop aliya tube to include perpendicular section of fimbria A11 ?Integrity Director section of right ovar y and tube to include perpendicular section of fimbria (Rosmery Yañez)/[facility] End of Report Specimen Performing Organization Address City/State/ZIP Code Phon e Number [facility] [address] [place] [address] SERVICES [facility] [address] [place] [address] documented in this encounter Visit Diagnoses Not on filedocumented in this encounter
--- OUTSIDE RECORDS SUMMARY | 2022-07-13 01:11 | XMS_ITS | Encounter Summary ---
:1965 Author Organization [facility] Address [address] [place] [address] Care Team Providers Name Role Phone Unavailable Primary Care Provider Unavailable Encounter Details Date Type Department Care Team Description 05/06/2006 Results Only [facility] - Candace Rogers, Charleen fernández, conversion HEAD OF STRATEGY [address] [facility] [address] [place] [address] [place] [address] (Wo rk) Social History Tobacco Use Types Packs/Day Years Used Date Never Assessed Sex Assigned at Date Recorded Not on file documented as of this encounter Plan of Treatment Not on filedocumented as of this encounter Procedures Procedure Name Priority Date/Time Associated Diagnosis Comme nts CYTOPATHOLOGY Routine 05/06/2006 0:00 EDT Results for this procedure are i n the results section . documented in this encounter Results CYTOPATHOLOGY (05/06/2006 0:00 EDT) Pathology Report: CYTOPATHOLOGY REPORT [facility] Reports generated via electronic interface contain imelda ginal data; however they are lacking the format of the original re port. Caution should be taken when reading/interpreting unfo rmatted reports. Name: ? JACKIE DHALIWAL ? Accession #: ? [id number] : ? 1965 (Age: 41) ??F ?Collect Date: ? 04/25 Location: ? [facility] ? Receive Date : ? 05/08/2006 Provider: ?ANNA ALANIZELISAAYDIN WHEELER Copy to: ? Specimen/Source: ? ThinPrep Pap Test, Vagina/Cervix/Endocervix, processed on [employer]analysis ThinPrep Imaging System, with manual evaluati on Last Menstrual Period: ? 04/18 Treatment History: ? Miscellaneous treatment: Cautery Colposcopy: Bx negative 04/28 Other: ? Additional clinical informat ion: Previous atypical. Bicornuate subseptate uterus DOMENICA , Mild atypia AGC, endocx, 04/28 AGC, endocx . ? SPECIMEN ADEQUACY ? Satisfactory for Evaluation - transformation zone component present GENERAL CATEGORIZATION ? Negative for Intraepithelial Lesion or Malignan cy INTERPRETATION ? Reactive cellular vane nges associated with inflammation present (includes repair). ? Document reviewed and electronically signed by: ? NOAH VALLE MD ? Report Date: ??05/13/2006 17:49 End of Report Specimen Performing Organization Address City/State/ZIP Code Phon e Number [facility] [address] [place] [address] SERVICES [facility] [address] [place] [address] documented in this encounter Visit Diagnoses Not on filedocumented in this encounter
[2022-07-13 13:09] LABS: ALT 39 U/L (14-59); AST 30 U/L (15-37); Albumin 3.9 g/dL (3.4-5.0); Alkaline Phosphatase 86 U/L (46-116); BUN 12 mg/dL (7-18); Bilirubin, Total 1.3 mg/dL (0.2-1.0); CREATININE 0.7 mg/dL (0.55-1.02); Calcium 9.2 mg/dL (8.5-10.1); Calculated LDL 54 mg/dL (<100); Chloride 103 mmol/L (98-107); Cholesterol 124 mg/dL (<200); Glucose 238 mg/dL (74-106); HDL Cholesterol 47 mg/dL (40-60); Potassium 4.6 mmol/L (3.5-5.1); Sodium 140 mmol/L (136-145); Total Protein 7.3 g/dL (6.4-8.2); Triglyceride 115 mg/dL (<150)
[2022-07-13 22:27] LABS: Albumin, Ur < 0.6 mg/dL (See Note)
== END 2022-07-13 01:04 | disposition home or self-care (01) ==
LOC: LOS 01:03
PROVIDERS: PCP Family Medicine; Visit Provider Family Medicine
DX: E11.65 Type 2 diabetes mellitus with hyperglycemia (principal); I10 Essential (primary) hypertension
CPT/HCPCS: 36415; 80053; 80061; 82043; 82570; 83036

== ENCOUNTER 2022-11-01 01:35 | Outpatient (CLI) | payer OTHER, SELFPAY ==
[2022-11-01 12:19] LABS: Hemoglobin A1C 7.2 % (<5.7)
== END 2022-11-01 01:36 | disposition home or self-care (01) ==
LOC: LBO 01:35
PROVIDERS: PCP Family Medicine; Visit Provider Family Medicine
DX: E11.9 Type 2 diabetes mellitus without complications (principal)
CPT/HCPCS: 36415; 83036

== ENCOUNTER 2022-12-20 01:40 | Outpatient (CLI) | payer OTHER, SELFPAY ==
--- NOTE | 2022-12-20 07:45 | DI.RAD_ITS ---
Exam(s) XR SHOULDER RT COMPLETE 2+V EXAM: XR SHOULDER RT COMPLETE 2+V CLINICAL HISTORY: r shoulder pain,strain,[id number]. TECHNIQUE: 2D digital imaging was performed. COMPARISON: No exams were available for comparison FINDINGS: Six views: There is no evidence of acute fracture nor dislocation or abnormal soft tissue calcifications. Subac romial space is not diminished. Mild degenerative changes in the AC and glenohumeral joints. No oss eous lesions. IMPRESSION: Mild degenerative changes. No abnormal soft tissue calcifications. DATA REPOSITORY: RADIATION DOSE DELIVERED:
== END 2022-12-20 02:00 ==
LOC: DI 01:41
PROVIDERS: PCP Family Medicine; Visit Provider Family Medicine
DX: M19.011 Primary osteoarthritis, right shoulder (principal)
CPT/HCPCS: 73030

== ENCOUNTER 2023-01-26 16:34 | Emergency (ER) | payer OTHER, SELFPAY ==
[2023-01-26 16:38] VITALS: TEMP 36.9
[2023-01-26 16:40] VITALS: BP 129/68; PULSE 67; RESP 18; O2SAT 98
--- NOTE | 2023-01-26 16:45 | DI.RAD_ITS ---
Exam(s) XR SHOULDER RT COMPLETE 2+V EXAM: XR SHOULDER RT COMPLETE 2+V CLINICAL HISTORY: fall, shoulder pain. TECHNIQUE: 2D digital imaging was performed. COMPARISON: CR XR SHOULDER RT COMPLETE 2+V from 12/20/2022 FINDINGS: Six views: There is a mildly impacted fracture of the humeral head-neck. Inferior aspect of the greater tuberosity appears involved. No dislocation of glenohumeral joint. M inimal degenerative changes. No osseous lesions. IMPRESSION: Fracture humeral head-neck. Minimal impaction. No significant displacement. DATA REPOSITORY: RADIATION DOSE DELIVERED:
--- NOTE | 2023-01-26 16:45 | DI.RAD_ITS ---
Exam(s) XR HUMERUS RT EXAM: XR HUMERUS RT CLINICAL HISTORY: shoulder pain, post fall. TECHNIQUE: 2D digital imaging was performed. COMPARISON: No exams were available for comparison FINDINGS: Two views: There is no oblique nondisplaced fracture in the humeral head-neck. There is also mild impaction wit h fracture involving the inferior aspect of the greater tuberosity. No dislocation of the glenohumer al joint and AC joint. No fractures further down in the humerus. IMPRESSION: Proximal humerus fracture as described above. Mild impaction. No displacement. DATA REPOSITORY: RADIATION DOSE DELIVERED:
--- NOTE | 2023-01-26 16:58 | ED.GENADUL_ITS ---
Discharge Plan Disposition Patient Disposition: Home Condition: Stable Discharge Details Chief Complaint: Orthopedic Clinical Impression: Fracture of proximal humerus Primary Care Provider: Jaja Mason ED Provider: Kevin Escobar Home Meds and New Rx's Prescriptions: No Action biotin 5 mg tablet 5 mg PO DAILY cyanocobalamin (vitamin B-12) 1,000 mcg capsule 1,000 mcg PO DAILY Bariatric Multivitamins 45 mg iron- 800 mcg-120 mcg capsule 1 cap PO DAILY calcium carbonate-vitamin D3 500 mg(1,250mg) -50 unit capsule 2 cap PO BID Patient Comments: Each capsule contains 1260mg CA and 26mcg Vitamin D3 glyburide 5 mg tablet 5 mg PO DAILY Qty: 90 5RF atorvastatin 20 mg tablet 20 mg PO QPM Qty: 90 4RF losartan 100 mg tablet 100 mg PO DAILY Qty: 90 4RF metformin 1,000 mg tablet 1,000 mg PO BID Qty: 180 5RF paroxetine HCl 40 mg tablet 40 mg PO DAILY Qty: 90 12RF triamcinolone acetonide 0.1 % cream 1 applic topical BID Qty: 80 0RF Rx Instructions: apply to foot aspirin [Juancarlos Low Dose Aspirin] 81 MG tablet,delayed release (DR/EC) 1 tab PO DAILY Jardiance 25 mg tablet 25 mg PO QAM Qty: 90 5RF Discharge Instructions Instructions: Arm Fracture in Adults (ED) Additional Instructions: Please use sling as instructed. Please follow-up with orthopedic team next week. Return to the emergency department for any further assistance. Continue with ibuprofen Tylenol and ice as needed Medical Decision Making 57-year-old female presents 2 days after fall on ice on her right shoulder pain and limited range of motion at shoulder specifically with abduction and flexion at shoulder; neurovascular exam of limb intact no other signs of trauma. Hemodynamically stable. Relatively comfortable. Concern for rotator cuff tear versus bicep tear versus proximal humerus fracture versus less likely dislocation versus less likely supracondylar fracture. Will obtain x-ray shoulder x-ray humerus, dexamethasone for anti-inflammatory purposes likely sling with close orthopedic follow-up. Would likely benefit from MRI as outpatient 18: 05 patient resting comfortably no acute distress evidence of spiral proximal humerus fracture. Nondisplaced. Hemodynamically stable neurovascular exam intact. Placed in sling will be given referral to orthopedic team for next week. HPI General Date/Time Provider Initiated Documentation: 01/26/23 16:35 . HPI Narrative: 57-year-old female presents 2 days after a fall on ice, fell on her right shoulder. Pain to shoulder and upper arm discomfort when attempting to move arm. No other injuries. Related Data Home Medications Medication Instructions Recorded Confirmed aspirin 81 mg tablet,delayed 1 tab PO DAILY 03/10/13 12/19/22 release (Juancarlos Low Dose Aspirin) biotin 5 mg tablet 5 mg PO DAILY 11/28/20 12/19/22 calcium carbonate-vitamin D3 500 2 cap PO BID 11/28/20 12/19/22 mg (1,250 mg)-50 unit capsule cyanocobalamin (vitamin B-12) 1,000 mcg PO DAILY 11/28/20 12/19/22 1,000 mcg capsule fmyhlcfm-yygadyoh-pghs 45 mg-folic 1 cap PO DAILY 11/28/20 12/19/22 acid 800 mcg-vit K 120 mcg capsule (Bariatric Multivitamins) glyburide 5 mg tablet 5 mg PO DAILY #90 tabs 07/17/22 12/19/22 empagliflozin 25 mg tablet 25 mg PO QAM #90 tabs 07/24/22 12/19/22 (Jardiance) atorvastatin 20 mg tablet 20 mg PO QPM #90 tabs 12/19/22 12/19/22 losartan 100 mg tablet 100 mg PO DAILY #90 tabs 12/19/22 12/19/22 metformin 1,000 mg tablet 1,000 mg PO BID #180 tab-caps 12/19/22 12/19/22 paroxetine HCl 40 mg tablet 40 mg PO DAILY #90 tab-caps 12/19/22 12/19/22 triamcinolone acetonide 0.1 % 1 applic topical BID #80 grams 12/19/22 12/19/22 topical cream Previous Rx's Medication Instructions Recorded glyburide 5 mg tablet 5 mg PO DAILY #90 tabs 07/17/22 empagliflozin 25 mg tablet 25 mg PO QAM #90 tabs 07/24/22 (Jardiance) atorvastatin 20 mg tablet 20 mg PO QPM #90 tabs 12/19/22 losartan 100 mg tablet 100 mg PO DAILY #90 tabs 12/19/22 metformin 1,000 mg tablet 1,000 mg PO BID #180 tab-caps 12/19/22 paroxetine HCl 40 mg tablet 40 mg PO DAILY #90 tab-caps 12/19/22 triamcinolone acetonide 0.1 % 1 applic topical BID #80 grams 12/19/22 topical cream Allergies Allergy/AdvReac Type Severity Reaction Status Date / Time kiwi Allergy Severe Unverified 12/19/22 09:59 lisinopril AdvReac COUGH Unverified 12/19/22 09:59 General Stated Complaint: Orthopedic BRIAN: 4 Review of Systems Narrative: Review of Systems Constitutional: negative Eyes: negative ENT: negative Cardiovascular: negative Respiratory: negative Gastrointestinal: negative : negative Musculoskeletal: Shoulder pain Skin: negative Neurologic: negative Psych: negative PFSH All Active Problems (Updated 01/26/23 @ 18:06 by Kevin Escobar MD) Fracture of proximal humerus (Acute) Right shoulder strain (Acute) Encounter for screening colonoscopy (Acute) BMI 35.0-35.9,adult (Acute) Grief counseling (Acute) Annual physical exam (Acute) ALONSO (nonalcoholic steatohepatitis) (Acute) Toe pain, left (Acute) Type II diabetes mellitus, uncontrolled (Chronic) Continue with present diabetic control she is doing well. Await her A1c Sleep apnea (Chronic 03/31/18) Sleep apnea machine is helping her get good sleeps she uses it consistently Irritable colon (Chronic 09/16/12) Hyperlipidemia (Chronic) Essential hypertension (Chronic 10/02/13) Depressive disorder (Chronic 12/20/09) Medical History (Updated 01/26/23 @ 18:06 by Kevin Escobar MD) BMI 40.0-44.9, adult (08/12/17) She is lined up for bariatric surgery. I am in favor of this. I believe that she has met all of the criteria to pursue this. I will continue to follow her. She has seen Elie and has gained significant amount of help with her diet he is a resident psych steam locomotive firer/fireman. He is under my instruction. I have very much in favor of her speaking with Elie our resident pharmacist I believe he does a great job with nutrition education he is under my oversight Carpal tunnel syndrome moderate right wrist., s/p surgery Carpal tunnel syndrome Cholelithiasis without obstruction (12/20/09) Dysfunctional uterine bleeding s/p hysterectomy 12/04 Dysfunctional uterine bleeding Fatigue 01/05/13 Fatigue (01/05/13) Liver function test abnormality 03/18/13 Liver function test abnormality (03/18/13) Surgical History (Updated 11/23/19 @ 14:49 by Jaja Mason MD, DC) section 1983 1990 Cholecystectomy (~1983) H/O section 1983;1990 History of section Hysterectomy, Laproscopic (~2007) Open Carpal Tunnel release S/P carpal tunnel release S/P cholecystectomy 11/25/83 S/P laparoscopic hysterectomy 11/25/07 Status post carpal tunnel release Status post cholecystectomy Status post laparoscopic hysterectomy Family History (Updated 11/30/20 @ 14:29 by Melissa Miller) Mother Diabetes Father Essential hypertension Heart disease AAA Maternal Grandmother Diabetes Paternal Grandmother Cancer Son No problems noted. Son No problems noted. Sister Carotid artery occlusion Bladder cancer Social History (Updated 01/17/22 @ 14:05 by Rose Marie Sierra) Smoking/Tobacco Use Status: Never Second Hand Exposure: Yes Smoking risk assessment performed?: Yes Alcohol Intake: never Drug use: Never Substance use type: does not use Caregiver/Support person: No Household members: spouse Housing: house Communication Needs: None Do you need help understanding health information?: Never Pets and animals: Yes Pets and animals: cat(s) Sexually active: No Do you think of yourself as: straight/heterosexual Current gender identity: female What is your relationship status?: How often do you talk on the phone with friends or family?: three or more times per week How often do you get together with friends or relatives?: once per week How often do you attend jainism or sabianist services?: 4 or more times per year Do you belong to any clubs or organized social groups?: no Panel score (0-1 are the most socially isolated patients): 3 What type of physical activity do you participate in: walking Frequency: 3-4 times per week Francisca/Anabaptist: Latter-Day Seatbelt use: always Helmet use: Yes Helmet use: always Drive intox or ride w/intox dray driver: No Do you feel safe at home: Yes Do you feel safe in your relationship?: Yes Victim of physical abuse: No Victim of emotional abuse: No Victim of sexual abuse: No Would you like helpful sources: No Exam Narrative Exam Narrative: Physical Examination General: alert, awake, cooperative, resting comfortably, no acute distress HEENT: normocephalic, atraumatic; PERRL, EOM intact, conjunctiva normal; no nasal discharge; moist mucous membranes, oral and pharyngeal mucosa normal, tolerating secretions Neck: supple, trachea midline; full ROM Chest: normal to inspection Respiratory: normal respiratory effort, speaking in full sentences, clear to auscultation, no wheezing, rales or rhonchi Cardiac: regular rate, regular rhythm, S1S2 intact, no murmurs rubs or gallops GI: abdomen soft, non-tender, non-distended; no palpable mass or hepatosplenomegaly Skin: no lesions, rashes or trauma appreciated Neuro: AAOx3, normal speech, moving all extremities Extremities: Holding right upper extremity adducted to side, pain with abduction and attempted flexion of arm; soft compartments, warm well perfused sensation median radial and ulnar nerve distribution intact Psych: Appropriate mood and affect Course Vital Signs Vital signs: Vital Signs Temperature 36.9 C 01/26/23 16:38 Temperature 36.9 C 01/26/23 16:38 Temperature Source Oral 01/26/23 16:38 Pulse 67 01/26/23 16:40 Respiratory Rate 18 01/26/23 16:40 Respiratory Effort Normal, Non-Labored 01/26/23 16:39 Blood Pressure 129/68 01/26/23 16:40 Pulse Oximetry 98 01/26/23 16:40 Oxygen Delivery Method Room Air 01/26/23 16:40 Oxygen Flow Rate 0 01/26/23 16:40
[2023-01-26] MEDS: Dexamethasone 10 MG/ML VIAL IM (17:10)
--- NOTE | 2023-01-26 17:55 | DI.VRAD_ITS ---
PROCEDURE INFORMATION: Exam: XR Right Humerus Exam date and time: 01/26/2023 5:36 PM Age: 57 years old Clinical indication: Injury or trauma; Fall; Sprain or strain; Humerus; Right TECHNIQUE: Imaging protocol: Radiologic exam of the right humerus. Views: 2 or more views. COMPARISON: CR XR SHOULDER RT COMPLETE 2+V 01/26/2023 5:33 PM FINDINGS: Bones/joints: The bones are demineralized. Spiral fracture of the neck of the humerus extending to the inferior greater tuberosity. Soft tissues: Normal. IMPRESSION: Spiral fracture neck of the right humerus Dictated and Authenticated by: Mariajose Connor MD. Ordering:SKYLA Brown MD
--- NOTE | 2023-01-26 17:56 | DI.VRAD_ITS ---
PROCEDURE INFORMATION: Exam: XR Right Shoulder Exam date and time: 01/26/2023 5:33 PM Age: 57 years old Clinical indication: Injury or trauma; Other: Fall shoulder pain TECHNIQUE: Imaging protocol: Radiologic exam of the right shoulder. Views: 2 or more views. COMPARISON: CR XR SHOULDER RT COMPLETE 2+V 12/20/2022 1:22 PM FINDINGS: Bones/joints: Spiral nondisplaced fracture neck of the right humerus. The bones are demineralized. Degenerative arthritis in the acromioclavicular joint. Soft tissues: Normal. IMPRESSION: Spiral nondisplaced fracture neck of the right humerus. Dictated and Authenticated by: Mariajose Connor MD. Ordering:SKYLA Brown MD
[2023-01-26 18:10] VITALS: BP 112/79; PULSE 71; RESP 18; O2SAT 97
== END 2023-01-26 18:13 | disposition home or self-care (01) ==
PROVIDERS: Emergency Provider Emergency Medicine; PCP Family Medicine
DX: S42.201A Unspecified fracture of upper end of right humerus, initial encounter for closed fracture (principal); W00.0XXA Fall on same level due to ice and snow, initial encounter
CPT/HCPCS: 96372; 99284; 73030; 73060; J1100

== ENCOUNTER 2023-01-28 21:29 | Outpatient (REF) | payer OTHER, SELFPAY ==
[2023-01-28 17:02] LABS: COMMENT (LAB VIEW ONLY) 81.03 mg/dL
== END 2023-01-28 21:30 | disposition home or self-care (01) ==
LOC: LBN 21:29
PROVIDERS: PCP Family Medicine; Visit Provider Family Medicine
DX: Z00.00 Encounter for general adult medical examination without abnormal findings (principal); E11.65 Type 2 diabetes mellitus with hyperglycemia
CPT/HCPCS: 82043; 82570

== ENCOUNTER 2023-02-11 10:36 | Outpatient (CLI) | payer OTHER, SELFPAY ==
--- NOTE | 2023-02-11 08:50 | DI.RAD_ITS ---
Exam(s) XR SHOULDER RT COMPLETE 2+V EXAM: XR SHOULDER RT COMPLETE 2+V CLINICAL HISTORY: f/u fx. TECHNIQUE: 2D digital imaging was performed. COMPARISON: CR,XR XR SHOULDER RT COMPLETE 2+V from 01/26/2023 FINDINGS: 3 views Humeral head-neck fracture again noted. This is again noted to involve the greater tuberosity. Ther e mild impaction and there is minimal displacement. Subacromial space is not diminished and there is no migration of the humeral head in the glenoid fossa. Mild degenerative changes in the AC joint no du. IMPRESSION: Relatively stable appearance of the humeral head-neck fracture site. DATA REPOSITORY: RADIATION DOSE DELIVERED:
== END 2023-02-11 10:37 | disposition home or self-care (01) ==
LOC: DIORS 10:37
PROVIDERS: PCP Family Medicine; Referring Provider Family Medicine; Visit Provider Physician Assistant
DX: S42.251A Displaced fracture of greater tuberosity of right humerus, initial encounter for closed fracture; X58.XXXA Exposure to other specified factors, initial encounter
CPT/HCPCS: 73030

== ENCOUNTER 2023-03-12 09:28 | Outpatient (CLI) | payer OTHER, SELFPAY ==
--- NOTE | 2023-03-12 08:30 | DI.RAD_ITS ---
Exam(s) XR SHOULDER RT COMPLETE 2+V EXAM: XR SHOULDER RT COMPLETE 2+V CLINICAL HISTORY: f/u fx. TECHNIQUE: 2D digital imaging was performed of the right shoulder. Two images were obtained. AP an d Y views were obtained. COMPARISON: CR XR SHOULDER RT COMPLETE 2+V from 02/11/2023 FINDINGS: BONES: There has been no significant change in alignment of the fracture involving the right humeral neck. No new fracture is seen. No bony destructive lesion is seen. JOINTS: No dislocation present. SOFT TISSUE: Normal. IMPRESSION: Stable proximal humeral fracture. DATA REPOSITORY: RADIATION DOSE DELIVERED:
== END 2023-03-12 09:29 | disposition home or self-care (01) ==
LOC: DIORS 09:28
PROVIDERS: PCP Family Medicine; Referring Provider Family Medicine; Visit Provider Student in an Organized Health Care Education/Training Program
DX: S42.251D Displaced fracture of greater tuberosity of right humerus, subsequent encounter for fracture with routine healing; W19.XXXD Unspecified fall, subsequent encounter
CPT/HCPCS: 73030

== ENCOUNTER 2023-05-01 08:46 | Outpatient (CLI) | payer OTHER, SELFPAY ==
--- NOTE | 2023-05-01 08:56 | DI.RAD_ITS ---
Exam(s) XR SHOULDER RT COMPLETE 2+V EXAM: XR SHOULDER RT COMPLETE 2+V CLINICAL HISTORY: F/U FRACTURE. TECHNIQUE: 2D digital imaging was performed of the right shoulder. Three images were obtained. Y a nd AP views were obtained. COMPARISON: CR XR SHOULDER RT COMPLETE 2+V from 03/12/2023 FINDINGS: BONES: There has been no change in alignment of the fracture involving the proximal right humerus. T here has been continued healing of the fracture. No new fractures identified. No bony destructive l esion is seen. JOINTS: No dislocation present. SOFT TISSUE: Normal. IMPRESSION: Healing proximal right humeral fracture. No change in alignment of the fracture is noted. DATA REPOSITORY: RADIATION DOSE DELIVERED:
== END 2023-05-01 08:47 | disposition home or self-care (01) ==
LOC: DIORS 08:46
PROVIDERS: PCP Family Medicine; Referring Provider Family Medicine; Visit Provider Student in an Organized Health Care Education/Training Program
DX: S42.201D Unspecified fracture of upper end of right humerus, subsequent encounter for fracture with routine healing (principal); S46.911D Strain of unspecified muscle, fascia and tendon at shoulder and upper arm level, right arm, subsequent encounter; X58.XXXD Exposure to other specified factors, subsequent encounter
CPT/HCPCS: 73030

== ENCOUNTER 2023-05-07 01:59 | Outpatient (CLI) | payer OTHER, SELFPAY ==
[2023-05-07 08:56] LABS: Hemoglobin A1C 7.1 % (<5.7)
[2023-05-07 08:57] LABS: ALT 33 U/L (14-59); AST 20 U/L (15-37); Alkaline Phosphatase 90 U/L (46-116); Anion Gap 9.1 mmol/L (3-11); BUN 15 mg/dL (7-18); CO2 26.9 mmol/L (21.0-32.0); CREATININE 0.8 mg/dL (0.55-1.02); Calcium 9.2 mg/dL (8.5-10.1); Calculated LDL 68 mg/dL (<100); Chloride 105 mmol/L (98-107); Cholesterol 142 mg/dL (<200); Estimated GFR 84.82 (mL/min/1.73m2); Glucose 149 mg/dL (74-106); HDL Cholesterol 53 mg/dL (40-60); Potassium 4.2 mmol/L (3.5-5.1); Sodium 141 mmol/L (136-145); Total Protein 7.4 g/dL (6.4-8.2); Triglyceride 108 mg/dL (<150)
== END 2023-05-07 02:00 | disposition home or self-care (01) ==
LOC: LBO 01:59
PROVIDERS: PCP Family Medicine; Visit Provider Family Medicine
DX: Z00.00 Encounter for general adult medical examination without abnormal findings (principal); E11.65 Type 2 diabetes mellitus with hyperglycemia; I10 Essential (primary) hypertension; E78.5 Hyperlipidemia, unspecified
CPT/HCPCS: 36415; 80053; 80061; 83036

== ENCOUNTER 2023-05-13 02:54 | Outpatient (CLI) | payer OTHER, SELFPAY ==
--- NOTE | 2023-05-13 06:30 | DI.MRI_ITS ---
Exam(s) MR UPPER JOINT RT WO EXAM: MR UPPER JOINT RT WO CLINICAL HISTORY: ? RTC TEAR, rt shoulder strain, S46.301H. TECHNIQUE: Multiplanar multisequence MRI was performed. COMPARISON: 01 May 2023 FINDINGS: Exam is limited by the motion. BONES: Edema proximal humeral shaft related to prior fracture. JOINTS:The acromioclavicular joint shows mild spurring. The glenohumeral joint shows mild degenerati ve changes. TENDONS: Supraspinatus: Full-thickness tear with mild retraction Infraspinatus: Unremarkable. Subscapularis: Unremarkable. Teres [place]: Unremarkable. Biceps and [place]: Unremarkable. MUSCLES: Mild diffuse atrophy, likely secondary to disuse.. GLENOID LABRUM: Unremarkable on this noncontrast examination. SOFT TISSUES: Unremarkable. OTHER: Subacromial and subdeltoid bursae . IMPRESSION: Full-thickness tear with mild retraction of the supraspinatus tendon. DATA REPOSITORY:
== END 2023-05-13 03:14 ==
LOC: DI 02:55
PROVIDERS: PCP Family Medicine; Visit Provider Student in an Organized Health Care Education/Training Program
DX: S46.011A Strain of muscle(s) and tendon(s) of the rotator cuff of right shoulder, initial encounter (principal); X58.XXXA Exposure to other specified factors, initial encounter
CPT/HCPCS: 73221

== ENCOUNTER 2023-05-15 01:58 | Outpatient (CLI) | payer OTHER, SELFPAY ==
--- NOTE | 2023-05-15 08:45 | DI.MAMMO_ITS ---
Exam(s) MAMMO SCREENING EXAM: MAMMO SCREENING CLINICAL HISTORY: screening, Z12.39 TECHNIQUE: Mammograms were interpreted according to the usual protocol including computer analysis w [employer] CAD system, tomosynthesis and C-view imaging. COMPARISON: 2013 through 2021 FINDINGS: The breasts are composed of mainly fatty density , Breast Density category A. No suspicious masses or suspicious microcalcifications are seen. No skin thickening or abnormal axillary lymph nodes are seen. There has been no significant change from prior exams. IMPRESSION: BI-RADS Category 1, Negative mammogram Yearly screening mammography is recommended. Breast Density - Category A, fatty density. A negative radiographic report should not delay biopsy if a dominant or clinically suspicious mass is present. Up to ten percent of cancers are not identified on mammography. A negative report may reinforce clinical impression. Adenosis and dense breasts may obscure an underlying neoplasm. False positive reports average 6 to 10%. Patient will receive a letter notifying them of these results.
== END 2023-05-15 02:18 ==
LOC: DI 01:58
PROVIDERS: PCP Family Medicine; Visit Provider Family Medicine
DX: Z12.31 Encounter for screening mammogram for malignant neoplasm of breast (principal)
CPT/HCPCS: 77063; 77067

== ENCOUNTER 2023-06-14 06:18 | Day surgery (SDC) | payer OTHER, SELFPAY ==
[2023-06-14] VITALS (21 sets, daily range): BP systolic 120–163; BP diastolic 34–77; PULSE 57–95; RESP 7–22; TEMP 36.3–37.2; O2SAT 90–98; BMI 35.5
--- NOTE | 2023-06-14 06:20 | W.ANESPRE ---
General Info Date of Service Date Performed: 06/14/23 Height: 5 ft 4 in Weight: 93.894 kg Body Mass Index (BMI): 35.5 Surgical Procedure: Operation Date: 06/14/23 07:40 Proposed Procedure Side Surgeon p Shoulder Rotator Cuff Arthroscopic w/Extensive Debridement, possible Biceps Tenodesis, Subacromial Decompression, Possible Allograft Superior Capsular Reconstruction Right Herve Jo MD Meds Allergies and Home Medications Allergies Allergy/AdvReac Type Severity Reaction Status Date / Time kiwi Allergy Severe Anaphylaxis Unverified 06/14/23 06:54 lisinopril AdvReac Intermediate COUGH Unverified 06/14/23 06:54 Home Medication Medication Instructions Recorded aspirin 81 mg tablet,delayed 1 tab PO DAILY 03/10/13 release (Juancarlos Low Dose Aspirin) biotin 5 mg tablet 5 mg PO DAILY 11/28/20 calcium carbonate-vitamin D3 500 2 cap PO BID 11/28/20 mg (1,250 mg)-50 unit capsule cyanocobalamin (vitamin B-12) 1,000 mcg PO DAILY 11/28/20 1,000 mcg capsule efwoesvi-admyfzom-erus 45 mg-folic 1 cap PO DAILY 11/28/20 acid 800 mcg-vit K 120 mcg capsule (Bariatric Multivitamins) atorvastatin 20 mg tablet 20 mg PO QPM #90 tabs 12/19/22 losartan 100 mg tablet 100 mg PO DAILY #90 tabs 12/19/22 metformin 1,000 mg tablet 1,000 mg PO BID #180 tab-caps 12/19/22 paroxetine HCl 40 mg tablet 40 mg PO DAILY #90 tab-caps 12/19/22 triamcinolone acetonide 0.1 % 1 applic topical BID #80 grams 12/19/22 topical cream empagliflozin 25 mg tablet 25 mg PO QAM #90 tabs 01/28/23 (Jardiance) glyburide 5 mg tablet 5 mg PO DAILY #90 tabs 01/28/23 Current Visit Medications: Current Medications Generic Name Dose Route Start Last Admin Trade Name Freq PRN Reason Stop Dose Admin Ringer's Solution 1,000 mls @ 30 mls/hr 06/14/23 06:00 IV 06/14/23 16:00 INFUSION ABEL Cefazolin Sodium/Dextrose 2 gm in 50 mls @ 100 mls/hr 06/14/23 06:00 Ancef Duplex IVPB 06/14/23 23:59 PREOP [facility] IV Miscellaneous Supplies 1 each 06/14/23 06:00 Iv Access IV 06/14/23 23:59 DIRECTED ABEL Sodium Chloride 0 ml 06/14/23 06:00 Normal Saline Flush 10 Ml Syr IV 06/14/23 23:59 PRN PRN Sodium Chloride 0 ml 06/14/23 06:00 Normal Saline 10 Ml Vial IJ 06/14/23 23:59 DIRECTED PRN Sterile Water 0 ml 06/14/23 06:00 Water,Injection,Sterile 10 Ml Vial IJ 06/14/23 23:59 DIRECTED PRN PFSH Active Problems Active Problems: Problem Status Onset Code Right rotator cuff tear M75.101 Closed fracture of right proximal humerus 01/25/23 S42.201A Right shoulder strain S46.911A Encounter for screening colonoscopy Z12.11 BMI 35.0-35.9,adult Z68.35 Grief counseling Z71.89 Annual physical exam Z00.00 ALONSO (nonalcoholic steatohepatitis) Toe pain, left M79.675 Type II diabetes mellitus, uncontrolled E11.65 Sleep apnea 03/31/18 G47.30 Irritable colon 09/16/12 K58.9 Hyperlipidemia E78.5 Essential hypertension 10/02/13 I10 Depressive disorder 12/20/09 F32.9 Medical History Medical History BMI 40.0-44.9, adult (08/12/17) She is lined up for bariatric surgery. I am in favor of this. I believe that she has met all of the criteria to pursue this. I will continue to follow her. She has seen Elie and has gained significant amount of help with her diet he is a resident psych pecan mallow dipper. He is under my instruction. I have very much in favor of her speaking with Elie our resident pharmacist I believe he does a great job with nutrition education he is under my oversight Carpal tunnel syndrome moderate right wrist., s/p surgery Carpal tunnel syndrome Cholelithiasis without obstruction (12/20/09) Dysfunctional uterine bleeding s/p hysterectomy 12/04 Dysfunctional uterine bleeding Fatigue 01/05/13 Fatigue (01/05/13) Liver function test abnormality 03/18/13 Liver function test abnormality (03/18/13) Surgical History Surgical History section 1983 1990 Cholecystectomy (~1983) H/O section 1983;1990 History of section Hysterectomy, Laproscopic (~2007) Open Carpal Tunnel release S/P carpal tunnel release S/P cholecystectomy 11/25/83 S/P laparoscopic hysterectomy 11/25/07 Status post carpal tunnel release Status post cholecystectomy Status post laparoscopic hysterectomy Tobacco Smoking/Tobacco Use Status: Never Passive smoking exposure: Yes Second hand exposure: Yes Alcohol Alcohol Intake: never Substance Use Substance use: Never Substance use type: does not use Vital Signs and Lab Results Vital Signs Comment Vital Signs Comment:: Temp Pulse Resp BP Pulse Ox 36.9 C 57 L 20 145/63 H 95 06/14/23 08:19 06/14/23 08:19 06/14/23 08:19 06/14/23 08:19 06/14/23 08:19 Lab Results Blood Type / Crossmatch: No Data to Display Complete Blood Count: White Blood Count 5.95 10^3/uL (4.4-10.8) 06/14/23 08:00 Red Blood Count 4.42 10^6/uL (3.93-5.22) 06/14/23 08:00 Hemoglobin 12.2 g/dL (11.2-15.7) 06/14/23 08:00 Hematocrit 36.7 % (36.0-46.0) 06/14/23 08:00 Platelet Count 235 10^3/uL (130-400) 06/14/23 08:00 Complete Metabolic Panel: Sodium 144 mmol/L (136-145) 06/14/23 08:00 Potassium 4.1 mmol/L (3.5-5.1) 06/14/23 08:00 Chloride 110 mmol/L (98-107) H 06/14/23 08:00 Carbon Dioxide 24.4 mmol/L (21.0-32.0) 06/14/23 08:00 BUN 20 mg/dL (7-18) H 06/14/23 08:00 Creatinine 0.8 mg/dL (0.55-1.02) 06/14/23 08:00 Est GFR (CKD-EPI 2020) 84.82 (mL/min/1.73m2) 06/14/23 08:00 Magnesium 1.9 mg/dL (1.8-2.4) 06/14/23 08:00 Calcium 8.6 mg/dL (8.5-10.1) 06/14/23 08:00 Albumin 3.6 g/dL (3.4-5.0) 06/14/23 08:00 Glucose 144 mg/dL (74-106) H 06/14/23 08:00 Liver Function Panel: Alanine Aminotransferase (ALT/SGPT) 23 U/L (14-59) 06/14/23 08:00 Aspartate Amino Transf (AST/SGOT) 15 U/L (15-37) 06/14/23 08:00 Coagulation Panel: D-Dimer Pending 06/14/23 08:00 Cardiac Panel: Troponin I < 50 ng/L (<or=60) 06/14/23 NT-Pro-B Natriuret Pep Pending 06/14/23 Arterial Blood Gas: No Data to Display Venous Blood Gas: No Data to Display Pancreas Panel: No Data to Display Thyroid Panel: No Data to Display Infectious Disease: No Data to Display Blood Cultures: No Data to Display Toxicology Panel: No Data to Display Anesthesia Assessment and Plan Anesthesia History Personal History: No History of Anesthesia Complications Family History: No Family History of Anesthesia Complications Exercise Tolerance Exercise Tolerance: Metabolic Equivalents>4 Pertinent Negatives Pertinent Negatives: No Symptoms of GERD Cardiac & Pulmonary Exam Cardiac Exam: Normal S1/S2 Heart Sounds Pulmonary Exam: Clear Bilateral Breath Sounds Implantable Cardiac Device Does patient have a Pacemaker or an ICD?: No Airway Exam Known Difficult Airway: No Mallampati Class: 2 Mouth Opening: Normal (> 3cm) Thyromental Distance: Greater than 3 cm Neck Range of Motion: Full ROM Neck Circumference: Normal Teeth Condition: Normal Dentition ASA Classification ASA Score: ASA 2 Emergency Case?: No NPO Status NPO Status: NPO Clears >2 hours, Solids >8 hours Anesthesia Plan Resuscitation Status: Full Code Anesthesia Technique: General Anesthesia Airway Planned: Endotracheal Tube Pain Management: Surgeon and patient request nerve block Monitors Used: Standard Monitors
[2023-06-14] MEDS: Lactated Ringers 1,000 ML 30 ML IV (06:54)
--- NOTE | 2023-06-14 07:16 | W.PM.DSUDISC ---
Date of service: 06/14/23 Time of Service: 12:00 Discharge Plan Disposition Patient Disposition: Home Condition: Stable Discharge Details Attending Provider: Herve Jo Primary Care Provider: Jaja Mason Home Meds and New Rx's Prescriptions: Continued Jardiance 25 mg tablet 25 mg PO QAM Qty: 90 5RF glyburide 5 mg tablet 5 mg PO DAILY Qty: 90 5RF biotin 5 mg tablet 5 mg PO DAILY cyanocobalamin (vitamin B-12) 1,000 mcg capsule 1,000 mcg PO DAILY Bariatric Multivitamins 45 mg iron- 800 mcg-120 mcg capsule 1 cap PO DAILY calcium carbonate-vitamin D3 500 mg(1,250mg) -50 unit capsule 2 cap PO BID Patient Comments: Each capsule contains 1260mg CA and 26mcg Vitamin D3 atorvastatin 20 mg tablet 20 mg PO QPM Qty: 90 4RF losartan 100 mg tablet 100 mg PO DAILY Qty: 90 4RF metformin 1,000 mg tablet 1,000 mg PO BID Qty: 180 5RF paroxetine HCl 40 mg tablet 40 mg PO DAILY Qty: 90 12RF triamcinolone acetonide 0.1 % cream 1 applic topical BID Qty: 80 0RF Rx Instructions: apply to foot aspirin [Juancarlos Low Dose Aspirin] 81 MG tablet,delayed release (DR/EC) 1 tab PO DAILY Discharge Instructions Instructions: Heart Block (DC) Additional Instructions: Right shoulder surgery postponed due to EKG changes on induction of anesthesia 06/14/2023 Prescriptions: No new, resume home medications including daily aspirin Follow-up: TBD You may take off the leg compression stockings this evening at home. You may also leave them on a few days longer if you have a history of leg swelling or edema. Let us know right away if you develop any chest pain or trouble breathing. Do not drink alcohol or drive for at least 24 hours after anesthesia. Please call the office during business hours with any questions or concerns. Referrals: Jaja Mason MD, [place] [Primary Care Provider] - (Surgery canceled, abnormal EKG 06/14/23) Karen Garcia MD [ [facility] STAFF PHYSICIAN] - (Surgery canceled, abnormal EKG 06/14/23) Discharge Orders Discharge Orders: Discharge Order (Routine); Ordered 06/14/23 Ordered By: Herve Jo DS: Diagnosis Discharge Diagnosis (1) Closed fracture of right proximal humerus: Status: Acute (2) Right rotator cuff tear: Status: Acute (3) Abnormal EKG: Status: Acute
--- NOTE | 2023-06-14 07:21 | W.PM.OP ---
Date of service: 06/14/23 Time of Service: 07:30 Operative Note Operative Note DATE OF PROCEDURE: 06/14/23 PRE-OP DIAGNOSIS: Right: 1. Proximal humerus fracture Rotator cuff tear 2. LHB tendinopathy 3. Bursitis 4. Impingement POST-OP DIAGNOSIS: same PROCEDURE: Right: 1. Rotator cuff repair, CPT# 33820. This involved repair of the [subscapularis and] supraspinatus using anchors and sutures to reattach the rotator cuff back to the footprint of the [lesser and] greater tuberosity. 2. Arthroscopic biceps tenodesis, CPT# 03209. This involved arthroscopically suturing and reattaching the long head of the biceps tendon to the proximal humerus at the superior margin of the bicipital groove with a screw at the correct tension. 3. Extensive debridement, CPT# 09413. This involved using arthroscopic hand instruments, power instruments, and radiofrequency instruments to release the long head of the biceps tendon and debride areas of labral tearing, synovitis[, and chondromalacia about the biceps groove] within the glenohumeral joint anteriorly, superiorly and posteriorly. 4. Subacromial decompression with partial acromioplasty, CPT# 34433. This involved using arthroscopic power instruments and a radiofrequency wand to complete a bursectomy and smooth the undersurface of the acromion. The music library assistant was medically required in order to help assist in techniques above, which require positioning the arm, holding the arthroscope, and manipulating multiple instruments and sutures at the same time. This cannot be done without the help of an experienced music library assistant. SURGEON: Herve Jo CONTINUITY DIRECTOR: Charlotte Jackson ANESTHESIA TYPE: General LMA/ETT and Primary Nerve Block Refer to Anesthesia Record ESTIMATED BLOOD LOSS: 10 PATHOLOGY: none sent COMPLICATIONS: None Patient was transported to: PACU Patient's condition: stable Implants: Arthrex: 4.75mm SwiveLocks x [ ] and [Unicortical Proximal Biceps Tenodesis Button] Indications: The patient was diagnosed with the above conditions and appropriately indicated for surgical intervention. Please see complete medical record for details. Findings: Exam under anesthesia: [] Glenohumeral joint: [] Subacromial space: [] Procedure Description: In the operating room, general anesthesia was induced. Bilateral shoulders were examined. The patient was positioned in the beachchair position. All bony prominences were well-padded. Preoperative antibiotics were administered. The shoulder was prepped and draped in the usual sterile fashion. The correct patient, procedure, and side of the procedure were all verified prior to incision. Starting through the posterior portal a standard complete diagnostic arthroscopy was performed of the glenohumeral joint including inspection of the long head of the biceps, anterior and superior labrum, subscapularis tendon, supraspinatus and infraspinatus tendons, and axillary recess. The glenoid and humeral head cartilage as well as the posterior labrum were inspected from an anterior viewing portal. Significant findings and interventions noted above. [The biceps tendon was released from the superior labrum using arthroscopic scissors]. [Insert subscap repair] [Insert arthroscopic biceps tenodesis] [Insert subacromial decompression] [Insert supraspinatus repair] The shoulder was drained of arthroscopic fluid. All portal sites were copiously irrigated. These incisions were closed using 3-0 Monocryl in a buried fashion and then covered with Mastisol, Steri-Strips, Xeroform, dry gauze, and ABDs. The dressings were covered and secured with Medipore tape. The operative extremity was placed into a sling for immobilization. The patient awoke from anesthesia without complication and was transferred to the recovery room in a stable condition.
--- NOTE | 2023-06-14 07:45 | RT.EKG_ITS ---
APPROVED REPORT Exam: Resting ECG Reason for Exam: EKG change Patient Location: O HR:67 bpm ECG Measurements Heart Rate 67 AXIS MS 233 P 24 QRSd 146 QRS -9 QT 488 T 113 QTc 517 Conclusion Sinus rhythm...normal P axis, V-rate 60- 99 Prolonged MS interval...MS >210, V-rate 50- 90 Left bundle branch block...QRSd>120, broad/notched R ST elevation secondary to IVCD...Multiple VCG criteria
[2023-06-14 08:09] LABS: Abs Immature Grans 0.01 10^3/uL (0.0-0.06); Absolute Basophil Count 0.03 10^3/uL (0.0-0.2); Absolute Eosinophil Count 0.19 10^3/uL (0.0-0.7); Absolute Lymphocyte Count 2.62 10^3/uL (1.2-3.4); Absolute Monocyte Count 0.36 10^3/uL (0.1-0.8); Absolute Neutrophil Count 2.74 10^3/uL (1.2-6.7); Basophils % 0.5; Eosinophils % 3.2; HCT 36.7 % (36.0-46.0); HGB 12.2 g/dL (11.2-15.7); Immature Grans % 0.2; MCH 27.6 pg (27.0-33.0); MCHC 33.2 % (32.0-36.0); MCV 83 fL (80-95); MPV 10.7 fL (8.0-11.0); Monocytes % 6.1; Platelet Count 235 10^3/uL (130-400); RBC 4.42 10^6/uL (3.93-5.22); RDW 13.2 % (11.7-14.6); RDW-SD 39.8 fL; WBC 5.95 10^3/uL (4.4-10.8)
--- NOTE | 2023-06-14 08:13 | DI.RAD_ITS ---
Exam(s) XR PORTABLE CHEST AP EXAM: XR PORTABLE CHEST AP CLINICAL HISTORY: EKG change TECHNIQUE: 2D digital imaging was performed. COMPARISON: CR,XR XR HUMERUS RT from 01/26/2023 CR XR SHOULDER RT COMPLETE 2+V from 05/01/2023 FINDINGS: LUNGS: Hospital Sales Representative some linear densities at the right lower mildly increased streaky densities in the left perihilar region. The findings could represent scarring. Infiltrates not entirely excluded. Lung field. No pleural abnormality seen. HEART: Enlarged. AORTA: Normal diameter. BONES: Degenerative changes in the spine. Soft tissues: Unremarkable. IMPRESSION: Streaky densities could represent scarring versus infiltrates. Clinical correlation recommended. DATA REPOSITORY: RADIATION DOSE DELIVERED:
[2023-06-14 08:25] LABS: ALT 23 U/L (14-59); AST 15 U/L (15-37); Albumin 3.6 g/dL (3.4-5.0); Alkaline Phosphatase 91 U/L (46-116); Anion Gap 9.6 mmol/L (3-11); BUN 20 mg/dL (7-18); Bilirubin, Total 0.8 mg/dL (0.2-1.0); CO2 24.4 mmol/L (21.0-32.0); CREATININE 0.8 mg/dL (0.55-1.02); Calcium 8.6 mg/dL (8.5-10.1); Chloride 110 mmol/L (98-107); Estimated GFR 84.82 (mL/min/1.73m2); Glucose 144 mg/dL (74-106); Magnesium 1.9 mg/dL (1.8-2.4); Potassium 4.1 mmol/L (3.5-5.1); Sodium 144 mmol/L (136-145); Total Protein 6.4 g/dL (6.4-8.2); Troponin I < 50 ng/L (<or=60)
--- NOTE | 2023-06-14 08:28 | W.ANESNERVE ---
Nerve Block Single Injection Procedure Date and Time Date Performed: 06/14/23 Procedure Start: 07:13 Location Where Procedure Performed Procedure Location: Day Surgery Unit Reason Performed: Postoperative Analgesia Requesting Provider: Herve Jo Timeout Performed Timeout Performed: Yes Monitoring Used ECG, Blood Pressure and SpO2 Sterility Sterility: Hand Hygiene, Surgical Cap, Surgical Mask, Sterile Gloves and Chlorhexidine Sedation Given During Procedure Sedation Given (Indicate Dose Given): Versed IV Dose:: 2 mg Patient Mental Status Patient Mental Status: Sedate with meaningful communication Nerve Block 1st Nerve Block: Laterality: Right Block Type: Interscalene Ultrasound Image Saved?: Yes Needle / Catheter Used: 100mm SonoPlex II Local Anesthetic Bolus (Indicate Dose Given): Lidocaine used for local infiltration of skin, Injected in 3-5ml increments after negative blood aspiration, Bupivacaine 0.5% Dose:: 10 ml and Exparel Dose:: 10 ml Additives (Indicate Dose Given): Normal Saline Ultrasound: Sterile probe cover and gel used Nerve Stimulator: Supplement to Ultrasound use and No twitch or parasthesia noted < 0.5 mA Paresthesia: None Post Procedure Pain score (0-10): 0 Procedure Tolerated: No Complications and Patient tolerated well Procedure Outcome: Successful Performed By: Fernando Fierro
[2023-06-14 08:32] LABS: NT-proBNP 92 pg/mL (<300)
[2023-06-14 08:40] LABS: D-Dimer 407 ng/mlFEU (<500)
--- NOTE | 2023-06-14 11:00 | RT.EKG_ITS ---
APPROVED REPORT Exam: Resting ECG Reason for Exam: trend Patient Location: O HR:72 bpm ECG Measurements Heart Rate 72 AXIS ND 242 P 44 QRSd 146 QRS -18 QT 456 T 86 QTc 500 Conclusion Sinus rhythm...normal P axis, V-rate 60- 99 Prolonged ND interval...ND >210, V-rate 50- 90 Left bundle branch block...QRSd>120, broad/notched R ST elevation secondary to IVCD...Multiple VCG criteria
[2023-06-14 11:23] LABS: Troponin I < 50 ng/L (<or=60)
--- NOTE | 2023-06-14 11:29 | ANES_ITS ---
Date of service: 06/14/23 Time of Service: 11:29 Anesthesia Note Report Anesthesia Note: Patient with EKG changes post induction this morning. Has now had serial troponins and EKGs. Newly diagnosed BBB and troponins negative Per discussion with the team and through the team Dr. Garcia with cardiology, the plan is to postpone this patients elective surgery. The next step is for a postoperative office visit by cardiology for evaluation prior to being reschedul ed here. Discussed care today with patient, answered all questions, patient being moved to DSU and is appropriate.
--- NOTE | 2023-06-14 11:51 | W.ANESPOSTOP ---
Postoperative Evaluation Date, Time and Location Date Performed: 06/14/23 Time Performed: 11:51 Patient Location: Day Surgery Unit Vital Signs Most Recent Imported Vital Signs: Most Recent Vital Signs Temp Pulse Resp BP Pulse Ox 36.7 C 75 21 148/71 H 93 06/14/23 11:30 06/14/23 11:30 06/14/23 11:30 06/14/23 11:30 06/14/23 11:30 Pain Score Most Recent Pain Score: Most Recent Pain Score Pain Level 0 06/14/23 07:10 Assessment Mental Status: Awake (Alert & Oriented to Patient Baseline) Airway and Respiratory Function: Patent airway with normal (patient baseline) respiratory exam Cardiovascular Function: Hemodynamically Stable Hydration Status: Adequately Hydrated Nausea & Vomiting: No Nausea or Vomiting Pain: Pt. Denies Any Pain Peripheral Nerve Block: Regional nerve block not resolved at time of post operative discharge Teaching Patient Teaching: Advised to seek followup for the following concerns (See explanation) Concerns: Other (Patient needs to follow up with Cardiology: newly diagnosed LBBB, ST depression in OR, abnormal EKG. )
== END 2023-06-14 13:10 | disposition home or self-care (01) ==
PROVIDERS: PCP Family Medicine; Visit Provider Student in an Organized Health Care Education/Training Program
PROC: (CPT 29827; principal; 2023-06-14 07:30)
DX: S42.201A Unspecified fracture of upper end of right humerus, initial encounter for closed fracture (principal); M75.101 Unspecified rotator cuff tear or rupture of right shoulder, not specified as traumatic; R94.31 Abnormal electrocardiogram [ECG] [EKG]; X58.XXXA Exposure to other specified factors, initial encounter; Z53.09 Procedure and treatment not carried out because of other contraindication
CPT/HCPCS: 29822; 36415; 76942; 80053; 71045; 83735; 83880; 84484; 85025; 85379; 93005; 93010; J1100; J2001; J2250; J2371; J2405; J2704

== ENCOUNTER 2023-06-17 08:47 | Outpatient (CLI) | payer OTHER, SELFPAY ==
--- NOTE | 2023-06-17 08:45 | RT.EKG_ITS ---
APPROVED REPORT Exam: Resting ECG Reason for Exam: ST changes noted on EKG Patient Location: O HR:84 bpm ECG Measurements Heart Rate 84 AXIS MO 206 P 0 QRSd 154 QRS -13 QT 432 T 125 QTc 511 Conclusion Sinus rhythm...normal P axis, V-rate 50- 99 Borderline prolonged MO interval...MO >202, V-rate 50- 90 Left bundle branch block...QRSd>120, broad/notched R Baseline wander in lead(s) V1
== END 2023-06-17 08:48 | disposition home or self-care (01) ==
LOC: DI.CARD 08:48
PROVIDERS: PCP Family Medicine; Visit Provider Internal Medicine Cardiovascular Disease
DX: R94.31 Abnormal electrocardiogram [ECG] [EKG] (principal)
CPT/HCPCS: 93010

== ENCOUNTER 2023-06-25 00:01 | Outpatient (CLI) | payer OTHER, SELFPAY ==
--- NOTE | 2023-06-25 07:30 | DI.NM_ITS ---
APPROVED REPORT Exam: Pharmacologic Patient Location: Out-Patient Room/Bed: Stress Nurse: Yumiko Long RN Ordering Provider:SANCHEZ FREGOSO, Contact Number: [phone] BMI: 36.30 Baseline Rhythm: Sinus Rhythm, LBBB Comment: 1st degree AV block Indications: Preop, LBBB Medical History Medical History: LBBB, DMII, ALONSO, sleep apnea, HTN, HLD, depression Cardiac Medications: Losartan, empagliflozin, atorvastatin, aspirin Allergies: Kiwi, lisinopril Cardiac Risk Factors: Family hx, HTN, HLD, diabetes, obesity Previous Cardiac Procedures: None Pretest Chest Pain Characteristics: None Exercise History: Indeterminate Physical Disabilities: None Lung Sounds: Clear to auscultation Heart Sounds: Regular Stress Test Details Test: Pharmacologic stress was paired with low level exercise. Reason for pharmacologic stress test: LBBB. Nuclear Acquisition: Rest Tc-99m/Stress Tc-99m 1 day Rest Isotope: Tc-99m Sestamibi. Dose: 10.0 Date: 06/25/2023 Injection Time: 0850 Stress Isotope: Tc-99m Sestamibi. Dose: 31.0 Date: 06/25/2023 Injection Time: 1022 HR Resting HR Supine: 58 bpm Max Heart Rate (APMHR): 161.179753 bpm Resting HR Standin bpm Target HR (85% APMHR): 136.392793 bpm Max HR Achieved: 81 bpm % of APMHR: 50.31 Recovery HR: 59 bpm BP Resting BP Supine: 148/84 mmHg Resting BP Standin/86 mmHg Max BP: 160/72 mmHg Recovery BP: 146/82 mmHg ECG Resting ECG: Sinus Rhythm, LBBB, 1st degree AV block Ectopy: None Stress ECG: Sinus Rhythm, LBBB, 1st degree AV block ST Change: Nondiagnostic low heart rate Arrhythmia: None Recovery ECG: Sinus Bradycardia, Sinus Rhythm, LBBB, 1st degree AV block Recovery ST Change: Nondiagnostic low heart rate Recovery Arrhythmia: None Clinical Stress Symptoms: None Angina Score: None Rate Pressure Product: [id number] Stress ECG Conclusion 1. Resting electrocardiogram showed a left bundle branch block 2. Patient underwent testing using a combination of low-level exercise and pharmacologic stress with regadenoson 3. The electrocardiographic portion of the test was nondiagnostic due to inadequate heart rate and LB BB 4. See MPI report Stress Test Summary STAGE HR BP SpO2 Symptoms NOTES Supine 58 148/84 96 Standing 63 140/86 96 1 min post Lexiscan injection 63 160/72 98 3 min post Lexiscan injection 62 148/82 94 6 min post Lexiscan injection 59 146/82 95 MPI Conclusion Myocardial perfusion is normal. There is no ischemia or evidence of prior infarction Ejection fraction is 67% with normal wall motion Radiologist Interpretation Radiologist agrees with Escalator Installer's Interpretation. Radiologist Interpretation by: Sherrill Sanchez MD Interpretation Date/Time: 06/25/2023 16:46:02
[2023-06-25] MEDS: Regadenoson 0.4 MG/5 ML SYR IVP (10:36)
== END 2023-06-25 00:21 ==
PROVIDERS: PCP Family Medicine; Visit Provider Internal Medicine Cardiovascular Disease
DX: I44.7 Left bundle-branch block, unspecified (principal)
CPT/HCPCS: 78452; 93017; J2785

== ENCOUNTER 2023-07-11 06:19 | Day surgery (SDC) | payer OTHER, SELFPAY ==
[2023-07-11] VITALS (11 sets, daily range): BP systolic 118–146; BP diastolic 50–74; PULSE 61–76; RESP 13–21; TEMP 36.4–36.7; O2SAT 92–97; BMI 36.6
[2023-07-11] MEDS: Lactated Ringers 1,000 ML 30 ML IV (07:00)
--- NOTE | 2023-07-11 07:01 | ANES.PREOP_ITS ---
General Info Date of Service Date Performed: 07/11/23 Height: 5 ft 3 in Weight: 93.8 kg Body Mass Index (BMI): 36.6 Surgical Procedure: Operation Date: 07/11/23 07:40 Proposed Procedure Side Surgeon p Shoulder Rotator Cuff Arthroscopic w/Extensive Debridement, possible Biceps Tenodesis, Subacromial Decompression, possible Allograft Capsular Reconstruction Right Herve Jo MD Meds Allergies and Home Medications Allergies Allergy/AdvReac Type Severity Reaction Status Date / Time kiwi Allergy Severe Anaphylaxis Verified 07/11/23 06:32 lisinopril AdvReac Intermediate COUGH Verified 07/11/23 06:32 Home Medication Medication Instructions Recorded aspirin 81 mg tablet,delayed 1 tab PO DAILY 03/10/13 release (Juancarlos Low Dose Aspirin) biotin 5 mg tablet 5 mg PO DAILY 11/28/20 calcium carbonate-vitamin D3 500 2 cap PO BID 11/28/20 mg (1,250 mg)-50 unit capsule cyanocobalamin (vitamin B-12) 1,000 mcg PO DAILY 11/28/20 1,000 mcg capsule tnszqokj-lhiqehnx-bzrw 45 mg-folic 1 cap PO DAILY 11/28/20 acid 800 mcg-vit K 120 mcg capsule (Bariatric Multivitamins) atorvastatin 20 mg tablet 20 mg PO QPM #90 tabs 12/19/22 losartan 100 mg tablet 100 mg PO DAILY #90 tabs 12/19/22 metformin 1,000 mg tablet 1,000 mg PO BID #180 tab-caps 12/19/22 paroxetine HCl 40 mg tablet 40 mg PO DAILY #90 tab-caps 12/19/22 triamcinolone acetonide 0.1 % 1 applic topical BID #80 grams 12/19/22 topical cream empagliflozin 25 mg tablet 25 mg PO QAM #90 tabs 01/28/23 (Jardiance) glyburide 5 mg tablet 5 mg PO DAILY #90 tabs 01/28/23 Current Visit Medications: Current Medications Generic Name Dose Route Start Last Admin Trade Name Freq PRN Reason Stop Dose Admin Ringer's Solution 1,000 mls @ 30 mls/hr 07/11/23 06:00 IV 08/09/23 23:59 INFUSION ABEL Cefazolin Sodium/Dextrose 2 gm in 50 mls @ 100 mls/hr 07/11/23 06:00 Ancef Duplex IVPB 07/11/23 16:00 PREOP ABEL IV Miscellaneous Supplies 1 each 07/11/23 06:00 Iv Access IV 08/09/23 23:59 DIRECTED ABEL Sodium Chloride 0 ml 07/11/23 06:00 Normal Saline Flush 10 Ml Syr IV 08/09/23 23:59 PRN PRN Sodium Chloride 0 ml 07/11/23 06:00 Normal Saline 10 Ml Vial IJ 08/09/23 23:59 DIRECTED PRN Sterile Water 0 ml 07/11/23 06:00 Water,Injection,Sterile 10 Ml Vial IJ 08/09/23 23:59 DIRECTED PRN PFSH Active Problems Active Problems: Problem Status Onset Code LBBB (left bundle branch block) I44.7 Abnormal EKG R94.31 Right rotator cuff tear M75.101 Closed fracture of right proximal humerus 01/25/23 S42.201A Right shoulder strain S46.911A Encounter for screening colonoscopy Z12.11 BMI 35.0-35.9,adult Z68.35 Grief counseling Z71.89 Annual physical exam Z00.00 ALONSO (nonalcoholic steatohepatitis) Toe pain, left M79.675 Type II diabetes mellitus, uncontrolled E11.65 Sleep apnea 03/31/18 G47.30 Irritable colon 09/16/12 K58.9 Hyperlipidemia E78.5 Essential hypertension 10/02/13 I10 Depressive disorder 12/20/09 F32.9 Medical History Medical History BMI 40.0-44.9, adult (08/12/17) She is lined up for bariatric surgery. I am in favor of this. I believe that she has met all of the criteria to pursue this. I will continue to follow her. She has seen Elie and has gained significant amount of help with her diet he is a resident psych final inspector truck trailer. He is under my instruction. I have very much in favor of her speaking with Elie our resident pharmacist I believe he does a great job with nutrition education he is under my oversight Carpal tunnel syndrome moderate right wrist., s/p surgery Carpal tunnel syndrome Cholelithiasis without obstruction (12/20/09) Dysfunctional uterine bleeding s/p hysterectomy 12/04 Dysfunctional uterine bleeding Fatigue 01/05/13 Fatigue (01/05/13) Liver function test abnormality 03/18/13 Liver function test abnormality (03/18/13) Surgical History Surgical History section 1983 1990 Cholecystectomy (~1983) H/O section 1983;1990 History of section Hysterectomy, Laproscopic (~2007) Open Carpal Tunnel release S/P carpal tunnel release S/P cholecystectomy 11/25/83 S/P laparoscopic hysterectomy 11/25/07 Status post carpal tunnel release Status post cholecystectomy Status post laparoscopic hysterectomy Tobacco Smoking/Tobacco Use Status: Never Passive smoking exposure: Yes Second hand exposure: Yes Alcohol Alcohol Intake: never Substance Use Substance use: Never Substance use type: does not use Vital Signs and Lab Results Vital Signs Most Recent Vital Signs in EMR: Most Recent Vital Signs Temp Pulse Resp BP Pulse Ox 36.4 C L 66 16 143/66 H 97 07/11/23 06:36 07/11/23 06:36 07/11/23 06:36 07/11/23 06:36 07/11/23 06:36 Lab Results Blood Type / Crossmatch: No Data to Display Complete Blood Count: White Blood Count 5.95 10^3/uL (4.4-10.8) 06/14/23 08:00 Red Blood Count 4.42 10^6/uL (3.93-5.22) 06/14/23 08:00 Hemoglobin 12.2 g/dL (11.2-15.7) 06/14/23 08:00 Hematocrit 36.7 % (36.0-46.0) 06/14/23 08:00 Platelet Count 235 10^3/uL (130-400) 06/14/23 08:00 Complete Metabolic Panel: Sodium 144 mmol/L (136-145) 06/14/23 08:00 Potassium 4.1 mmol/L (3.5-5.1) 06/14/23 08:00 Chloride 110 mmol/L (98-107) H 06/14/23 08:00 Carbon Dioxide 24.4 mmol/L (21.0-32.0) 06/14/23 08:00 BUN 20 mg/dL (7-18) H 06/14/23 08:00 Creatinine 0.8 mg/dL (0.55-1.02) 06/14/23 08:00 Est GFR (CKD-EPI 2020) 84.82 (mL/min/1.73m2) 06/14/23 08:00 Magnesium 1.9 mg/dL (1.8-2.4) 06/14/23 08:00 Calcium 8.6 mg/dL (8.5-10.1) 06/14/23 08:00 Albumin 3.6 g/dL (3.4-5.0) 06/14/23 08:00 Glucose 144 mg/dL (74-106) H 06/14/23 08:00 Liver Function Panel: Alanine Aminotransferase (ALT/SGPT) 23 U/L (14-59) 06/14/23 08: 00 Aspartate Amino Transf (AST/SGOT) 15 U/L (15-37) 06/14/23 08:00 Coagulation Panel: D-Dimer 407 ng/mlFEU (<500) 06/14/23 08:00 Cardiac Panel: Troponin I < 50 ng/L (<or=60) 06/14/23 NT-Pro-B Natriuret Pep 92 pg/mL (<300) 06/14/23 Arterial Blood Gas: No Data to Display Venous Blood Gas: No Data to Display Pancreas Panel: No Data to Display Thyroid Panel: No Data to Display Infectious Disease: No Data to Display Blood Cultures: No Data to Display Toxicology Panel: No Data to Display Imaging and Studies Imaging and Studies Study information below may be from another EMR and interpreted by another provider. Please see original notes in EMR for more complete details. EKG Summary: 06/17/23: Exam: Resting ECG Reason for Exam: ST changes noted on EKG Patient Location: O HR:84 bpm ECG Measurements Heart Rate 84 AXIS TX 206 P 0 QRSd 154 QRS -13 QT 432 T125 QTc 511 Conclusion Sinus rhythm...normal P axis, V-rate 50- 99 Borderline prolonged TX interval...TX >202, V-rate 50- 90 Left bundle branch block...QRSd>120, broad/notched R Baseline wander in lead(s) V1 Stress Test Summary: 06/25/2023: MPI Conclusion Myocardial perfusion is normal. There is no ischemia or evidence of prior infarction Ejection fraction is 67% with normal wall motion Anesthesia Assessment and Plan Anesthesia History Personal History: No History of Anesthesia Complications Family History: No Family History of Anesthesia Complications Exercise Tolerance Exercise Tolerance: Metabolic Equivalents>4 Pertinent Negatives Pertinent Negatives: No Symptoms of GERD, No Major Cardiovascular Symptoms or Complaints and No Major Pulmonary Symptoms or Complaints Cardiac & Pulmonary Exam Cardiac Exam: Normal S1/S2 Heart Sounds Pulmonary Exam: Clear Bilateral Breath Sounds Implantable Cardiac Device Does patient have a Pacemaker or an ICD?: No Airway Exam Known Difficult Airway: No Mallampati Class: 2 Mouth Opening: Normal (> 3cm) Thyromental Distance: Greater than 3 cm Neck Range of Motion: Full ROM Neck Circumference: Normal Teeth Condition: Normal Dentition ASA Classification ASA Score: ASA 3 Emergency Case?: No NPO Status NPO Status: NPO Clears >2 hours, Solids >8 hours Anesthesia Plan Resuscitation Status: Full Code Anesthesia Technique: General Anesthesia Airway Planned: Endotracheal Tube Pain Management: Surgeon and patient request nerve block Monitors Used: Standard Monitors
--- NOTE | 2023-07-11 07:10 | W.PM.DSUDISC ---
Date of service: 07/11/23 Time of Service: 11:00 Discharge Plan Disposition Patient Disposition: Home Condition: Stable Discharge Details Attending Provider: Herve Jo Primary Care Provider: Jaja Mason Home Meds and New Rx's Prescriptions: New naproxen 250 mg tablet 250 - 500 mg PO BID PRNQty: 40 0RF Rx Instructions: take with a meal oxycodone 5 mg tablet 5 - 10 mg PO Q4H MDD 30 mg PRN (Reason: moderate to severe pain) Qty: 18 0RF Continued Jardiance 25 mg tablet 25 mg PO QAM Qty: 90 5RF glyburide 5 mg tablet 5 mg PO DAILY Qty: 90 5RF biotin 5 mg tablet 5 mg PO DAILY cyanocobalamin (vitamin B-12) 1,000 mcg capsule 1,000 mcg PO DAILY Bariatric Multivitamins 45 mg iron- 800 mcg-120 mcg capsule 1 cap PO DAILY calcium carbonate-vitamin D3 500 mg(1,250mg) -50 unit capsule 2 cap PO BID Patient Comments: Each capsule contains 1260mg CA and 26mcg Vitamin D3 atorvastatin 20 mg tablet 20 mg PO QPM Qty: 90 4RF losartan 100 mg tablet 100 mg PO DAILY Qty: 90 4RF metformin 1,000 mg tablet 1,000 mg PO BID Qty: 180 5RF paroxetine HCl 40 mg tablet 40 mg PO DAILY Qty: 90 12RF triamcinolone acetonide 0.1 % cream 1 applic topical BID Qty: 80 0RF Rx Instructions: apply to foot aspirin [Juancarlos Low Dose Aspirin] 81 MG tablet,delayed release (DR/EC) 1 tab PO DAILY Discharge Instructions Additional Instructions: Surgery: Right shoulder arthroscopy with rotator cuff repair (supraspinatus), biceps tenodesis, extensive debridement, and subacromial decompression. Activity: For 6 weeks, you should keep your arm at your side in a neutral position at all times except for physical therapy. Do not try to lift or raise your arm using your own muscles. You should use the sling whenever you are out of the house. You may have to adjust the abduction pillow or remove it for comfort. At home it is best to remove the sling and rest the arm on a pillow at your side or support the operative side with your other hand. You may allow the arm to dangle at your side. A physical therapy prescription will be sent electronically to begin in about 3 weeks. CONSERVATIVE PROTOCOL. Prescriptions: Resume daily aspirin 81 mg tomorrow morning Naproxen 250 mg take 1-2 every 12 hours with a meal as needed for moderate pain Oxycodone 5 mg take 1-2 every 4-6 hours as needed for severe pain You may use phqb-xga-nplaecx Tylenol (acetaminophen) as needed for mild pain. These pain medications may be taken all at once or in different combinations as needed. Also, recommend Colace (docusate) as a stool softener as surgery and pain medicine cause constipation. You may try gzxg-vog-hdbgdai diphenhydramine (Benadryl) 25-50 mg nightly as a sleep aid Dressings: Remove shoulder bandage after 3 days. Leave the sticky Steri-Strips in place until they fall off or remove them after you shower. Cover the incisions with Band-Aids or leave them open to air. You may shower after 5 days. Follow-up: 10-[address] Jo You may take off the leg compression stockings this evening at home. You may also leave them on a few days longer if you have a history of leg swelling or edema. Let us know right away if you develop any redness, drainage, fevers, chest pain, or trouble breathing. Do not drink alcohol or drive for at least 24 hours after anesthesia. Please call the office during business hours with any questions or concerns. Discharge Orders Discharge Orders: Discharge Order (Routine); Ordered 07/11/23 Ordered By: Herve Jo DS: Diagnosis Discharge Diagnosis (1) Right rotator cuff tear: Status: Acute (2) Closed fracture of right proximal humerus: Status: Acute
--- NOTE | 2023-07-11 07:14 | ROE_ITS ---
Date of service: 07/11/23 Time of Service: 07:30 Operative Note Operative Note DATE OF PROCEDURE: 07/11/23 PRE-OP DIAGNOSIS: Right: 1. Rotator cuff tear 2. Proximal humerus healing fracture 3. LHB tendinopathy/partial tearing 4. Bursitis POST-OP DIAGNOSIS: same PROCEDURE: Right: 1. Rotator cuff repair, CPT# 96041. This involved repair of the supraspinatus using anchors and sutures to reattach the rotator cuff back to the footprint of the greater tuberosity. 2. Arthroscopic biceps tenodesis, CPT# 28194. This involved arthroscopically suturing and reattaching the long head of the biceps tendon to the proximal humerus at the superior margin of the bicipital groove with a screw at the correct tension. 3. Extensive debridement, CPT# 22239. This involved using arthroscopic hand in struments, power instruments, and radiofrequency instruments to release the long head of the biceps tendon and debride areas of SLAP tearing, rotator interval synovitis, and chondromalacia about the central humeral head within the glenohumeral joint anteriorly, superiorly and posteriorly. 4. Subacromial decompression with partial acromioplasty, CPT# 15682. This involved using arthroscopic power instruments and a radiofrequency wand to complete a bursectomy and abrade the undersurface of the acromion. The medical library assistant was medically required in order to help assist in techniques above, which require positioning the arm, holding the arthroscope, and manipulating multiple instruments and sutures at the same time. This cannot be done without the help of an experienced medical library assistant. SURGEON: Herve Jo SUPERINTENDENT FISH HATCHERY: Dio Gordon ANESTHESIA TYPE: Local By Surgeon, General LMA/ETT and Primary Nerve Block Refer to Anesthesia Record ESTIMATED BLOOD LOSS: 10 PATHOLOGY: none sent COMPLICATIONS: None Patient was transported to: PACU Patient's condition: stable Implants: Arthrex: 5.5mm SwiveLocks x 1 Indications: The patient was diagnosed with the above conditions and appropriately indicated for surgical intervention. Please see complete medical record for details. Findings: Exam under anesthesia: Full range of motion, no instability Glenohumeral joint: Significant rotator interval synovitis, injected inflamed intra-articular biceps tendon with moderate grade partial tearing at the superior aspect of the bicipital groove. Inflamed unstable biceps anchor SLAP tear. Obvious full-thickness supraspinatus moderately retracted rotator cuff tear. Intact subscapularis. Intact infraspinatus. Mild chondromalacia posterior to central humeral head. Subacromial space: Moderate bursitis. Mild impinging anterior lateral acromion on bursal rotator cuff. Full-thickness moderately retracted supraspinatus with thin poor quality tissue over chronic fibrinous changes greater tuberosity. Rotator cuff tear zone without evidence of involvement in the fracture. Very soft bone likely from chronic tear detachment from footprint. Procedure Description: In the operating room, general anesthesia was induced. Bilateral shoulders were examined. The patient was positioned in the beachchair position. All bony prominences were well-padded. Preoperative antibiotics were administered. The shoulder was prepped and draped in the usual sterile fashion. The correct patient, procedure, and side of the procedure were all verified prior to incision. Starting through the posterior portal a standard complete diagnostic arthroscopy was performed of the glenohumeral joint including inspection of the long head of the biceps, anterior and superior labrum, subscapularis tendon, supraspinatus and infraspinatus tendons, and axillary recess. The glenoid and humeral head cartilage as well as the posterior labrum were inspected from a superior anterior lateral viewing portal. Significant findings and interventions noted above. The Liv was inserted through superior anterolateral portal, which was used instead of the usual anterior portal working through the full-thickness rotator cuff tear. An all-arthroscopic suprapectoral biceps tenodesis was performed through an anterior portal using a Loop N Tack method with a SutureTape FiberLink cinched around and through the tendon. Given the partial tendon tearing, the suture tape was then passed around the tendon again before back through it to add additional fixation. The biceps tendon was tenotomized from the superior labrum through the posterior portal. It was withdrawn with direct arm pressure to the superior aspect of the bicipital groove and the repair suture protected at the superior anterolateral portal for combined repair with the rotator cuff fixation to minimize bone holes in the soft tenuous bone of proximal humerus. Starting through the posterior portal, the arthroscope was directed into the rapp bacromial space. A lateral 50 yard line lateral portal was created. A combination of power instruments and a radiofrequency ablator were used to debride bursitis anteriorly, posteriorly, and laterally as well as expose and smooth bone impingement on the undersurface of the acromion. The coracoacromial ligament was minimally released. The bursectomy was completed viewing laterally and working from posteriorly and the rotator cuff was thoroughly inspected with findings noted above. The rotator cuff tear was thoroughly inspected. There was significantly thin tendon, which was lightly debrided to a more appropriate tissue margin. It was mobilized from medial with actually quite good excursion from medial to lateral over the footprint. The greater tuberosity was thoroughly prepared removing chronic fibrinous tissue and abrading the bone to optimize bone and tendon healing. The bone quality was quite soft and poor as expected given the probable chronic tear in addition to the recent proximal humerus fracture. Tear had a U shape. A suture tape was then placed medially between the anterior and posterior aspects of the tear secured together using SMC arthroscopic knot zippering the tear together and creating more of a crescent configuration. Typically multiple anchors might have been considered if the bones were not so poor with concerns of bone holes for multiple anchors leading to convalescence in a crater so a single large anchor was decided to be the best construct in this case for this medium sized full-thickness supraspinatus tear. A FiberTape was placed inverted horizontal mattress spanning the remaining of the tear anterior posteriorly just lateral to the [id number] repair stitch. An additional suture tape FiberLink in cinch mode was placed at the anterior and posterior margins. All 4 of these repair suture tails were brought out laterally. There was good tendon reduction over the prepared greater tuberosity footprint. The biceps tenodesis repair suture was likewise withdrawn out laterally, slight tension placed to bring the biceps appropriately at the superior aspect of the bicipital groove, and this repair suture marked in a different color. The undersized punch was used with an appropriate man's angle off the lateral margin of the footprint to optimize trajectory and bone quality. The punch as expected had a significantly soft bone. The larger of the oversized suture anchors was selected 5.5 mm and loaded with all the repair sutures. The anchor eyelet was placed provisionally in the punch hole all sutures were individually tensioned to the right amount with the biceps tendon suture left with the biceps resting at the predetermined position. The anchor was successfully deployed with maintained tension on all the repair sutures. The anchor eyelet did not demonstrate any motion on shoulder and rotator cuff testing as well as direct probing. There was however impaction and compression bone loss where all the repair sutures were draped over the medial aspect of the anchor eyelet and over the lateral aspect of the tuberosity from direct pressure from the repair sutures over the soft bone. Again the repair was thoroughly inspected no motion at the suture anchor or at the repair. Suture tails were cut. It was deemed appropriate, although certainly more tenuous, but not unexpected. Conservative rehab protocol will be done. Lastly after the rotator cuff repair the undersurface acromion was more thoroughly abraded as bone marrow stimulation for healing. The shoulder was drained of arthroscopic fluid. All portal sites were copiously irrigated. These incisions were closed using 3-0 Monocryl in a buried fashion and then covered with Mastisol, Steri-Strips, Xeroform, dry gauze, and ABDs. The dressings were covered and secured with Medipore tape. The operative extremity was placed into a sling for immobilization. The patient awoke from anesthesia without complication and was transferred to the recovery room in a stable condition.
[2023-07-11] MEDS: ceFAZolin 2 GM/50 ML BAG IVPB (07:56)
--- NOTE | 2023-07-11 08:18 | W.ANESNERVE ---
Nerve Block Single Injection Procedure Date and Time Date Performed: 07/11/23 Procedure Start: 07:18 Location Where Procedure Performed Procedure Location: Day Surgery Unit Reason Performed: Postoperative Analgesia Requesting Provider: Herve Jo Timeout Performed Timeout Performed: Yes Monitoring Used ECG, Blood Pressure, SpO2 and See EMR for corresponding vital signs Sterility Sterility: Hand Hygiene, Surgical Cap, Surgical Mask, Sterile Gloves and Chlorhexidine Sedation Given During Procedure Sedation Given (Indicate Dose Given): Versed IV Dose:: 2mg and Other: (Zofran) Medication/Route/Dose:: Zofran/IV/8mg Patient Mental Status Patient Mental Status: Sedate with meaningful communication Nerve Block 1st Nerve Block: Laterality: Right Block Type: Interscalene (Low Interscalene Nerve Block) Ultrasound Image Saved?: Yes Needle / Catheter Used: 80mm SonoPlex II Local Anesthetic Bolus (Indicate Dose Given): Lidocaine used for local infiltration of skin, Injected in 3-5ml increments after negative blood aspiration, Bupivacaine 0.5% Dose:: 15mL and Exparel Dose:: 10mL Additives (Indicate Dose Given): None Ultrasound: Sterile probe cover and gel used Nerve Stimulator: Not Used Paresthesia: None Procedure Tolerated: No Complications Procedure Outcome: Successful Performed By: Miracle Lyle
[2023-07-11] MEDS: Bupivacaine 0.5% Pres-Free W/EPI 30 ML VIAL (09:32)
[2023-07-11] MEDS: ePHEDrine 25 MG/5 ML Syringe IVP (09:33)
--- NOTE | 2023-07-11 10:43 | W.ANESPOSTOP ---
Postoperative Evaluation Date, Time and Location Date Performed: 07/11/23 Time Performed: 10:43 Patient Location: Day Surgery Unit Vital Signs Most Recent Imported Vital Signs: Most Recent Vital Signs Temp Pulse Resp BP Pulse Ox 36.6 C 64 19 133/71 93 07/11/23 10:35 07/11/23 10:35 07/11/23 10:35 07/11/23 10:35 07/11/23 10:35 Pain Score Most Recent Pain Score: Most Recent Pain Score Pain Level 0 07/11/23 10:35 Assessment Mental Status: Awake (Alert & Oriented to Patient Baseline) Airway and Respiratory Function: Patent airway with normal (patient baseline) respiratory exam Cardiovascular Function: Hemodynamically Stable Hydration Status: Adequately Hydrated Nausea & Vomiting: No Nausea or Vomiting Pain: Pain is tolerable per patient (4/10 anterior portion) Peripheral Nerve Block: Regional nerve block not resolved at time of post operative discharge
== END 2023-07-11 11:49 | disposition home or self-care (01) ==
PROVIDERS: PCP Family Medicine; Visit Provider Student in an Organized Health Care Education/Training Program
PROC: (CPT 29827; principal; 2023-07-11 07:30)
DX: M75.101 Unspecified rotator cuff tear or rupture of right shoulder, not specified as traumatic (principal); M75.21 Bicipital tendinitis, right shoulder; S42.291D Other displaced fracture of upper end of right humerus, subsequent encounter for fracture with routine healing; X58.XXXD Exposure to other specified factors, subsequent encounter; M75.51 Bursitis of right shoulder; M65.811 Other synovitis and tenosynovitis, right shoulder; M94.211 Chondromalacia, right shoulder
CPT/HCPCS: 29827; 29828; 29823; 29826; 76942; J0131; J0690; J1100; J1885; J2001; J2250; J2371; J2405; J2704; J3010

== ENCOUNTER → 2023-08-12 03:09 | Outpatient (CLI) | payer OTHER, SELFPAY ==
--- NOTE | 2023-08-12 08:45 | DI.DEXA_ITS ---
Exam(s) XR DEXA BONE DENSITY W/WO FELICITA EXAM: XR DEXA BONE DENSITY W/WO FELICITA CLINICAL HISTORY: SCREENING FOR OSTEOPOROSIS IN POSTMENOPAUSAL WOMAN,Z78.0 TECHNIQUE: COMPARISON: No exams were available for comparison FINDINGS: Lateral Spine Image: Unremarkable. No compression deformities identified. Left hip: Total T-Score: -1.2 Total Z-Score: -0.3 T- and Z-scores: Findings are consistent with osteopenia. Lumbar Spine: Total T-Score: -2.6 Total Z-Score: -1.2 T- and Z-scores: Findings are consistent with osteoporosis. IMPRESSION: Osteoporosis in the lumbar spine.
== END ==
PROVIDERS: PCP Family Medicine; Visit Provider Family Medicine
DX: Z78.0 Asymptomatic menopausal state (principal); Z13.820 Encounter for screening for osteoporosis; M81.0 Age-related osteoporosis without current pathological fracture
CPT/HCPCS: 77080

== ENCOUNTER 2023-10-15 02:51 | Outpatient (RCR) | payer OTHER, SELFPAY ==
[2023-10-15] MEDS: Denosumab 60 MG/ML SYR SC (13:17)
== END 2023-10-24 23:59 | disposition home or self-care (01) ==
LOC: INF 02:51
PROVIDERS: PCP Family Medicine; Visit Provider Family Medicine
DX: M81.0 Age-related osteoporosis without current pathological fracture (principal)
CPT/HCPCS: 96372; J0897

== ENCOUNTER 2023-11-22 15:51 | Emergency (ER) | payer OTHER, SELFPAY ==
[2023-11-22 15:54] VITALS: BP 174/73; PULSE 64; RESP 18; TEMP 36.4; O2SAT 97
--- NOTE | 2023-11-22 16:28 | DI.RAD_ITS ---
Exam(s) XR HAND LT COMPLETE EXAM: XR HAND LT COMPLETE CLINICAL HISTORY: blunt trauma. TECHNIQUE: 2D digital imaging was performed. Three views. COMPARISON: No exams were available for comparison FINDINGS: BONES: No acute fracture is present. No bony destructive lesion is seen. JOINTS: No dislocation present. SOFT TISSUE: Soft tissue swelling over the metacarpals. IMPRESSION: Soft tissue swelling. No evidence of fracture. DATA REPOSITORY: RADIATION DOSE DELIVERED:
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
[2023-11-22 17:11] VITALS: BP 174/73; PULSE 64; RESP 18; TEMP 36.4; O2SAT 97
== END 2023-11-22 17:12 | disposition home or self-care (01) ==
PROVIDERS: Emergency Provider Nurse Practitioner Family; PCP Family Medicine
DX: S60.222A Contusion of left hand, initial encounter (principal); W50.1XXA Accidental kick by another person, initial encounter
CPT/HCPCS: 99283; 73130

== ENCOUNTER 2024-02-06 03:06 | Outpatient (CLI) | payer OTHER, SELFPAY ==
[2024-02-06 12:31] LABS: Hemoglobin A1C 7.8 % (<5.7)
[2024-02-06 12:38] LABS: ALT 30 U/L (14-59); AST 19 U/L (15-37); Albumin 4.1 g/dL (3.4-5.0); Alkaline Phosphatase 51 U/L (46-116); Anion Gap 10.7 mmol/L (3-11); BUN 17 mg/dL (7-18); Bilirubin, Total 1.2 mg/dL (0.2-1.0); CO2 27.3 mmol/L (21.0-32.0); CREATININE 0.8 mg/dL (0.55-1.02); Calculated LDL 57 mg/dL (<100); Chloride 106 mmol/L (98-107); Cholesterol 131 mg/dL (<200); Estimated GFR 84.82 (mL/min/1.73m2); Glucose 163 mg/dL (74-106); HDL Cholesterol 49 mg/dL (40-60); Sodium 144 mmol/L (136-145); Total Protein 7.3 g/dL (6.4-8.2); Triglyceride 126 mg/dL (<150)
[2024-02-06 12:42] LABS: COMMENT (LAB VIEW ONLY) 97.99 mg/dL; Microalb ug/mg Crea 6.6 ug/mg Cr
== END 2024-02-06 03:07 | disposition home or self-care (01) ==
LOC: LOS 03:06
PROVIDERS: PCP Family Medicine; Visit Provider Family Medicine
DX: E11.9 Type 2 diabetes mellitus without complications (principal); Z00.00 Encounter for general adult medical examination without abnormal findings; I10 Essential (primary) hypertension
CPT/HCPCS: 36415; 80053; 80061; 82043; 82570; 83036

== ENCOUNTER 2024-04-21 01:13 | Outpatient (RCR) | payer OTHER, SELFPAY ==
[2024-04-21] MEDS: Denosumab 60 MG/ML SYR SC (13:13)
== END 2024-04-24 23:59 | disposition home or self-care (01) ==
LOC: INF 01:13
PROVIDERS: PCP Family Medicine; Visit Provider Family Medicine
DX: M81.0 Age-related osteoporosis without current pathological fracture (principal)
CPT/HCPCS: 96372; J0897

== ENCOUNTER → 2024-05-18 02:05 | Outpatient (CLI) | payer OTHER, SELFPAY ==
--- NOTE | 2024-05-18 07:30 | DI.MAMMO_ITS ---
Exam(s) MAMMO SCREENING EXAM: MAMMO SCREENING CLINICAL HISTORY: SCREENING Z12.39 TECHNIQUE: Bilateral full field digital CC and MLO mammographic images were obtained with 3D tomosyn thesis and utilizing computer aided detection (CAD). COMPARISON: Available for comparison. FINDINGS: Masses/Architectural Distortion: None seen. Microcalcifications: No suspicious pleomorphic-type are seen. Skin Thickening/Nipple Retraction: None. IMPRESSION: 1. No significant interval change with no specific features of malignancy noted. 2. Unless there is more urgent need, screening mammography is recommended, as per [employer] guidelines. BI-RADS Category 1 - Negative Breast Density - Category B - Scattered areas of fibroglandular density Breast density category C or D implies that the patient has dense breast tissue. Dense breast tissue is very common and is not abnormal but dense breast tissue can make it harder to find cancer on a ma mmogram. Also, dense breast tissue may increase their breast cancer risk. This information about the result of the mammogram report was provided to the patient to raise their awareness. Use this report when you speak with the patient about their risks for breast cancer, which includes their family hist ory. At that time, you may recommend for more screening tests (Ultrasound or MRI) as they might be us eful based on their risk. A negative radiographic report should not delay biopsy if a dominant or clinically suspicious mass is present. Up to ten percent of cancers are not identified on mammography. A negative report may reinforce clinical impression. Adenosis and dense breasts may obscure an underlying neoplasm. False positive reports average 6 to 10%. Patient will receive a letter notifying them of these results.
== END ==
PROVIDERS: PCP Family Medicine; Visit Provider Family Medicine
DX: Z12.31 Encounter for screening mammogram for malignant neoplasm of breast (principal)
CPT/HCPCS: 77063; 77067

== ENCOUNTER 2024-10-30 01:05 | Outpatient (CLI) | payer OTHER, SELFPAY ==
[2024-10-30 13:36] LABS: ALT 30 U/L (14-59); AST 17 U/L (15-37); Albumin 4.4 g/dL (3.4-5.0); Alkaline Phosphatase 70 U/L (46-116); Anion Gap 15.5 mmol/L (3-11); BUN 17 mg/dL (7-18); Bilirubin, Total 0.97 mg/dL (0.2-1.0); CO2 24.5 mmol/L (21.0-32.0); CREATININE 0.8 mg/dL (0.55-1.02); Calcium 9.7 mg/dL (8.5-10.1); Chloride 107 mmol/L (98-107); Glucose 91 mg/dL (74-106); Potassium 3.8 mmol/L (3.5-5.1); Sodium 147 mmol/L (136-145); Total Protein 7.6 g/dL (6.4-8.2)
[2024-10-30 14:04] LABS: Hemoglobin A1C 9.3 % (<5.7)
== END 2024-10-30 01:06 | disposition home or self-care (01) ==
PROVIDERS: PCP Family Medicine; Visit Provider Family Medicine
DX: E11.9 Type 2 diabetes mellitus without complications (principal); I10 Essential (primary) hypertension
CPT/HCPCS: 36415; 80053; 83036

== ENCOUNTER 2024-11-03 01:45 | Outpatient (RCR) | payer OTHER, SELFPAY ==
[2024-11-03] MEDS: Denosumab 60 MG/ML SYR SC (12:34)
== END 2024-11-24 23:59 | disposition home or self-care (01) ==
LOC: INF 01:45
PROVIDERS: PCP Family Medicine; Visit Provider Family Medicine
DX: M81.0 Age-related osteoporosis without current pathological fracture (principal)
CPT/HCPCS: 96372; J0897

== ENCOUNTER 2025-03-10 02:14 | Outpatient (CLI) | payer OTHER, SELFPAY ==
[2025-03-10 07:59] LABS: Hemoglobin A1C 6.9 % (<5.7)
[2025-03-10 08:29] LABS: COMMENT (LAB VIEW ONLY) 113.53 mg/dL; Microalb ug/mg Crea 6.3 ug/mg Cr
[2025-03-10 08:30] LABS: ALT 32 U/L (14-59); AST 18 U/L (15-37); Alkaline Phosphatase 58 U/L (46-116); Anion Gap 11.6 mmol/L (3-11); BUN 16 mg/dL (7-18); Bilirubin, Total 0.9 mg/dL (0.2-1.0); CO2 27.4 mmol/L (21.0-32.0); CREATININE 0.8 mg/dL (0.55-1.02); Calcium 9.3 mg/dL (8.5-10.1); Calculated LDL 46 mg/dL (<100); Chloride 104 mmol/L (98-107); Cholesterol 116 mg/dL (<200); Glucose 146 mg/dL (74-106); HDL Cholesterol 48 mg/dL (>or=50); Potassium 4.2 mmol/L (3.5-5.1); Sodium 143 mmol/L (136-145); Total Protein 7.4 g/dL (6.4-8.2); Triglyceride 114 mg/dL (<150)
== END 2025-03-10 02:15 | disposition home or self-care (01) ==
PROVIDERS: PCP Family Medicine; Visit Provider Family Medicine
DX: I10 Essential (primary) hypertension (principal); E11.9 Type 2 diabetes mellitus without complications
CPT/HCPCS: 36415; 80053; 80061; 82043; 82570; 83036

== ENCOUNTER 2025-05-11 03:29 | Outpatient (CLI) | payer OTHER, SELFPAY ==
[2025-05-12 10:09] LABS: Hepatitis C Ab w Rflx HCV PCR Negative (Negative)
== END 2025-05-11 03:30 | disposition home or self-care (01) ==
LOC: LBO 03:29
PROVIDERS: PCP Family Medicine; Visit Provider Family Medicine
DX: Z11.59 Encounter for screening for other viral diseases (principal)
CPT/HCPCS: 36415; 86803

== ENCOUNTER 2025-05-12 02:49 | Outpatient (RCR) | payer OTHER, SELFPAY ==
[2025-05-12] MEDS: Denosumab 60 MG/ML SYR SC (12:47)
== END 2025-05-24 23:59 | disposition home or self-care (01) ==
LOC: INF 02:49
PROVIDERS: PCP Family Medicine; Visit Provider Family Medicine
DX: M81.0 Age-related osteoporosis without current pathological fracture (principal)
CPT/HCPCS: 96372; J0897

== ENCOUNTER 2025-11-22 00:39 | Outpatient (RCR) | payer OTHER, SELFPAY ==
[2025-11-22] MEDS: Denosumab 60 MG/ML SYR SC (11:45)
== END 2025-11-24 23:59 | disposition home or self-care (01) ==
LOC: INF 00:39
PROVIDERS: PCP Family Medicine; Visit Provider Family Medicine
DX: M81.0 Age-related osteoporosis without current pathological fracture (principal)
CPT/HCPCS: 96372; J0897